=== PATIENT | female | born 1945 | race Caucasian/White ===

== ENCOUNTER 2016-07-27 16:00 | Inpatient (IN) | payer MEDICARE, OTHER ==
[2016-07-27] MEDS ORDERED: NORMAL SALINE 1000 ML 1,000 ML IV ONE (16:13)
[2016-07-27 16:41] LABS: ABSOLUTE EOSINOPHILS # (AUTO) 0.1 10^3/uL (0.0-0.6); ABSOLUTE LYMPHOCYTES (AUTO) 1.8 10^3/uL (0.5-4.7); ABSOLUTE MONOCYTES (AUTO) 1.5 10^3/uL (0.1-1.4); ABSOLUTE NEUT (AUTO) 6.1 10^3/uL (1.7-8.2); BASOPHILS % (AUTO) 0.4 % (0-2); EOSINOPHILS % (AUTO) 1.2 % (0-6); HEMATOCRIT 33.5 % (36.0-47.0); HGB HCT DIFFERENCE -0.5; LYMPHOCYTES % (AUTO) 18.8 % (13-45); MEAN CORPUSCULAR HEMOGLOBIN 31.2 pg (27.0-33.4); MEAN CORPUSCULAR HGB CONC 32.9 g/dL (32.0-36.0); MEAN CORPUSCULAR VOLUME 95 fl (80-97); MONOCYTES % (AUTO) 15.8 % (3-13); RED BLOOD COUNT 3.53 10^6/uL (3.72-5.28); RED CELL DISTRIBUTION WIDTH 14.4 % (11.5-14.0); SEGMENTED NEUTROPHILS % (AUTO) 63.8 % (42-78); WHITE BLOOD COUNT 9.6 10^3/uL (4.0-10.5)
[2016-07-27 16:57] LABS: ANION GAP 15 (5-19); BLOOD UREA NITROGEN 50 mg/dL (7-20); CALCIUM 11.4 mg/dL (8.4-10.2); CARBON DIOXIDE 28 mmol/L (22-30); CHLORIDE 96 mmol/L (98-107); CREATININE RESULT 1.96 mg/dL (0.52-1.25); GLUCOSE 152 mg/dL (75-110); LIPASE 78.8 U/L (23-300); POTASSIUM 4.5 mmol/L (3.6-5.0); SODIUM 139.3 mmol/L (137-145)
[2016-07-27 17:06] LABS: APPEARANCE,URINE CLOUDY; BILIRUBIN,URINE NEGATIVE (NEGATIVE); GLUCOSE, URINE NEGATIVE (NEGATIVE); KETONES,URINE NEGATIVE (NEGATIVE); LEUKOCYTE ESTERASE,URINE LARGE (NEGATIVE); NITRITE,URINE NEGATIVE (NEGATIVE); PROTEIN,URINE 30 mg/dL (NEGATIVE); URINE SPECIFIC GRAVITY 1.013; UROBILINOGEN,URINE NEGATIVE mg/dL (<2.0)
[2016-07-27 17:09] LABS: CREATINE KINASE MB 1.16 ng/mL (<4.55)
[2016-07-27 17:10] LABS: TROPONIN I < 0.012 ng/mL
--- NOTE | 2016-07-27 17:45 | ER Document Report ---
ED General - General Mode of Arrival: Medic Information source: Patient, Emergency Med Personnel TRAVEL OUTSIDE OF THE [place] IN LAST 30 DAYS: No - HPI Patient complains to provider of: Abdominal and Back Pain Onset: Just prior to arrival Associated symptoms: Other - see above <ANN POWELL - Last Filed: 07/27/16 19:22> <PIERRE STREETER - Last Filed: 07/28/16 00:28> - General Chief Complaint: Low Blood Pressure Stated Complaint: CHEST PAIN,URINARY ISSUES Notes: 71 year old female with history of dementia, Parkinson's, diabetes, hyperlipidemia, GERD, COPD, and anemia presents to the ED via EMS from [facility] after the nurses found the patient diaphoretic with a blood pressure of 70/50. In route to the ED, EMS recorded a pressure of 80/50 and 96/ 71. ED nurse states that the patient has been complaining of chest pain, shortness of breath, difficulty urinating, and back pain. Patient states that she was playing bingo when she began to having epigastric abdominal pain. Patient's primary care provider is Dr. Muhammad. A comprehensive HPI was unobtainable secondary to the patient's status. (ANN POWELL) - Related Data Allergies/Adverse Reactions: chlorpromazine HCl [From Thorazine] Allergy (Unknown, Verified 07/27/16 16:58) lithium [[place]] Allergy (Unknown, Verified 07/27/16 16:58) Home Medications: Current Home Medications Acetaminophen [Tylenol Extra Strength 500 mg Tablet] 1,000 mg PO Q8HP PRN [History] Alprazolam [Xanax 0.25 mg Tablet] 0.25 mg PO Q12 07/27/16 [History] Calcium Carbonate/Vitamin D3 [Calcium 500-Vit D3 200 Tablet] 1 tab PO Q12 [History] Ciclopirox [Penlac] 1 applic TOP QHS 07/27/16 [History] Ciclopirox/Ure/Camph/Menth/Euc [Ciclopirox 8% Treatment Kit] 34.6 ml TOP DAILY 07/27/16 [History] Cyanocobalamin (Vitamin B-12) [Vitamin B-12 1000 mcg Tablet] 1,000 mcg PO DAILY 07/27/16 [History] Divalproex Sodium [Divalproex Sodium ER] 250 mg PO Q8 07/27/16 [History] Folic Acid [Folvite 1 mg Tablet] 1 mg PO DAILY 07/27/16 [History] Insulin Aspart [Novolog Insulin (Aspart) 100 unit/mL] 0 units SQ ASDIR PRN 07/27 [History] Levothyroxine Sodium [Synthroid 0.088 mg Tablet] 0.088 mcg PO DAILY 07/27/16 [ History] Linagliptin [Tradjenta] 5 mg PO DAILY 07/27/16 [History] Lisinopril [Prinivil 10 mg Tablet] 10 mg PO DAILY 07/27/16 [History] Loperamide HCl [Imodium A-D] 2 mg PO Q4HP PRN 07/27/16 [History] Metformin HCl [Glucophage] 1,000 mg PO Q12 07/27/16 [History] Olanzapine [Zyprexa] 20 mg PO QHS 07/27/16 [History] Oxcarbazepine [Trileptal 150 mg Tablet] 150 mg PO Q8 07/27/16 [History] Oxybutynin Chloride [Ditropan Xl] 10 mg PO DAILY 07/27/16 [History] Quetiapine Fumarate [Seroquel 25 mg Tablet] 25 mg PO QAM 07/27/16 [History] Quetiapine Fumarate [Seroquel] 75 mg PO QHS 07/27/16 [History] Sennosides/Docusate 8.6-50 mg [Senna Plus Tablet] 1 each PO DAILY 07/27/16 [ History] Thiamine HCl [Thiamine 100 mg Tablet] 100 mg PO DAILY 07/27/16 [History] Tramadol HCl [Ultram 50 mg Tablet] 50 mg PO Q12HP PRN 07/27/16 [History] Past Medical History - General Information source: Patient - Social History Smoking Status: Unknown if Ever Smoked Family History: Reviewed & Not Pertinent, Other - Unknown - Past Medical History Cardiac Medical History: Reports: Hx Hypercholesterolemia, Hx Hypertension Pulmonary Medical History: Reports: Hx Asthma, Hx COPD, Hx Pneumonia Neurological Medical History: Reports: Hx Seizures Endocrine Medical History: Reports: Hx Diabetes Mellitus Type 2, Hx Hypothyroidism GI Medical History: Reports: Hx Gastroesophageal Reflux Disease Psychiatric Medical History: Reports: Hx Bipolar Disorder, Hx Dementia, Hx Depression, Hx Schizophrenia, Other - Parkinson's Past Surgical History: Reports: Hx Tubal Ligation - Immunizations Immunizations up to date: Yes Hx Diphtheria, Pertussis, Tetanus Vaccination: Yes Hx Pneumococcal Vaccination: 04/10/14 <ANN POWELL - Last Filed: 07/27/16 19:22> Review of Systems - Review of Systems Constitutional: See HPI, Diaphoresis EENT: No symptoms reported Cardiovascular: See HPI, Chest pain, Other - low blood pressure Respiratory: See HPI, Short of breath Gastrointestinal: No symptoms reported Genitourinary: See HPI, Dysuria Female Genitourinary: No symptoms reported Musculoskeletal: See HPI, Back pain Skin: No symptoms reported Hematologic/Lymphatic: No symptoms reported Neurological/Psychological: No symptoms reported -: Yes All other systems reviewed and negative <ANN POWELL - Last Filed: 07/27/16 19:22> Physical Exam - Vital signs Interpretation: Hypotensive, Tachycardic - General General appearance: Alert In distress: None - HEENT Head: Normocephalic, Atraumatic Eyes: Normal Conjunctiva: Other - pale. No: Normal Extraocular movements intact: Yes Pupils: PERRL Mucous membranes: Moist - Respiratory Respiratory status: No respiratory distress Breath sounds: Normal - Cardiovascular Rhythm: Regular, Tachycardia Pulses: Normal: Femoral, Popliteal, Posterior tibial, Dorsalis pedis Normal capillary refill: Yes - Abdominal Inspection: Obese. No: Normal Distension: No distension Tenderness: Nontender, Other - no abdominal masses. No: Guarding, Rebound - Back Back: Normal, Nontender - Extremities General upper extremity: Normal inspection, Normal ROM General lower extremity: Normal inspection, Normal ROM - Neurological Neuro grossly intact: Yes Cognition: Normal Orientation: AAOx4 - patient is AOx4 when asked basic questions, but is confused when probed for answers. Parlin Coma Scale Eye Opening: Spontaneous [place] Coma Scale Verbal: Oriented [place] Coma Scale Motor: Obeys Commands [place] Coma Scale Total: 15 Speech: Normal - Psychological Associated symptoms: Other - Patient is demented - Skin Skin Temperature: Warm Skin Moisture: Dry Skin Color: Pale <ANN POWELL - Last Filed: 07/27/16 19:22> Course - Laboratory Result Diagrams: 07/27/16 16:20 07/27/16 16:20 - Consults Dr. Ojebuoboh Time consulted: 18:23 <ANN POWELL - Last Filed: 07/27/16 19:22> - Laboratory Result Diagrams: 07/27/16 16:20 07/27/16 16:20 <PIERRE STREETER - Last Filed: 07/28/16 00:28> - Re-evaluation Re-evalutation: 07/27/16 18:26 I personally performed the services described in the documentation, reviewed and edited the documentation which was dictated to my scribe in my presence, and it accurately records my words and actions. She presents the emergency department from the halfway with a chief complaint of difficulty urinating "reproducible chest pain and low blood pressure upon EMS arrival blood pressure of 80/50 with heart rate of 108 report from the halfway that her urine has smelled foul lately and they're concerned she may have a urinary tract infection. On ED arrival the patient is awake alert with a GCS of 15 but has tears when he tried to ask her detailed questions. Her main complaint here is that she wants to go home. She denies any current pain chest pain or shortness of breath when you ask her detailed questions she is unable to tell you whether she has any chest pain or shortness of breath Thing she told me where she had a little bit discomfort earlier and points to her epigastric region but vehemently denies any chest pain or shortness of breath. On examination her blood pressures improved. She is slightly tachycardic sinus tachycardia on the monitor. She is guaiac-negative from below. She has a white count of 9.6 renal insufficiency at 50 and 1.96 with a lactic acid of 2.5 positive for urinary tract infection. She ordered Rocephin and IV fluids. Reassessed at the bedside after speaking with Dr. Allred obtaining except and she is awake alert no current complaints blood pressure 105 /66, heart rate of 94, respiratory rate of 25. Nurse asking for lotion for primary care to her vaginal area. Cellulitis crepitus or necrosis (PIERRE STREETER) - Vital Signs Vital signs: Temp Pulse Resp BP Pulse Ox 97.3 F 87 17 106/67 100 07/27/16 22:10 07/27/16 22:16 07/27/16 22:10 07/27/16 22:10 07/27/16 22:10 (ANN POWELL) (PIERRE STREETER) - Laboratory Laboratory results interpreted by me: 07/27/16 07/27/16 07/27/16 16:20 16:20 16:46 RBC 3.53 L Hgb 11.0 L Hct 33.5 L RDW 14.4 H Monocytes % 15.8 H Absolute Monocytes 1.5 H Chloride 96 L BUN 50 H Creatinine 1.96 H Est GFR ( Amer) 30 L Est GFR (Non-Af Amer) 25 L Glucose 152 H Lactic Acid Calcium 11.4 H Urine Protein 30 H Ur Leukocyte Esterase LARGE H 07/27/16 17:10 RBC Hgb Hct RDW Monocytes % Absolute Monocytes Chloride BUN Creatinine Est GFR ( Amer) Est GFR (Non-Af Amer) Glucose Lactic Acid 2.5 H Calcium Urine Protein Ur Leukocyte Esterase (ANN POWELL) (PIERRE STREETER) - EKG Interpretation by Me Additional EKG results interpreted by me: 07/27/16 18:31 EKG interpreted by myself to reveal a sinus tachycardia at [address] segment elevation or depression (PIERRE STREETER) - Consults Dr. Muhammad Reason for consultation: 07/27/16 18:23 Dr. Muhammad was called and has accepted the patient. (ANN POWELL) Discharge <ANN POWELL - Last Filed: 07/27/16 19:22> - Discharge Admitting Provider: Jb Unit Admitted: Telemetry <PIERRE STREETER - Last Filed: 07/28/16 00:28> - Discharge Clinical Impression: SIRS (systemic inflammatory response syndrome), hypotension resolved UTI (urinary tract infection) Qualifiers: Urinary tract infection type: acute cystitis Hematuria presence: without hematuria Qualified Code(s): N30.00 - Acute cystitis without hematuria Condition: Stable Disposition: ADMITTED INPATIENT Scribe Documentation - Scribe Written by Mela:: Mela Gregory, 07/27/2016, 19:21 acting as scribe for :: Tahir <ANN POWELL - Last Filed: 07/27/16 19:22>
[2016-07-27] MEDS ORDERED: CEFTRIAXONE INJ 1000 MG VIAL IV ONE (18:21)
[2016-07-27] MEDS ORDERED: NORMAL SALINE 1000 ML 1,000 ML IV PRN (19:37)
[2016-07-27] MEDS ORDERED: ERTAPENEM SODIUM 1 GM in NORMAL SALINE 50 ML IV SCH (19:45)
[2016-07-27] MEDS ORDERED: ERTAPENEM SODIUM 0.5 GM in NORMAL SALINE 50 ML IV SCH (22:00)
[2016-07-27] MEDS: NORMAL SALINE 1000 ML 1,000 ML IV PRN (22:05)
[2016-07-27] MEDS: ERTAPENEM SODIUM 0.5 GM in NORMAL SALINE 50 ML IV SCH (22:06)
[2016-07-27 22:30] LABS: PROTHROMBIN TIME 14.1 SEC (11.4-15.4)
[2016-07-27 22:43] LABS: LIPASE 139.9 U/L (23-300); MAGNESIUM 2.1 mg/dL (1.6-2.3); PHOSPHORUS 4.9 mg/dL (2.5-4.5)
[2016-07-27 22:55] LABS: CREATINE KINASE MB 1.23 ng/mL (<4.55)
[2016-07-27 22:56] LABS: TROPONIN I < 0.012 ng/mL
--- NOTE | 2016-07-27 22:57 | EKG REPORT ---
SEVERITY:- ABNORMAL ECG - SINUS TACHYCARDIA PROBABLE INFERIOR INFARCT, OLD : Confirmed by: Vinay Galloway 27-Jul-2016 22:56:47
[2016-07-28 00:01] LABS: THYROID STIMULATING HORMONE 1.73 uIU/mL (0.47-4.68)
[2016-07-28 04:46] LABS: ABSOLUTE EOSINOPHILS # (AUTO) 0.3 10^3/uL (0.0-0.6); ABSOLUTE LYMPHOCYTES (AUTO) 2.3 10^3/uL (0.5-4.7); ABSOLUTE MONOCYTES (AUTO) 1.7 10^3/uL (0.1-1.4); ABSOLUTE NEUT (AUTO) 4.3 10^3/uL (1.7-8.2); BASOPHILS % (AUTO) 0.3 % (0-2); EOSINOPHILS % (AUTO) 3.6 % (0-6); HEMATOCRIT 29.7 % (36.0-47.0); HEMOGLOBIN 9.9 g/dL (12.0-15.5); LYMPHOCYTES % (AUTO) 26.4 % (13-45); MEAN CORPUSCULAR HGB CONC 33.5 g/dL (32.0-36.0); MEAN CORPUSCULAR VOLUME 95 fl (80-97); MONOCYTES % (AUTO) 19.8 % (3-13); RED BLOOD COUNT 3.11 10^6/uL (3.72-5.28); RED CELL DISTRIBUTION WIDTH 14.1 % (11.5-14.0); SEGMENTED NEUTROPHILS % (AUTO) 49.9 % (42-78); WHITE BLOOD COUNT 8.5 10^3/uL (4.0-10.5)
[2016-07-28 05:33] LABS: ALANINE AMINOTRANSFERASE 28 U/L (9-52); ALBUMIN 3.3 g/dL (3.5-5.0); ALKALINE PHOSPHATASE 51 U/L (38-126); ANION GAP 10 (5-19); ASPARTATE AMINO TRANSFERASE 23 U/L (14-36); BILIRUBIN,TOTAL 0.3 mg/dL (0.2-1.3); BLOOD UREA NITROGEN 45 mg/dL (7-20); CALCIUM 10.2 mg/dL (8.4-10.2); CARBON DIOXIDE 27 mmol/L (22-30); CHLORIDE 102 mmol/L (98-107); CHOLESTEROL 186.18 mg/dL (0-200); CREATININE RESULT 1.27 mg/dL (0.52-1.25); Direct HDL 32 mg/dL (>40); GLUCOSE 94 mg/dL (75-110); POTASSIUM 4.7 mmol/L (3.6-5.0); SODIUM 139.2 mmol/L (137-145); TOTAL PROTEIN 6.4 g/dL (6.3-8.2); TRIGLYCERIDES 264 mg/dL (<150)
[2016-07-28 05:44] LABS: DIRECT LDL 112 mg/dL (<100)
[2016-07-28 05:51] LABS: VLDL CHOLESTEROL 52.8 mg/dL (10-31)
[2016-07-28] MEDS ORDERED: TRAMADOL HCL 50 MG TABLET PO PRN (07:41)
[2016-07-28] MEDS ORDERED: DEXTROSE 40% GEL 15 GM TUBE PO PRN ×2 (07:43)
[2016-07-28] MEDS ORDERED: DEXTROSE 50%-WATER 25 GM/50 ML DISP.SYRIN IV PRN ×2 (07:43)
[2016-07-28] MEDS ORDERED: INSULIN LISPRO 100 UNIT/ML 3 ML VIAL SUBCUT PRN (07:43)
[2016-07-28] MEDS ORDERED: GLUCAGON,HUMAN RECOMB 1 MG INJ IM PRN (07:43)
[2016-07-28] MEDS ORDERED: (PENDING PHARMACY ID) (Quetiapine Fumarate [Seroquel] 75 MG) PO SCH (07:45)
[2016-07-28] MEDS ORDERED: VITAMIN D3 PO SCH (07:45)
[2016-07-28] MEDS ORDERED: [UNRECOGNIZED DRUG - OTHER] PO SCH (07:45)
[2016-07-28] MEDS ORDERED: CALCIUM CARBONATE PO SCH (07:45)
[2016-07-28] MEDS ORDERED: (PENDING PHARMACY ID) (Linagliptin [Tradjenta] 5 MG) PO SCH (07:45)
[2016-07-28] MEDS ORDERED: LEVOTHYROXINE SODIUM 0.088 MG TABLET PO SCH (08:00)
[2016-07-28] MEDS ORDERED: ENOXAPARIN SODIUM INJ 30 MG/0.3 ML DISP.SYRIN SUBCUT SCH (08:00)
[2016-07-28] MEDS ORDERED: DIVALPROEX SODIUM 250 MG TAB.SR.24H PO SCH (08:00)
[2016-07-28] MEDS ORDERED: QUETIAPINE FUMARATE 25 MG TABLET PO ONE ×2 (08:45→10:00)
[2016-07-28] MEDS ORDERED: ENOXAPARIN SODIUM INJ 40 MG/0.4 ML DISP.SYRIN SUBCUT ONE (09:00)
[2016-07-28] MEDS ORDERED: METFORMIN HCL 500 MG TABLET PO ONE (10:00)
[2016-07-28] MEDS ORDERED: DIVALPROEX SODIUM 250 MG TAB.SR.24H PO ONE (10:00)
[2016-07-28] MEDS: THIAMINE HCL 100 MG TABLET PO SCH (11:16)
[2016-07-28] MEDS: ALPRAZOLAM 0.25 MG TABLET PO SCH ×2 (11:16→21:17)
[2016-07-28] MEDS: FOLIC ACID 1 MG TABLET PO SCH (11:16)
[2016-07-28] MEDS: CYANOCOBALAMIN (VITAMIN B-12) 1,000 MCG TABLET PO SCH (11:16)
[2016-07-28] MEDS: CALCIUM CARBONATE 250 MG/VITAMIN D3 125 UNIT TABLET PO SCH (11:18)
[2016-07-28] MEDS: LEVOTHYROXINE SODIUM 0.088 MG TABLET PO SCH (11:19)
[2016-07-28] MEDS: LISINOPRIL 10 MG TABLET PO SCH (11:19)
[2016-07-28] MEDS: OXYBUTYNIN CHLORIDE 5 MG TABLET PO SCH ×2 (11:25→21:17)
--- NOTE | 2016-07-28 11:46 | Physician Advisory Note ---
Physician Advisor ProgressNote .: Pursuant to the plan for [facility], I have reviewed the medical record for this patient. Physician Advisor Statement: Possible documentation opportunities if attending agrees: 1. "Acute Kidney Injury likely due to [ATN, Acute cortical necrosis, medullary necrosis, ...] with baseline Cr of 0.6-0.9" 2. Do you think pt had "early sepsis, present on admission, due to GN UTI, despite neg BCs"? - If so, please be sure to specify the supporting evidence that makes you suspect this dx [severe hypotension, tachycardia, tachypnea, & high lactate level are present, but no mention seen so far of fever, leukocytosis, AMS, thrombocytopenia, hyperbilirubinemia, .... Pt doesn't technically meet SIRS criteria as ED note suggests, since high HR & RR alone aren't sufficient without abnormal Temp or WBC.] - Coders, I would not pursue dx sepsis with query later if attending doesn't document he suspected sepsis in this case. As always, if concerned about any unstable VS or abnormal labs, please comment on them & note what doing about them, & please document each day the potential clinical problems you are concerned could occur if pt not kept in hospital for tx at this time. Discussion: 71yo female w/ chronic co-morbidities including HTN, DM-2, COPD, dementia, Parkinson's Dz, anemia, bipolar dep, schizophrenia - presented 07/27 to ED after found at SNF diaphoretic with BP 70/50. EMS found HR 108 w/BP 80/50. (+) "no distress" but unable to give reliable ROS/hx, tachypneic @ times, persistently tachycardic, no fever/leukocytosis but (+)lactate 2.5, (+)U/A, Cr 1.96 with baseline Cr 0.6-0.9. ED gave IVF bolus. Attending ordered IV ertapenem, NS @70, f/u labs for 07/29. Status: UTI/hypotension/tachycardia, given potential for quick improvement sufficient for d/c the next day after IVF & abx, are typically appropriate for Outpt Obs on day of arrival, with reassessment the next day for change to Inpt vs d/c home. However, this pt is elderly with multiple co-morbidities, & was quite hypotensive initially, with doubled Cr level. After 1MN of care in hospital, although her vital signs have improved overall, pt is still tachycardic at 95, tachypneic at 22, & her Creatinine (1.27 now) has not yet returned to baseline. Ur cx is growing GNRs. She is not yet clearly stabilized sufficiently for safe d/c, and as ill as she was clinically on arrival, attending will want to be certain she is d/c'd on an abx to which this particular infecting organism is definitely sensitive, so will need ur cx results - which will not yet be available today. She continues to need IVF & IV abx with close monitoring for clinical worsening . Given her age & chronic hypertension, her blood vessels are likely stiff, and attending may not want to give as fast an IVF rate in this case as he would in a younger pt with fewer chronic co-morbidities, for fear of producing acute pulmonary edema (particularly given pt's tachypnea that is [id number]). Tx in inpatient hospital setting x at least 2MNs = medically reasonable & necessary to protect pt's health, safety, & medical condition. Appropriate for Inpt status. Thanks for your help with documentation accuracy/specificity improvement! Stephenie Jean Baptiste MD [facility] Physician Advisor, Fellow of Hospital Medicine (An aside: "Admit" now means "Inpt" - we "bring in" for Outpt Obs, then decide to "Admit to Inpt" or to d/c.)
[2016-07-28] MEDS ORDERED: ONDANSETRON HCL INJ/PF 4 MG/2 ML SDV ONE (12:18)
[2016-07-28] MEDS: NORMAL SALINE 1000 ML 1,000 ML IV PRN (12:21)
[2016-07-28] MEDS: OXCARBAZEPINE 150 MG TABLET PO SCH ×2 (14:09→21:17)
[2016-07-28] MEDS: DIVALPROEX SODIUM 250 MG TAB.SR.24H PO SCH ×2 (14:09→21:17)
[2016-07-28] MEDS: METFORMIN HCL 500 MG TABLET PO SCH (17:48)
--- NOTE | 2016-07-28 18:39 | PDOC H&P ---
History of Present Illness Admission Date/PCP: 07/27/16 21:36 ISRA KAY, History of Present Illness: DRE HOPKINS is a 71 year old female with multiple comorbid conditions including schizophrenia, bipolar, diabetes mellitus type II, recurrent urinary tract infection, history of ESBL Escherichia coli UTI, she was transferred from the [facility] to the emergency room because she was found by the nurses to be diaphoretic with low blood pressure reading of 70/50, she apparently was playing bingo in the [facility] when she took ill. EMS was called to [facility] and the blood pressure recorded by EMS was 80/50, when she had arrived in the emergency room she was treated with IV fluid and the blood pressure was responsive to volume replacement. On evaluation in the emergency room she was found to have acute kidney injury, most likely prerenal from low blood pressure , she was also found to have hypercalcemia, probably due to dehydration. The urinalysis was grossly abnormal, chest x-ray showed bibasilar airspace disease, atelectasis versus pneumonia. She also express his chest symptoms of cough, shortness of breath and chest pain. The cough is dry, she was also found to have lactic acidemia suggesting infection versus hypoperfusion probably from low blood pressure. Past Medical History Cardiac Medical History: Reports: Hyperlipidema, Hypertension Pulmonary Medical History: Reports: Asthma, Chronic Obstructive Pulmonary Disease (COPD), Pneumonia Neurological Medical History: Reports: Seizures Endocrine Medical History: Reports: Diabetes Mellitus Type 2, Hypothyroidism GI Medical History: Reports: Gastroesophageal Reflux Disease Musculoskeltal Medical History: Reports: Arthritis - osteoarthritis Psychiatric Medical History: Reports: Bipolar Disorder, Dementia, Depression, Schizoaffective Disorder, Other - Parkinson's Hematology: Reports: Anemia Past Surgical History Past Surgical History: Reports: Tubal Ligation Social History Information Source: Patient Smoking Status: Former Smoker Frequency of Alcohol Use: None Hx Recreational Drug Use: No Hx Prescription Drug Abuse: No - Advance Directive Resuscitation Status: Full Code Family History Family History: Reviewed & Not Pertinent, Other - Unknown Parental Family History Reviewed: Yes Children Family History Reviewed: Yes Sibling(s) Family History Reviewed.: Yes Medication/Allergy Home Medications: Acetaminophen [Tylenol Extra Strength 500 mg Tablet] 1,000 mg PO Q8HP PRN Alprazolam [Xanax 0.25 mg Tablet] 0.25 mg PO Q12 07/27/16 Calcium Carbonate/Vitamin D3 [Calcium 500-Vit D3 200 Tablet] 1 tab PO Q12 Ciclopirox [Penlac] 1 applic TOP QHS 07/27/16 Ciclopirox/Ure/Camph/Menth/Euc [Ciclopirox 8% Treatment Kit] 34.6 ml TOP DAILY 07/27/16 Cyanocobalamin (Vitamin B-12) [Vitamin B-12 1000 mcg Tablet] 1,000 mcg PO DAILY 07/27/16 Divalproex Sodium [Divalproex Sodium ER] 250 mg PO Q8 07/27/16 Folic Acid [Folvite 1 mg Tablet] 1 mg PO DAILY 07/27/16 Insulin Aspart [Novolog Insulin (Aspart) 100 unit/mL] 0 units SQ ASDIR PRN 07/27 Levothyroxine Sodium [Synthroid 0.088 mg Tablet] 0.088 mcg PO DAILY 07/27/16 Linagliptin [Tradjenta] 5 mg PO DAILY 07/27/16 Lisinopril [Prinivil 10 mg Tablet] 10 mg PO DAILY 07/27/16 Loperamide HCl [Imodium A-D] 2 mg PO Q4HP PRN 07/27/16 Metformin HCl [Glucophage] 1,000 mg PO Q12 07/27/16 Olanzapine [Zyprexa] 20 mg PO QHS 07/27/16 Oxcarbazepine [Trileptal 150 mg Tablet] 150 mg PO Q8 07/27/16 Oxybutynin Chloride [Ditropan Xl] 10 mg PO DAILY 07/27/16 Quetiapine Fumarate [Seroquel 25 mg Tablet] 25 mg PO QAM 07/27/16 Quetiapine Fumarate [Seroquel] 75 mg PO QHS 07/27/16 Sennosides/Docusate 8.6-50 mg [Senna Plus Tablet] 1 each PO DAILY 07/27/16 Thiamine HCl [Thiamine 100 mg Tablet] 100 mg PO DAILY 07/27/16 Tramadol HCl [Ultram 50 mg Tablet] 50 mg PO Q12HP PRN 07/27/16 Allergies/Adverse Reactions: chlorpromazine HCl [From Thorazine] Allergy (Unknown, Verified 07/27/16 16:58) lithium [[employer]] Allergy (Unknown, Verified 07/27/16 16:58) Review of Systems Constitutional: PRESENT: chills, fatigue, fever(s) Cardiovascular: PRESENT: chest pain Respiratory: PRESENT: dyspnea Gastrointestinal: ABSENT: abdominal pain, constipation, diarrhea, hematemesis, hematochezia, nausea, vomiting Genitourinary: PRESENT: dysuria Musculoskeletal: PRESENT: back pain Integumentary: ABSENT: rash, wounds Neurological: PRESENT: confusion Psychiatric: PRESENT: depression Physical Exam Vital Signs: Temp Pulse Resp BP Pulse Ox 98.4 F 114 H 20 107/53 L 95 07/28/16 16:00 07/28/16 16:00 07/28/16 16:00 07/28/16 16:00 07/28/16 17:19 Intake & Output 07/27/16 07/28/16 07/29/16 06:59 06:59 06:59 Intake Total 450 987 Balance 450 987 Weight 88.9 kg General appearance: PRESENT: hard of hearing Head exam: PRESENT: atraumatic, normocephalic Eye exam: PRESENT: PERRLA Mouth exam: PRESENT: dry mucosa Neck exam: PRESENT: full ROM Cardiovascular exam: PRESENT: RRR, +S1, +S2 GI/Abdominal exam: PRESENT: soft Rectal exam: PRESENT: deferred Neurological exam: PRESENT: alert, CN II-XII grossly intact Skin exam: PRESENT: dry, intact, warm Results Laboratory Results: 07/28/16 04:03 07/28/16 04:03 07/27/16 07/27/16 07/28/16 22:13 22:13 04:03 WBC RBC Hgb Hct MCV MCH MCHC RDW Plt Count Seg Neutrophils % Lymphocytes % Monocytes % Eosinophils % Basophils % Absolute Neutrophils Absolute Lymphocytes Absolute Monocytes Absolute Eosinophils Absolute Basophils Sodium 139.2 Potassium 4.7 Chloride 102 Carbon Dioxide 27 Anion Gap 10 BUN 45 H Creatinine 1.27 H Est GFR ( Amer) 50 L Est GFR (Non-Af Amer) 41 L Glucose 94 Calcium 10.2 Phosphorus 4.9 H Magnesium 2.1 Total Bilirubin 0.3 AST 23 ALT 28 Alkaline Phosphatase 51 Total Protein 6.4 Albumin 3.3 L Triglycerides 264 H Cholesterol 186.18 LDL Cholesterol Direct 112 H VLDL Cholesterol 52.8 H HDL Cholesterol 32 L Lipase 139.9 TSH 1.73 Free T4 1.28 07/28/16 04:03 WBC 8.5 RBC 3.11 L Hgb 9.9 L Hct 29.7 L MCV 95 MCH 32.0 MCHC 33.5 RDW 14.1 H Plt Count 222 Seg Neutrophils % 49.9 Lymphocytes % 26.4 Monocytes % 19.8 H Eosinophils % 3.6 Basophils % 0.3 Absolute Neutrophils 4.3 Absolute Lymphocytes 2.3 Absolute Monocytes 1.7 H Absolute Eosinophils 0.3 Absolute Basophils 0.0 Sodium Potassium Chloride Carbon Dioxide Anion Gap BUN Creatinine Est GFR ( Amer) Est GFR (Non-Af Amer) Glucose Calcium Phosphorus Magnesium Total Bilirubin AST ALT Alkaline Phosphatase Total Protein Albumin Triglycerides Cholesterol LDL Cholesterol Direct VLDL Cholesterol HDL Cholesterol Lipase TSH Free T4 07/27/16 07/27/16 07/28/16 22:13 22:13 04:03 Creatine Kinase 181 H 159 H CK-MB (CK-2) 1.23 Troponin I < 0.012 NT-Pro-B Natriuret Pep 257 07/28/16 07/28/16 07/28/16 04:03 09:57 09:57 Creatine Kinase 139 H CK-MB (CK-2) Troponin I < 0.012 < 0.012 NT-Pro-B Natriuret Pep Impressions: Chest X-Ray 07/27/16 16:13 IMPRESSION: Bibasilar airspace disease, atelectasis versus pneumonia. Assessment & Plan - Diagnosis (1) Urinary tract infection Qualifiers: Urinary tract infection type: site unspecified Hematuria presence: without hematuria Qualified Code(s): N39.0 - Urinary tract infection, site not specified Is this a current diagnosis for this admission?: YesPlan: She has history of extended spectrum beta-lactamase Escherichia coli UTI, she will empirically be treated with intravenous ertapenem to cover potential ESBL Escherichia coli. (2) Acute kidney injury Is this a current diagnosis for this admission?: YesPlan: This is most likely prerenal acute kidney injury, IV fluids will be given to patient and will monitor kidney function (3) Hypercalcemia Is this a current diagnosis for this admission?: YesPlan: Serum PTH is ordered to rule out PTH mediated hypercalcemia, but it is most likely due to dehydration (4) Pneumonia Qualifiers: Pneumonia type: due to unspecified organism Laterality: unspecified laterality Lung location: unspecified part of lung Qualified Code(s) : J18.9 - Pneumonia, unspecified organism Is this a current diagnosis for this admission?: YesPlan: The chest x-ray suggest pneumonia, versus atelectasis, patient chest symptoms are not very impressive to suggest pneumonia. She may need CT chest to further define the lesion in the chest (5) Hypotension Qualifiers: Hypotension type: unspecified hypotension type Qualified Code(s): I95.9 - Hypotension, unspecified Is this a current diagnosis for this admission?: YesPlan: Patient is most likely due to dehydration from volume loss, the blood pressure was responsive to volume replacement
[2016-07-28] MEDS: ERTAPENEM SODIUM 0.5 GM in NORMAL SALINE 50 ML IV SCH (21:17)
[2016-07-28] MEDS: OLANZAPINE 5 MG TABLET PO SCH (21:17)
[2016-07-28] MEDS: QUETIAPINE FUMARATE 25 MG TABLET PO SCH (21:17)
[2016-07-29] MEDS: NORMAL SALINE 1000 ML 1,000 ML IV PRN ×2 (03:53→20:38)
[2016-07-29 07:45] LABS: ABSOLUTE EOSINOPHILS # (AUTO) 0.1 10^3/uL (0.0-0.6); ABSOLUTE LYMPHOCYTES (AUTO) 1.6 10^3/uL (0.5-4.7); ABSOLUTE MONOCYTES (AUTO) 1.4 10^3/uL (0.1-1.4); ABSOLUTE NEUT (AUTO) 3.9 10^3/uL (1.7-8.2); BASOPHILS % (AUTO) 0.4 % (0-2); EOSINOPHILS % (AUTO) 1.8 % (0-6); HEMATOCRIT 29.9 % (36.0-47.0); HEMOGLOBIN 10.1 g/dL (12.0-15.5); HGB HCT DIFFERENCE 0.4; LYMPHOCYTES % (AUTO) 23.1 % (13-45); MEAN CORPUSCULAR HEMOGLOBIN 31.9 pg (27.0-33.4); MEAN CORPUSCULAR HGB CONC 33.7 g/dL (32.0-36.0); MEAN CORPUSCULAR VOLUME 95 fl (80-97); MONOCYTES % (AUTO) 19.6 % (3-13); RED BLOOD COUNT 3.17 10^6/uL (3.72-5.28); RED CELL DISTRIBUTION WIDTH 14.3 % (11.5-14.0); SEGMENTED NEUTROPHILS % (AUTO) 55.1 % (42-78)
[2016-07-29 07:55] LABS: ALANINE AMINOTRANSFERASE 26 U/L (9-52); ALKALINE PHOSPHATASE 54 U/L (38-126); ANION GAP 11 (5-19); ASPARTATE AMINO TRANSFERASE 23 U/L (14-36); BILIRUBIN,TOTAL 0.2 mg/dL (0.2-1.3); BLOOD UREA NITROGEN 28 mg/dL (7-20); CARBON DIOXIDE 27 mmol/L (22-30); CHLORIDE 105 mmol/L (98-107); CREATININE RESULT 0.84 mg/dL (0.52-1.25); GLUCOSE 101 mg/dL (75-110); POTASSIUM 4.4 mmol/L (3.6-5.0); SODIUM 143.2 mmol/L (137-145); TOTAL PROTEIN 6.2 g/dL (6.3-8.2)
[2016-07-29] MEDS: DIVALPROEX SODIUM 250 MG TAB.SR.24H PO SCH ×3 (07:58→22:01)
[2016-07-29] MEDS: OXCARBAZEPINE 150 MG TABLET PO SCH ×3 (07:58→22:02)
[2016-07-29] MEDS: ONDANSETRON HCL INJ/PF 4 MG/2 ML SDV IV PRN ×2 (08:17→22:02)
[2016-07-29] MEDS: ENOXAPARIN SODIUM INJ 40 MG/0.4 ML DISP.SYRIN SUBCUT SCH (08:17)
[2016-07-29] MEDS: METFORMIN HCL 500 MG TABLET PO SCH ×2 (09:19→17:32)
[2016-07-29] MEDS: QUETIAPINE FUMARATE 25 MG TABLET PO SCH ×2 (09:20→22:02)
[2016-07-29] MEDS: THIAMINE HCL 100 MG TABLET PO SCH (11:03)
[2016-07-29] MEDS: CYANOCOBALAMIN (VITAMIN B-12) 1,000 MCG TABLET PO SCH (11:04)
[2016-07-29] MEDS: SITAGLIPTIN PHOSPHATE 50 MG TABLET PO SCH (11:04)
[2016-07-29] MEDS: LISINOPRIL 10 MG TABLET PO SCH (11:04)
[2016-07-29] MEDS: LEVOTHYROXINE SODIUM 0.088 MG TABLET PO SCH (11:04)
[2016-07-29] MEDS: ALPRAZOLAM 0.25 MG TABLET PO SCH ×2 (11:05→22:01)
[2016-07-29] MEDS: OXYBUTYNIN CHLORIDE 5 MG TABLET PO SCH ×2 (11:05→22:02)
[2016-07-29] MEDS: FOLIC ACID 1 MG TABLET PO SCH (11:05)
[2016-07-29] MEDS: CALCIUM CARBONATE 250 MG/VITAMIN D3 125 UNIT TABLET PO SCH (11:05)
--- NOTE | 2016-07-29 20:07 | PDOC PROGRESS REPORT ---
Subjective Progress Note for:: 07/29/16 Subjective:: Patient was seen by the bedside, she is more responsive and appropriate today, the urine culture grew ESBL Escherichia coli, she was empirically already started on ertapenem because of history of ESBL Escherichia coli, she may need to continue IV antibiotic for 14 days, that may mean she would need a PICC line and then transferred back to intermediate Physical Exam Vital Signs: Temp Pulse Resp BP Pulse Ox 98.6 F 109 H 16 137/67 H 94 07/29/16 15:54 07/29/16 15:54 07/29/16 15:54 07/29/16 15:54 07/29/16 15:54 Intake & Output 07/28/16 07/29/16 07/30/16 06:59 06:59 06:59 Intake Total 450 2297 1500 Output Total 500 Balance 450 1797 1500 Weight 88.9 kg 89 kg General appearance: PRESENT: no acute distress Eye exam: PRESENT: PERRLA Respiratory exam: PRESENT: clear to auscultation juliette Cardiovascular exam: PRESENT: +S1, +S2 GI/Abdominal exam: PRESENT: soft Neurological exam: PRESENT: alert Results Laboratory Results: 07/29/16 06:26 07/29/16 06:26 07/27/16 07/29/16 07/29/16 22:13 06:26 06:26 WBC 7.0 RBC 3.17 L Hgb 10.1 L Hct 29.9 L MCV 95 MCH 31.9 MCHC 33.7 RDW 14.3 H Plt Count 232 Seg Neutrophils % 55.1 Lymphocytes % 23.1 Monocytes % 19.6 H Eosinophils % 1.8 Basophils % 0.4 Absolute Neutrophils 3.9 Absolute Lymphocytes 1.6 Absolute Monocytes 1.4 Absolute Eosinophils 0.1 Absolute Basophils 0.0 Sodium 143.2 Potassium 4.4 Chloride 105 Carbon Dioxide 27 Anion Gap 11 BUN 28 H Creatinine 0.84 Est GFR ( Amer) > 60 Est GFR (Non-Af Amer) > 60 Glucose 101 Calcium 10.0 Total Bilirubin 0.2 AST 23 ALT 26 Alkaline Phosphatase 54 Total Protein 6.2 L Albumin 3.0 L PTH Intact 47 07/27/16 07/27/16 07/28/16 22:13 22:13 04:03 Creatine Kinase 181 H 159 H CK-MB (CK-2) 1.23 Troponin I < 0.012 NT-Pro-B Natriuret Pep 257 07/28/16 07/28/16 07/28/16 04:03 09:57 09:57 Creatine Kinase 139 H CK-MB (CK-2) Troponin I < 0.012 < 0.012 NT-Pro-B Natriuret Pep Impressions: Chest X-Ray 07/27/16 16:13 IMPRESSION: Bibasilar airspace disease, atelectasis versus pneumonia. Chest CT 07/28/16 00:00 IMPRESSION: Mild parenchymal opacities in the lung bases right greater than left. Assessment & Plan - Diagnosis (1) Urinary tract infection due to extended-spectrum beta lactamase (ESBL) producing Escherichia coli Plan: Continue ertapenem (2) Acute kidney injury Is this a current diagnosis for this admission?: Yes (3) Hypercalcemia Is this a current diagnosis for this admission?: Yes (4) Pneumonia Qualifiers: Pneumonia type: due to unspecified organism Laterality: unspecified laterality Lung location: unspecified part of lung Qualified Code(s) : J18.9 - Pneumonia, unspecified organism Is this a current diagnosis for this admission?: Yes (5) Hypotension Qualifiers: Hypotension type: unspecified hypotension type Qualified Code(s): I95.9 - Hypotension, unspecified Is this a current diagnosis for this admission?: Yes
--- NOTE | 2016-07-29 20:08 | PDOC PROGRESS REPORT ---
Subjective Progress Note for:: 07/28/16 Subjective:: CT chest showed parenchyma opacities at the lung bases, right more than left Physical Exam Vital Signs: Temp Pulse Resp BP Pulse Ox 98.4 F 114 H 20 107/53 L 95 07/28/16 16:00 07/28/16 16:00 07/28/16 16:00 07/28/16 16:00 07/28/16 17:19 Intake & Output 07/27/16 07/28/16 07/29/16 06:59 06:59 06:59 Intake Total 450 987 Balance 450 987 Weight 88.9 kg General appearance: PRESENT: no acute distress Eye exam: PRESENT: PERRLA Respiratory exam: PRESENT: rhonchi Cardiovascular exam: PRESENT: +S1, +S2 GI/Abdominal exam: PRESENT: soft Results Laboratory Results: 07/28/16 04:03 07/28/16 04:03 07/27/16 07/27/16 07/28/16 22:13 22:13 04:03 WBC RBC Hgb Hct MCV MCH MCHC RDW Plt Count Seg Neutrophils % Lymphocytes % Monocytes % Eosinophils % Basophils % Absolute Neutrophils Absolute Lymphocytes Absolute Monocytes Absolute Eosinophils Absolute Basophils Sodium 139.2 Potassium 4.7 Chloride 102 Carbon Dioxide 27 Anion Gap 10 BUN 45 H Creatinine 1.27 H Est GFR ( Amer) 50 L Est GFR (Non-Af Amer) 41 L Glucose 94 Calcium 10.2 Phosphorus 4.9 H Magnesium 2.1 Total Bilirubin 0.3 AST 23 ALT 28 Alkaline Phosphatase 51 Total Protein 6.4 Albumin 3.3 L Triglycerides 264 H Cholesterol 186.18 LDL Cholesterol Direct 112 H VLDL Cholesterol 52.8 H HDL Cholesterol 32 L Lipase 139.9 TSH 1.73 Free T4 1.28 07/28/16 04:03 WBC 8.5 RBC 3.11 L Hgb 9.9 L Hct 29.7 L MCV 95 MCH 32.0 MCHC 33.5 RDW 14.1 H Plt Count 222 Seg Neutrophils % 49.9 Lymphocytes % 26.4 Monocytes % 19.8 H Eosinophils % 3.6 Basophils % 0.3 Absolute Neutrophils 4.3 Absolute Lymphocytes 2.3 Absolute Monocytes 1.7 H Absolute Eosinophils 0.3 Absolute Basophils 0.0 Sodium Potassium Chloride Carbon Dioxide Anion Gap BUN Creatinine Est GFR ( Amer) Est GFR (Non-Af Amer) Glucose Calcium Phosphorus Magnesium Total Bilirubin AST ALT Alkaline Phosphatase Total Protein Albumin Triglycerides Cholesterol LDL Cholesterol Direct VLDL Cholesterol HDL Cholesterol Lipase TSH Free T4 07/27/16 07/27/16 07/28/16 22:13 22:13 04:03 Creatine Kinase 181 H 159 H CK-MB (CK-2) 1.23 Troponin I < 0.012 NT-Pro-B Natriuret Pep 257 07/28/16 07/28/16 07/28/16 04:03 09:57 09:57 Creatine Kinase 139 H CK-MB (CK-2) Troponin I < 0.012 < 0.012 NT-Pro-B Natriuret Pep Impressions: Chest X-Ray 07/27/16 16:13 IMPRESSION: Bibasilar airspace disease, atelectasis versus pneumonia. Assessment & Plan - Diagnosis (1) Urinary tract infection Qualifiers: Urinary tract infection type: site unspecified Hematuria presence: without hematuria Qualified Code(s): N39.0 - Urinary tract infection, site not specified Is this a current diagnosis for this admission?: Yes (2) Acute kidney injury Is this a current diagnosis for this admission?: Yes (3) Hypercalcemia Is this a current diagnosis for this admission?: Yes (4) Pneumonia Qualifiers: Pneumonia type: due to unspecified organism Laterality: unspecified laterality Lung location: unspecified part of lung Qualified Code(s) : J18.9 - Pneumonia, unspecified organism Is this a current diagnosis for this admission?: Yes (5) Hypotension Qualifiers: Hypotension type: unspecified hypotension type Qualified Code(s): I95.9 - Hypotension, unspecified Is this a current diagnosis for this admission?: Yes
[2016-07-29] MEDS: OLANZAPINE 5 MG TABLET PO SCH (22:02)
[2016-07-29] MEDS: ERTAPENEM SODIUM 0.5 GM in NORMAL SALINE 50 ML IV SCH (22:02)
[2016-07-30] MEDS: ONDANSETRON HCL INJ/PF 4 MG/2 ML SDV IV PRN (03:32)
[2016-07-30] MEDS: OXCARBAZEPINE 150 MG TABLET PO SCH ×3 (05:21→21:24)
[2016-07-30] MEDS: DIVALPROEX SODIUM 250 MG TAB.SR.24H PO SCH ×3 (05:21→21:24)
[2016-07-30 07:09] LABS: HEMATOCRIT 32.2 % (36.0-47.0); HEMOGLOBIN 10.7 g/dL (12.0-15.5); HGB HCT DIFFERENCE -0.1; MEAN CORPUSCULAR HEMOGLOBIN 31.6 pg (27.0-33.4); MEAN CORPUSCULAR HGB CONC 33.3 g/dL (32.0-36.0); MEAN CORPUSCULAR VOLUME 95 fl (80-97); RED CELL DISTRIBUTION WIDTH 14.4 % (11.5-14.0); WHITE BLOOD COUNT 12.3 10^3/uL (4.0-10.5)
[2016-07-30 07:38] LABS: ALANINE AMINOTRANSFERASE 29 U/L (9-52); ALBUMIN 3.4 g/dL (3.5-5.0); ALKALINE PHOSPHATASE 58 U/L (38-126); ANION GAP 12 (5-19); ASPARTATE AMINO TRANSFERASE 16 U/L (14-36); BILIRUBIN,TOTAL 0.3 mg/dL (0.2-1.3); BLOOD UREA NITROGEN 23 mg/dL (7-20); CALCIUM 9.6 mg/dL (8.4-10.2); CARBON DIOXIDE 23 mmol/L (22-30); CHLORIDE 105 mmol/L (98-107); CREATININE RESULT 0.74 mg/dL (0.52-1.25); GLUCOSE 131 mg/dL (75-110); POTASSIUM 4.4 mmol/L (3.6-5.0); TOTAL PROTEIN 5.8 g/dL (6.3-8.2)
[2016-07-30 07:39] LABS: BAND NEUTROPHILS % (MANUAL) 1 % (3-5); BASOPHILS % (MANUAL) 0 % (0-2); EOSINOPHILS % (MANUAL) 0 % (0-6); LYMPHOCYTES % (MANUAL) 18 % (13-45); TOTAL CELLS COUNTED 100
[2016-07-30 07:41] LABS: HYPOCHROMASIA SLIGHT; TOXIC GRANULATION 1+
[2016-07-30] MEDS: QUETIAPINE FUMARATE 25 MG TABLET PO SCH ×2 (07:55→21:24)
[2016-07-30] MEDS: METFORMIN HCL 500 MG TABLET PO SCH ×2 (07:55→17:23)
[2016-07-30] MEDS: ENOXAPARIN SODIUM INJ 40 MG/0.4 ML DISP.SYRIN SUBCUT SCH (07:55)
[2016-07-30] MEDS: LISINOPRIL 10 MG TABLET PO SCH (10:18)
[2016-07-30] MEDS: CALCIUM CARBONATE 250 MG/VITAMIN D3 125 UNIT TABLET PO SCH (10:18)
[2016-07-30] MEDS: THIAMINE HCL 100 MG TABLET PO SCH (10:18)
[2016-07-30] MEDS: LEVOTHYROXINE SODIUM 0.088 MG TABLET PO SCH (10:18)
[2016-07-30] MEDS: FOLIC ACID 1 MG TABLET PO SCH (10:19)
[2016-07-30] MEDS: SITAGLIPTIN PHOSPHATE 50 MG TABLET PO SCH (10:19)
[2016-07-30] MEDS: ALPRAZOLAM 0.25 MG TABLET PO SCH ×2 (10:19→21:23)
[2016-07-30] MEDS: CYANOCOBALAMIN (VITAMIN B-12) 1,000 MCG TABLET PO SCH (10:19)
[2016-07-30] MEDS: NORMAL SALINE 1000 ML 1,000 ML IV PRN ×2 (10:59→12:02)
[2016-07-30] MEDS: OXYBUTYNIN CHLORIDE 5 MG TABLET PO SCH ×2 (11:30→21:24)
[2016-07-30] MEDS: ERTAPENEM SODIUM 1 GM in NORMAL SALINE 50 ML IV SCH (21:24)
[2016-07-30] MEDS: OLANZAPINE 5 MG TABLET PO SCH (21:24)
[2016-07-31] MEDS: NORMAL SALINE 1000 ML 1,000 ML IV PRN (01:49)
[2016-07-31] MEDS: OXCARBAZEPINE 150 MG TABLET PO SCH ×2 (05:13→14:14)
[2016-07-31] MEDS: DIVALPROEX SODIUM 250 MG TAB.SR.24H PO SCH ×2 (05:13→14:14)
[2016-07-31] MEDS: ENOXAPARIN SODIUM INJ 40 MG/0.4 ML DISP.SYRIN SUBCUT SCH (08:06)
[2016-07-31] MEDS: METFORMIN HCL 500 MG TABLET PO SCH ×2 (08:07→17:10)
[2016-07-31] MEDS: QUETIAPINE FUMARATE 25 MG TABLET PO SCH (08:07)
[2016-07-31] MEDS: CALCIUM CARBONATE 250 MG/VITAMIN D3 125 UNIT TABLET PO SCH (10:40)
[2016-07-31] MEDS: LEVOTHYROXINE SODIUM 0.088 MG TABLET PO SCH (10:40)
[2016-07-31] MEDS: FOLIC ACID 1 MG TABLET PO SCH (10:41)
[2016-07-31] MEDS: CYANOCOBALAMIN (VITAMIN B-12) 1,000 MCG TABLET PO SCH (10:41)
[2016-07-31] MEDS: ALPRAZOLAM 0.25 MG TABLET PO SCH (10:41)
[2016-07-31] MEDS: THIAMINE HCL 100 MG TABLET PO SCH (10:41)
[2016-07-31] MEDS: LISINOPRIL 10 MG TABLET PO SCH (10:41)
[2016-07-31] MEDS: SITAGLIPTIN PHOSPHATE 50 MG TABLET PO SCH (10:42)
[2016-07-31] MEDS: OXYBUTYNIN CHLORIDE 5 MG TABLET PO SCH (10:43)
[2016-07-31] MEDS ORDERED: NORMAL SALINE 10 ML SDV (AFTER EACH USE) IV PRN (13:36)
[2016-07-31 14:12] LABS: PATH REVIEW PATHOLOGIST REVIEWED
--- NOTE | 2016-07-31 22:26 | PDOC PROGRESS REPORT ---
Subjective Progress Note for:: 07/30/16 Subjective:: Patient is vomiting and also have diarrhea KUB done showed distended stomach with gas but no obvious obstruction Physical Exam Vital Signs: Temp Pulse Resp BP Pulse Ox 98.9 F 112 H 14 133/70 H 93 07/30/16 12:19 07/30/16 19:00 07/30/16 12:19 07/30/16 12:19 07/30/16 12:19 Intake & Output 07/29/16 07/30/16 07/31/16 06:59 06:59 06:59 Intake Total 2297 3670 840 Output Total 500 Balance 1797 3670 840 Weight 89 kg 89.1 kg General appearance: PRESENT: no acute distress Eye exam: PRESENT: PERRLA Respiratory exam: PRESENT: clear to auscultation juliette Cardiovascular exam: PRESENT: +S1, +S2 GI/Abdominal exam: PRESENT: firm Neurological exam: PRESENT: alert Results Laboratory Results: 07/30/16 06:57 07/30/16 06:57 07/30/16 07/30/16 06:57 06:57 WBC 12.3 H RBC 3.40 L Hgb 10.7 L Hct 32.2 L MCV 95 MCH 31.6 MCHC 33.3 RDW 14.4 H Plt Count 274 Seg Neutrophils % Not Reportable Lymphocytes % Not Reportable Monocytes % Not Reportable Eosinophils % Not Reportable Basophils % Not Reportable Absolute Neutrophils Not Reportable Absolute Lymphocytes Not Reportable Absolute Monocytes Not Reportable Absolute Eosinophils Not Reportable Absolute Basophils Not Reportable Sodium 140.0 Potassium 4.4 Chloride 105 Carbon Dioxide 23 Anion Gap 12 BUN 23 H Creatinine 0.74 Est GFR ( Amer) > 60 Est GFR (Non-Af Amer) > 60 Glucose 131 H Calcium 9.6 Total Bilirubin 0.3 AST 16 ALT 29 Alkaline Phosphatase 58 Total Protein 5.8 L Albumin 3.4 L 07/27/16 07/27/16 07/28/16 22:13 22:13 04:03 Creatine Kinase 181 H 159 H CK-MB (CK-2) 1.23 Troponin I < 0.012 NT-Pro-B Natriuret Pep 257 07/28/16 07/28/16 07/28/16 04:03 09:57 09:57 Creatine Kinase 139 H CK-MB (CK-2) Troponin I < 0.012 < 0.012 NT-Pro-B Natriuret Pep Impressions: Chest X-Ray 07/27/16 16:13 IMPRESSION: Bibasilar airspace disease, atelectasis versus pneumonia. Chest CT 07/28/16 00:00 IMPRESSION: Mild parenchymal opacities in the lung bases right greater than left. Assessment & Plan - Diagnosis (1) Urinary tract infection Qualifiers: Urinary tract infection type: site unspecified Hematuria presence: without hematuria Qualified Code(s): N39.0 - Urinary tract infection, site not specified Is this a current diagnosis for this admission?: Yes (2) Acute kidney injury Is this a current diagnosis for this admission?: Yes (3) Hypercalcemia Is this a current diagnosis for this admission?: Yes (4) Pneumonia Qualifiers: Pneumonia type: due to unspecified organism Laterality: unspecified laterality Lung location: unspecified part of lung Qualified Code(s) : J18.9 - Pneumonia, unspecified organism Is this a current diagnosis for this admission?: Yes (5) Hypotension Qualifiers: Hypotension type: unspecified hypotension type Qualified Code(s): I95.9 - Hypotension, unspecified Is this a current diagnosis for this admission?: Yes (6) Vomiting Qualifiers: Vomiting type: projectile vomiting Nausea presence: unspecified Qualified Code(s): R11.12 - Projectile vomiting Is this a current diagnosis for this admission?: Yes (7) Diarrhea Qualifiers: Diarrhea type: unspecified type Qualified Code(s): R19.7 - Diarrhea , unspecified Is this a current diagnosis for this admission?: Yes (8) UTI due to extended-spectrum beta lactamase (ESBL) producing Escherichia coli Is this a current diagnosis for this admission?: YesPlan: Continue IV ertapenem
--- NOTE | 2016-07-31 22:31 | PDOC PROGRESS REPORT ---
Subjective Progress Note for:: 07/31/16 Subjective:: Patient was seen by the bedside, she will continue IV antibiotic Physical Exam Vital Signs: Temp Pulse Resp BP Pulse Ox 98.4 F 112 H 17 114/67 94 07/31/16 19:30 07/31/16 19:30 07/31/16 19:30 07/31/16 19:30 07/31/16 19:30 Intake & Output 07/30/16 07/31/16 08/01/16 06:59 06:59 06:59 Intake Total 3670 1852 790 Balance 3670 1852 790 Weight 89.1 kg 89.1 kg General appearance: PRESENT: no acute distress Eye exam: PRESENT: PERRLA Respiratory exam: PRESENT: clear to auscultation juliette Cardiovascular exam: PRESENT: +S1, +S2 GI/Abdominal exam: PRESENT: firm Results Laboratory Results: 07/30/16 06:57 07/30/16 06:57 07/30/16 06:57 WBC 12.3 H RBC 3.40 L Hgb 10.7 L Hct 32.2 L MCV 95 MCH 31.6 MCHC 33.3 RDW 14.4 H Plt Count 274 07/27/16 07/27/16 07/28/16 22:13 22:13 04:03 Creatine Kinase 181 H 159 H CK-MB (CK-2) 1.23 Troponin I < 0.012 NT-Pro-B Natriuret Pep 257 07/28/16 07/28/16 07/28/16 04:03 09:57 09:57 Creatine Kinase 139 H CK-MB (CK-2) Troponin I < 0.012 < 0.012 NT-Pro-B Natriuret Pep Impressions: Chest X-Ray 07/27/16 16:13 IMPRESSION: Bibasilar airspace disease, atelectasis versus pneumonia. Chest CT 07/28/16 00:00 IMPRESSION: Mild parenchymal opacities in the lung bases right greater than left. KUB X-Ray 07/30/16 00:00 IMPRESSION: Marked gas distention of the stomach, measuring 27 cm transverse dimension. Otherwise Scattered non-dilated small bowel loops. Guidance Fluoroscopy 07/31/16 00:00 IMPRESSION: SUCCESSFUL PLACEMENT OF A 5 FR DUAL LUMEN 42 CM PICC IN THE left basilic VEIN. Interventional Vascular Procedure 07/31/16 00:00 IMPRESSION: SUCCESSFUL PLACEMENT OF A 5 FR DUAL LUMEN 42 CM PICC IN THE left basilic VEIN. PICC Line Insertion 07/31/16 00:00 IMPRESSION: SUCCESSFUL PLACEMENT OF A 5 FR DUAL LUMEN 42 CM PICC IN THE left basilic VEIN. Assessment & Plan - Diagnosis (1) UTI due to extended-spectrum beta lactamase (ESBL) producing Escherichia coli Is this a current diagnosis for this admission?: Yes (2) Urinary tract infection Qualifiers: Urinary tract infection type: site unspecified Hematuria presence: without hematuria Qualified Code(s): N39.0 - Urinary tract infection, site not specified Is this a current diagnosis for this admission?: Yes (3) Acute kidney injury Is this a current diagnosis for this admission?: Yes (4) Hypercalcemia Is this a current diagnosis for this admission?: Yes (5) Pneumonia Qualifiers: Pneumonia type: due to unspecified organism Laterality: unspecified laterality Lung location: unspecified part of lung Qualified Code(s) : J18.9 - Pneumonia, unspecified organism Is this a current diagnosis for this admission?: Yes (6) Hypotension Qualifiers: Hypotension type: unspecified hypotension type Qualified Code(s): I95.9 - Hypotension, unspecified Is this a current diagnosis for this admission?: Yes (7) Vomiting Qualifiers: Vomiting type: projectile vomiting Nausea presence: unspecified Qualified Code(s): R11.12 - Projectile vomiting Is this a current diagnosis for this admission?: Yes (8) Diarrhea Qualifiers: Diarrhea type: unspecified type Qualified Code(s): R19.7 - Diarrhea , unspecified Is this a current diagnosis for this admission?: Yes
[2016-08-01] MEDS: QUETIAPINE FUMARATE 25 MG TABLET PO SCH ×2 (00:03→08:09)
[2016-08-01] MEDS: ALPRAZOLAM 0.25 MG TABLET PO SCH ×2 (00:03→10:58)
[2016-08-01] MEDS: OLANZAPINE 5 MG TABLET PO SCH (00:03)
[2016-08-01] MEDS: NORMAL SALINE 10 ML SDV (SCHEDULED) IV SCH ×2 (00:04→10:54)
[2016-08-01] MEDS: DIVALPROEX SODIUM 250 MG TAB.SR.24H PO SCH ×3 (00:04→14:22)
[2016-08-01] MEDS: OXYBUTYNIN CHLORIDE 5 MG TABLET PO SCH ×2 (00:04→10:53)
[2016-08-01] MEDS: OXCARBAZEPINE 150 MG TABLET PO SCH ×3 (00:04→14:22)
[2016-08-01] MEDS: ERTAPENEM SODIUM 1 GM in NORMAL SALINE 50 ML IV SCH (00:05)
[2016-08-01] MEDS: NORMAL SALINE 1000 ML 1,000 ML IV PRN ×2 (00:25→16:27)
[2016-08-01] MEDS: ENOXAPARIN SODIUM INJ 40 MG/0.4 ML DISP.SYRIN SUBCUT SCH (08:09)
[2016-08-01] MEDS: METFORMIN HCL 500 MG TABLET PO SCH ×2 (08:09→17:10)
[2016-08-01] MEDS: LISINOPRIL 10 MG TABLET PO SCH (10:52)
[2016-08-01] MEDS: FOLIC ACID 1 MG TABLET PO SCH (10:52)
[2016-08-01] MEDS: SITAGLIPTIN PHOSPHATE 50 MG TABLET PO SCH (10:52)
[2016-08-01] MEDS: CALCIUM CARBONATE 250 MG/VITAMIN D3 125 UNIT TABLET PO SCH (10:53)
[2016-08-01] MEDS: CYANOCOBALAMIN (VITAMIN B-12) 1,000 MCG TABLET PO SCH (10:53)
[2016-08-01] MEDS: THIAMINE HCL 100 MG TABLET PO SCH (10:53)
[2016-08-01] MEDS: LEVOTHYROXINE SODIUM 0.088 MG TABLET PO SCH (10:56)
--- NOTE | 2016-08-01 12:55 | PDOC PROGRESS REPORT ---
Subjective Progress Note for:: 08/01/16 Subjective:: Oral intake remain poor due to intermittent episode of nausea and vomiting. Reported epigastric region discomfort. Diarrhea is improving. Denied difficulty with breathing or chest pain. There is reported low grade fever. Physical Exam Vital Signs: Temp Pulse Resp BP Pulse Ox 99.3 F 131 H 20 124/70 94 08/01/16 07:32 08/01/16 07:32 08/01/16 07:32 08/01/16 07:32 08/01/16 07:32 Intake & Output 07/31/16 08/01/16 08/02/16 06:59 06:59 06:59 Intake Total 1851966 Balance 185 1967 Weight 89.1 kg 89.1 kg General appearance: PRESENT: no acute distress, well-developed, well-nourished Head exam: PRESENT: atraumatic, normocephalic Eye exam: PRESENT: conjunctiva pink, EOMI, PERRLA Respiratory exam: ABSENT: accessory muscle use, chest wall tenderness, clear to auscultation juliette, crackles, decreased breath sounds, prolonged expiratory phas, rales, retraction, rhonchi, stridor, symmetrical, tachypnea, unlabored, wheezes , other Cardiovascular exam: PRESENT: RRR. ABSENT: diastolic murmur, rubs, systolic murmur GI/Abdominal exam: PRESENT: normal bowel sounds, soft. ABSENT: distended, guarding, mass, organolmegaly, rebound, tenderness Extremities exam: PRESENT: full ROM Musculoskeletal exam: PRESENT: full ROM Neurological exam: PRESENT: alert, awake Psychiatric exam: PRESENT: appropriate affect, normal mood. ABSENT: homicidal ideation, suicidal ideation Results Laboratory Results: 07/30/16 06:57 07/30/16 06:57 07/30/16 06:57 WBC 12.3 H RBC 3.40 L Hgb 10.7 L Hct 32.2 L MCV 95 MCH 31.6 MCHC 33.3 RDW 14.4 H Plt Count 274 07/27/16 07/27/16 07/28/16 22:13 22:13 04:03 Creatine Kinase 181 H 159 H CK-MB (CK-2) 1.23 Troponin I < 0.012 NT-Pro-B Natriuret Pep 257 07/28/16 07/28/16 07/28/16 04:03 09:57 09:57 Creatine Kinase 139 H CK-MB (CK-2) Troponin I < 0.012 < 0.012 NT-Pro-B Natriuret Pep Impressions: Chest X-Ray 07/27/16 16:13 IMPRESSION: Bibasilar airspace disease, atelectasis versus pneumonia. Chest CT 07/28/16 00:00 IMPRESSION: Mild parenchymal opacities in the lung bases right greater than left. KUB X-Ray 07/30/16 00:00 IMPRESSION: Marked gas distention of the stomach, measuring 27 cm transverse dimension. Otherwise Scattered non-dilated small bowel loops. Guidance Fluoroscopy 07/31/16 00:00 IMPRESSION: SUCCESSFUL PLACEMENT OF A 5 FR DUAL LUMEN 42 CM PICC IN THE left basilic VEIN. Interventional Vascular Procedure 07/31/16 00:00 IMPRESSION: SUCCESSFUL PLACEMENT OF A 5 FR DUAL LUMEN 42 CM PICC IN THE left basilic VEIN. PICC Line Insertion 07/31/16 00:00 IMPRESSION: SUCCESSFUL PLACEMENT OF A 5 FR DUAL LUMEN 42 CM PICC IN THE left basilic VEIN. Assessment & Plan - Diagnosis (1) Pneumonia Qualifiers: Pneumonia type: due to unspecified organism Laterality: unspecified laterality Lung location: unspecified part of lung Qualified Code(s) : J18.9 - Pneumonia, unspecified organism Is this a current diagnosis for this admission?: Yes (2) UTI (urinary tract infection) Qualifiers: Urinary tract infection type: acute cystitis Hematuria presence: without hematuria Qualified Code(s): N30.00 - Acute cystitis without hematuria (3) Diarrhea Qualifiers: Diarrhea type: unspecified type Qualified Code(s): R19.7 - Diarrhea , unspecified Is this a current diagnosis for this admission?: YesPlan: Obtain C.difficile toxic titer, WBC smear and culture for further evaluation of her diarrhea. (4) Vomiting Qualifiers: Vomiting type: unspecified Nausea presence: unspecified Is this a current diagnosis for this admission?: YesPlan: Maintain on Zofran therapy. Encouraged increase p.o intake.
[2016-08-01] MEDS ORDERED: METRONIDAZOLE 500 MG TABLET PO ONE (16:15)
[2016-08-01 20:54] LABS: HEMATOCRIT 31.5 % (36.0-47.0); HEMOGLOBIN 9.9 g/dL (12.0-15.5); HGB HCT DIFFERENCE -1.8; MEAN CORPUSCULAR HEMOGLOBIN 30.7 pg (27.0-33.4); MEAN CORPUSCULAR HGB CONC 31.5 g/dL (32.0-36.0); MEAN CORPUSCULAR VOLUME 98 fl (80-97); RED BLOOD COUNT 3.22 10^6/uL (3.72-5.28); RED CELL DISTRIBUTION WIDTH 14.5 % (11.5-14.0); WHITE BLOOD COUNT 19.9 10^3/uL (4.0-10.5)
[2016-08-01 21:09] LABS: ANION GAP 11 (5-19); BLOOD UREA NITROGEN 21 mg/dL (7-20); CALCIUM 9.2 mg/dL (8.4-10.2); CARBON DIOXIDE 25 mmol/L (22-30); CHLORIDE 105 mmol/L (98-107); CREATINE KINASE 36 U/L (30-135); CREATININE RESULT 0.77 mg/dL (0.52-1.25); GLUCOSE 126 mg/dL (75-110); MAGNESIUM 1.5 mg/dL (1.6-2.3); SODIUM 140.5 mmol/L (137-145)
[2016-08-01 21:35] LABS: CREATINE KINASE MB 0.42 ng/mL (<4.55)
[2016-08-01 21:37] LABS: TROPONIN I < 0.012 ng/mL
[2016-08-02] MEDS: QUETIAPINE FUMARATE 25 MG TABLET PO SCH ×2 (00:49→09:05)
[2016-08-02] MEDS: OXCARBAZEPINE 150 MG TABLET PO SCH ×3 (00:50→16:20)
[2016-08-02] MEDS: OXYBUTYNIN CHLORIDE 5 MG TABLET PO SCH ×2 (00:50→11:10)
[2016-08-02] MEDS: DIVALPROEX SODIUM 250 MG TAB.SR.24H PO SCH ×3 (00:50→16:20)
[2016-08-02] MEDS: NORMAL SALINE 10 ML SDV (SCHEDULED) IV SCH ×2 (00:50→11:11)
[2016-08-02] MEDS: METRONIDAZOLE 500 MG TABLET PO SCH ×2 (00:51→05:40)
[2016-08-02] MEDS: OLANZAPINE 5 MG TABLET PO SCH (00:51)
[2016-08-02] MEDS: ALPRAZOLAM 0.25 MG TABLET PO SCH ×2 (00:51→11:07)
[2016-08-02] MEDS: ERTAPENEM SODIUM 1 GM in NORMAL SALINE 50 ML IV SCH (00:51)
[2016-08-02] MEDS: NORMAL SALINE 1000 ML 1,000 ML IV PRN ×2 (05:40→16:39)
[2016-08-02] MEDS: METFORMIN HCL 500 MG TABLET PO SCH ×2 (09:06→16:19)
[2016-08-02] MEDS: ENOXAPARIN SODIUM INJ 40 MG/0.4 ML DISP.SYRIN SUBCUT SCH (09:06)
--- NOTE | 2016-08-02 10:05 | EKG REPORT ---
SEVERITY:- ABNORMAL ECG - SINUS TACHYCARDIA PROBABLE INFERIOR INFARCT, AGE INDETERMINATE : Confirmed by: Lisa Spangler MD 02-Aug-2016 10:04:41
[2016-08-02] MEDS: LISINOPRIL 10 MG TABLET PO SCH (11:07)
[2016-08-02] MEDS: SITAGLIPTIN PHOSPHATE 50 MG TABLET PO SCH (11:07)
[2016-08-02] MEDS: FOLIC ACID 1 MG TABLET PO SCH (11:08)
[2016-08-02] MEDS: CALCIUM CARBONATE 250 MG/VITAMIN D3 125 UNIT TABLET PO SCH (11:08)
[2016-08-02] MEDS: THIAMINE HCL 100 MG TABLET PO SCH (11:08)
[2016-08-02] MEDS: CYANOCOBALAMIN (VITAMIN B-12) 1,000 MCG TABLET PO SCH (11:08)
[2016-08-02] MEDS: LEVOTHYROXINE SODIUM 0.088 MG TABLET PO SCH (11:08)
--- NOTE | 2016-08-02 11:09 | PDOC PROGRESS REPORT ---
Subjective Progress Note for:: 08/02/16 Subjective:: Improving oral intake. No nausea and vomiting. Diarrhea is improving but persist. Denied difficulty with breathing or chest pain. There is reported stool C. difficile toxin positive status since last clinical evaluation. Patient was started on Flagyl oral therapy. No significant fever but there is worsening leukocytosis. Physical Exam Vital Signs: Temp Pulse Resp BP Pulse Ox 98.7 F 115 H 16 137/72 H 100 08/02/16 08:00 08/02/16 08:00 08/02/16 08:00 08/02/16 08:00 08/02/16 08:00 Intake & Output 08/01/16 08/02/16 08/03/16 06:59 06:59 06:59 Intake Total 1967 2282 Balance 1967 2282 Weight 89.1 kg 89.6 kg General appearance: PRESENT: no acute distress, obese, well-developed, well- nourished Head exam: PRESENT: atraumatic, normocephalic Eye exam: PRESENT: conjunctiva pink, EOMI, PERRLA Mouth exam: PRESENT: moist, tongue midline Respiratory exam: ABSENT: accessory muscle use, chest wall tenderness, clear to auscultation juliette, crackles, decreased breath sounds, prolonged expiratory phas, rales, retraction, rhonchi, stridor, symmetrical, tachypnea, unlabored, wheezes , other Cardiovascular exam: PRESENT: RRR. ABSENT: diastolic murmur, rubs, systolic murmur GI/Abdominal exam: PRESENT: normal bowel sounds, soft. ABSENT: distended, guarding, mass, organolmegaly, rebound, tenderness Extremities exam: PRESENT: full ROM Musculoskeletal exam: PRESENT: full ROM, normal inspection Neurological exam: PRESENT: alert, awake, oriented to person, oriented to place , oriented to time, oriented to situation, CN II-XII grossly intact. ABSENT: motor sensory deficit Psychiatric exam: PRESENT: appropriate affect, normal mood. ABSENT: homicidal ideation, suicidal ideation Skin exam: PRESENT: dry, intact, warm. ABSENT: cyanosis, rash Results Laboratory Results: 08/01/16 20:26 08/01/16 20:26 08/01/16 08/01/16 08/01/16 14:05 14:05 20:26 WBC RBC Hgb Hct MCV MCH MCHC RDW Plt Count Sodium 140.5 Potassium 4.0 Chloride 105 Carbon Dioxide 25 Anion Gap 11 BUN 21 H Creatinine 0.77 Est GFR ( Amer) > 60 Est GFR (Non-Af Amer) > 60 Glucose 126 H Calcium 9.2 Magnesium 1.5 L Stool Occult Blood POSITIVE Stool for White Cells NO WBCs SEEN 08/01/16 20:26 WBC 19.9 H RBC 3.22 L Hgb 9.9 L Hct 31.5 L MCV 98 H MCH 30.7 MCHC 31.5 L RDW 14.5 H Plt Count 293 Sodium Potassium Chloride Carbon Dioxide Anion Gap BUN Creatinine Est GFR ( Amer) Est GFR (Non-Af Amer) Glucose Calcium Magnesium Stool Occult Blood Stool for White Cells 07/27/16 07/27/16 07/28/16 22:13 22:13 04:03 Creatine Kinase 181 H 159 H CK-MB (CK-2) 1.23 Troponin I < 0.012 NT-Pro-B Natriuret Pep 257 07/28/16 07/28/16 07/28/16 04:03 09:57 09:57 Creatine Kinase 139 H CK-MB (CK-2) Troponin I < 0.012 < 0.012 NT-Pro-B Natriuret Pep 08/01/16 08/01/16 20:26 20:43 Creatine Kinase 36 CK-MB (CK-2) 0.42 Troponin I < 0.012 NT-Pro-B Natriuret Pep Impressions: Chest X-Ray 07/27/16 16:13 IMPRESSION: Bibasilar airspace disease, atelectasis versus pneumonia. Chest CT 07/28/16 00:00 IMPRESSION: Mild parenchymal opacities in the lung bases right greater than left. KUB X-Ray 07/30/16 00:00 IMPRESSION: Marked gas distention of the stomach, measuring 27 cm transverse dimension. Otherwise Scattered non-dilated small bowel loops. Guidance Fluoroscopy 07/31/16 00:00 IMPRESSION: SUCCESSFUL PLACEMENT OF A 5 FR DUAL LUMEN 42 CM PICC IN THE left basilic VEIN. Interventional Vascular Procedure 07/31/16 00:00 IMPRESSION: SUCCESSFUL PLACEMENT OF A 5 FR DUAL LUMEN 42 CM PICC IN THE left basilic VEIN. PICC Line Insertion 07/31/16 00:00 IMPRESSION: SUCCESSFUL PLACEMENT OF A 5 FR DUAL LUMEN 42 CM PICC IN THE left basilic VEIN. Assessment & Plan - Diagnosis (1) Pneumonia Qualifiers: Pneumonia type: due to unspecified organism Laterality: unspecified laterality Lung location: unspecified part of lung Qualified Code(s) : J18.9 - Pneumonia, unspecified organism Is this a current diagnosis for this admission?: Yes (2) UTI (urinary tract infection) Qualifiers: Urinary tract infection type: acute cystitis Hematuria presence: without hematuria Qualified Code(s): N30.00 - Acute cystitis without hematuria (3) Diarrhea Qualifiers: Diarrhea type: unspecified type Qualified Code(s): R19.7 - Diarrhea , unspecified Is this a current diagnosis for this admission?: Yes (4) Vomiting Qualifiers: Vomiting type: unspecified Nausea presence: unspecified Is this a current diagnosis for this admission?: Yes (5) C. difficile colitis Is this a current diagnosis for this admission?: NoPlan: I will change her management to IV Metronidazole and oral Vacomycin in view of her worsening leukocytosis and persistent diarrhea. (6) Hypomagnesemia Is this a current diagnosis for this admission?: NoPlan: Patient will receive magnesium replacement therapy. - Time Time Spent with patient: 25-34 minutes Medications reviewed and adjusted accordingly: Yes Anticipated discharge: Other - SNF Within: Other - Inpatient Certification Medical Necessity: Need For IV Fluids, Need For Continuous Telemetry Monitoring , Need for IV Antibiotics, Risk of Complication if Not Cared For in Hospital Post Hospital Care: D/C [employer] Documentation - Plan Summary Plan Summary: see covering physician orders
[2016-08-02] MEDS: METRONIDAZOLE 500 MG/NS RTU 100 ML IV SCH ×2 (12:00→17:47)
[2016-08-02] MEDS: VANCOMYCIN HCL INJ 500 MG VIAL PO SCH ×2 (12:00→17:48)
[2016-08-02] MEDS: MAGNESIUM SULFATE/D5W 1 GM/100 ML RTUPB IV SCH ×2 (12:55→12:57)
[2016-08-02] MEDS: NYSTATIN CREAM 15 GM TP SCH (16:20)
[2016-08-03] MEDS: ERTAPENEM SODIUM 1 GM in NORMAL SALINE 50 ML IV SCH (00:32)
[2016-08-03] MEDS: OXYBUTYNIN CHLORIDE 5 MG TABLET PO SCH ×2 (00:33→10:51)
[2016-08-03] MEDS: OLANZAPINE 5 MG TABLET PO SCH (00:33)
[2016-08-03] MEDS: QUETIAPINE FUMARATE 25 MG TABLET PO SCH ×2 (00:33→08:13)
[2016-08-03] MEDS: NORMAL SALINE 10 ML SDV (SCHEDULED) IV SCH ×2 (00:33→10:12)
[2016-08-03] MEDS: ALPRAZOLAM 0.25 MG TABLET PO SCH ×2 (00:33→10:13)
[2016-08-03] MEDS: OXCARBAZEPINE 150 MG TABLET PO SCH ×3 (00:33→13:47)
[2016-08-03] MEDS: DIVALPROEX SODIUM 250 MG TAB.SR.24H PO SCH ×3 (01:03→13:47)
[2016-08-03] MEDS: NYSTATIN CREAM 15 GM TP SCH ×4 (01:03→14:44)
[2016-08-03] MEDS: METRONIDAZOLE 500 MG/NS RTU 100 ML IV SCH ×4 (02:18→18:10)
[2016-08-03] MEDS: VANCOMYCIN HCL INJ 500 MG VIAL PO SCH ×4 (02:18→19:54)
[2016-08-03] MEDS: ENOXAPARIN SODIUM INJ 40 MG/0.4 ML DISP.SYRIN SUBCUT SCH (08:13)
[2016-08-03] MEDS: METFORMIN HCL 500 MG TABLET PO SCH ×2 (08:13→18:09)
[2016-08-03] MEDS: CALCIUM CARBONATE 250 MG/VITAMIN D3 125 UNIT TABLET PO SCH (10:12)
[2016-08-03] MEDS: LISINOPRIL 10 MG TABLET PO SCH (10:13)
[2016-08-03] MEDS: THIAMINE HCL 100 MG TABLET PO SCH (10:13)
[2016-08-03] MEDS: CYANOCOBALAMIN (VITAMIN B-12) 1,000 MCG TABLET PO SCH (10:13)
[2016-08-03] MEDS: SITAGLIPTIN PHOSPHATE 50 MG TABLET PO SCH (10:13)
[2016-08-03] MEDS: LEVOTHYROXINE SODIUM 0.088 MG TABLET PO SCH (10:13)
[2016-08-03] MEDS: FOLIC ACID 1 MG TABLET PO SCH (10:13)
[2016-08-03] MEDS: NORMAL SALINE 1000 ML 1,000 ML IV PRN (10:14)
[2016-08-03 12:11] LABS: ABSOLUTE BASOPHILS # (AUTO) 0.1 10^3/uL (0.0-0.2); ABSOLUTE EOSINOPHILS # (AUTO) 0.6 10^3/uL (0.0-0.6); ABSOLUTE LYMPHOCYTES (AUTO) 2.2 10^3/uL (0.5-4.7); ABSOLUTE MONOCYTES (AUTO) 1.5 10^3/uL (0.1-1.4); ABSOLUTE NEUT (AUTO) 7.6 10^3/uL (1.7-8.2); HEMATOCRIT 28.4 % (36.0-47.0); HGB HCT DIFFERENCE -1.4; MEAN CORPUSCULAR HEMOGLOBIN 31.2 pg (27.0-33.4); MEAN CORPUSCULAR HGB CONC 31.7 g/dL (32.0-36.0); MEAN CORPUSCULAR VOLUME 98 fl (80-97); MONOCYTES % (AUTO) 12.4 % (3-13); RED BLOOD COUNT 2.89 10^6/uL (3.72-5.28); RED CELL DISTRIBUTION WIDTH 14.6 % (11.5-14.0); SEGMENTED NEUTROPHILS % (AUTO) 63.6 % (42-78)
[2016-08-03 12:57] LABS: ANION GAP 9 (5-19); BLOOD UREA NITROGEN 16 mg/dL (7-20); CALCIUM 7.3 mg/dL (8.4-10.2); CARBON DIOXIDE 20 mmol/L (22-30); CHLORIDE 116 mmol/L (98-107); CREATININE RESULT 0.61 mg/dL (0.52-1.25); GLUCOSE 76 mg/dL (75-110); MAGNESIUM 1.4 mg/dL (1.6-2.3); SODIUM 144.7 mmol/L (137-145)
[2016-08-03 13:03] LABS: POTASSIUM 2.8 mmol/L (3.6-5.0)
[2016-08-03] MEDS ORDERED: POTASSI CL 20 MEQ/50 ML RIDER 50 ML IV ONE (14:45)
--- NOTE | 2016-08-03 15:58 | PDOC TRANSFER SUMMARY ---
General - Admit/Disc Date/PCP Admission Date/Primary Care Provider: 07/27/16 21:36 ISRA KAY, Discharge Date: 08/03/16 - Discharge Diagnosis (1) UTI due to extended-spectrum beta lactamase (ESBL) producing Escherichia coli Is this a current diagnosis for this admission?: Yes (2) Acute kidney injury Is this a current diagnosis for this admission?: Yes (3) Hypercalcemia Is this a current diagnosis for this admission?: Yes (4) Hypotension Is this a current diagnosis for this admission?: Yes (5) Vomiting Is this a current diagnosis for this admission?: Yes (6) Diarrhea Is this a current diagnosis for this admission?: Yes (8) Hypothyroidism Is this a current diagnosis for this admission?: Yes - Additional Information Resuscitation Status: Full Code Home Medications: Acetaminophen [Tylenol Extra Strength 500 mg Tablet] 1,000 mg PO Q8HP PRN Alprazolam [Xanax 0.25 mg Tablet] 0.25 mg PO Q12 07/27/16 Calcium Carbonate/Vitamin D3 [Calcium 500-Vit D3 200 Tablet] 1 tab PO Q12 Ciclopirox/Ure/Camph/Menth/Euc [Ciclopirox 8% Treatment Kit] 34.6 ml TOP DAILY 07/27/16 Cyanocobalamin (Vitamin B-12) [Vitamin B-12 1000 mcg Tablet] 1,000 mcg PO DAILY 07/27/16 Divalproex Sodium [Divalproex Sodium ER] 250 mg PO Q8 07/27/16 Folic Acid [Folvite 1 mg Tablet] 1 mg PO DAILY 07/27/16 Insulin Aspart [Novolog Insulin (Aspart) 100 unit/mL] 0 units SQ ASDIR PRN 07/27 Levothyroxine Sodium [Synthroid 0.088 mg Tablet] 0.088 mcg PO DAILY 07/27/16 Linagliptin [Tradjenta] 5 mg PO DAILY 07/27/16 Lisinopril [Prinivil 10 mg Tablet] 10 mg PO DAILY 07/27/16 Metformin HCl [Glucophage] 1,000 mg PO Q12 07/27/16 Olanzapine [Zyprexa] 20 mg PO QHS 07/27/16 Oxcarbazepine [Trileptal 150 mg Tablet] 150 mg PO Q8 07/27/16 Oxybutynin Chloride [Ditropan Xl] 10 mg PO DAILY 07/27/16 Quetiapine Fumarate [Seroquel 25 mg Tablet] 25 mg PO QAM 07/27/16 Quetiapine Fumarate [Seroquel] 75 mg PO QHS 07/27/16 Sennosides/Docusate 8.6-50 mg [Senna Plus Tablet] 1 each PO DAILY 07/27/16 Thiamine HCl [Thiamine 100 mg Tablet] 100 mg PO DAILY 07/27/16 Ertapenem Sodium [Invanz Inj 1 gm Vial] 1 gm IV QHS #14 vial 08/03/16 Tramadol HCl [Ultram 50 mg Tablet] 50 mg PO Q12HP PRN #60 08/03/16 History of Present Illness Admission Date/PCP: 07/27/16 21:36 ISRA KAY, History of Present Illness: DRE HOPKINS is a 71 year old female with multiple comorbid conditions including schizophrenia, bipolar, diabetes mellitus type II, recurrent urinary tract infection, history of ESBL Escherichia coli UTI, she was transferred from the long-term to the emergency room because she was found by the nurses to be diaphoretic with low blood pressure reading of 70/50, she apparently was playing bingo in the long-term when she took ill. EMS was called to long-term and the blood pressure recorded by EMS was 80/50, when she had arrived in the emergency room she was treated with IV fluid and the blood pressure was responsive to volume replacement. On evaluation in the emergency room she was found to have acute kidney injury, most likely prerenal from low blood pressure , she was also found to have hypercalcemia, probably due to dehydration. The urinalysis was grossly abnormal, chest x-ray showed bibasilar airspace disease, atelectasis versus pneumonia. She also express his chest symptoms of cough, shortness of breath and chest pain. The cough is dry, she was also found to have lactic acidemia suggesting infection versus hypoperfusion probably from low blood pressure. Hospital Course Hospital Course: Patient was admitted on 02/03/2017 when she presented with low blood pressure, acute kidney injury, hypercalcemia and sepsis syndrome. The source of the sepsis was thought to be the urine, she was empirically started on intravenous ertapenem because of history of ESBL Escherichia coli infection in the past, urine culture came back of ESBL Escherichia coli, so she was continued on IV ertapenem. On admission, there was associated kidney injury. This was thought to be prerenal with hydration, the kidney function was normalized. She also had hypercalcemia, the serum PTH was normal with hydration, this serum calcium was normalized a normal or elevated PTH in the setting of hypercalcemia suggest primary hyperparathyroidism, this we need to be followed outpatient. She complained of epigastric pain in the hospital on, she had episode of vomiting and diarrhea. A KUB was done that showed no obstruction of the small intestine , but the stomach on KUB was dilated. The significance of this finding is not clear. CT of the chest was done because of concern for pneumonia, CT of the chest showed parenchyma opacities of the lung bases. There is no definite infiltrate or consolidation to suggest pneumonia. She also had episode of hypokalemia. This is thought to be due to transcellular shift and IV hydration with increase fluid Delivery to the distal nephron the potassium was corrected with by mouth replacement therapy. Physical Exam Vital Signs: Temp Pulse Resp BP Pulse Ox 98.4 F 100 18 120/63 94 08/03/16 04:00 08/03/16 07:00 08/03/16 04:00 08/03/16 04:00 08/03/16 04:00 Intake & Output 08/02/16 08/03/16 08/04/16 06:59 06:59 06:59 Intake Total 2282 2460 Balance 2282 2460 Weight 89.6 kg General appearance: PRESENT: no acute distress Eye exam: PRESENT: PERRLA Respiratory exam: PRESENT: clear to auscultation juliette Cardiovascular exam: PRESENT: +S1, +S2 GI/Abdominal exam: PRESENT: soft Musculoskeletal exam: PRESENT: full ROM Neurological exam: PRESENT: alert Results Laboratory Results: 08/03/16 12:00 08/03/16 12:00 08/03/16 08/03/16 12:00 12:00 WBC 12.0 H RBC 2.89 L Hgb 9.0 L Hct 28.4 L MCV 98 H MCH 31.2 MCHC 31.7 L RDW 14.6 H Plt Count 295 Seg Neutrophils % 63.6 Lymphocytes % 18.0 Monocytes % 12.4 Eosinophils % 5.0 Basophils % 1.0 Absolute Neutrophils 7.6 Absolute Lymphocytes 2.2 Absolute Monocytes 1.5 H Absolute Eosinophils 0.6 Absolute Basophils 0.1 Sodium 144.7 Potassium 2.8 L* Chloride 116 H Carbon Dioxide 20 L Anion Gap 9 BUN 16 Creatinine 0.61 Est GFR ( Amer) > 60 Est GFR (Non-Af Amer) > 60 Glucose 76 Calcium 7.3 L Magnesium 1.4 L 07/27/16 07/27/16 07/28/16 22:13 22:13 04:03 Creatine Kinase 181 H 159 H CK-MB (CK-2) 1.23 Troponin I < 0.012 NT-Pro-B Natriuret Pep 257 07/28/16 07/28/16 07/28/16 04:03 09:57 09:57 Creatine Kinase 139 H CK-MB (CK-2) Troponin I < 0.012 < 0.012 NT-Pro-B Natriuret Pep 08/01/16 08/01/16 20:26 20:43 Creatine Kinase 36 CK-MB (CK-2) 0.42 Troponin I < 0.012 NT-Pro-B Natriuret Pep Impressions: Chest X-Ray 07/27/16 16:13 IMPRESSION: Bibasilar airspace disease, atelectasis versus pneumonia. Chest CT 07/28/16 00:00 IMPRESSION: Mild parenchymal opacities in the lung bases right greater than left. KUB X-Ray 07/30/16 00:00 IMPRESSION: Marked gas distention of the stomach, measuring 27 cm transverse dimension. Otherwise Scattered non-dilated small bowel loops. Guidance Fluoroscopy 07/31/16 00:00 IMPRESSION: SUCCESSFUL PLACEMENT OF A 5 FR DUAL LUMEN 42 CM PICC IN THE left basilic VEIN. Interventional Vascular Procedure 07/31/16 00:00 IMPRESSION: SUCCESSFUL PLACEMENT OF A 5 FR DUAL LUMEN 42 CM PICC IN THE left basilic VEIN. PICC Line Insertion 07/31/16 00:00 IMPRESSION: SUCCESSFUL PLACEMENT OF A 5 FR DUAL LUMEN 42 CM PICC IN THE left basilic VEIN. Transfer Plan - Disposition Transfer Plan: She be discharged back to long-term today, she should be referred to the sales order processor, Dr. Morales for evaluation of epigastric pain. She will require IV ertapenem for a longer period of time because of history of recurrent ESBL Escherichia coli. She probably have chronic colonization of this organism, a PICC line was inserted for IV ertapenem for 10 more days
[2016-08-03 17:27] LABS: ALANINE AMINOTRANSFERASE 26 U/L (9-52); ALBUMIN 2.5 g/dL (3.5-5.0); ALKALINE PHOSPHATASE 53 U/L (38-126); ANION GAP 12 (5-19); ASPARTATE AMINO TRANSFERASE 15 U/L (14-36); BILIRUBIN,TOTAL 0.1 mg/dL (0.2-1.3); BLOOD UREA NITROGEN 17 mg/dL (7-20); CALCIUM 8.9 mg/dL (8.4-10.2); CARBON DIOXIDE 21 mmol/L (22-30); CHLORIDE 111 mmol/L (98-107); CREATININE RESULT 0.68 mg/dL (0.52-1.25); GLUCOSE 90 mg/dL (75-110); POTASSIUM 3.7 mmol/L (3.6-5.0); SODIUM 143.6 mmol/L (137-145); TOTAL PROTEIN 5.3 g/dL (6.3-8.2)
[2016-08-03 19:17] VITALS: BP 129/65
== END 2016-08-03 21:03 | DRG 871 ==
LOC: ER 16:00 → UNDOADMIN 19:09 → EH 19:09 → 5 21:49
PROVIDERS: ADMIT Internal Medicine; ATTEND Internal Medicine
PROC: 02HV33Z Insertion of Infusion Device into Superior Vena Cava, Percutaneous Approach (ICD-10-PCS; principal; 2016-07-27)
PROC: B518ZZA Fluoroscopy of Superior Vena Cava, Guidance (ICD-10-PCS; 2016-07-27)
PROC: B548ZZA Ultrasonography of Superior Vena Cava, Guidance (ICD-10-PCS; 2016-07-27)
DX: A41.9 Sepsis, unspecified organism (principal); J18.9 Pneumonia, unspecified organism; N30.00 Acute cystitis without hematuria; N17.9 Acute kidney failure, unspecified; A04.7 Enterocolitis due to Clostridium difficile; R65.20 Severe sepsis without septic shock; E83.52 Hypercalcemia; B96.20 Unspecified Escherichia coli [E. coli] as the cause of diseases classified elsewhere; I95.9 Hypotension, unspecified; R11.12 Projectile vomiting; E03.9 Hypothyroidism, unspecified; F20.9 Schizophrenia, unspecified; F31.9 Bipolar disorder, unspecified; E11.9 Type 2 diabetes mellitus without complications; E86.0 Dehydration; E87.6 Hypokalemia; E78.5 Hyperlipidemia, unspecified; I10 Essential (primary) hypertension; J45.909 Unspecified asthma, uncomplicated; J44.9 Chronic obstructive pulmonary disease, unspecified; G40.909 Epilepsy, unspecified, not intractable, without status epilepticus; K21.9 Gastro-esophageal reflux disease without esophagitis; M19.90 Unspecified osteoarthritis, unspecified site; G20 Parkinson's disease; D64.9 Anemia, unspecified; E83.42 Hypomagnesemia; F02.80 Dementia in other diseases classified elsewhere, unspecified severity, without behavioral disturbance, psychotic disturbance, mood disturbance, and anxiety; Z79.899 Other long term (current) drug therapy; Z79.4 Long term (current) use of insulin
CPT/HCPCS: 36415; 36569; 51701; 71010; 71250; 74000; 76937; 77001; 80048; 80053; 80061; 80076; 81001; 82272; 82550; 82553; 82962; 83036; 83605; 83690; 83735; 83880; 83970; 84100; 84439; 84443; 84484; 85025; 85027; 85610; 87040; 87045; 87086; 87088; 87186; 87205; 87493; 89055; 93005; 93010; 96360; 99285; J0696; J1335; J1642; J1650; J2405; J3370; J3475; J3480; J3490; J7030

== ENCOUNTER 2016-09-22 15:00 | Day surgery (SDC) | payer MEDICARE, OTHER, MEDICAID ==
[2016-09-22] MEDS ORDERED: NALOXONE HCL INJ/PF 0.4 MG/1 ML SDV ONE (15:49)
[2016-09-22] MEDS ORDERED: PROMETHAZINE HCL INJ 25 MG/1 ML VIAL ONE (15:50)
[2016-09-22] MEDS ORDERED: FENTANYL CITRATE INJ/PF 100 MCG/2 ML AMPUL ONE (15:50)
[2016-09-22] MEDS ORDERED: FLUMAZENIL INJ 0.5 MG/5 ML VIAL IV ONE (15:50)
[2016-09-22] MEDS ORDERED: GLUCAGON,HUMAN RECOMB 1 MG INJ ONE (15:51)
[2016-09-22] MEDS ORDERED: EPINEPHRINE INJ 1 MG/10 ML DISP.SYRIN ONE (15:51)
[2016-09-22] MEDS: MIDAZOLAM 2 MG/2 ML INJ ONE ×2 (16:40→16:49)
--- NOTE | 2016-09-22 16:58 | Operative Report ---
Operative Report DATE OF SURGERY: 09/22/16 Operative Report: Pre-op diagnosis: Dysphagia and vomiting Post-op diagnosis: 1. Severe grade D esophagitis 2. Distal esophageal stricture 3. Mild antral gastritis Surgery: Esophagogastroduodenoscopy with biopsy Medications: Versed 3mg Fentanyl 50mcg IV push Tissue removed: Antral biopsy for pathology Procedure: After informed consent obtained from patient, the throat was sprayed with Hurricane and conscious sedation was achieved. The upper endoscope was inserted into the esophagus under direct vision and advanced into the stomach. The duodenum was entered and examined to the second part. Endoscope was then slowly pulled out of the patient as the mucosa was examined into details. Patient tolerated procedure well. Findings Esophagus: There was diffuse ulceration involving the last 10-11 cm of the esophagus. The GE junction was at 36 cm with a small hiatal hernia. There was narrowing of the distal 10 cm of the esophagus Antrum: Mild erythema Body: Normal Fundus: Normal Duodenum first part: Normal Duodenum second part: Normal Plan: Await pathology. Will start her on omeprazole 20 mg twice a day OPERATION: .
--- NOTE | 2016-09-22 16:59 | PDOC DISCHARGE SUMMARY ---
Discharge Summary (SDC) - Discharge Final Diagnosis: Grade D esophagitis Date of Surgery: 09/22/16 Condition: Stable Treatment or Instructions: Omeprazole 20 mg twice a day Discharge Diet: As Tolerated Discharge Activity: Activity As Tolerated Report the Following to Your Physician Immediately: Nausea, Vomiting, Swelling, Warmth
[2016-09-22 17:50] VITALS: BP 112/79
== END 2016-09-22 18:00 | disposition home or self-care (01) ==
LOC: END 15:00
PROVIDERS: ATTEND Internal Medicine Gastroenterology
PROC: 0DB68ZX Excision of Stomach, Via Natural or Artificial Opening Endoscopic, Diagnostic (ICD-10-PCS; principal; 2016-09-22 16:00)
DX: K20.9 Esophagitis, unspecified (principal); K22.2 Esophageal obstruction; K29.50 Unspecified chronic gastritis without bleeding; F31.9 Bipolar disorder, unspecified; J45.909 Unspecified asthma, uncomplicated; J44.9 Chronic obstructive pulmonary disease, unspecified; E03.9 Hypothyroidism, unspecified; M19.90 Unspecified osteoarthritis, unspecified site; E11.9 Type 2 diabetes mellitus without complications; I10 Essential (primary) hypertension; Z88.8 Allergy status to other drugs, medicaments and biological substances; Z68.31 Body mass index [BMI] 31.0-31.9, adult; Z79.891 Long term (current) use of opiate analgesic; Z79.4 Long term (current) use of insulin; Z86.010 Personal history of colon polyps; Z79.899 Other long term (current) drug therapy; Z79.84 Long term (current) use of oral hypoglycemic drugs
CPT/HCPCS: 43239; 82962; 88342 ×2; 88305 ×2; J2250; J0171; J3010; J1610; J2310; J2550; J3490

== ENCOUNTER 2017-04-20 11:34 | Inpatient (IN) | payer MEDICARE, OTHER, MEDICAID ==
--- NOTE | 2017-04-20 11:49 | ER Document Report ---
ED General - General Stated Complaint: RESPITORY ISSUES Time Seen by Provider: 04/20/17 11:38 Mode of Arrival: Medic Information source: Patient Notes: 72-year-old female presents with complaints of cough from care facility. Care facility was concerned patient may be septic performed a chest x-ray result was noted to be pneumonia and patient was sent in for difficulty breathing.. pt denies any resp issues TRAVEL OUTSIDE OF THE [place] IN LAST 30 DAYS: No - HPI Onset: Yesterday Onset/Duration: Sudden Quality of pain: No pain Severity: Mild Pain Level: Denies Associated symptoms: Nonproductive cough, Shortness of breath Exacerbated by: Denies Relieved by: Denies Similar symptoms previously: No Recently seen / treated by doctor: No - Related Data Allergies/Adverse Reactions: chlorpromazine HCl [From Thorazine] Allergy (Unknown, Verified 09/21/16 13:51) lithium [[place]] Allergy (Unknown, Verified 09/21/16 13:51) Past Medical History - Social History Smoking Status: Never Smoker Cigarette use (# per day): No Chew tobacco use (# tins/day): No Smoking Education Provided: No Family History: Reviewed & Not Pertinent, Other - Unknown - Past Medical History Cardiac Medical History: Reports: Hx Hypercholesterolemia, Hx Hypertension Denies: Hx Coronary Artery Disease, Hx Heart Attack, Hx Heart Murmur Pulmonary Medical History: Reports: Hx Asthma, Hx COPD, Hx Pneumonia Denies: Hx Bronchitis, Hx Respiratory Failure, Hx Sleep Apnea, Hx Tuberculosis Neurological Medical History: Reports: Hx Seizures. Denies: Hx Cerebrovascular Accident Endocrine Medical History: Reports: Hx Diabetes Mellitus Type 2, Hx Hypothyroidism GI Medical History: Reports: Hx Gastroesophageal Reflux Disease Musculoskeltal Medical History: Reports Hx Arthritis - osteoarthritis Psychiatric Medical History: Reports: Hx Bipolar Disorder, Hx Dementia, Hx Depression, Hx Schizoaffective Disorder, Hx Schizophrenia Past Surgical History: Reports: Hx Hysterectomy, Hx Tubal Ligation - Immunizations Immunizations up to date: Yes Hx Diphtheria, Pertussis, Tetanus Vaccination: Yes Hx Pneumococcal Vaccination: 04/10/14 Review of Systems - Review of Systems Notes: REVIEW OF SYSTEMS: CONSTITUTIONAL : Denies fever, chills, or sweats. Denies recent illness. EENT: Denies eye, ear, throat, or mouth pain or symptoms. Denies nasal or sinus congestion or discharge. Denies throat, tongue, or mouth swelling or difficulty swallowing. CARDIOVASCULAR: Denies chest pain. Denies palpitations or racing or irregular heart beat. Denies ankle edema. RESPIRATORY: Admits to cough shortness of breath GASTROINTESTINAL: Denies abdominal pain or distention. Denies nausea, vomiting , or diarrhea. Denies blood in vomitus, stools, or per rectum. Denies black, tarry stools. Denies constipation. GENITOURINARY: Denies difficulty urinating, painful urination, burning, frequency, blood in urine, or discharge. FEMALE GENITOURINARY: Denies vaginal bleeding, heavy or abnormal periods, irregular periods. Denies vaginal discharge or odor. MUSCULOSKELETAL: Denies back or neck pain or stiffness. Denies joint pain or swelling. SKIN: Denies rash, lesions or sores. HEMATOLOGIC : Denies easy bruising or bleeding. LYMPHATIC: Denies swollen, enlarged glands. NEUROLOGICAL: Denies confusion or altered mental status. Denies passing out or loss of consciousness. Denies dizziness or lightheadedness. Denies headache. Denies weakness or paralysis or loss of use of either side. Denies problems with gait or speech. Denies sensory loss, numbness, or tingling. Denies seizures. PSYCHIATRIC: Denies anxiety or stress. Denies depression, suicidal ideation, or homicidal ideation. ALL OTHER SYSTEMS REVIEWED AND NEGATIVE. PHYSICAL EXAMINATION: GENERAL: Elderly female no acute distress HEAD: Atraumatic, normocephalic. EYES: Pupils equal round and reactive to light, extraocular movements intact, conjunctiva are normal. ENT: Nares patent, oropharynx clear without exudates. Moist mucous membranes. NECK: Normal range of motion, supple without lymphadenopathy LUNGS: Coarse breath sounds at the bases HEART: Regular rate and rhythm without murmurs ABDOMEN: Soft, nontender, nondistended abdomen. No guarding, no rebound. No masses appreciated. Female : deferred Musculoskeletal: Normal range of motion, no pitting or edema. No cyanosis. NEUROLOGICAL: Cranial nerves grossly intact. Normal speech, normal gait. Normal sensory, motor exams PSYCH: Normal mood, normal affect. SKIN: Warm, Dry, normal turgor, no rashes or lesions noted. Dictation was performed using [email or web address] voice recognition software Physical Exam - Vital signs Vitals: Pulse Ox 93 04/20/17 11:38 Course - Re-evaluation Re-evalutation: 04/20/17 11:52 It appears some of these vitals reported by care facility are abnormal with a respiratory rate of 48 04/20/17 14:00 Pt naz lbe admitted for pneumonia, uti, sepsis - Vital Signs Vital signs: Temp Pulse Resp BP Pulse Ox 98.1 F 20 99/54 L 96 04/20/17 13:05 04/20/17 13:01 04/20/17 13:01 04/20/17 13:01 - Laboratory Result Diagrams: 04/20/17 11:40 04/20/17 11:40 Laboratory results interpreted by me: 04/20/17 04/20/17 04/20/17 11:40 11:40 12:54 WBC 11.3 H RBC 2.87 L Hgb 9.3 L Hct 27.9 L RDW 15.9 H Monocytes % 14.8 H Absolute Monocytes 1.7 H Potassium 5.5 H BUN 44 H Creatinine 1.42 H Est GFR ( Amer) 44 L Est GFR (Non-Af Amer) 36 L Calcium 10.6 H Urine Protein 30 H Ur Leukocyte Esterase LARGE H Critical Care Note - Critical Care Note Total time excluding time spent on procedures (mins): 34 Comments: 34 minutes of critical care time spent in direct contact evaluating and reevaluating the patient, treating symptoms, reviewing labs and studies and speaking with family and consultants excluding any procedures Discharge - Discharge Clinical Impression: Sepsis with metabolic encephalopathy, Bacterial lobar pneumonia UTI (urinary tract infection) Qualifiers: Urinary tract infection type: acute cystitis Hematuria presence: without hematuria Qualified Code(s): N30.00 - Acute cystitis without hematuria Condition: Stable Disposition: ADMITTED INPATIENT Admitting Provider: [facility] Unit Admitted: Telemetry
[2017-04-20 12:05] LABS: ABSOLUTE BASOPHILS # (AUTO) 0.1 10^3/uL (0.0-0.2); ABSOLUTE EOSINOPHILS # (AUTO) 0.2 10^3/uL (0.0-0.6); ABSOLUTE LYMPHOCYTES (AUTO) 1.8 10^3/uL (0.5-4.7); ABSOLUTE MONOCYTES (AUTO) 1.7 10^3/uL (0.1-1.4); ABSOLUTE NEUT (AUTO) 7.5 10^3/uL (1.7-8.2); BASOPHILS % (AUTO) 0.6 % (0-2); EOSINOPHILS % (AUTO) 2.1 % (0-6); HEMATOCRIT 27.9 % (36.0-47.0); HEMOGLOBIN 9.3 g/dL (12.0-15.5); MEAN CORPUSCULAR HEMOGLOBIN 32.6 pg (27.0-33.4); MEAN CORPUSCULAR HGB CONC 33.5 g/dL (32.0-36.0); MEAN CORPUSCULAR VOLUME 97 fl (80-97); MONOCYTES % (AUTO) 14.8 % (3-13); RED BLOOD COUNT 2.87 10^6/uL (3.72-5.28); RED CELL DISTRIBUTION WIDTH 15.9 % (11.5-14.0); SEGMENTED NEUTROPHILS % (AUTO) 66.5 % (42-78); WHITE BLOOD COUNT 11.3 10^3/uL (4.0-10.5)
[2017-04-20 12:08] LABS: VENOUS BLOOD BASE EXCESS -3.6 mmol/L; VENOUS BLOOD HCO3 21.8 mmol/L (20-32); VENOUS BLOOD PCO2 40.7 mmHg (35-63); VENOUS BLOOD PH 7.35 (7.30-7.42)
[2017-04-20 12:09] LABS: PROTHROMBIN TIME 13.7 SEC (11.4-15.4)
[2017-04-20 12:25] LABS: ALANINE AMINOTRANSFERASE 20 U/L (9-52); ALBUMIN 3.7 g/dL (3.5-5.0); ALKALINE PHOSPHATASE 85 U/L (38-126); ANION GAP 13 (5-19); ASPARTATE AMINO TRANSFERASE 28 U/L (14-36); BILIRUBIN,DIRECT 0.3 mg/dL (0.0-0.4); BILIRUBIN,TOTAL 0.3 mg/dL (0.2-1.3); BLOOD UREA NITROGEN 44 mg/dL (7-20); CALCIUM 10.6 mg/dL (8.4-10.2); CARBON DIOXIDE 22 mmol/L (22-30); CHLORIDE 107 mmol/L (98-107); CREATININE RESULT 1.42 mg/dL (0.52-1.25); GLUCOSE 99 mg/dL (75-110); POTASSIUM 5.5 mmol/L (3.6-5.0); SODIUM 142.1 mmol/L (137-145); TOTAL PROTEIN 7.3 g/dL (6.3-8.2)
[2017-04-20 13:26] LABS: APPEARANCE,URINE CLOUDY; BILIRUBIN,URINE NEGATIVE (NEGATIVE); GLUCOSE, URINE NEGATIVE (NEGATIVE); KETONES,URINE NEGATIVE (NEGATIVE); LEUKOCYTE ESTERASE,URINE LARGE (NEGATIVE); NITRITE,URINE NEGATIVE (NEGATIVE); PROTEIN,URINE 30 mg/dL (NEGATIVE); UROBILINOGEN,URINE NEGATIVE mg/dL (<2.0)
--- NOTE | 2017-04-20 13:30 | RADIOLOGY REPORT (SQ) ---
EXAM DESCRIPTION: CHEST PA/LAT COMPLETED DATE/TIME: 04/20/2017 12:51 pm REASON FOR STUDY: cough, diagnosed as pneumonia COMPARISON: 07/27/2016 EXAM PARAMETERS: NUMBER OF VIEWS: two views TECHNIQUE: Digital Frontal and Lateral radiographic views of the chest acquired. RADIATION DOSE: NA LIMITATIONS: none FINDINGS: LUNGS AND PLEURA: There is considerable opacification in the left lower lung field posteri wiley on the lateral view. MEDIASTINUM AND HILAR STRUCTURES: No masses or contour abnormalities. HEART AND VASCULAR STRUCTURES: Heart normal size. No evidence for failure. BONES: No acute findings. HARDWARE: None in the chest. OTHER: No other significant finding. IMPRESSION: Left lower lobe pneumonia. TECHNICAL DOCUMENTATION: JOB ID: [id number] [email or web address]- All Rights Reserved
[2017-04-20] MEDS ORDERED: NORMAL SALINE 1000 ML 1,000 ML IV ONE (14:01)
[2017-04-20] MEDS: NORMAL SALINE 1000 ML 1,000 ML IV PRN ×2 (14:05→14:13)
[2017-04-20] MEDS ORDERED: (PENDING PHARMACY ID) (Acetaminophen [Tylenol Extra Strength 500 Mg Tablet] 1,000 MG) PO PRN (16:33)
[2017-04-20] MEDS ORDERED: TRAMADOL HCL 50 MG TABLET PO PRN (16:33)
[2017-04-20] MEDS ORDERED: INSULIN ASPART SQ SCH (16:45)
[2017-04-20] MEDS ORDERED: LEVOFLOXACIN 750 MG/D5W RTU 750 MG/150 ML RTUPB IV ONE (17:00)
[2017-04-20] MEDS ORDERED: INSULIN LISPRO 100 UNIT/ML 3 ML VIAL SUBCUT PRN (17:01)
[2017-04-20] MEDS ORDERED: DEXTROSE 40% GEL 15 GM TUBE X 2 PO PRN (17:01)
[2017-04-20] MEDS ORDERED: DEXTROSE 50%-WATER SYRINGE 25 GM/50 ML DOSE IV PRN (17:01)
[2017-04-20] MEDS ORDERED: DEXTROSE 50%-WATER SYRINGE 12.5 GM/25 ML DOSE IV PRN (17:01)
[2017-04-20] MEDS ORDERED: GLUCAGON,HUMAN RECOMB 1 MG INJ IM PRN (17:01)
[2017-04-20] MEDS ORDERED: DEXTROSE 40% GEL 15 GM TUBE PO PRN (17:01)
[2017-04-20] MEDS ORDERED: CALCIUM CARBONATE PO SCH (18:00)
[2017-04-20] MEDS ORDERED: [UNRECOGNIZED DRUG - OTHER] PO SCH (18:00)
[2017-04-20] MEDS ORDERED: VITAMIN D3 PO SCH (18:00)
[2017-04-20] MEDS ORDERED: (PENDING PHARMACY ID) (Quetiapine Fumarate [Seroquel] 75 MG) PO SCH (18:00)
--- NOTE | 2017-04-20 18:15 | EKG REPORT ---
SEVERITY:- NORMAL ECG - SINUS TACHYCARDIA : Confirmed by: Lisa Spangler MD 20-Apr-2017 18:14:49
[2017-04-20] MEDS: ALPRAZOLAM 0.25 MG TABLET PO SCH (18:23)
[2017-04-20] MEDS: QUETIAPINE FUMARATE 25 MG TABLET PO SCH (18:23)
[2017-04-20] MEDS: METFORMIN HCL 500 MG TABLET PO SCH (18:24)
[2017-04-20] MEDS: CALCIUM CARBONATE 250 MG/VITAMIN D3 125 UNIT TABLET PO SCH (18:24)
[2017-04-20] MEDS ORDERED: IPRATROPIUM/ALBUTEROL 0.5-2.5 MG/3 ML AMPUL NEB PRN (18:26)
--- NOTE | 2017-04-20 19:49 | RADIOLOGY REPORT (SQ) ---
EXAM DESCRIPTION: CT CHEST WITHOUT COMPLETED DATE/TIME: 04/20/2017 7:13 pm REASON FOR STUDY: PNEUMONIA COMPARISON: None. TECHNIQUE: CT scan performed of the chest without intravenous contrast. Images reviewed with lung, soft tissue and bone windows. Reconstructed coronal and sagittal MPR images reviewed. All images st ored on PACS. All CT scanners at this facility use dose modulation, iterative reconstruction, and/or weight based d osing when appropriate to reduce radiation dose to as low as reasonably achievable (ALARA). [facility]: Dose Right [facility]: CareDose [facility]: Dose Right [facility]: Teradose 4D [facility]: [employer] RADIATION DOSE: Up-to-date CT equipment and radiation dose reduction techniques were employed. CTDIv ol: 14.1 mGy. DLP: 537 mGy-cm. mGy. LIMITATIONS: No technical limitations. FINDINGS: LUNGS AND PLEURA: Patchy consolidation in the left upper and left lower lobes. Small left pleural effusion. Right lung appears clear with minimal subpleural scarring in the right middle lob e. HILAR AND MEDIASTINAL STRUCTURES: Scattered reactive appearing hilar and mediastinal nodes. No obvio us aneurysm. HEART AND VASCULAR STRUCTURES: No aneurysm. No pericardial effusion. UPPER ABDOMEN: No significant findings. Limited exam. THYROID AND OTHER SOFT TISSUES: No masses. No adenopathy. BONES: No significant finding. HARDWARE: None in the chest. OTHER: No other significant findings. IMPRESSION: Patchy consolidation in the left upper and left lower lobes. Small left pleural effusio n. Scattered reactive appearing hilar and mediastinal nodes. TECHNICAL DOCUMENTATION: JOB ID: [id number] Quality ID # [id number]: Final reports with documentation of one or more dose reduction techniques (e.g., Au tomated exposure control, adjustment of the mA and/or kV according to patient size, use of iterative reconstruction technique) 2010 [employer]- All Rights Reserved
[2017-04-20 20:07] LABS: ARTERIAL BLOOD BASE EXCESS -6.2 mmol/L; ARTERIAL BLOOD O2 SATURATION 95.6 % (94-98)
[2017-04-20] MEDS: CEFEPIME 2 GM/D5W RTU 2 GM/50 ML RTUPB IV SCH (21:25)
[2017-04-20] MEDS: OLANZAPINE 5 MG TABLET PO SCH (21:26)
[2017-04-20] MEDS: ACETAMINOPHEN 325 MG TABLET PO PRN (21:27)
[2017-04-20] MEDS: DIVALPROEX SODIUM 250 MG TABLET.DR PO SCH (21:27)
[2017-04-20] MEDS: OXCARBAZEPINE 150 MG TABLET PO SCH (21:27)
[2017-04-20] MEDS: OXYBUTYNIN CHLORIDE 5 MG TABLET PO SCH (21:27)
--- NOTE | 2017-04-20 21:29 | PDOC H&P ---
History of Present Illness Admission Date/PCP: 04/20/17 18:27 ISRA KAY MD History of Present Illness: DRE HOPKINS is a 72 year old female, Resident of the correction at [facility] she had respiratory symptoms cough, congestion, chest x- ray was done at the correction facility and she was found to have pneumonia, attempt was made to treat in the facility with antibiotic. She was prescribed Levaquin She was transferred to the emergency room today because of altered mental status, in the emergency room she was evaluated a chest x-ray was done it showed opacification of the left lower lung field, subsequent CT chest was done without contrast that confirmed left lung pneumonia with patchy consolidation in the left upper lobe and left lower lobe. She was also found to have UTI with grossly abnormal urinalysis she is known to have a history of ESBL E. coli UTI. She has baseline schizoaffective disorder, cognitive impairment. Past Medical History Cardiac Medical History: Reports: Hypertension Pulmonary Medical History: Reports: Asthma, Chronic Obstructive Pulmonary Disease (COPD), Pneumonia Neurological Medical History: Reports: Seizures Endocrine Medical History: Reports: Diabetes Mellitus Type 2, Hypothyroidism GI Medical History: Reports: Gastroesophageal Reflux Disease Musculoskeltal Medical History: Reports: Arthritis - osteoarthritis Psychiatric Medical History: Reports: Bipolar Disorder, Dementia, Depression, Schizoaffective Disorder Hematology: Reports: Anemia Past Surgical History Past Surgical History: Reports: Hysterectomy, Tubal Ligation Social History Smoking Status: Never Smoker Frequency of Alcohol Use: None Hx Recreational Drug Use: No Hx Prescription Drug Abuse: No - Advance Directive Resuscitation Status: Full Code Family History Family History: Reviewed & Not Pertinent, Other - Unknown Parental Family History Reviewed: Yes Children Family History Reviewed: Yes Sibling(s) Family History Reviewed.: Yes Medication/Allergy Home Medications: Acetaminophen [Tylenol Extra Strength 500 mg Tablet] 1,000 mg PO Q8HP PRN Alprazolam [Xanax 0.25 mg Tablet] 0.25 mg PO BID 04/20/17 Calcium Carbonate/Vitamin D3 [Os-Sanchez 500-Vit D3 600 Caplet] 1 tab PO BID Cyanocobalamin (Vitamin B-12) [Vitamin B-12] 1,000 mcg PO DAILY 04/20/17 Divalproex Sodium [Depakote] 250 mg PO TID 04/20/17 Folic Acid [Folvite 1 mg Tablet] 1 mg PO DAILY 04/20/17 Insulin Aspart [Novolog Insulin (Aspart) 100 unit/mL] 0 units SQ .SLIDING SCALE 04/20/17 Levofloxacin [Levaquin 750 mg Tablet] 750 mg PO DAILY 04/20/17 Levothyroxine Sodium [Synthroid 0.088 mg Tablet] 0.088 mg PO QAM 04/20/17 Linagliptin [Tradjenta] 5 mg PO DAILY 04/20/17 Lisinopril [Prinivil 10 mg Tablet] 10 mg PO DAILY 04/20/17 Loperamide HCl [Imodium A-D] 2 mg PO Q4HP PRN 04/20/17 Metformin HCl [Glucophage] 1,000 mg PO BID 04/20/17 Olanzapine [Zyprexa] 20 mg PO QHS 04/20/17 Omeprazole 20 mg PO BID 04/20/17 Oxcarbazepine [Trileptal 150 mg Tablet] 150 mg PO TID 04/20/17 Oxybutynin Chloride [Ditropan Xl] 10 mg PO DAILY 04/20/17 Quetiapine Fumarate [Seroquel] 25 mg PO DAILY 04/20/17 Quetiapine Fumarate [Seroquel] 75 mg PO QPM 04/20/17 Sennosides/Docusate 8.6-50 mg [Senna Plus Tablet] 1 tab PO DAILY 04/20/17 Thiamine HCl [B-1] 100 mg PO DAILY 04/20/17 Tramadol HCl [Ultram 50 mg Tablet] 50 mg PO BIDP PRN 04/20/17 Allergies/Adverse Reactions: chlorpromazine HCl [From Thorazine] Allergy (Unknown, Verified 09/21/16 13:51) lithium [[place]] Allergy (Unknown, Verified 09/21/16 13:51) Review of Systems Constitutional: PRESENT: fatigue, fever(s), weakness Eyes: ABSENT: visual disturbances Ears: ABSENT: hearing changes Cardiovascular: ABSENT: chest pain, dyspnea on exertion, edema, orthropnea, palpitations Respiratory: PRESENT: cough, sputum Gastrointestinal: ABSENT: abdominal pain, constipation, diarrhea, hematemesis, hematochezia, nausea, vomiting Genitourinary: ABSENT: dysuria, hematuria Musculoskeletal: ABSENT: joint swelling Integumentary: ABSENT: rash, wounds Neurological: ABSENT: abnormal gait, abnormal speech, confusion, dizziness, focal weakness, syncope Psychiatric: PRESENT: depression Endocrine: PRESENT: cold intolerance Hematologic/Lymphatic: ABSENT: easy bleeding, easy bruising, lymphadenopathy Physical Exam Vital Signs: Temp Pulse Resp BP Pulse Ox 99.3 F 118 H 20 105/48 L 90 L 04/20/17 20:22 04/20/17 20:22 04/20/17 20:22 04/20/17 20:22 04/20/17 20:22 Intake & Output 04/19/17 04/20/17 04/21/17 06:59 06:59 06:59 Intake Total 120 Output Total 800 Balance -680 General appearance: PRESENT: mild distress Head exam: PRESENT: atraumatic, normocephalic Eye exam: PRESENT: PERRLA Neck exam: PRESENT: full ROM Respiratory exam: PRESENT: rhonchi Cardiovascular exam: PRESENT: RRR, +S1, +S2 Vascular exam: PRESENT: normal capillary refill GI/Abdominal exam: PRESENT: normal bowel sounds, soft Rectal exam: PRESENT: deferred Neurological exam: PRESENT: alert, CN II-XII grossly intact Skin exam: PRESENT: dry, intact, warm Results Laboratory Results: 04/20/17 19:52 Carbonic Acid 1.12 HCO3/H2CO3 Ratio 17:1 ABG pH 7.33 L ABG pCO2 37.1 ABG pO2 83.2 ABG HCO3 19.1 L ABG O2 Saturation 95.6 ABG Base Excess -6.2 FiO2 28% Impressions: Chest CT 04/20/17 00:00 IMPRESSION: Patchy consolidation in the left upper and left lower lobes. Small left pleural effusion. Scattered reactive appearing hilar and mediastinal nodes. Chest X-Ray 04/20/17 11:38 IMPRESSION: Left lower lobe pneumonia. Assessment & Plan - Diagnosis (1) Pneumonia involving left lung Qualifiers: Pneumonia type: aspiration pneumonia Aspiration pneumonia type: unspecified Lung location: unspecified part of lung Qualified Code(s): J69.0 - Pneumonitis due to inhalation of food and vomit Is this a current diagnosis for this admission?: Yes Plan: She probably aspirated (2) Urinary tract infection Is this a current diagnosis for this admission?: Yes Plan: She has a history of ESBL E. coli she will be empirically be treated with IV ertapenem (3) Pneumonia involving left lung Qualifiers: Pneumonia type: due to unspecified organism Lung location: unspecified part of lung Qualified Code(s): J18.9 - Pneumonia, unspecified organism Is this a current diagnosis for this admission?: Yes Plan: She is a resident of the correction, she has health-care associated pneumonia
[2017-04-20] MEDS ORDERED: ERTAPENEM SODIUM 1 GM in NORMAL SALINE 50 ML IV ONE (22:00)
[2017-04-20 22:57] LABS: TROPONIN I < 0.012 ng/mL
[2017-04-21] MEDS: DIVALPROEX SODIUM 250 MG TABLET.DR PO SCH ×3 (05:14→22:55)
[2017-04-21] MEDS: OXCARBAZEPINE 150 MG TABLET PO SCH ×3 (05:14→22:55)
[2017-04-21 05:44] LABS: ABSOLUTE EOSINOPHILS # (AUTO) 0.2 10^3/uL (0.0-0.6); ABSOLUTE LYMPHOCYTES (AUTO) 1.2 10^3/uL (0.5-4.7); ABSOLUTE MONOCYTES (AUTO) 1.7 10^3/uL (0.1-1.4); ABSOLUTE NEUT (AUTO) 5.7 10^3/uL (1.7-8.2); BASOPHILS % (AUTO) 0.4 % (0-2); EOSINOPHILS % (AUTO) 2.2 % (0-6); HEMATOCRIT 24.5 % (36.0-47.0); HEMOGLOBIN 8.3 g/dL (12.0-15.5); HGB HCT DIFFERENCE 0.4; LYMPHOCYTES % (AUTO) 13.9 % (13-45); MEAN CORPUSCULAR HEMOGLOBIN 33.3 pg (27.0-33.4); MEAN CORPUSCULAR HGB CONC 34.1 g/dL (32.0-36.0); MEAN CORPUSCULAR VOLUME 98 fl (80-97); MONOCYTES % (AUTO) 19.5 % (3-13); RED BLOOD COUNT 2.51 10^6/uL (3.72-5.28); RED CELL DISTRIBUTION WIDTH 15.5 % (11.5-14.0)
[2017-04-21 06:05] LABS: ALANINE AMINOTRANSFERASE 24 U/L (9-52); ALBUMIN 2.9 g/dL (3.5-5.0); ALKALINE PHOSPHATASE 72 U/L (38-126); ANION GAP 12 (5-19); ASPARTATE AMINO TRANSFERASE 18 U/L (14-36); BILIRUBIN,DIRECT 0.2 mg/dL (0.0-0.4); BILIRUBIN,TOTAL 0.2 mg/dL (0.2-1.3); BLOOD UREA NITROGEN 28 mg/dL (7-20); CALCIUM 9.7 mg/dL (8.4-10.2); CARBON DIOXIDE 19 mmol/L (22-30); CHLORIDE 115 mmol/L (98-107); CREATININE RESULT 0.92 mg/dL (0.52-1.25); GLUCOSE 94 mg/dL (75-110); POTASSIUM 5.2 mmol/L (3.6-5.0); SODIUM 145.8 mmol/L (137-145); TOTAL PROTEIN 6.1 g/dL (6.3-8.2)
[2017-04-21] MEDS: METFORMIN HCL 500 MG TABLET PO SCH ×2 (07:52→17:49)
[2017-04-21] MEDS: LEVOTHYROXINE SODIUM 0.088 MG TABLET PO SCH (07:52)
[2017-04-21] MEDS: LANSOPRAZOLE 15 MG TAB.RAP.DR PO SCH ×2 (07:55→17:47)
[2017-04-21] MEDS: SITAGLIPTIN PHOSPHATE 50 MG TABLET PO SCH (07:56)
[2017-04-21] MEDS ORDERED: LANSOPRAZOLE 15 MG TAB.RAP.DR PO SCH (08:00)
[2017-04-21] MEDS ORDERED: (PENDING PHARMACY ID) (Linagliptin [Tradjenta] 5 MG) PO SCH (10:00)
[2017-04-21] MEDS ORDERED: LEVOFLOXACIN 750 MG/D5W RTU 750 MG/150 ML RTUPB IV SCH ×2 (10:00)
[2017-04-21] MEDS: SENNOSIDES/DOCUSATE 8.6-50 MG 1 EACH TABLET PO SCH (11:26)
[2017-04-21] MEDS: LISINOPRIL 10 MG TABLET PO SCH (11:26)
[2017-04-21] MEDS: CALCIUM CARBONATE 250 MG/VITAMIN D3 125 UNIT TABLET PO SCH ×2 (11:27→17:49)
[2017-04-21] MEDS: ALPRAZOLAM 0.25 MG TABLET PO SCH ×2 (11:27→17:48)
[2017-04-21] MEDS: OXYBUTYNIN CHLORIDE 5 MG TABLET PO SCH ×2 (11:27→22:55)
[2017-04-21] MEDS: FOLIC ACID 1 MG TABLET PO SCH (11:35)
[2017-04-21] MEDS: THIAMINE HCL 100 MG TABLET PO SCH (11:35)
[2017-04-21] MEDS: QUETIAPINE FUMARATE 25 MG TABLET PO SCH ×2 (11:36→17:48)
[2017-04-21] MEDS: NORMAL SALINE 1000 ML 1,000 ML IV PRN (11:47)
[2017-04-21] MEDS: CEFEPIME 2 GM/D5W RTU 2 GM/50 ML RTUPB IV SCH ×2 (11:47→22:56)
[2017-04-21] MEDS: ENOXAPARIN SODIUM INJ 40 MG/0.4 ML DISP.SYRIN SUBCUT SCH (11:48)
[2017-04-21] MEDS: ACETAMINOPHEN 325 MG TABLET PO PRN (12:11)
[2017-04-21] MEDS: CYANOCOBALAMIN (VITAMIN B-12) 1,000 MCG TABLET PO SCH (12:12)
[2017-04-21] MEDS: ERTAPENEM SODIUM 1 GM in NORMAL SALINE 50 ML IV SCH (12:32)
--- NOTE | 2017-04-21 17:57 | PDOC PROGRESS REPORT ---
Subjective Progress Note for:: 04/21/17 Subjective:: Patient is alert, she was admitted for pneumonia and UTI Physical Exam Vital Signs: Temp Pulse Resp BP Pulse Ox 99.6 F 118 H 22 H 143/60 H 95 04/21/17 11:32 04/21/17 14:00 04/21/17 11:32 04/21/17 11:32 04/21/17 11:32 Intake & Output 04/20/17 04/21/17 04/22/17 06:59 06:59 06:59 Intake Total 1060 358 Output Total 800 800 Balance 260 -442 Weight 90.6 kg General appearance: PRESENT: no acute distress, well-developed, well-nourished Head exam: PRESENT: atraumatic, normocephalic Eye exam: PRESENT: conjunctiva pink, EOMI, PERRLA Ear exam: PRESENT: normal external ear exam Mouth exam: PRESENT: moist, tongue midline Neck exam: PRESENT: full ROM Cardiovascular exam: PRESENT: RRR, +S1, +S2 Vascular exam: PRESENT: normal capillary refill GI/Abdominal exam: PRESENT: normal bowel sounds, soft Rectal exam: PRESENT: deferred Neurological exam: PRESENT: alert, awake, oriented to person, oriented to place , oriented to time, oriented to situation, CN II-XII grossly intact. ABSENT: motor sensory deficit Psychiatric exam: PRESENT: appropriate affect, normal mood. ABSENT: homicidal ideation, suicidal ideation Skin exam: PRESENT: dry, intact, warm Results Laboratory Results: 04/21/17 04:59 04/21/17 04:59 04/20/17 04/21/17 04/21/17 19:52 04:59 04:59 WBC 9.0 RBC 2.51 L Hgb 8.3 L Hct 24.5 L MCV 98 H MCH 33.3 MCHC 34.1 RDW 15.5 H Plt Count 333 Seg Neutrophils % 64.0 Lymphocytes % 13.9 Monocytes % 19.5 H Eosinophils % 2.2 Basophils % 0.4 Absolute Neutrophils 5.7 Absolute Lymphocytes 1.2 Absolute Monocytes 1.7 H Absolute Eosinophils 0.2 Absolute Basophils 0.0 Carbonic Acid 1.12 HCO3/H2CO3 Ratio 17:1 ABG pH 7.33 L ABG pCO2 37.1 ABG pO2 83.2 ABG HCO3 19.1 L ABG O2 Saturation 95.6 ABG Base Excess -6.2 FiO2 28% Sodium 145.8 H Potassium 5.2 H Chloride 115 H Carbon Dioxide 19 L Anion Gap 12 BUN 28 H Creatinine 0.92 Est GFR ( Amer) > 60 Est GFR (Non-Af Amer) > 60 Glucose 94 Calcium 9.7 Total Bilirubin 0.2 AST 18 ALT 24 Alkaline Phosphatase 72 Total Protein 6.1 L Albumin 2.9 L 04/20/17 04/20/17 21:18 21:18 Creatine Kinase 316 H CK-MB (CK-2) 4.20 Troponin I < 0.012 NT-Pro-B Natriuret Pep 242 Impressions: Chest CT 04/20/17 00:00 IMPRESSION: Patchy consolidation in the left upper and left lower lobes. Small left pleural effusion. Scattered reactive appearing hilar and mediastinal nodes. Chest X-Ray 04/20/17 11:38 IMPRESSION: Left lower lobe pneumonia. Assessment & Plan - Diagnosis (1) Pneumonia involving left lung Qualifiers: Pneumonia type: aspiration pneumonia Aspiration pneumonia type: unspecified Lung location: unspecified part of lung Qualified Code(s): J69.0 - Pneumonitis due to inhalation of food and vomit Is this a current diagnosis for this admission?: Yes (2) Urinary tract infection Is this a current diagnosis for this admission?: Yes (3) Pneumonia involving left lung Qualifiers: Pneumonia type: due to unspecified organism Lung location: unspecified part of lung Qualified Code(s): J18.9 - Pneumonia, unspecified organism Is this a current diagnosis for this admission?: Yes - Plan Summary Plan Summary: Continue IV antibiotic
[2017-04-21] MEDS: OLANZAPINE 5 MG TABLET PO SCH (22:55)
[2017-04-22 05:20] LABS: HEMATOCRIT 23.4 % (36.0-47.0); HGB HCT DIFFERENCE 0.6; MEAN CORPUSCULAR HEMOGLOBIN 33.1 pg (27.0-33.4); MEAN CORPUSCULAR VOLUME 97 fl (80-97); RED BLOOD COUNT 2.41 10^6/uL (3.72-5.28); RED CELL DISTRIBUTION WIDTH 15.6 % (11.5-14.0); WHITE BLOOD COUNT 9.3 10^3/uL (4.0-10.5)
[2017-04-22 05:22] LABS: ALANINE AMINOTRANSFERASE 23 U/L (9-52); ALBUMIN 2.8 g/dL (3.5-5.0); ALKALINE PHOSPHATASE 68 U/L (38-126); ANION GAP 9 (5-19); ASPARTATE AMINO TRANSFERASE 15 U/L (14-36); BILIRUBIN,DIRECT 0.2 mg/dL (0.0-0.4); BILIRUBIN,TOTAL 0.2 mg/dL (0.2-1.3); BLOOD UREA NITROGEN 16 mg/dL (7-20); CARBON DIOXIDE 22 mmol/L (22-30); CHLORIDE 113 mmol/L (98-107); CREATININE RESULT 0.84 mg/dL (0.52-1.25); GLUCOSE 98 mg/dL (75-110); SODIUM 143.5 mmol/L (137-145); TOTAL PROTEIN 5.9 g/dL (6.3-8.2)
[2017-04-22 05:48] LABS: BASOPHILS % (MANUAL) 0 % (0-2); EOSINOPHILS % (MANUAL) 2 % (0-6); LYMPHOCYTES % (MANUAL) 28 % (13-45); TOTAL CELLS COUNTED 100
[2017-04-22 05:49] LABS: ANISOCYTOSIS 1+; ROULEAUX 2+; TOXIC GRANULATION SLIGHT; TOXIC VACUOLATION PRESENT
[2017-04-22] MEDS: OXCARBAZEPINE 150 MG TABLET PO SCH ×3 (06:16→22:09)
[2017-04-22] MEDS: DIVALPROEX SODIUM 250 MG TABLET.DR PO SCH ×3 (06:16→22:10)
[2017-04-22] MEDS: LEVOTHYROXINE SODIUM 0.088 MG TABLET PO SCH (08:37)
[2017-04-22] MEDS: LANSOPRAZOLE 15 MG TAB.RAP.DR PO SCH ×2 (08:37→18:00)
[2017-04-22] MEDS: METFORMIN HCL 500 MG TABLET PO SCH ×2 (08:37→18:01)
[2017-04-22] MEDS: SITAGLIPTIN PHOSPHATE 50 MG TABLET PO SCH (08:37)
--- NOTE | 2017-04-22 09:09 | Physician Advisory Note ---
Physician Advisor ProgressNote .: Pursuant to the plan for Brenda Chinchilla, I have reviewed the medical record for this patient. Physician Advisor Statement: Excellent documentation of Lt-sided PNA, likely aspiration type or healthcare- acquired from SNF exposure. Please consider documentin. "Acute Renal Failure with Acute metabolic acidosis, now improved, suspect due to ____" [sepsis? intravascular volume depletion? hypotension? ...] 2. "Acute hypernatremia, now resolved, suspect due to " [intravascular volume depletion?] 3. "possible sepsis, present on admission, due to PNA, evidenced by mental status change with total GCS 14, ARF, hypotension w/MAP's <70, tachycardia, tachypnea, ... " [& state whether ruled in or ruled out, in your opinion] - ED dr note indicates SNF was concerned for possible sepsis, & ED dr was, too. - If your impression is that the abnormal GCS, for example, was baseline for pt or due to something else other than sepsis, then feel free to state that. This reviewer doesn't know the pt like you do, and can only offer suggestions. Educational point for if/when you have the time: 4. ? - "Acute Hypoxemic Respiratory Failure, evidenced by ____[sx of increased work of breathing]" - O2 sats 93% on 2L O2, 90% on 1L, & 94% on 3L - Chart so far documents tachypnea, dyspnea, shallow breathing, difficulty clearing secretions ..., but not labored breathing, acute respiratory distress, accessory muscle use, or the like. If anything like these findings were present , & you believe pt had this dx, please make them, & this dx, explicit. - If only hypoxemia (+) without increased difficulty breathing, then this can count towards a sepsis dx but not clearly "Ac Resp Failure". Thanks! CK
[2017-04-22] MEDS ORDERED: LEVOFLOXACIN 750 MG/D5W RTU 750 MG/150 ML RTUPB IV SCH (10:00)
[2017-04-22] MEDS: ENOXAPARIN SODIUM INJ 40 MG/0.4 ML DISP.SYRIN SUBCUT SCH (10:46)
[2017-04-22] MEDS: LISINOPRIL 10 MG TABLET PO SCH (10:48)
[2017-04-22] MEDS: FOLIC ACID 1 MG TABLET PO SCH (10:49)
[2017-04-22] MEDS: ALPRAZOLAM 0.25 MG TABLET PO SCH ×2 (10:49→18:02)
[2017-04-22] MEDS: THIAMINE HCL 100 MG TABLET PO SCH (10:50)
[2017-04-22] MEDS: CYANOCOBALAMIN (VITAMIN B-12) 1,000 MCG TABLET PO SCH (10:50)
[2017-04-22] MEDS: QUETIAPINE FUMARATE 25 MG TABLET PO SCH ×2 (10:50→18:02)
[2017-04-22] MEDS: OXYBUTYNIN CHLORIDE 5 MG TABLET PO SCH ×2 (10:50→22:09)
[2017-04-22] MEDS: SENNOSIDES/DOCUSATE 8.6-50 MG 1 EACH TABLET PO SCH (10:50)
[2017-04-22] MEDS: CALCIUM CARBONATE 250 MG/VITAMIN D3 125 UNIT TABLET PO SCH ×2 (10:50→18:01)
[2017-04-22] MEDS: CEFEPIME 2 GM/D5W RTU 2 GM/50 ML RTUPB IV SCH ×2 (11:03→22:10)
[2017-04-22] MEDS: ERTAPENEM SODIUM 1 GM in NORMAL SALINE 50 ML IV SCH (11:04)
[2017-04-22] MEDS: ACETAMINOPHEN 325 MG TABLET PO PRN (14:26)
[2017-04-22] MEDS: OLANZAPINE 5 MG TABLET PO SCH (22:10)
[2017-04-22] MEDS: NORMAL SALINE 1000 ML 1,000 ML IV PRN (22:12)
--- NOTE | 2017-04-22 22:31 | PDOC PROGRESS REPORT ---
Subjective Progress Note for:: 04/22/17 Subjective:: She was seen by the bedside, She was admitted for management of pneumonia and UTI. On admission she had mild metabolic acidosis most likely related to sepsis but the acidosis is resolved Physical Exam Vital Signs: Temp Pulse Resp BP Pulse Ox 97.7 F 104 H 24 H 126/54 H 95 04/22/17 21:08 04/22/17 21:08 04/22/17 21:08 04/22/17 21:08 04/22/17 21:08 Intake & Output 04/21/17 04/22/17 04/23/17 06:59 06:59 06:59 Intake Total 1060 4724 1905 Output Total 800 1500 Balance 260 3224 1905 Weight 90.6 kg 90.6 kg General appearance: PRESENT: no acute distress Eye exam: PRESENT: PERRLA Respiratory exam: PRESENT: clear to auscultation juliette Cardiovascular exam: PRESENT: +S1, +S2 GI/Abdominal exam: PRESENT: soft Neurological exam: PRESENT: alert Results Laboratory Results: 04/22/17 04:23 04/22/17 04:23 04/22/17 04/22/17 04:23 04:23 WBC 9.3 RBC 2.41 L Hgb 8.0 L Hct 23.4 L MCV 97 MCH 33.1 MCHC 34.0 RDW 15.6 H Plt Count 297 Seg Neutrophils % Not Reportable Lymphocytes % Not Reportable Monocytes % Not Reportable Eosinophils % Not Reportable Basophils % Not Reportable Absolute Neutrophils Not Reportable Absolute Lymphocytes Not Reportable Absolute Monocytes Not Reportable Absolute Eosinophils Not Reportable Absolute Basophils Not Reportable Sodium 143.5 Potassium 5.0 Chloride 113 H Carbon Dioxide 22 Anion Gap 9 BUN 16 Creatinine 0.84 Est GFR ( Amer) > 60 Est GFR (Non-Af Amer) > 60 Glucose 98 Calcium 10.0 Total Bilirubin 0.2 AST 15 ALT 23 Alkaline Phosphatase 68 Total Protein 5.9 L Albumin 2.8 L 04/20/17 04/20/17 21:18 21:18 Creatine Kinase 316 H CK-MB (CK-2) 4.20 Troponin I < 0.012 NT-Pro-B Natriuret Pep 242 Impressions: Chest CT 04/20/17 00:00 IMPRESSION: Patchy consolidation in the left upper and left lower lobes. Small left pleural effusion. Scattered reactive appearing hilar and mediastinal nodes. Chest X-Ray 04/20/17 11:38 IMPRESSION: Left lower lobe pneumonia. Assessment & Plan - Diagnosis (1) Pneumonia involving left lung Qualifiers: Pneumonia type: aspiration pneumonia Aspiration pneumonia type: unspecified Lung location: unspecified part of lung Qualified Code(s): J69.0 - Pneumonitis due to inhalation of food and vomit Is this a current diagnosis for this admission?: Yes (2) Urinary tract infection Is this a current diagnosis for this admission?: Yes (3) Pneumonia involving left lung Qualifiers: Pneumonia type: due to unspecified organism Lung location: unspecified part of lung Qualified Code(s): J18.9 - Pneumonia, unspecified organism Is this a current diagnosis for this admission?: Yes (4) Metabolic acidosis Is this a current diagnosis for this admission?: Yes Plan: This is resolved due to sepsis transferred (5) Acute hypoxemic respiratory failure Is this a current diagnosis for this admission?: Yes (6) Sepsis Is this a current diagnosis for this admission?: Yes
[2017-04-23] MEDS: DIVALPROEX SODIUM 250 MG TABLET.DR PO SCH ×3 (05:00→23:22)
[2017-04-23] MEDS: OXCARBAZEPINE 150 MG TABLET PO SCH ×3 (05:00→23:22)
[2017-04-23 05:18] LABS: ABSOLUTE BASOPHILS # (AUTO) 0.1 10^3/uL (0.0-0.2); ABSOLUTE EOSINOPHILS # (AUTO) 0.3 10^3/uL (0.0-0.6); ABSOLUTE LYMPHOCYTES (AUTO) 2.4 10^3/uL (0.5-4.7); ABSOLUTE MONOCYTES (AUTO) 2.1 10^3/uL (0.1-1.4); ABSOLUTE NEUT (AUTO) 5.7 10^3/uL (1.7-8.2); BASOPHILS % (AUTO) 0.6 % (0-2); EOSINOPHILS % (AUTO) 2.5 % (0-6); HEMATOCRIT 25.1 % (36.0-47.0); HEMOGLOBIN 8.4 g/dL (12.0-15.5); HGB HCT DIFFERENCE 0.1; LYMPHOCYTES % (AUTO) 22.4 % (13-45); MEAN CORPUSCULAR HEMOGLOBIN 32.6 pg (27.0-33.4); MEAN CORPUSCULAR HGB CONC 33.6 g/dL (32.0-36.0); MEAN CORPUSCULAR VOLUME 97 fl (80-97); MONOCYTES % (AUTO) 19.7 % (3-13); RED BLOOD COUNT 2.59 10^6/uL (3.72-5.28); RED CELL DISTRIBUTION WIDTH 15.4 % (11.5-14.0); SEGMENTED NEUTROPHILS % (AUTO) 54.8 % (42-78); WHITE BLOOD COUNT 10.5 10^3/uL (4.0-10.5)
[2017-04-23 05:39] LABS: ALANINE AMINOTRANSFERASE 23 U/L (9-52); ALBUMIN 2.8 g/dL (3.5-5.0); ALKALINE PHOSPHATASE 61 U/L (38-126); ANION GAP 10 (5-19); ASPARTATE AMINO TRANSFERASE 12 U/L (14-36); BILIRUBIN,DIRECT 0.2 mg/dL (0.0-0.4); BILIRUBIN,TOTAL 0.2 mg/dL (0.2-1.3); BLOOD UREA NITROGEN 12 mg/dL (7-20); CARBON DIOXIDE 23 mmol/L (22-30); CHLORIDE 111 mmol/L (98-107); CREATININE RESULT 0.78 mg/dL (0.52-1.25); GLUCOSE 112 mg/dL (75-110); POTASSIUM 4.7 mmol/L (3.6-5.0); SODIUM 144.1 mmol/L (137-145); TOTAL PROTEIN 6.1 g/dL (6.3-8.2)
[2017-04-23] MEDS: LANSOPRAZOLE 15 MG TAB.RAP.DR PO SCH ×2 (09:00→16:12)
[2017-04-23] MEDS: SITAGLIPTIN PHOSPHATE 50 MG TABLET PO SCH (09:01)
[2017-04-23] MEDS: METFORMIN HCL 500 MG TABLET PO SCH ×2 (09:01→16:12)
[2017-04-23] MEDS: LEVOTHYROXINE SODIUM 0.088 MG TABLET PO SCH (09:01)
[2017-04-23] MEDS: LISINOPRIL 10 MG TABLET PO SCH (12:21)
[2017-04-23] MEDS: CYANOCOBALAMIN (VITAMIN B-12) 1,000 MCG TABLET PO SCH (12:21)
[2017-04-23] MEDS: SENNOSIDES/DOCUSATE 8.6-50 MG 1 EACH TABLET PO SCH (12:21)
[2017-04-23] MEDS: ALPRAZOLAM 0.25 MG TABLET PO SCH ×2 (12:21→17:24)
[2017-04-23] MEDS: QUETIAPINE FUMARATE 25 MG TABLET PO SCH ×2 (12:21→17:24)
[2017-04-23] MEDS: THIAMINE HCL 100 MG TABLET PO SCH (12:21)
[2017-04-23] MEDS: FOLIC ACID 1 MG TABLET PO SCH (12:21)
[2017-04-23] MEDS: OXYBUTYNIN CHLORIDE 5 MG TABLET PO SCH ×2 (12:21→23:23)
[2017-04-23] MEDS: ENOXAPARIN SODIUM INJ 40 MG/0.4 ML DISP.SYRIN SUBCUT SCH (12:21)
[2017-04-23] MEDS: CALCIUM CARBONATE 250 MG/VITAMIN D3 125 UNIT TABLET PO SCH ×2 (12:21→17:24)
[2017-04-23] MEDS: CEFEPIME 2 GM/D5W RTU 2 GM/50 ML RTUPB IV SCH ×2 (12:54→23:21)
[2017-04-23] MEDS: ERTAPENEM SODIUM 1 GM in NORMAL SALINE 50 ML IV SCH (12:55)
[2017-04-23] MEDS: ACETAMINOPHEN 325 MG TABLET PO PRN (15:11)
[2017-04-23] MEDS: NORMAL SALINE 1000 ML 1,000 ML IV PRN (17:01)
[2017-04-23] MEDS ORDERED: ONDANSETRON HCL INJ/PF 4 MG/2 ML SDV ONE (21:26)
[2017-04-23] MEDS ORDERED: ONDANSETRON HCL INJ/PF 4 MG/2 ML SDV IV PRN (21:34)
[2017-04-23] MEDS: OLANZAPINE 5 MG TABLET PO SCH (23:22)
--- NOTE | 2017-04-23 23:58 | PDOC PROGRESS REPORT ---
Subjective Progress Note for:: 04/23/17 Subjective:: Patient was seen by the bedside, she has been refusing to take a p.o. medication , she is very preoccupied with , she believes her life expectancy is about 10 days, she is also asking me for mercy . She is obviously upset because she is sick, she stated that whenever she coughs she will poop, she will urinate Physical Exam Vital Signs: Temp Pulse Resp BP Pulse Ox 98.3 F 109 H 22 H 137/94 H 97 04/23/17 21:03 04/23/17 21:03 04/23/17 21:03 04/23/17 21:03 04/23/17 21:03 Intake & Output 04/22/17 04/23/17 04/24/17 06:59 06:59 06:59 Intake Total 4724 3590 1974 Output Total 1500 Balance 3224 3590 1974 Weight 90.6 kg 91.1 kg General appearance: PRESENT: no acute distress Head exam: PRESENT: atraumatic, normocephalic Eye exam: PRESENT: conjunctiva pink, EOMI, PERRLA Ear exam: PRESENT: normal external ear exam Mouth exam: PRESENT: moist, tongue midline Neck exam: PRESENT: full ROM Respiratory exam: PRESENT: clear to auscultation juliette Cardiovascular exam: PRESENT: RRR, +S1, +S2 Pulses: PRESENT: normal dorsalis pedis pul, +2 pedal pulses bilateral Vascular exam: PRESENT: normal capillary refill GI/Abdominal exam: PRESENT: normal bowel sounds, soft Rectal exam: PRESENT: deferred Neurological exam: PRESENT: alert, awake, oriented to person, oriented to place , oriented to time, oriented to situation, CN II-XII grossly intact Psychiatric exam: PRESENT: appropriate affect, normal mood Results Laboratory Results: 04/23/17 04:27 04/23/17 04:27 04/23/17 04/23/17 04:27 04:27 WBC 10.5 RBC 2.59 L Hgb 8.4 L Hct 25.1 L MCV 97 MCH 32.6 MCHC 33.6 RDW 15.4 H Plt Count 320 Seg Neutrophils % 54.8 Lymphocytes % 22.4 Monocytes % 19.7 H Eosinophils % 2.5 Basophils % 0.6 Absolute Neutrophils 5.7 Absolute Lymphocytes 2.4 Absolute Monocytes 2.1 H Absolute Eosinophils 0.3 Absolute Basophils 0.1 Sodium 144.1 Potassium 4.7 Chloride 111 H Carbon Dioxide 23 Anion Gap 10 BUN 12 Creatinine 0.78 Est GFR ( Amer) > 60 Est GFR (Non-Af Amer) > 60 Glucose 112 H Calcium 10.0 Total Bilirubin 0.2 AST 12 L ALT 23 Alkaline Phosphatase 61 Total Protein 6.1 L Albumin 2.8 L 04/20/17 04/20/17 21:18 21:18 Creatine Kinase 316 H CK-MB (CK-2) 4.20 Troponin I < 0.012 NT-Pro-B Natriuret Pep 242 Impressions: Chest CT 04/20/17 00:00 IMPRESSION: Patchy consolidation in the left upper and left lower lobes. Small left pleural effusion. Scattered reactive appearing hilar and mediastinal nodes. Chest X-Ray 04/20/17 11:38 IMPRESSION: Left lower lobe pneumonia. Assessment & Plan - Diagnosis (1) Pneumonia involving left lung Qualifiers: Pneumonia type: aspiration pneumonia Aspiration pneumonia type: unspecified Lung location: unspecified part of lung Qualified Code(s): J69.0 - Pneumonitis due to inhalation of food and vomit Is this a current diagnosis for this admission?: Yes (2) Urinary tract infection Is this a current diagnosis for this admission?: Yes (3) Pneumonia involving left lung Qualifiers: Pneumonia type: due to unspecified organism Lung location: unspecified part of lung Qualified Code(s): J18.9 - Pneumonia, unspecified organism Is this a current diagnosis for this admission?: Yes (4) Metabolic acidosis Is this a current diagnosis for this admission?: Yes (5) Acute hypoxemic respiratory failure Is this a current diagnosis for this admission?: Yes (6) Sepsis Is this a current diagnosis for this admission?: Yes - Plan Summary Plan Summary: The urine culture grew E. coli, she will continue IV antibiotic with ertapenem and cefepime this will cover potential pathogens for pneumonia UTI.
[2017-04-24] MEDS: ACETAMINOPHEN 325 MG TABLET PO PRN (06:20)
[2017-04-24] MEDS: OXCARBAZEPINE 150 MG TABLET PO SCH ×3 (06:22→23:20)
[2017-04-24] MEDS: DIVALPROEX SODIUM 250 MG TABLET.DR PO SCH ×3 (06:22→23:21)
[2017-04-24] MEDS: SITAGLIPTIN PHOSPHATE 50 MG TABLET PO SCH (08:09)
[2017-04-24] MEDS: LEVOTHYROXINE SODIUM 0.088 MG TABLET PO SCH (08:10)
[2017-04-24] MEDS: LANSOPRAZOLE 15 MG TAB.RAP.DR PO SCH ×2 (08:10→17:26)
[2017-04-24] MEDS: METFORMIN HCL 500 MG TABLET PO SCH ×2 (08:10→17:26)
[2017-04-24] MEDS: QUETIAPINE FUMARATE 25 MG TABLET PO SCH ×2 (10:59→17:25)
[2017-04-24] MEDS: ALPRAZOLAM 0.25 MG TABLET PO SCH ×2 (10:59→17:26)
[2017-04-24] MEDS: OXYBUTYNIN CHLORIDE 5 MG TABLET PO SCH ×2 (10:59→23:20)
[2017-04-24] MEDS: CEFEPIME 2 GM/D5W RTU 2 GM/50 ML RTUPB IV SCH ×2 (10:59→23:20)
[2017-04-24] MEDS: ENOXAPARIN SODIUM INJ 40 MG/0.4 ML DISP.SYRIN SUBCUT SCH (11:00)
[2017-04-24] MEDS: LISINOPRIL 10 MG TABLET PO SCH (11:00)
[2017-04-24] MEDS: ERTAPENEM SODIUM 1 GM in NORMAL SALINE 50 ML IV SCH (11:02)
[2017-04-24] MEDS: FOLIC ACID 1 MG TABLET PO SCH (11:03)
[2017-04-24] MEDS: CALCIUM CARBONATE 250 MG/VITAMIN D3 125 UNIT TABLET PO SCH ×2 (11:03→17:25)
[2017-04-24] MEDS: THIAMINE HCL 100 MG TABLET PO SCH (11:03)
[2017-04-24] MEDS: CYANOCOBALAMIN (VITAMIN B-12) 1,000 MCG TABLET PO SCH (11:03)
[2017-04-24] MEDS: SENNOSIDES/DOCUSATE 8.6-50 MG 1 EACH TABLET PO SCH (11:03)
--- NOTE | 2017-04-24 19:48 | PDOC PROGRESS REPORT ---
Subjective Progress Note for:: 04/24/17 Subjective:: She remain talkative and tangential. She denied chest pain or difficulty with breathing. No reported nausea, vomiting, or abdominal pain. No fever or chills. Physical Exam Vital Signs: Temp Pulse Resp BP Pulse Ox 98.5 F 85 18 114/62 99 04/24/17 16:04 04/24/17 16:04 04/24/17 16:04 04/24/17 16:04 04/24/17 16:04 Intake & Output 04/23/17 04/24/17 04/25/17 06:59 06:59 06:59 Intake Total 3590 2815 1395 Output Total 300 Balance 3590 2515 1395 Weight 91.1 kg 90.1 kg General appearance: PRESENT: no acute distress, cooperative Head exam: PRESENT: atraumatic, normocephalic Eye exam: PRESENT: conjunctiva pink, EOMI, PERRLA. ABSENT: scleral icterus Mouth exam: PRESENT: moist Respiratory exam: PRESENT: clear to auscultation juliette, decreased breath sounds - lung bases Cardiovascular exam: PRESENT: RRR. ABSENT: diastolic murmur, rubs, systolic murmur GI/Abdominal exam: PRESENT: normal bowel sounds, soft. ABSENT: distended, guarding, mass, organolmegaly, rebound, tenderness Extremities exam: ABSENT: pedal edema Neurological exam: PRESENT: alert, awake, oriented to person Psychiatric exam: PRESENT: appropriate affect, normal mood. ABSENT: homicidal ideation, suicidal ideation Skin exam: PRESENT: dry, intact, warm. ABSENT: cyanosis, rash Results Laboratory Results: 04/23/17 04:27 04/23/17 04:27 04/20/17 04/20/17 21:18 21:18 Creatine Kinase 316 H CK-MB (CK-2) 4.20 Troponin I < 0.012 NT-Pro-B Natriuret Pep 242 Impressions: Chest CT 04/20/17 00:00 IMPRESSION: Patchy consolidation in the left upper and left lower lobes. Small left pleural effusion. Scattered reactive appearing hilar and mediastinal nodes. Chest X-Ray 04/20/17 11:38 IMPRESSION: Left lower lobe pneumonia. Assessment & Plan - Diagnosis (1) Bacterial lobar pneumonia Is this a current diagnosis for this admission?: Yes Plan: See covering attending physician orders. (2) Urinary tract infection Qualifiers: Urinary tract infection type: acute cystitis Hematuria presence: without hematuria Qualified Code(s): N30.00 - Acute cystitis without hematuria Is this a current diagnosis for this admission?: Yes Plan: See covering attending physician orders. (3) Schizo-affective schizophrenia Is this a current diagnosis for this admission?: Yes Plan: See covering attending physician orders. - Time Time Spent with patient: 25-34 minutes Medications reviewed and adjusted accordingly: Yes Anticipated discharge: Other - PRISON Within: Other - Inpatient Certification Based on my medical assessment, after consideration of the patient's comorbidities, presenting symptoms, or acuity I expect that the services needed warrant INPATIENT care.: Yes I certify that my determination is in accordance with my understanding of Medicare's requirements for reasonable and necessary INPATIENT services [42 CFR 412.3e].: Yes Medical Necessity: Need Close Monitoring Due to Risk of Patient Decompensation, Need For IV Fluids, Need For Continuous Telemetry Monitoring, Need for IV Antibiotics Post Hospital Care: D/C Correspondence Review Clerk Documentation - Plan Summary Plan Summary: See covering attending physician orders.
[2017-04-24] MEDS: OLANZAPINE 5 MG TABLET PO SCH (23:21)
[2017-04-25] MEDS: DIVALPROEX SODIUM 250 MG TABLET.DR PO SCH ×3 (06:20→22:22)
[2017-04-25] MEDS: OXCARBAZEPINE 150 MG TABLET PO SCH ×3 (06:20→22:22)
[2017-04-25] MEDS: LANSOPRAZOLE 15 MG TAB.RAP.DR PO SCH ×2 (08:30→17:26)
[2017-04-25] MEDS: SITAGLIPTIN PHOSPHATE 50 MG TABLET PO SCH (08:30)
[2017-04-25] MEDS: LEVOTHYROXINE SODIUM 0.088 MG TABLET PO SCH (08:31)
[2017-04-25] MEDS: METFORMIN HCL 500 MG TABLET PO SCH ×2 (08:31→17:25)
[2017-04-25] MEDS: CALCIUM CARBONATE 250 MG/VITAMIN D3 125 UNIT TABLET PO SCH ×2 (10:55→17:26)
[2017-04-25] MEDS: ALPRAZOLAM 0.25 MG TABLET PO SCH ×2 (10:55→17:26)
[2017-04-25] MEDS: OXYBUTYNIN CHLORIDE 5 MG TABLET PO SCH ×2 (10:55→22:22)
[2017-04-25] MEDS: ERTAPENEM SODIUM 1 GM in NORMAL SALINE 50 ML IV SCH (10:55)
[2017-04-25] MEDS: LISINOPRIL 10 MG TABLET PO SCH (10:55)
[2017-04-25] MEDS: QUETIAPINE FUMARATE 25 MG TABLET PO SCH ×2 (10:55→17:25)
[2017-04-25] MEDS: CYANOCOBALAMIN (VITAMIN B-12) 1,000 MCG TABLET PO SCH (10:55)
[2017-04-25] MEDS: THIAMINE HCL 100 MG TABLET PO SCH (10:55)
[2017-04-25] MEDS: FOLIC ACID 1 MG TABLET PO SCH (10:55)
[2017-04-25] MEDS: SENNOSIDES/DOCUSATE 8.6-50 MG 1 EACH TABLET PO SCH (10:55)
[2017-04-25] MEDS: ENOXAPARIN SODIUM INJ 40 MG/0.4 ML DISP.SYRIN SUBCUT SCH (11:16)
[2017-04-25] MEDS: CEFEPIME 2 GM/D5W RTU 2 GM/50 ML RTUPB IV SCH ×2 (11:17→22:22)
--- NOTE | 2017-04-25 18:59 | PDOC PROGRESS REPORT ---
Subjective Progress Note for:: 04/25/17 Subjective:: No chest pain or difficulty with breathing. No reported nausea, vomiting, or abdominal pain. No fever or chills. There is concern for perineal region skin yeast infection. Physical Exam Vital Signs: Temp Pulse Resp BP Pulse Ox 97.8 F 88 18 125/69 97 04/25/17 15:32 04/25/17 15:32 04/25/17 15:32 04/25/17 15:32 04/25/17 15:32 Intake & Output 04/24/17 04/25/17 04/26/17 06:59 06:59 06:59 Intake Total 2815 2435 840 Output Total 300 Balance 2515 2435 840 Weight 90.1 kg 95.3 kg Physical Exam: General appearance: PRESENT: no acute distress, cooperative Head exam: PRESENT: atraumatic, normocephalic Eye exam: PRESENT: conjunctiva pink, EOMI, PERRLA. ABSENT: scleral icterus Mouth exam: PRESENT: moist Respiratory exam: PRESENT: clear to auscultation juliette, decreased breath sounds - lung bases Cardiovascular exam: PRESENT: RRR. ABSENT: diastolic murmur, rubs, systolic murmur GI/Abdominal exam: PRESENT: normal bowel sounds, soft. ABSENT: distended, guarding, mass, organomegaly, rebound, tenderness Extremities exam: ABSENT: pedal edema Neurological exam: PRESENT: alert, awake, oriented to person Psychiatric exam: PRESENT: appropriate affect, normal mood. ABSENT: homicidal ideation, suicidal ideation Skin exam: PRESENT: erythematous irregular rash in perineal region, dry, warm. ABSENT: cyanosis, rash Results Laboratory Results: 04/23/17 04:27 04/23/17 04:27 04/20/17 04/20/17 21:18 21:18 Creatine Kinase 316 H CK-MB (CK-2) 4.20 Troponin I < 0.012 NT-Pro-B Natriuret Pep 242 Impressions: Chest CT 04/20/17 00:00 IMPRESSION: Patchy consolidation in the left upper and left lower lobes. Small left pleural effusion. Scattered reactive appearing hilar and mediastinal nodes. Chest X-Ray 04/20/17 11:38 IMPRESSION: Left lower lobe pneumonia. Assessment & Plan - Diagnosis (1) Bacterial lobar pneumonia Is this a current diagnosis for this admission?: Yes (2) Urinary tract infection Qualifiers: Urinary tract infection type: acute cystitis Hematuria presence: without hematuria Qualified Code(s): N30.00 - Acute cystitis without hematuria Is this a current diagnosis for this admission?: Yes (3) Schizo-affective schizophrenia Is this a current diagnosis for this admission?: Yes (4) Candidal dermatitis Is this a current diagnosis for this admission?: Yes Plan: See covering attending physician orders. - Time Time Spent with patient: 25-34 minutes Medications reviewed and adjusted accordingly: Yes Anticipated discharge: SNF - or CORRECTION Within: Other - Inpatient Certification Based on my medical assessment, after consideration of the patient's comorbidities, presenting symptoms, or acuity I expect that the services needed warrant INPATIENT care.: Yes I certify that my determination is in accordance with my understanding of Medicare's requirements for reasonable and necessary INPATIENT services [42 CFR 412.3e].: Yes Medical Necessity: Need Close Monitoring Due to Risk of Patient Decompensation, Need For IV Fluids, Need For Continuous Telemetry Monitoring, Need for IV Antibiotics, Risk of Complication if Not Cared For in Hospital Post Hospital Care: D/C or Transfer Summary - Plan Summary Plan Summary: Continue current medication management. Start on Clotrimazole 1% cream bid topically to affected region.
[2017-04-25] MEDS: CLOTRIMAZOLE 1% CREAM 15 GM TP SCH (22:00)
[2017-04-25] MEDS: OLANZAPINE 5 MG TABLET PO SCH (22:22)
[2017-04-26] MEDS ORDERED: CLOTRIMAZOLE 1% CREAM 15 GM ONE (04:35)
[2017-04-26] MEDS: OXCARBAZEPINE 150 MG TABLET PO SCH ×3 (06:05→21:36)
[2017-04-26] MEDS: DIVALPROEX SODIUM 250 MG TABLET.DR PO SCH ×3 (06:05→21:36)
[2017-04-26] MEDS: LEVOTHYROXINE SODIUM 0.088 MG TABLET PO SCH (08:18)
[2017-04-26] MEDS: SITAGLIPTIN PHOSPHATE 50 MG TABLET PO SCH (08:18)
[2017-04-26] MEDS: METFORMIN HCL 500 MG TABLET PO SCH ×2 (08:18→16:11)
[2017-04-26] MEDS: LANSOPRAZOLE 15 MG TAB.RAP.DR PO SCH ×2 (08:18→16:11)
[2017-04-26] MEDS: ENOXAPARIN SODIUM INJ 40 MG/0.4 ML DISP.SYRIN SUBCUT SCH (10:22)
[2017-04-26] MEDS: QUETIAPINE FUMARATE 25 MG TABLET PO SCH ×2 (10:23→17:06)
[2017-04-26] MEDS: LISINOPRIL 10 MG TABLET PO SCH (10:23)
[2017-04-26] MEDS: CALCIUM CARBONATE 250 MG/VITAMIN D3 125 UNIT TABLET PO SCH ×2 (10:24→17:07)
[2017-04-26] MEDS: SENNOSIDES/DOCUSATE 8.6-50 MG 1 EACH TABLET PO SCH (10:24)
[2017-04-26] MEDS: ALPRAZOLAM 0.25 MG TABLET PO SCH ×2 (10:25→17:06)
[2017-04-26] MEDS: CYANOCOBALAMIN (VITAMIN B-12) 1,000 MCG TABLET PO SCH (10:25)
[2017-04-26] MEDS: FOLIC ACID 1 MG TABLET PO SCH (10:25)
[2017-04-26] MEDS: THIAMINE HCL 100 MG TABLET PO SCH (10:25)
[2017-04-26] MEDS: OXYBUTYNIN CHLORIDE 5 MG TABLET PO SCH ×2 (10:25→21:36)
[2017-04-26] MEDS: CEFEPIME 2 GM/D5W RTU 2 GM/50 ML RTUPB IV SCH ×2 (10:28→21:36)
[2017-04-26] MEDS: ERTAPENEM SODIUM 1 GM in NORMAL SALINE 50 ML IV SCH (10:30)
[2017-04-26] MEDS: CLOTRIMAZOLE 1% CREAM 15 GM TP SCH ×2 (10:55→21:36)
[2017-04-26] MEDS: ACETAMINOPHEN 325 MG TABLET PO PRN (14:18)
--- NOTE | 2017-04-26 19:39 | PDOC PROGRESS REPORT ---
Subjective Progress Note for:: 04/26/17 Subjective:: She was seen by the bedside, she has no new complaint Physical Exam Vital Signs: Temp Pulse Resp BP Pulse Ox 98.2 F 90 20 121/64 95 04/26/17 16:41 04/26/17 16:41 04/26/17 16:41 04/26/17 16:41 04/26/17 16:41 Intake & Output 04/25/17 04/26/17 04/27/17 06:59 06:59 06:59 Intake Total 2435 2236 1026 Output Total 550 Balance 2435 1686 1026 Weight 95.3 kg 95.1 kg General appearance: PRESENT: no acute distress Eye exam: PRESENT: PERRLA Respiratory exam: PRESENT: clear to auscultation juliette Cardiovascular exam: PRESENT: +S1 GI/Abdominal exam: PRESENT: soft Neurological exam: PRESENT: alert, CN II-XII grossly intact Results Laboratory Results: 04/23/17 04:27 04/23/17 04:27 04/20/17 20:55 Blood Blood Culture - Final NO GROWTH IN 5 DAYS 04/20/17 21:18 Blood Blood Culture - Final NO GROWTH IN 5 DAYS 04/20/17 04/20/17 21:18 21:18 Creatine Kinase 316 H CK-MB (CK-2) 4.20 Troponin I < 0.012 NT-Pro-B Natriuret Pep 242 Impressions: Chest CT 04/20/17 00:00 IMPRESSION: Patchy consolidation in the left upper and left lower lobes. Small left pleural effusion. Scattered reactive appearing hilar and mediastinal nodes. Chest X-Ray 04/20/17 11:38 IMPRESSION: Left lower lobe pneumonia. Assessment & Plan - Diagnosis (1) Pneumonia involving left lung Qualifiers: Pneumonia type: aspiration pneumonia Aspiration pneumonia type: unspecified Lung location: unspecified part of lung Qualified Code(s): J69.0 - Pneumonitis due to inhalation of food and vomit Is this a current diagnosis for this admission?: Yes (2) Urinary tract infection Is this a current diagnosis for this admission?: Yes (3) Pneumonia involving left lung Qualifiers: Pneumonia type: due to unspecified organism Lung location: unspecified part of lung Qualified Code(s): J18.9 - Pneumonia, unspecified organism Is this a current diagnosis for this admission?: Yes (4) Metabolic acidosis Is this a current diagnosis for this admission?: Yes (5) Acute hypoxemic respiratory failure Is this a current diagnosis for this admission?: Yes (6) Sepsis Is this a current diagnosis for this admission?: Yes - Plan Summary Plan Summary: Continue present treatment
[2017-04-26 20:03] LABS: ABSOLUTE BASOPHILS # (AUTO) 0.1 10^3/uL (0.0-0.2); ABSOLUTE EOSINOPHILS # (AUTO) 0.4 10^3/uL (0.0-0.6); ABSOLUTE LYMPHOCYTES (AUTO) 2.3 10^3/uL (0.5-4.7); ABSOLUTE NEUT (AUTO) 5.2 10^3/uL (1.7-8.2); BASOPHILS % (AUTO) 0.9 % (0-2); HEMATOCRIT 27.3 % (36.0-47.0); HGB HCT DIFFERENCE -0.3; LYMPHOCYTES % (AUTO) 25.4 % (13-45); MEAN CORPUSCULAR HGB CONC 32.8 g/dL (32.0-36.0); MEAN CORPUSCULAR VOLUME 98 fl (80-97); RED CELL DISTRIBUTION WIDTH 15.3 % (11.5-14.0); SEGMENTED NEUTROPHILS % (AUTO) 58.7 % (42-78); WHITE BLOOD COUNT 8.9 10^3/uL (4.0-10.5)
[2017-04-26 21:07] LABS: ALANINE AMINOTRANSFERASE 24 U/L (9-52); ALKALINE PHOSPHATASE 62 U/L (38-126); ANION GAP 10 (5-19); ASPARTATE AMINO TRANSFERASE 13 U/L (14-36); BILIRUBIN,DIRECT 0.1 mg/dL (0.0-0.4); BILIRUBIN,TOTAL 0.1 mg/dL (0.2-1.3); BLOOD UREA NITROGEN 12 mg/dL (7-20); CALCIUM 9.6 mg/dL (8.4-10.2); CARBON DIOXIDE 26 mmol/L (22-30); CHLORIDE 112 mmol/L (98-107); GLUCOSE 88 mg/dL (75-110); POTASSIUM 3.8 mmol/L (3.6-5.0); SODIUM 147.9 mmol/L (137-145); TOTAL PROTEIN 6.1 g/dL (6.3-8.2)
[2017-04-26] MEDS: OLANZAPINE 5 MG TABLET PO SCH (21:36)
[2017-04-27] MEDS: NORMAL SALINE 1000 ML 1,000 ML IV PRN (00:53)
[2017-04-27 05:47] LABS: ABSOLUTE BASOPHILS # (AUTO) 0.1 10^3/uL (0.0-0.2); ABSOLUTE EOSINOPHILS # (AUTO) 0.4 10^3/uL (0.0-0.6); ABSOLUTE LYMPHOCYTES (AUTO) 2.5 10^3/uL (0.5-4.7); ABSOLUTE MONOCYTES (AUTO) 1.2 10^3/uL (0.1-1.4); ABSOLUTE NEUT (AUTO) 6.9 10^3/uL (1.7-8.2); BASOPHILS % (AUTO) 1.2 % (0-2); EOSINOPHILS % (AUTO) 3.6 % (0-6); HEMATOCRIT 27.1 % (36.0-47.0); HEMOGLOBIN 8.8 g/dL (12.0-15.5); HGB HCT DIFFERENCE -0.7; LYMPHOCYTES % (AUTO) 22.7 % (13-45); MEAN CORPUSCULAR HEMOGLOBIN 31.3 pg (27.0-33.4); MEAN CORPUSCULAR HGB CONC 32.3 g/dL (32.0-36.0); MEAN CORPUSCULAR VOLUME 97 fl (80-97); MONOCYTES % (AUTO) 10.7 % (3-13); RED BLOOD COUNT 2.81 10^6/uL (3.72-5.28); RED CELL DISTRIBUTION WIDTH 15.3 % (11.5-14.0); SEGMENTED NEUTROPHILS % (AUTO) 61.8 % (42-78); WHITE BLOOD COUNT 11.1 10^3/uL (4.0-10.5)
[2017-04-27 05:53] LABS: ALANINE AMINOTRANSFERASE 30 U/L (9-52); ALKALINE PHOSPHATASE 66 U/L (38-126); ANION GAP 10 (5-19); ASPARTATE AMINO TRANSFERASE 14 U/L (14-36); BILIRUBIN,DIRECT 0.2 mg/dL (0.0-0.4); BILIRUBIN,TOTAL 0.2 mg/dL (0.2-1.3); BLOOD UREA NITROGEN 12 mg/dL (7-20); CALCIUM 9.8 mg/dL (8.4-10.2); CARBON DIOXIDE 27 mmol/L (22-30); CHLORIDE 111 mmol/L (98-107); CREATININE RESULT 0.64 mg/dL (0.52-1.25); GLUCOSE 99 mg/dL (75-110); POTASSIUM 3.8 mmol/L (3.6-5.0); SODIUM 148.2 mmol/L (137-145); TOTAL PROTEIN 6.2 g/dL (6.3-8.2)
[2017-04-27] MEDS: DIVALPROEX SODIUM 250 MG TABLET.DR PO SCH ×3 (06:04→22:15)
[2017-04-27] MEDS: OXCARBAZEPINE 150 MG TABLET PO SCH ×3 (06:04→22:16)
[2017-04-27] MEDS: LANSOPRAZOLE 15 MG TAB.RAP.DR PO SCH ×2 (08:25→15:43)
[2017-04-27] MEDS: METFORMIN HCL 500 MG TABLET PO SCH ×2 (08:25→16:04)
[2017-04-27] MEDS: LEVOTHYROXINE SODIUM 0.088 MG TABLET PO SCH (08:25)
[2017-04-27] MEDS: SITAGLIPTIN PHOSPHATE 50 MG TABLET PO SCH (08:26)
[2017-04-27] MEDS: CLOTRIMAZOLE 1% CREAM 15 GM TP SCH ×2 (10:00→22:16)
[2017-04-27] MEDS: ENOXAPARIN SODIUM INJ 40 MG/0.4 ML DISP.SYRIN SUBCUT SCH (10:55)
[2017-04-27] MEDS: LISINOPRIL 10 MG TABLET PO SCH (10:57)
[2017-04-27] MEDS: OXYBUTYNIN CHLORIDE 5 MG TABLET PO SCH ×2 (10:57→22:16)
[2017-04-27] MEDS: ALPRAZOLAM 0.25 MG TABLET PO SCH (10:57)
[2017-04-27] MEDS: CALCIUM CARBONATE 250 MG/VITAMIN D3 125 UNIT TABLET PO SCH ×2 (10:57→17:42)
[2017-04-27] MEDS: FOLIC ACID 1 MG TABLET PO SCH (10:58)
[2017-04-27] MEDS: THIAMINE HCL 100 MG TABLET PO SCH (10:58)
[2017-04-27] MEDS: CYANOCOBALAMIN (VITAMIN B-12) 1,000 MCG TABLET PO SCH (10:58)
[2017-04-27] MEDS: SENNOSIDES/DOCUSATE 8.6-50 MG 1 EACH TABLET PO SCH (10:58)
[2017-04-27] MEDS: QUETIAPINE FUMARATE 25 MG TABLET PO SCH ×2 (10:58→17:43)
[2017-04-27] MEDS: CEFEPIME 2 GM/D5W RTU 2 GM/50 ML RTUPB IV SCH (10:59)
[2017-04-27] MEDS: ERTAPENEM SODIUM 1 GM in NORMAL SALINE 50 ML IV SCH (11:38)
--- NOTE | 2017-04-27 21:10 | PDOC PROGRESS REPORT ---
Subjective Progress Note for:: 04/27/17 Subjective:: She was seen by the bedside, she wants to stay permanently in the hospital, she does not want to return back to shelter, she was admitted for the management of pneumonia and UTI she will be downgraded to the medical floor from IMCU Physical Exam Vital Signs: Temp Pulse Resp BP Pulse Ox 98.5 F 106 H 14 118/105 H 98 04/27/17 19:57 04/27/17 19:57 04/27/17 19:57 04/27/17 19:57 04/27/17 19:57 Intake & Output 04/26/17 04/27/17 04/28/17 06:59 06:59 06:59 Intake Total 2236 2247 1476 Output Total 550 Balance 1686 2247 1476 Weight 95.1 kg 96 kg General appearance: PRESENT: no acute distress Eye exam: PRESENT: PERRLA Respiratory exam: PRESENT: clear to auscultation juliette Cardiovascular exam: PRESENT: +S1, +S2 GI/Abdominal exam: PRESENT: soft Neurological exam: PRESENT: alert, CN II-XII grossly intact Skin exam: PRESENT: warm Results Laboratory Results: 04/27/17 05:18 04/27/17 05:18 04/26/17 04/27/17 04/27/17 20:37 05:18 05:18 WBC 11.1 H RBC 2.81 L Hgb 8.8 L Hct 27.1 L MCV 97 MCH 31.3 MCHC 32.3 RDW 15.3 H Plt Count 318 Seg Neutrophils % 61.8 Lymphocytes % 22.7 Monocytes % 10.7 Eosinophils % 3.6 Basophils % 1.2 Absolute Neutrophils 6.9 Absolute Lymphocytes 2.5 Absolute Monocytes 1.2 Absolute Eosinophils 0.4 Absolute Basophils 0.1 Sodium 147.9 H 148.2 H Potassium 3.8 3.8 Chloride 112 H 111 H Carbon Dioxide 26 27 Anion Gap 10 10 BUN 12 12 Creatinine 0.70 0.64 Est GFR ( Amer) > 60 > 60 Est GFR (Non-Af Amer) > 60 > 60 Glucose 88 99 Calcium 9.6 9.8 Total Bilirubin 0.1 L 0.2 AST 13 L 14 ALT 24 30 Alkaline Phosphatase 62 66 Total Protein 6.1 L 6.2 L Albumin 3.0 L 3.0 L 04/20/17 04/20/17 21:18 21:18 Creatine Kinase 316 H CK-MB (CK-2) 4.20 Troponin I < 0.012 NT-Pro-B Natriuret Pep 242 Impressions: Chest CT 04/20/17 00:00 IMPRESSION: Patchy consolidation in the left upper and left lower lobes. Small left pleural effusion. Scattered reactive appearing hilar and mediastinal nodes. Chest X-Ray 04/20/17 11:38 IMPRESSION: Left lower lobe pneumonia. Assessment & Plan - Diagnosis (1) Pneumonia involving left lung Qualifiers: Pneumonia type: aspiration pneumonia Aspiration pneumonia type: unspecified Lung location: unspecified part of lung Qualified Code(s): J69.0 - Pneumonitis due to inhalation of food and vomit Is this a current diagnosis for this admission?: Yes (2) Urinary tract infection Is this a current diagnosis for this admission?: Yes (3) Pneumonia involving left lung Qualifiers: Pneumonia type: due to unspecified organism Lung location: unspecified part of lung Qualified Code(s): J18.9 - Pneumonia, unspecified organism Is this a current diagnosis for this admission?: Yes (4) Metabolic acidosis Is this a current diagnosis for this admission?: Yes (5) Acute hypoxemic respiratory failure Is this a current diagnosis for this admission?: Yes (6) Sepsis Is this a current diagnosis for this admission?: Yes - Plan Summary Plan Summary: Transfer to medical floor
[2017-04-27] MEDS: OLANZAPINE 5 MG TABLET PO SCH (22:15)
[2017-04-28] MEDS: DIVALPROEX SODIUM 250 MG TABLET.DR PO SCH ×3 (06:18→21:49)
[2017-04-28] MEDS: OXCARBAZEPINE 150 MG TABLET PO SCH ×3 (06:18→21:49)
[2017-04-28] MEDS: ERTAPENEM SODIUM 1 GM in NORMAL SALINE 50 ML IV SCH ×2 (11:00→19:00)
[2017-04-28] MEDS: SENNOSIDES/DOCUSATE 8.6-50 MG 1 EACH TABLET PO SCH (11:55)
[2017-04-28] MEDS: THIAMINE HCL 100 MG TABLET PO SCH (11:56)
[2017-04-28] MEDS: LANSOPRAZOLE 15 MG TAB.RAP.DR PO SCH ×2 (11:56→17:00)
[2017-04-28] MEDS: SITAGLIPTIN PHOSPHATE 50 MG TABLET PO SCH (11:57)
[2017-04-28] MEDS: CALCIUM CARBONATE 250 MG/VITAMIN D3 125 UNIT TABLET PO SCH ×2 (11:57→18:00)
[2017-04-28] MEDS: METFORMIN HCL 500 MG TABLET PO SCH ×2 (11:57→18:00)
[2017-04-28] MEDS: LEVOTHYROXINE SODIUM 0.088 MG TABLET PO SCH (11:58)
[2017-04-28] MEDS: OXYBUTYNIN CHLORIDE 5 MG TABLET PO SCH ×2 (11:58→21:49)
[2017-04-28] MEDS: QUETIAPINE FUMARATE 25 MG TABLET PO SCH ×2 (11:58→18:01)
[2017-04-28] MEDS: FOLIC ACID 1 MG TABLET PO SCH (11:59)
[2017-04-28] MEDS: CYANOCOBALAMIN (VITAMIN B-12) 1,000 MCG TABLET PO SCH (11:59)
[2017-04-28] MEDS: LISINOPRIL 10 MG TABLET PO SCH (11:59)
[2017-04-28] MEDS: ENOXAPARIN SODIUM INJ 40 MG/0.4 ML DISP.SYRIN SUBCUT SCH (12:00)
[2017-04-28] MEDS: ACETAMINOPHEN 325 MG TABLET PO PRN (13:50)
[2017-04-28] MEDS: CLOTRIMAZOLE 1% CREAM 15 GM TP SCH ×2 (13:54→21:49)
--- NOTE | 2017-04-28 17:55 | PDOC PROGRESS REPORT ---
Subjective Progress Note for:: 04/28/17 Subjective:: Patient seen by the bedside no new complaints Physical Exam Vital Signs: Temp Pulse Resp BP Pulse Ox 98.3 F 96 17 137/64 H 95 04/28/17 15:40 04/28/17 15:40 04/28/17 15:40 04/28/17 15:40 04/28/17 15:40 Intake & Output 04/27/17 04/28/17 04/29/17 06:59 06:59 06:59 Intake Total 2247 2161 Output Total 900 Balance 2247 1261 Weight 96 kg 96 kg General appearance: PRESENT: no acute distress Eye exam: PRESENT: PERRLA Respiratory exam: PRESENT: clear to auscultation juliette Cardiovascular exam: PRESENT: +S1, +S2 GI/Abdominal exam: PRESENT: soft Results Laboratory Results: 04/27/17 05:18 04/27/17 05:18 04/20/17 04/20/17 21:18 21:18 Creatine Kinase 316 H CK-MB (CK-2) 4.20 Troponin I < 0.012 NT-Pro-B Natriuret Pep 242 Impressions: Chest CT 04/20/17 00:00 IMPRESSION: Patchy consolidation in the left upper and left lower lobes. Small left pleural effusion. Scattered reactive appearing hilar and mediastinal nodes. Chest X-Ray 04/20/17 11:38 IMPRESSION: Left lower lobe pneumonia. Assessment & Plan - Diagnosis (1) Pneumonia involving left lung Qualifiers: Pneumonia type: aspiration pneumonia Aspiration pneumonia type: unspecified Lung location: unspecified part of lung Qualified Code(s): J69.0 - Pneumonitis due to inhalation of food and vomit Is this a current diagnosis for this admission?: Yes (2) Urinary tract infection Is this a current diagnosis for this admission?: Yes (3) Pneumonia involving left lung Qualifiers: Pneumonia type: due to unspecified organism Lung location: unspecified part of lung Qualified Code(s): J18.9 - Pneumonia, unspecified organism Is this a current diagnosis for this admission?: Yes (4) Metabolic acidosis Is this a current diagnosis for this admission?: Yes (5) Acute hypoxemic respiratory failure Is this a current diagnosis for this admission?: Yes (6) Sepsis Is this a current diagnosis for this admission?: Yes
[2017-04-28] MEDS: OLANZAPINE 5 MG TABLET PO SCH (21:49)
[2017-04-29] MEDS: DIVALPROEX SODIUM 250 MG TABLET.DR PO SCH ×3 (05:38→22:18)
[2017-04-29] MEDS: OXCARBAZEPINE 150 MG TABLET PO SCH ×3 (05:39→22:18)
[2017-04-29] MEDS: METFORMIN HCL 500 MG TABLET PO SCH ×2 (08:51→16:26)
[2017-04-29] MEDS: LANSOPRAZOLE 15 MG TAB.RAP.DR PO SCH ×2 (08:51→16:26)
[2017-04-29] MEDS: SITAGLIPTIN PHOSPHATE 50 MG TABLET PO SCH (08:51)
[2017-04-29] MEDS: LEVOTHYROXINE SODIUM 0.088 MG TABLET PO SCH (08:52)
[2017-04-29] MEDS: ENOXAPARIN SODIUM INJ 40 MG/0.4 ML DISP.SYRIN SUBCUT SCH (09:01)
[2017-04-29] MEDS: ACETAMINOPHEN 325 MG TABLET PO PRN (09:04)
[2017-04-29] MEDS: CALCIUM CARBONATE 250 MG/VITAMIN D3 125 UNIT TABLET PO SCH ×2 (09:04→17:20)
[2017-04-29] MEDS: CYANOCOBALAMIN (VITAMIN B-12) 1,000 MCG TABLET PO SCH (09:04)
[2017-04-29] MEDS: OXYBUTYNIN CHLORIDE 5 MG TABLET PO SCH ×2 (09:04→22:18)
[2017-04-29] MEDS: FOLIC ACID 1 MG TABLET PO SCH (09:04)
[2017-04-29] MEDS: QUETIAPINE FUMARATE 25 MG TABLET PO SCH ×2 (09:05→17:21)
[2017-04-29] MEDS: LISINOPRIL 10 MG TABLET PO SCH (09:05)
[2017-04-29] MEDS: THIAMINE HCL 100 MG TABLET PO SCH (09:06)
[2017-04-29] MEDS: SENNOSIDES/DOCUSATE 8.6-50 MG 1 EACH TABLET PO SCH (09:06)
[2017-04-29] MEDS: CLOTRIMAZOLE 1% CREAM 15 GM TP SCH ×2 (09:13→22:18)
[2017-04-29] MEDS ORDERED: IPRATROPIUM/ALBUTEROL 0.5-2.5 MG/3 ML AMPUL NEB PRN (13:00)
[2017-04-29] MEDS: LOPERAMIDE HCL 2 MG CAPSULE PO PRN ×2 (18:43→22:18)
--- NOTE | 2017-04-29 21:00 | PDOC PROGRESS REPORT ---
Subjective Progress Note for:: 04/29/17 Subjective:: She was seen by the bedside, she has no new complaint today Physical Exam Vital Signs: Temp Pulse Resp BP Pulse Ox 98.5 F 101 H 16 118/62 92 04/29/17 20:00 04/29/17 20:00 04/29/17 20:00 04/29/17 20:00 04/29/17 20:00 Intake & Output 04/28/17 04/29/17 04/30/17 06:59 06:59 06:59 Intake Total 2161 1034 490 Output Total 900 Balance 1261 1034 490 Weight 96 kg 96 kg General appearance: PRESENT: no acute distress Eye exam: PRESENT: PERRLA Respiratory exam: PRESENT: clear to auscultation juliette Cardiovascular exam: PRESENT: +S1, +S2 GI/Abdominal exam: PRESENT: soft Neurological exam: PRESENT: alert Results Laboratory Results: 04/27/17 05:18 04/27/17 05:18 04/20/17 04/20/17 21:18 21:18 Creatine Kinase 316 H CK-MB (CK-2) 4.20 Troponin I < 0.012 NT-Pro-B Natriuret Pep 242 Impressions: Chest CT 04/20/17 00:00 IMPRESSION: Patchy consolidation in the left upper and left lower lobes. Small left pleural effusion. Scattered reactive appearing hilar and mediastinal nodes. Chest X-Ray 04/20/17 11:38 IMPRESSION: Left lower lobe pneumonia. Assessment & Plan - Diagnosis (1) Pneumonia involving left lung Qualifiers: Pneumonia type: aspiration pneumonia Aspiration pneumonia type: unspecified Lung location: unspecified part of lung Qualified Code(s): J69.0 - Pneumonitis due to inhalation of food and vomit Is this a current diagnosis for this admission?: Yes (2) Urinary tract infection Is this a current diagnosis for this admission?: Yes (3) Pneumonia involving left lung Qualifiers: Pneumonia type: due to unspecified organism Lung location: unspecified part of lung Qualified Code(s): J18.9 - Pneumonia, unspecified organism Is this a current diagnosis for this admission?: Yes (4) Metabolic acidosis Is this a current diagnosis for this admission?: Yes (5) Acute hypoxemic respiratory failure Is this a current diagnosis for this admission?: Yes (6) Sepsis Is this a current diagnosis for this admission?: Yes
[2017-04-29] MEDS: OLANZAPINE 5 MG TABLET PO SCH (22:18)
[2017-04-30] MEDS: OXCARBAZEPINE 150 MG TABLET PO SCH ×3 (05:53→21:32)
[2017-04-30] MEDS: DIVALPROEX SODIUM 250 MG TABLET.DR PO SCH ×3 (05:53→21:32)
[2017-04-30] MEDS: SENNOSIDES/DOCUSATE 8.6-50 MG 1 EACH TABLET PO SCH (11:40)
[2017-04-30] MEDS: QUETIAPINE FUMARATE 25 MG TABLET PO SCH ×2 (11:40→16:52)
[2017-04-30] MEDS: SITAGLIPTIN PHOSPHATE 50 MG TABLET PO SCH (11:40)
[2017-04-30] MEDS: CYANOCOBALAMIN (VITAMIN B-12) 1,000 MCG TABLET PO SCH (11:40)
[2017-04-30] MEDS: LEVOTHYROXINE SODIUM 0.088 MG TABLET PO SCH (11:41)
[2017-04-30] MEDS: THIAMINE HCL 100 MG TABLET PO SCH (11:41)
[2017-04-30] MEDS: LISINOPRIL 10 MG TABLET PO SCH (11:41)
[2017-04-30] MEDS: LANSOPRAZOLE 15 MG TAB.RAP.DR PO SCH ×2 (11:41→16:54)
[2017-04-30] MEDS: CALCIUM CARBONATE 250 MG/VITAMIN D3 125 UNIT TABLET PO SCH ×2 (11:41→16:54)
[2017-04-30] MEDS: METFORMIN HCL 500 MG TABLET PO SCH ×2 (11:42→16:54)
[2017-04-30] MEDS: OXYBUTYNIN CHLORIDE 5 MG TABLET PO SCH ×2 (11:42→21:32)
[2017-04-30] MEDS: FOLIC ACID 1 MG TABLET PO SCH (11:42)
[2017-04-30] MEDS: ERTAPENEM SODIUM 1 GM in NORMAL SALINE 50 ML IV SCH (11:42)
[2017-04-30] MEDS: LOPERAMIDE HCL 2 MG CAPSULE PO PRN ×3 (11:51→21:32)
[2017-04-30] MEDS: CLOTRIMAZOLE 1% CREAM 15 GM TP SCH ×2 (11:52→21:32)
[2017-04-30] MEDS: ENOXAPARIN SODIUM INJ 40 MG/0.4 ML DISP.SYRIN SUBCUT SCH (11:52)
[2017-04-30] MEDS: ACETAMINOPHEN 325 MG TABLET PO PRN (16:53)
[2017-04-30] MEDS: OLANZAPINE 5 MG TABLET PO SCH (21:32)
[2017-05-01] MEDS: OXCARBAZEPINE 150 MG TABLET PO SCH ×3 (06:22→21:56)
[2017-05-01] MEDS: DIVALPROEX SODIUM 250 MG TABLET.DR PO SCH ×3 (06:23→21:56)
[2017-05-01] MEDS: LANSOPRAZOLE 15 MG TAB.RAP.DR PO SCH ×2 (08:19→15:05)
[2017-05-01] MEDS: METFORMIN HCL 500 MG TABLET PO SCH ×2 (08:19→17:35)
[2017-05-01] MEDS: LEVOTHYROXINE SODIUM 0.088 MG TABLET PO SCH (08:19)
[2017-05-01] MEDS: SITAGLIPTIN PHOSPHATE 50 MG TABLET PO SCH (08:20)
--- NOTE | 2017-05-01 10:06 | PDOC PROGRESS REPORT ---
Subjective Progress Note for:: 04/30/17 Subjective:: She was seen by the bedside, she has no new complaint today Physical Exam Vital Signs: Temp Pulse Resp BP Pulse Ox 97.7 F 89 16 102/61 92 05/01/17 07:39 05/01/17 07:39 05/01/17 07:39 05/01/17 07:39 05/01/17 07:39 Intake & Output 04/30/17 05/01/17 05/02/17 06:59 06:59 06:59 Intake Total 840 1107 Output Total 350 Balance 840 757 Weight 98.8 kg General appearance: PRESENT: no acute distress, well-developed, well-nourished Head exam: PRESENT: atraumatic, normocephalic Eye exam: PRESENT: conjunctiva pink, EOMI, PERRLA Ear exam: PRESENT: normal external ear exam Mouth exam: PRESENT: moist, tongue midline Neck exam: PRESENT: full ROM Respiratory exam: PRESENT: clear to auscultation juliette Cardiovascular exam: PRESENT: RRR, +S1, +S2 Pulses: PRESENT: normal dorsalis pedis pul, +2 pedal pulses bilateral Vascular exam: PRESENT: normal capillary refill GI/Abdominal exam: PRESENT: normal bowel sounds, soft Rectal exam: PRESENT: deferred Neurological exam: PRESENT: alert, awake, oriented to person, oriented to place , oriented to time, oriented to situation, CN II-XII grossly intact Psychiatric exam: PRESENT: appropriate affect, normal mood. ABSENT: homicidal ideation, suicidal ideation Skin exam: PRESENT: dry, intact, warm Results Laboratory Results: 04/27/17 05:18 04/27/17 05:18 04/20/17 04/20/17 21:18 21:18 Creatine Kinase 316 H CK-MB (CK-2) 4.20 Troponin I < 0.012 NT-Pro-B Natriuret Pep 242 Impressions: Chest CT 04/20/17 00:00 IMPRESSION: Patchy consolidation in the left upper and left lower lobes. Small left pleural effusion. Scattered reactive appearing hilar and mediastinal nodes. Chest X-Ray 04/20/17 11:38 IMPRESSION: Left lower lobe pneumonia. Assessment & Plan - Diagnosis (1) Pneumonia involving left lung Qualifiers: Pneumonia type: aspiration pneumonia Aspiration pneumonia type: unspecified Lung location: unspecified part of lung Qualified Code(s): J69.0 - Pneumonitis due to inhalation of food and vomit Is this a current diagnosis for this admission?: Yes (2) Urinary tract infection Is this a current diagnosis for this admission?: Yes (3) Pneumonia involving left lung Qualifiers: Pneumonia type: due to unspecified organism Lung location: unspecified part of lung Qualified Code(s): J18.9 - Pneumonia, unspecified organism Is this a current diagnosis for this admission?: Yes (4) Metabolic acidosis Is this a current diagnosis for this admission?: Yes (5) Acute hypoxemic respiratory failure Is this a current diagnosis for this admission?: Yes (6) Sepsis Is this a current diagnosis for this admission?: Yes
[2017-05-01] MEDS: CLOTRIMAZOLE 1% CREAM 15 GM TP SCH ×2 (10:59→21:57)
[2017-05-01] MEDS: ERTAPENEM SODIUM 1 GM in NORMAL SALINE 50 ML IV SCH (10:59)
[2017-05-01] MEDS: OXYBUTYNIN CHLORIDE 5 MG TABLET PO SCH ×2 (11:00→21:56)
[2017-05-01] MEDS: QUETIAPINE FUMARATE 25 MG TABLET PO SCH ×2 (11:00→17:36)
[2017-05-01] MEDS: FOLIC ACID 1 MG TABLET PO SCH (11:00)
[2017-05-01] MEDS: SENNOSIDES/DOCUSATE 8.6-50 MG 1 EACH TABLET PO SCH (11:00)
[2017-05-01] MEDS: THIAMINE HCL 100 MG TABLET PO SCH (11:00)
[2017-05-01] MEDS: ENOXAPARIN SODIUM INJ 40 MG/0.4 ML DISP.SYRIN SUBCUT SCH (11:01)
[2017-05-01] MEDS: CYANOCOBALAMIN (VITAMIN B-12) 1,000 MCG TABLET PO SCH (11:01)
[2017-05-01] MEDS: CALCIUM CARBONATE 250 MG/VITAMIN D3 125 UNIT TABLET PO SCH ×2 (11:01→17:35)
[2017-05-01] MEDS: LISINOPRIL 10 MG TABLET PO SCH (11:02)
[2017-05-01] MEDS: LOPERAMIDE HCL 2 MG CAPSULE PO PRN (15:05)
[2017-05-01 15:57] LABS: ABSOLUTE BASOPHILS # (AUTO) 0.1 10^3/uL (0.0-0.2); ABSOLUTE EOSINOPHILS # (AUTO) 0.5 10^3/uL (0.0-0.6); ABSOLUTE LYMPHOCYTES (AUTO) 2.4 10^3/uL (0.5-4.7); ABSOLUTE MONOCYTES (AUTO) 1.1 10^3/uL (0.1-1.4); BASOPHILS % (AUTO) 0.6 % (0-2); EOSINOPHILS % (AUTO) 4.1 % (0-6); HEMOGLOBIN 9.1 g/dL (12.0-15.5); HGB HCT DIFFERENCE -0.7; LYMPHOCYTES % (AUTO) 21.9 % (13-45); MEAN CORPUSCULAR HEMOGLOBIN 31.4 pg (27.0-33.4); MEAN CORPUSCULAR HGB CONC 32.5 g/dL (32.0-36.0); MEAN CORPUSCULAR VOLUME 97 fl (80-97); MONOCYTES % (AUTO) 10.2 % (3-13); RED BLOOD COUNT 2.89 10^6/uL (3.72-5.28); RED CELL DISTRIBUTION WIDTH 15.3 % (11.5-14.0); SEGMENTED NEUTROPHILS % (AUTO) 63.2 % (42-78); WHITE BLOOD COUNT 11.1 10^3/uL (4.0-10.5)
--- NOTE | 2017-05-01 16:07 | PDOC PROGRESS REPORT ---
Subjective Progress Note for:: 05/01/17 Subjective:: She was seen by the bedside she is about ready to be discharged back to the senior care for continuity of care Physical Exam Vital Signs: Temp Pulse Resp BP Pulse Ox 98.4 F 93 17 129/68 H 95 05/01/17 12:14 05/01/17 12:14 05/01/17 12:14 05/01/17 12:14 05/01/17 12:14 Intake & Output 04/30/17 05/01/17 05/02/17 06:59 06:59 06:59 Intake Total 840 1107 820 Output Total 350 200 Balance 840 757 620 Weight 98.8 kg General appearance: PRESENT: no acute distress, well-developed, well-nourished Head exam: PRESENT: atraumatic, normocephalic Eye exam: PRESENT: conjunctiva pink, EOMI, PERRLA. ABSENT: scleral icterus Ear exam: PRESENT: normal external ear exam Mouth exam: PRESENT: moist, tongue midline Neck exam: PRESENT: full ROM. ABSENT: carotid bruit, JVD, lymphadenopathy, thyromegaly Respiratory exam: PRESENT: clear to auscultation juliette Cardiovascular exam: PRESENT: RRR. ABSENT: diastolic murmur, rubs, systolic murmur Pulses: PRESENT: normal dorsalis pedis pul, +2 pedal pulses bilateral Vascular exam: PRESENT: normal capillary refill GI/Abdominal exam: PRESENT: normal bowel sounds, soft. ABSENT: distended, guarding, mass, organolmegaly, rebound, tenderness Rectal exam: PRESENT: deferred Neurological exam: PRESENT: alert, awake, oriented to person, oriented to place , oriented to time, oriented to situation, CN II-XII grossly intact. ABSENT: motor sensory deficit Psychiatric exam: PRESENT: appropriate affect, normal mood. ABSENT: homicidal ideation, suicidal ideation Skin exam: PRESENT: dry, intact, warm. ABSENT: cyanosis, rash Results Laboratory Results: 05/01/17 15:35 05/01/17 15:35 WBC 11.1 H RBC 2.89 L Hgb 9.1 L Hct 28.0 L MCV 97 MCH 31.4 MCHC 32.5 RDW 15.3 H Plt Count 427 Seg Neutrophils % 63.2 Lymphocytes % 21.9 Monocytes % 10.2 Eosinophils % 4.1 Basophils % 0.6 Absolute Neutrophils 7.0 Absolute Lymphocytes 2.4 Absolute Monocytes 1.1 Absolute Eosinophils 0.5 Absolute Basophils 0.1 04/20/17 04/20/17 21:18 21:18 Creatine Kinase 316 H CK-MB (CK-2) 4.20 Troponin I < 0.012 NT-Pro-B Natriuret Pep 242 Impressions: Chest CT 04/20/17 00:00 IMPRESSION: Patchy consolidation in the left upper and left lower lobes. Small left pleural effusion. Scattered reactive appearing hilar and mediastinal nodes. Chest X-Ray 04/20/17 11:38 IMPRESSION: Left lower lobe pneumonia. Assessment & Plan - Diagnosis (1) Pneumonia involving left lung Qualifiers: Pneumonia type: aspiration pneumonia Aspiration pneumonia type: unspecified Lung location: unspecified part of lung Qualified Code(s): J69.0 - Pneumonitis due to inhalation of food and vomit Is this a current diagnosis for this admission?: Yes (2) Urinary tract infection Is this a current diagnosis for this admission?: Yes (3) Pneumonia involving left lung Qualifiers: Pneumonia type: due to unspecified organism Lung location: unspecified part of lung Qualified Code(s): J18.9 - Pneumonia, unspecified organism Is this a current diagnosis for this admission?: Yes (4) Metabolic acidosis Is this a current diagnosis for this admission?: Yes (5) Acute hypoxemic respiratory failure Is this a current diagnosis for this admission?: Yes (6) Sepsis Is this a current diagnosis for this admission?: Yes
[2017-05-01 16:18] LABS: ANION GAP 13 (5-19); BLOOD UREA NITROGEN 16 mg/dL (7-20); CALCIUM 9.7 mg/dL (8.4-10.2); CARBON DIOXIDE 27 mmol/L (22-30); CHLORIDE 105 mmol/L (98-107); CREATININE RESULT 0.81 mg/dL (0.52-1.25); GLUCOSE 99 mg/dL (75-110); POTASSIUM 4.2 mmol/L (3.6-5.0); SODIUM 145.2 mmol/L (137-145)
[2017-05-01] MEDS: ACETAMINOPHEN 325 MG TABLET PO PRN (17:38)
[2017-05-01] MEDS: OLANZAPINE 5 MG TABLET PO SCH (21:56)
[2017-05-02] MEDS: DIVALPROEX SODIUM 250 MG TABLET.DR PO SCH ×2 (05:53→13:34)
[2017-05-02] MEDS: OXCARBAZEPINE 150 MG TABLET PO SCH ×2 (05:54→13:34)
[2017-05-02] MEDS: METFORMIN HCL 500 MG TABLET PO SCH ×2 (07:41→17:37)
[2017-05-02] MEDS: LANSOPRAZOLE 15 MG TAB.RAP.DR PO SCH ×2 (07:42→15:16)
[2017-05-02] MEDS: LEVOTHYROXINE SODIUM 0.088 MG TABLET PO SCH (07:42)
[2017-05-02] MEDS: SITAGLIPTIN PHOSPHATE 50 MG TABLET PO SCH (07:42)
[2017-05-02] MEDS: CALCIUM CARBONATE 250 MG/VITAMIN D3 125 UNIT TABLET PO SCH ×2 (10:26→17:37)
[2017-05-02] MEDS: LISINOPRIL 10 MG TABLET PO SCH (10:26)
[2017-05-02] MEDS: QUETIAPINE FUMARATE 25 MG TABLET PO SCH ×2 (10:26→17:36)
[2017-05-02] MEDS: ENOXAPARIN SODIUM INJ 40 MG/0.4 ML DISP.SYRIN SUBCUT SCH (10:26)
[2017-05-02] MEDS: CYANOCOBALAMIN (VITAMIN B-12) 1,000 MCG TABLET PO SCH (10:26)
[2017-05-02] MEDS: SENNOSIDES/DOCUSATE 8.6-50 MG 1 EACH TABLET PO SCH (10:26)
[2017-05-02] MEDS: FOLIC ACID 1 MG TABLET PO SCH (10:26)
[2017-05-02] MEDS: THIAMINE HCL 100 MG TABLET PO SCH (10:26)
[2017-05-02] MEDS: OXYBUTYNIN CHLORIDE 5 MG TABLET PO SCH (10:27)
[2017-05-02] MEDS: CLOTRIMAZOLE 1% CREAM 15 GM TP SCH (10:31)
[2017-05-02] MEDS: ERTAPENEM SODIUM 1 GM in NORMAL SALINE 50 ML IV SCH (10:31)
[2017-05-02] MEDS: LOPERAMIDE HCL 2 MG CAPSULE PO PRN (15:14)
--- NOTE | 2017-05-02 15:34 | PDOC TRANSFER SUMMARY ---
General - Admit/Disc Date/PCP Admission Date/Primary Care Provider: 04/20/17 18:27 ISRA KAY MD Discharge Date: 05/02/17 - Discharge Diagnosis (1) Pneumonia involving left lung Is this a current diagnosis for this admission?: Yes (2) Urinary tract infection Is this a current diagnosis for this admission?: Yes (3) Pneumonia involving left lung Is this a current diagnosis for this admission?: Yes (4) Metabolic acidosis Is this a current diagnosis for this admission?: Yes (5) Acute hypoxemic respiratory failure Is this a current diagnosis for this admission?: Yes (6) Sepsis Is this a current diagnosis for this admission?: Yes (7) E-coli UTI Is this a current diagnosis for this admission?: Yes (8) Type 2 diabetes mellitus Is this a current diagnosis for this admission?: Yes - Additional Information Resuscitation Status: Full Code Discharge Diet: Diabetic Home Medications: Acetaminophen [Tylenol Extra Strength 500 mg Tablet] 1,000 mg PO Q8HP PRN Alprazolam [Xanax 0.25 mg Tablet] 0.25 mg PO BID 04/20/17 Calcium Carbonate/Vitamin D3 [Os-Sanchez 500-Vit D3 600 Caplet] 1 tab PO BID Cyanocobalamin (Vitamin B-12) [Vitamin B-12] 1,000 mcg PO DAILY 04/20/17 Divalproex Sodium [Depakote] 250 mg PO TID 04/20/17 Folic Acid [Folvite 1 mg Tablet] 1 mg PO DAILY 04/20/17 Insulin Aspart [Novolog Insulin (Aspart) 100 unit/mL] 0 units SQ .SLIDING SCALE 04/20/17 Levothyroxine Sodium [Synthroid 0.088 mg Tablet] 0.088 mg PO QAM 04/20/17 Linagliptin [Tradjenta] 5 mg PO DAILY 04/20/17 Lisinopril [Prinivil 10 mg Tablet] 10 mg PO DAILY 04/20/17 Olanzapine [Zyprexa] 20 mg PO QHS 04/20/17 Omeprazole 20 mg PO BID 04/20/17 Oxcarbazepine [Trileptal 150 mg Tablet] 150 mg PO TID 04/20/17 Oxybutynin Chloride [Ditropan Xl] 10 mg PO DAILY 04/20/17 Quetiapine Fumarate [Seroquel] 25 mg PO DAILY 04/20/17 Quetiapine Fumarate [Seroquel] 75 mg PO QPM 04/20/17 Sennosides/Docusate 8.6-50 mg [Senna Plus Tablet] 1 tab PO DAILY 04/20/17 Thiamine HCl [B-1] 100 mg PO DAILY 04/20/17 Tramadol HCl [Ultram 50 mg Tablet] 50 mg PO BIDP PRN 04/20/17 History of Present Illness Admission Date/PCP: 04/20/17 18:27 ISRA KAY MD History of Present Illness: DRE HOPKINS is a 72 year old female, Resident of the [facility]pc at [facility] she had respiratory symptoms cough, congestion, chest x- ray was done at the fpc facility and she was found to have pneumonia, attempt was made to treat in the facility with antibiotic. She was prescribed Levaquin She was transferred to the emergency room today because of altered mental status, in the emergency room she was evaluated a chest x-ray was done it showed opacification of the left lower lung field, subsequent CT chest was done without contrast that confirmed left lung pneumonia with patchy consolidation in the left upper lobe and left lower lobe. She was also found to have UTI with grossly abnormal urinalysis she is known to have a history of ESBL E. coli UTI. She has baseline schizoaffective disorder, cognitive impairment. Hospital Course Hospital Course: Patient was admitted for the management of pneumonia and UTI, she had acute hypoxemic respiratory failure due to pneumonia, she also had a UTI due to E. coli. She was treated with IV Levaquin and cefepime. Patient did respond to treatment, the plan is to transfer back to [facility]pc for continuity of care Physical Exam Vital Signs: Temp Pulse Resp BP Pulse Ox 98.6 F 102 H 20 123/61 94 05/02/17 12:31 05/02/17 12:31 05/02/17 12:31 05/02/17 12:31 05/02/17 12:31 Intake & Output 05/01/17 05/02/17 05/03/17 06:59 06:59 06:59 Intake Total 1107 1370 Output Total 350 200 Balance 757 1170 Weight 92.2 kg General appearance: PRESENT: no acute distress, well-developed, well-nourished Head exam: PRESENT: atraumatic, normocephalic Eye exam: PRESENT: conjunctiva pink, EOMI, PERRLA Ear exam: PRESENT: normal external ear exam Mouth exam: PRESENT: moist, tongue midline Respiratory exam: PRESENT: clear to auscultation juliette Cardiovascular exam: PRESENT: RRR, +S1, +S2 Pulses: PRESENT: normal dorsalis pedis pul Vascular exam: PRESENT: normal capillary refill GI/Abdominal exam: PRESENT: normal bowel sounds, soft Rectal exam: PRESENT: deferred Extremities exam: PRESENT: full ROM Neurological exam: PRESENT: alert, awake, oriented to person, oriented to place , oriented to time, oriented to situation, CN II-XII grossly intact Psychiatric exam: PRESENT: appropriate affect, normal mood Skin exam: PRESENT: dry, intact, warm Results Laboratory Results: 05/01/17 15:35 05/01/17 15:35 05/01/17 05/01/17 15:35 15:35 WBC 11.1 H RBC 2.89 L Hgb 9.1 L Hct 28.0 L MCV 97 MCH 31.4 MCHC 32.5 RDW 15.3 H Plt Count 427 Seg Neutrophils % 63.2 Lymphocytes % 21.9 Monocytes % 10.2 Eosinophils % 4.1 Basophils % 0.6 Absolute Neutrophils 7.0 Absolute Lymphocytes 2.4 Absolute Monocytes 1.1 Absolute Eosinophils 0.5 Absolute Basophils 0.1 Sodium 145.2 H Potassium 4.2 Chloride 105 Carbon Dioxide 27 Anion Gap 13 BUN 16 Creatinine 0.81 Est GFR ( Amer) > 60 Est GFR (Non-Af Amer) > 60 Glucose 99 Calcium 9.7 04/20/17 04/20/17 21:18 21:18 Creatine Kinase 316 H CK-MB (CK-2) 4.20 Troponin I < 0.012 NT-Pro-B Natriuret Pep 242 Impressions: Chest CT 04/20/17 00:00 IMPRESSION: Patchy consolidation in the left upper and left lower lobes. Small left pleural effusion. Scattered reactive appearing hilar and mediastinal nodes. Chest X-Ray 04/20/17 11:38 IMPRESSION: Left lower lobe pneumonia.
[2017-05-02 18:58] VITALS: BP 118/74
== END 2017-05-02 08:35 | DRG 871 ==
LOC: ER 11:34 → UNDOADMIN 14:21 → EH 14:21 → 3S 15:50 → EH 15:50 → 3S 18:27 → EH 18:27 → 4N 04-27 23:56
PROVIDERS: ADMIT Internal Medicine; ATTEND Internal Medicine
PROC: 3E0F73Z Introduction of Anti-inflammatory into Respiratory Tract, Via Natural or Artificial Opening (ICD-10-PCS; principal; 2017-04-20)
DX: A41.9 Sepsis, unspecified organism (principal); G93.41 Metabolic encephalopathy; J96.01 Acute respiratory failure with hypoxia; J18.1 Lobar pneumonia, unspecified organism; N30.00 Acute cystitis without hematuria; E87.2 Acidosis; I10 Essential (primary) hypertension; J44.9 Chronic obstructive pulmonary disease, unspecified; K21.9 Gastro-esophageal reflux disease without esophagitis; M19.90 Unspecified osteoarthritis, unspecified site; E03.9 Hypothyroidism, unspecified; E11.9 Type 2 diabetes mellitus without complications; F31.9 Bipolar disorder, unspecified; B96.20 Unspecified Escherichia coli [E. coli] as the cause of diseases classified elsewhere; F25.9 Schizoaffective disorder, unspecified; G31.84 Mild cognitive impairment of uncertain or unknown etiology; L30.9 Dermatitis, unspecified; Z79.4 Long term (current) use of insulin; Z90.710 Acquired absence of both cervix and uterus; Z30.2 Encounter for sterilization; Z88.8 Allergy status to other drugs, medicaments and biological substances; Z79.899 Other long term (current) drug therapy
CPT/HCPCS: 36415; 51702; 71020; 71250; 80048; 80053; 81001; 82550; 82553; 82803; 82962; 83036; 83605; 83880; 84484; 85025; 85610; 87040; 87086; 87088; 87186; 87493; 93005; 93010; 99291; J0692; J1335; J1650; J1956; J2405; J3490; J7030

== ENCOUNTER → 2017-06-25 | Outpatient (CLI) | payer MEDICARE, OTHER, MEDICAID ==
[2017-06-25 23:13] LABS: ABSOLUTE BASOPHILS # (AUTO) 0.1 10^3/uL (0.0-0.2); ABSOLUTE EOSINOPHILS # (AUTO) 0.2 10^3/uL (0.0-0.6); ABSOLUTE LYMPHOCYTES (AUTO) 3.1 10^3/uL (0.5-4.7); ABSOLUTE NEUT (AUTO) 5.3 10^3/uL (1.7-8.2); BASOPHILS % (AUTO) 0.7 % (0-2); HEMATOCRIT 30.5 % (36.0-47.0); HEMOGLOBIN 10.1 g/dL (12.0-15.5); HGB HCT DIFFERENCE -0.2; LYMPHOCYTES % (AUTO) 31.9 % (13-45); MEAN CORPUSCULAR HEMOGLOBIN 31.7 pg (27.0-33.4); MEAN CORPUSCULAR HGB CONC 33.1 g/dL (32.0-36.0); MEAN CORPUSCULAR VOLUME 96 fl (80-97); MONOCYTES % (AUTO) 10.7 % (3-13); RED BLOOD COUNT 3.19 10^6/uL (3.72-5.28); RED CELL DISTRIBUTION WIDTH 16.7 % (11.5-14.0); SEGMENTED NEUTROPHILS % (AUTO) 54.7 % (42-78); WHITE BLOOD COUNT 9.7 10^3/uL (4.0-10.5)
[2017-06-25 23:17] LABS: ALANINE AMINOTRANSFERASE 22 U/L (9-52); ALBUMIN 3.7 g/dL (3.5-5.0); ALKALINE PHOSPHATASE 79 U/L (38-126); ANION GAP 12 (5-19); ASPARTATE AMINO TRANSFERASE 14 U/L (14-36); BILIRUBIN,DIRECT 0.3 mg/dL (0.0-0.4); BILIRUBIN,TOTAL 0.3 mg/dL (0.2-1.3); BLOOD UREA NITROGEN 25 mg/dL (7-20); CALCIUM 9.9 mg/dL (8.4-10.2); CARBON DIOXIDE 26 mmol/L (22-30); CHLORIDE 103 mmol/L (98-107); CREATININE RESULT 0.97 mg/dL (0.52-1.25); GLUCOSE 125 mg/dL (75-110); POTASSIUM 5.5 mmol/L (3.6-5.0); SODIUM 140.9 mmol/L (137-145); TOTAL PROTEIN 7.6 g/dL (6.3-8.2)
== END ==
LOC: PNR 22:58
PROVIDERS: ATTEND Internal Medicine
DX: D50.9 Iron deficiency anemia, unspecified (principal); E11.42 Type 2 diabetes mellitus with diabetic polyneuropathy; E78.5 Hyperlipidemia, unspecified; N17.9 Acute kidney failure, unspecified; Z79.899 Other long term (current) drug therapy
CPT/HCPCS: 80053; 80164; 83036; 85025

== ENCOUNTER → 2018-06-17 | Outpatient (CLI) | payer MEDICARE, OTHER, MEDICAID ==
[2018-06-17 12:57] LABS: APPEARANCE,URINE CLOUDY; BILIRUBIN,URINE NEGATIVE (NEGATIVE); COLOR,URINE YELLOW; GLUCOSE, URINE NEGATIVE (NEGATIVE); KETONES,URINE NEGATIVE (NEGATIVE); LEUKOCYTE ESTERASE,URINE LARGE (NEGATIVE); NITRITE,URINE POSITIVE (NEGATIVE); PROTEIN,URINE NEGATIVE (NEGATIVE); URINE SPECIFIC GRAVITY 1.015; UROBILINOGEN,URINE NEGATIVE mg/dL (<2.0)
== END ==
LOC: PNR 11:21
PROVIDERS: ATTEND Internal Medicine
DX: N39.0 Urinary tract infection, site not specified (principal)
CPT/HCPCS: 81001; 87086; 87088

== ENCOUNTER 2018-08-31 22:34 | Emergency (ER) | payer MEDICARE, OTHER, MEDICAID ==
--- NOTE | 2018-08-31 23:06 | ER Document Report ---
ED General - General Stated Complaint: ABNORMAL LAB RESULTS Time Seen by Provider: 08/31/18 22:58 Primary Care Provider: ISRA KAY MD [Primary Care Provider] - Follow up tomorrow Notes: Patient is a 73-year-old female that comes to the emergency department from primary [facility] by EMS for chief complaint of possible worsening vital signs in the setting of pneumonia. In the report I am not given the current antibiotic patient was placed on, she did have an x-ray earlier today that did show a pneumonia, I am informed she was diagnosed with a urinary tract infection as well. No recorded fever. Reportedly by staff earlier she had an oxygen saturation of 93% and a heart rate of 104, this was normalized by the ti me EMS picked up the patient. Past medical history includes per previous records type 2 diabetes, asthma, dementia, schizoaffective disorder. TRAVEL OUTSIDE OF THE [place] IN LAST 30 DAYS: No - Related Data Allergies/Adverse Reactions: chlorpromazine HCl [From Thorazine] Allergy (Unknown, Verified 09/21/16 13:51) lithium [[place]] Allergy (Unknown, Verified 09/21/16 13:51) Past Medical History - General Information source: Patient - Social History Smoking Status: Never Smoker Frequency of alcohol use: None Drug Abuse: None Lives with: [facility] Family History: Reviewed & Not Pertinent, Other - Unknown - Past Medical History Cardiac Medical History: Reports: Hx Hypercholesterolemia, Hx Hypertension Denies: Hx Coronary Artery Disease, Hx Heart Attack, Hx Heart Murmur Pulmonary Medical History: Reports: Hx Asthma, Hx COPD, Hx Pneumonia Denies: Hx Bronchitis, Hx Respiratory Failure, Hx Sleep Apnea, Hx Tuberculosis Neurological Medical History: Reports: Hx Seizures. Denies: Hx Cerebrovascular Accident Endocrine Medical History: Reports: Hx Diabetes Mellitus Type 2, Hx Hypothyroidism Renal/ Medical History: Denies: Hx Peritoneal Dialysis GI Medical History: Reports: Hx Gastroesophageal Reflux Disease. Denies: Hx Pancreatitis Musculoskeletal Medical History: Reports Hx Arthritis - osteoarthritis Psychiatric Medical History: Reports: Hx Bipolar Disorder, Hx Dementia, Hx Depression, Hx Schizoaffective Disorder, Hx Schizophrenia Past Surgical History: Reports: Hx Hysterectomy, Hx Tubal Ligation - Immunizations Immunizations up to date: Yes Hx Diphtheria, Pertussis, Tetanus Vaccination: Yes Hx Pneumococcal Vaccination: 04/10/14 Review of Systems - Review of Systems Constitutional: See HPI EENT: No symptoms reported Cardiovascular: No symptoms reported Respiratory: See HPI Gastrointestinal: No symptoms reported Genitourinary: No symptoms reported Female Genitourinary: No symptoms reported Musculoskeletal: No symptoms reported Skin: No symptoms reported Hematologic/Lymphatic: No symptoms reported Neurological/Psychological: No symptoms reported Physical Exam - Vital signs Vitals: Temp Pulse Resp BP Pulse Ox 97.9 F 104 H 16 114/43 L 93 08/31/18 22:42 08/31/18 22:42 08/31/18 22:42 08/31/18 22:42 08/31/18 22:42 - Notes Notes: GENERAL: Alert, interacts well. No acute distress. HEAD: Normocephalic, atraumatic. EYES: Pupils equal, round, and reactive to light. Extraocular movements intact. ENT: Oral mucosa moist, tongue midline. Oropharynx unremarkable. Airway patent. Nares patent, no nasal septal hematoma, TM's intact. NECK: Full range of motion. Supple. Trachea midline. LUNGS: Clear to auscultation bilaterally, no wheezes, rales, or rhonchi. No respiratory distress. HEART: Regular rate and rhythm. No murmur ABDOMEN: Soft, non-tender. Non-distended. Bowel sounds present in all 4 quadrants. GENITOURINARY: Deferred EXTREMITIES: Moves all 4 extremities spontaneously. No edema, normal radial and dorsalis pedis pulses bilaterally. No cyanosis. BACK: no cervical, thoracic, lumbar midline tenderness. No saddle anesthesia, normal distal neurovascular exam. NEUROLOGICAL: Alert and interactive but disoriented. Normal speech. [cranial nerves II through XII grossly intact]. PSYCH: Normal affect, normal mood. SKIN: Warm, dry, normal turgor. No rashes or lesions noted. Course - Re-evaluation Re-evalutation: Patient is a pleasant, alert, talkative, interactive, however she is confused. Reportedly this is her baseline. Vital signs unremarkable on my evaluation with no tachycardia, hypoxia, tachypnea, or fever. Labs repeated, mild increase of leukocytosis without bandemia, chemistry shows mild elevation of creatinine, given IV fluids. Patient already had a urinalysis earlier that showed infection. Culture was placed. I called and discussed with Dr. Kay because of jail location, pneumonia which is clear on the x-ray, and a urinary tract infection diagnosis. Because patient does not have signs of sepsis, her vital signs are unremarkable, she is well-appearing on exam, he recommends Levaquin antibiotic, discharged back to jail, return precautions. Patient stable at time of discharge. - Vital Signs Vital signs: Temp Pulse Resp BP Pulse Ox 97.9 F 104 H 13 108/65 92 08/31/18 23:22 08/31/18 23:22 09/01/18 06:01 09/01/18 06:01 09/01/18 06:01 - Laboratory Result Diagrams: 08/31/18 23:30 08/31/18 23:30 Laboratory results interpreted by me: 08/31/18 08/31/18 23:30 23:30 WBC 13.4 H RBC 3.14 L Hgb 10.1 L Hct 30.7 L MCV 98 H RDW 14.6 H Abs Neuts (Manual) 9.2 H BUN 47 H Creatinine 1.29 H Est GFR ( Amer) 49 L Est GFR (Non-Af Amer) 40 L Glucose 189 H Discharge - Discharge Clinical Impression: Left lower lobe pneumonia Qualifiers: Pneumonia type: due to unspecified organism Qualified Code(s): J18.1 - Lobar pneumonia, unspecified organism Urinary tract infection Qualifiers: Urinary tract infection type: site unspecified Hematuria presence: without hematuria Qualified Code(s): N39.0 - Urinary tract infection, site not specified Condition: Stable Disposition: HOME-SNF (ED ONLY) Additional Instructions: Workup does show a left lower lobe pneumonia and urinary tract infection, however no additional concerning findings are noted at this time. I spoke with Dr. Kay about the patient. She has been given an initial dose of Levaquin. Fill and take Levaquin daily as prescribed. Continue current medications. We have blood cultures pending. Return for any concerning or worsening symptoms including spiking fevers, vomiting, difficulty breathing or low oxygen, or any other concerning or worsen ing symptoms. Prescriptions: Levofloxacin [Levaquin 750 mg Tablet] 750 mg PO DAILY 6 Days #6 tab Referrals: ISRA KAY MD [Primary Care Provider] - Follow up tomorrow
--- NOTE | 2018-08-31 23:47 | RADIOLOGY REPORT (SQ) ---
EXAM DESCRIPTION: XR CHEST 1 VIEW COMPLETED DATE/TME: 08/31/2018 23:04 CLINICAL HISTORY: 73 years, Female, congested cough, recent pneumonia COMPARISON: X-ray chest 04/20/2017 NUMBER OF VIEWS: TECHNIQUE: LIMITATIONS: None. FINDINGS: There is infiltrate at the left lung base, compatible with pneumonia. Pneumonia was present in a similar location on the prior chest x-rays. There is a possible small right pleural effusion. The heart and mediastinum are unremarkable. IMPRESSION: Left basilar pneumonia. Possible small right pleural effusion. copyright 2010 [employer]- All Rights Reserved
[2018-08-31 23:50] LABS: VENOUS BLOOD BASE EXCESS 2.5 mmol/L; VENOUS BLOOD HCO3 29.2 mmol/L (20-32); VENOUS BLOOD PCO2 55.7 mmHg (35-63); VENOUS BLOOD PH 7.34 (7.30-7.42)
[2018-08-31 23:53] LABS: HEMATOCRIT 30.7 % (36.0-47.0); HEMOGLOBIN 10.1 g/dL (12.0-15.5); MEAN CORPUSCULAR HEMOGLOBIN 32.1 pg (27.0-33.4); MEAN CORPUSCULAR HGB CONC 32.8 g/dL (32.0-36.0); MEAN CORPUSCULAR VOLUME 98 fl (80-97); PLATELET COUNT 271 10^3/uL (150-450); RED BLOOD COUNT 3.14 10^6/uL (3.72-5.28); RED CELL DISTRIBUTION WIDTH 14.6 % (11.5-14.0); WHITE BLOOD COUNT 13.4 10^3/uL (4.0-10.5)
[2018-09-01 00:11] LABS: ALANINE AMINOTRANSFERASE 21 U/L (9-52); ALBUMIN 3.9 g/dL (3.5-5.0); ALKALINE PHOSPHATASE 64 U/L (38-126); ANION GAP 11 (5-19); ASPARTATE AMINO TRANSFERASE 24 U/L (14-36); BILIRUBIN,DIRECT 0.2 mg/dL (0.0-0.4); BILIRUBIN,TOTAL 0.3 mg/dL (0.2-1.3); BLOOD UREA NITROGEN 47 mg/dL (7-20); CALCIUM 9.8 mg/dL (8.4-10.2); CARBON DIOXIDE 27 mmol/L (22-30); CHLORIDE 101 mmol/L (98-107); GLUCOSE 189 mg/dL (75-110); POTASSIUM 4.3 mmol/L (3.6-5.0); SODIUM 138.6 mmol/L (137-145); TOTAL PROTEIN 7.7 g/dL (6.3-8.2)
--- NOTE | 2018-09-01 00:24 | EKG REPORT ---
SEVERITY:- OTHERWISE NORMAL ECG - SINUS TACHYCARDIA : Confirmed by: Lisa Spangler MD 01-Sep-2018 00:23:54
[2018-09-01 00:40] LABS: ABSOLUTE LYMPHOCYTES# (MANUAL) 2.8 10^3/uL (0.5-4.7); ABSOLUTE MONOCYTES # (MANUAL) 1.2 10^3/uL (0.1-1.4); ABSOLUTE NEUTROPHILS# (MANUAL) 9.2 10^3/uL (1.7-8.2); BASOPHILS % (MANUAL) 1 % (0-2); EOSINOPHILS % (MANUAL) 0 % (0-6); LYMPHOCYTES % (MANUAL) 20 % (13-45); MONOCYTES % (MANUAL) 9 % (3-13); SEGMENTED NEUTROPHILS % (MAN) 69 % (42-78); TOTAL CELLS COUNTED 100
[2018-09-01 00:42] LABS: ANISOCYTOSIS SLIGHT; PLATELET LARGE PRESENT; POLYCHROMASIA 1+; TOXIC GRANULATION 1+; TOXIC VACUOLATION PRESENT
[2018-09-01 00:43] LABS: PLATELET COMMENT ADEQUATE
[2018-09-01] MEDS ORDERED: NORMAL SALINE 500 ML IV ONE (00:58)
[2018-09-01] MEDS ORDERED: LEVOFLOXACIN 750 MG TABLET PO ONE (01:17)
[2018-09-01 07:06] VITALS: BP 117/76
== END 2018-09-01 08:05 ==
LOC: ER 22:34
DX: J18.1 Lobar pneumonia, unspecified organism (principal); N39.0 Urinary tract infection, site not specified; R00.2 Palpitations; E11.9 Type 2 diabetes mellitus without complications; I10 Essential (primary) hypertension; J44.9 Chronic obstructive pulmonary disease, unspecified
CPT/HCPCS: 93005; 99284; 96360; 96361; 36415; 87040; 85025; 80053; 82803; 83605; 71045; 93010; J7040; A9270

== ENCOUNTER 2018-11-02 16:27 | Inpatient (IN) | payer MEDICARE, OTHER, MEDICAID ==
[2018-11-02] MEDS ORDERED: NORMAL SALINE 1000 ML 1,000 ML IV ONE (17:25)
--- NOTE | 2018-11-02 17:25 | RADIOLOGY REPORT (SQ) ---
EXAM DESCRIPTION: CHEST 2 VIEWS COMPLETED DATE/TIME: 11/02/2018 5:16 pm REASON FOR STUDY: shortness of breath COMPARISON: 08/31/2018 EXAM PARAMETERS: NUMBER OF VIEWS: two views TECHNIQUE: Digital Frontal and Lateral radiographic views of the chest acquired. RADIATION DOSE: NA LIMITATIONS: none FINDINGS: LUNGS AND PLEURA: As on the previous examination, mixed airspace and interstitial disease in the left mid-left lower lung zones. The right lung remains clear. Elevation of the left hemidia phragm, unchanged finding. No pneumothorax or pleural effusion. MEDIASTINUM AND HILAR STRUCTURES: No masses or contour abnormalities. HEART AND VASCULAR STRUCTURES: Heart normal size. No evidence for failure. BONES: No acute findings. HARDWARE: None in the chest. OTHER: No other significant finding. IMPRESSION: 1. Persistent mixed airspace and interstitial disease in the left mid-lower lung zones, since the prior study dated 08/31/2018. Correlation suggested and additional imaging may be helpful. TECHNICAL DOCUMENTATION: JOB ID: [id number]- All Rights Reserved Reading location - IP/workstation name: [email or web address]
--- NOTE | 2018-11-02 17:28 | ER Document Report ---
ED Medical Screen (RME) - General Chief Complaint: Shortness Of Breath Stated Complaint: WEAKNESS Time Seen by Provider: 11/02/18 17:19 Primary Care Provider: ISRA KAY MD [Primary Care Provider] - Follow up as needed TRAVEL OUTSIDE OF THE [place] IN LAST 30 DAYS: No - HPI Notes: 11/02/18 17:26 Patient is a 73-year-old female who presents the emergency department by EMS from [facility] per the direction of Dr. Kay for further evaluation as patient was diagnosed with pneumonia and has been on Levaquin for 6 days. She still able to eat and drink without difficult he. She is still urinating normally. Denies STONE, fever, neck pain, URI, CP, Abd pain, or rash. I have treated and performed a rapid initial assessment of this patient. A comprehensive ED assessment and evaluation of the patient, analysis of test results and completion of medical decision making process will be conducted by additional ED providers. Pt had XR performed today (see results) PHYSICAL EXAMINATION: GENERAL: Well-appearing, well-nourished and in no acute distress. A&Ox4. Answers questions appropriately. LUNGS: diminished at base b/l. no retractions. harsh dry cough noted. HEART: Regular rate and rhythm without murmurs, rubs, gallops. - Related Data Allergies/Adverse Reactions: chlorpromazine HCl [From Thorazine] Allergy (Unknown, Verified 11/02/18 16:29) lithium [[place]] Allergy (Unknown, Verified 11/02/18 16:29) Past Medical History - Past Medical History Cardiac Medical History: Reports: Hx Hypercholesterolemia, Hx Hypertension Denies: Hx Coronary Artery Disease, Hx Heart Attack, Hx Heart Murmur Pulmonary Medical History: Reports: Hx Asthma, Hx COPD, Hx Pneumonia Denies: Hx Bronchitis, Hx Respiratory Failure, Hx Sleep Apnea, Hx Tuberculosis Neurological Medical History: Reports: Hx Seizures. Denies: Hx Cerebrovascular Accident Endocrine Medical History: Reports: Hx Diabetes Mellitus Type 2, Hx Hypothyroidism Renal/ Medical History: Denies: Hx Peritoneal Dialysis GI Medical History: Reports: Hx Gastroesophageal Reflux Disease. Denies: Hx Pancreatitis Musculoskeltal Medical History: Reports Hx Arthritis - osteoarthritis Psychiatric Medical History: Reports: Hx Bipolar Disorder, Hx Dementia, Hx Depression, Hx Schizoaffective Disorder, Hx Schizophrenia Past Surgical History: Reports: Hx Hysterectomy, Hx Tubal Ligation - Immunizations Immunizations up to date: Yes Hx Diphtheria, Pertussis, Tetanus Vaccination: Yes History of Influenza Vaccine for 04/2017 - 09/2017 Season: Unknown Physical Exam - Vital signs Vitals: Temp Pulse BP Pulse Ox 98.4 F 115 H 98/55 L 94 11/02/18 16:42 11/02/18 16:42 11/02/18 16:42 11/02/18 16:42 Course - Vital Signs Vital signs: Temp Pulse Resp BP Pulse Ox 98.4 F 115 H 98/55 L 94 11/02/18 16:42 11/02/18 16:42 11/02/18 16:42 11/02/18 16:42 Doctor's Discharge - Discharge Referrals: ISRA KAY MD [Primary Care Provider] - Follow up as needed
[2018-11-02 18:35] LABS: VENOUS BLOOD BASE EXCESS 4.4 mmol/L; VENOUS BLOOD HCO3 30.8 mmol/L (20-32); VENOUS BLOOD PCO2 54.4 mmHg (35-63); VENOUS BLOOD PH 7.37 (7.30-7.42)
[2018-11-02 18:36] LABS: ABSOLUTE BASOPHILS # (AUTO) 0.1 10^3/uL (0.0-0.2); ABSOLUTE LYMPHOCYTES (AUTO) 1.8 10^3/uL (0.5-4.7); ABSOLUTE MONOCYTES (AUTO) 3.2 10^3/uL (0.1-1.4); BASOPHILS % (AUTO) 0.6 % (0-2); EOSINOPHILS % (AUTO) 0.2 % (0-6); HEMOGLOBIN 10.9 g/dL (12.0-15.5); LYMPHOCYTES % (AUTO) 9.9 % (13-45); MEAN CORPUSCULAR VOLUME 97 fl (80-97); MONOCYTES % (AUTO) 17.7 % (3-13); PLATELET COUNT 381 10^3/uL (150-450); RED CELL DISTRIBUTION WIDTH 15.6 % (11.5-14.0); SEGMENTED NEUTROPHILS % (AUTO) 71.6 % (42-78); TOTAL CELLS COUNTED % (AUTO) 100 %; WHITE BLOOD COUNT 18.2 10^3/uL (4.0-10.5)
[2018-11-02] MEDS ORDERED: BENZONATATE 100 MG CAPSULE PO ONE (18:44)
[2018-11-02 18:48] LABS: ALANINE AMINOTRANSFERASE 15 U/L (9-52); ALBUMIN 3.6 g/dL (3.5-5.0); ALKALINE PHOSPHATASE 69 U/L (38-126); ANION GAP 13 (5-19); ASPARTATE AMINO TRANSFERASE 11 U/L (14-36); BILIRUBIN,DIRECT 0.3 mg/dL (0.0-0.4); BILIRUBIN,TOTAL 0.3 mg/dL (0.2-1.3); BLOOD UREA NITROGEN 30 mg/dL (7-20); CALCIUM 11.2 mg/dL (8.4-10.2); CARBON DIOXIDE 30 mmol/L (22-30); CHLORIDE 93 mmol/L (98-107); GLUCOSE 229 mg/dL (75-110); POTASSIUM 5.1 mmol/L (3.6-5.0); TOTAL PROTEIN 8.2 g/dL (6.3-8.2)
[2018-11-02] MEDS ORDERED: ONDANSETRON HCL INJ/PF 4 MG/2 ML SDV ONE (22:19)
[2018-11-02] MEDS ORDERED: ONDANSETRON HCL INJ/PF 4 MG/2 ML SDV IV ONE (22:41)
[2018-11-02] MEDS ORDERED: DOXYCYCLINE HYCLATE 100 MG TABLET PO ONE (23:07)
--- NOTE | 2018-11-02 23:07 | ER Document Report ---
ED General - General Chief Complaint: Shortness Of Breath Stated Complaint: WEAKNESS Time Seen by Provider: 11/02/18 17:19 Mode of Arrival: Medic Information source: Emergency Med Personnel, [facility] Records Cannot obtain history due to: Dementia Notes: 73-year-old female with vascular dementia, bipolar disorder, anemia, type 2 diabetes, hyperlipidemia, hypothyroidism, Parkinson's disease, presents via EMS from [facility] with reported shortness of breath. Recent x-ray showed advancement of patient's pneumonia which she has been currently been being treated with Levaquin for 6 days. Upon my exam patient is actively vomiting and unable to give history. Patient is alert and oriented x1 which is her reported baseline. TRAVEL OUTSIDE OF THE [place] IN LAST 30 DAYS: No - HPI Onset: Other - Related Data Allergies/Adverse Reactions: chlorpromazine HCl [From Thorazine] Allergy (Unknown, Verified 11/02/18 16:29) lithium [[place]] Allergy (Unknown, Verified 11/02/18 16:29) Past Medical History - General Information source: Emergency Med Personnel, [facility] Records, Outside Facility R ecords Cannot obtain history due to: Dementia - Social History Smoking Status: Unknown if Ever Smoked Lives with: [facility] Family History: Reviewed & Not Pertinent, Other - Unknown Patient has suicidal ideation: No Patient has homicidal ideation: No - Past Medical History Cardiac Medical History: Reports: Hx Hypercholesterolemia, Hx Hypertension Denies: Hx Coronary Artery Disease, Hx Heart Attack, Hx Heart Murmur Pulmonary Medical History: Reports: Hx Asthma, Hx COPD, Hx Pneumonia Denies: Hx Bronchitis, Hx Respiratory Failure, Hx Sleep Apnea, Hx Tuberculosis Neurological Medical History: Reports: Hx Seizures. Denies: Hx Cerebrovascular Accident Endocrine Medical History: Reports: Hx Diabetes Mellitus Type 2, Hx Hypothyroidism Renal/ Medical History: Denies: Hx Peritoneal Dialysis GI Medical History: Reports: Hx Gastroesophageal Reflux Disease. Denies: Hx Pancreatitis Musculoskeletal Medical History: Reports Hx Arthritis - osteoarthritis Psychiatric Medical History: Reports: Hx Bipolar Disorder, Hx Dementia, Hx Depression, Hx Schizoaffective Disorder, Hx Schizophrenia Past Surgical History: Reports: Hx Hysterectomy, Hx Tubal Ligation - Immunizations Immunizations up to date: Yes Hx Diphtheria, Pertussis, Tetanus Vaccination: Yes Hx Pneumococcal Vaccination: 04/10/14 Review of Systems - Review of Systems -: Yes ROS unobtainable due to patient's medical condition Respiratory: Short of breath Gastrointestinal: Vomiting Physical Exam - Vital signs Vitals: Temp Pulse BP Pulse Ox 98.4 F 115 H 98/55 L 94 11/02/18 16:42 11/02/18 16:42 11/02/18 16:42 11/02/18 16:42 - Notes Notes: PHYSICAL EXAMINATION: GENERAL: Ill-appearing, actively vomiting. HEAD: Atraumatic, normocephalic. EYES: Pupils equal round and reactive to light, extraocular movements intact, conjunctiva are normal. ENT: Nares patent, oropharynx clear without exudates. Moist mucous membranes. NECK: Normal range of motion, supple without lymphadenopathy LUNGS: Diminished breath sounds in all lung green. HEART: Tachycardic, regular rhythm without murmurs ABDOMEN: Soft, nontender, nondistended abdomen. No guarding, no rebound. No masses appreciated. Female : deferred Musculoskeletal: Normal range of motion, no pitting or edema. No cyanosis. NEUROLOGICAL: Cranial nerves grossly intact. Normal speech, normal gait. Normal sensory, motor exams PSYCH: Normal mood, normal affect. SKIN: Warm, Dry, normal turgor, no rashes or lesions noted. Course - Re-evaluation Re-evalutation: 11/03/18 00:59 Laboratory 11/02/18 11/02/18 11/02/18 18:14 18:14 18:14 WBC 18.2 H RBC 3.40 L Hgb 10.9 L Hct 33.0 L MCV 97 MCH 32.0 MCHC 33.0 RDW 15.6 H Plt Count 381 Seg Neutrophils % 71.6 Lymphocytes % 9.9 L Monocytes % 17.7 H Eosinophils % 0.2 Basophils % 0.6 Absolute Neutrophils 13.0 H Absolute Lymphocytes 1.8 Absolute Monocytes 3.2 H Absolute Eosinophils 0.0 Absolute Basophils 0.1 VBG pH VBG pCO2 VBG HCO3 VBG Base Excess Sodium 136.0 L Potassium 5.1 H Chloride 93 L Carbon Dioxide 30 Anion Gap 13 BUN 30 H Creatinine 1.28 H Est GFR ( Amer) 49 L Est GFR (Non-Af Amer) 41 L Glucose 229 H Lactic Acid 2.0 Calcium 11.2 H Total Bilirubin 0.3 Direct Bilirubin 0.3 Neonat Total Bilirubin Not Reportable Neonat Direct Bilirubin Not Reportable Neonat Indirect Bili Not Reportable AST 11 L ALT 15 Alkaline Phosphatase 69 Creatine Kinase CK-MB (CK-2) Troponin I Total Protein 8.2 Albumin 3.6 11/02/18 11/02/18 11/02/18 18:14 18:14 18:14 WBC RBC Hgb Hct MCV MCH MCHC RDW Plt Count Seg Neutrophils % Lymphocytes % Monocytes % Eosinophils % Basophils % Absolute Neutrophils Absolute Lymphocytes Absolute Monocytes Absolute Eosinophils Absolute Basophils VBG pH 7.37 VBG pCO2 54.4 VBG HCO3 30.8 VBG Base Excess 4.4 Sodium Potassium Chloride Carbon Dioxide Anion Gap BUN Creatinine Est GFR ( Amer) Est GFR (Non-Af Amer) Glucose Lactic Acid Calcium Total Bilirubin Direct Bilirubin Neonat Total Bilirubin Neonat Direct Bilirubin Neonat Indirect Bili AST ALT Alkaline Phosphatase Creatine Kinase 21 L CK-MB (CK-2) 0.50 Troponin I < 0.012 Total Protein Albumin Chest X-Ray 11/02/18 00:00 IMPRESSION: 1. Persistent mixed airspace and interstitial disease in the left mid-lower lung zones, since the prior study dated 08/31/2018. Correlation suggested and additional imaging may be helpful. Chest CT 11/03/18 00:00 IMPRESSION: Patchy areas of alveolar infiltrate in the left upper lobe and in the left lower lobe concerning for pneumonia with small amount of pleural fluid or thickening Subtle areas of alveolar infiltrate are present in the inferior aspect of the right upper lobe also likely related to pneumonia Linear areas in the left midlung field/lingula likely related to fibrosis from previous infection Hiatal hernia with wall thickening in the distal esophagus which may reflect esophagitis Vascular calcification Temp Pulse Resp BP Pulse Ox 99.2 F 111 H 26 H 100/41 L 97 11/02/18 23:29 11/03/18 00:31 11/03/18 00:31 11/03/18 00:31 11/03/18 00:31 11/03/18 02:21 73-year-old female presents via EMS from [facility] with report of shortness of breath, recent discovery of worsening pneumonia after treatment with Levaquin. Patient unable to provide history secondary to dementia. Previous medical records and nursing notes reviewed. jail medical documentation reviewed. Vital signs reviewed upon arrival and patient is tachycardic, mildly hypotensive. CT of the chest was obtained in consistent with pneumonia. At this point patient has failed outpatient therapy and will be admitted by Dr. Muhammad to telemetry. CBC does show a leukocytosis of 18. CMP shows hyperglycemia, mild KORI. Patient did receive ceftriaxone, doxycycline during her ED course. She also received Zofran for vomiting. 11/03/18 06:36 - Vital Signs Vital signs: Temp Pulse Resp BP Pulse Ox 99.2 F 114 H 22 H 119/63 96 11/02/18 23:29 11/03/18 02:43 11/03/18 01:28 11/03/18 01:28 11/03/18 01:28 - Laboratory Result Diagrams: 11/03/18 04:32 11/03/18 04:32 Laboratory results interpreted by me: 11/02/18 11/02/18 11/02/18 18:14 18:14 18:14 WBC 18.2 H RBC 3.40 L Hgb 10.9 L Hct 33.0 L RDW 15.6 H Lymphocytes % 9.9 L Monocytes % 17.7 H Absolute Neutrophils 13.0 H Absolute Monocytes 3.2 H Sodium 136.0 L Potassium 5.1 H Chloride 93 L BUN 30 H Creatinine 1.28 H Est GFR ( Amer) 49 L Est GFR (Non-Af Amer) 41 L Glucose 229 H Calcium 11.2 H AST 11 L Creatine Kinase 21 L - Diagnostic Test Radiology reviewed: Image reviewed, Reports reviewed Discharge - Discharge Clinical Impression: Hyperglycemia, Shortness of breath Pneumonia Qualifiers: Pneumonia type: due to unspecified organism Laterality: left Lung location: unspecified part of lung Qualified Code(s): J18.9 - Pneumonia, unspecified organism Hypotension Qualifiers: Hypotension type: unspecified hypotension type Qualified Code(s): I95.9 - Hy potension, unspecified Leukocytosis Qualifiers: Leukocytosis type: unspecified Qualified Code(s): D72.829 - Elevated white blood cell count, unspecified Anemia Qualifiers: Anemia type: unspecified type Qualified Code(s): D64.9 - Anemia, unspecified Nausea & vomiting Qualifiers: Vomiting type: unspecified Vomiting Intractability: non-intractable Qualified Code(s): R11.2 - Nausea with vomiting, unspecified Dementia Qualifiers: Dementia type: unspecified type Dementia behavioral disturbance: without behavioral disturbance Qualified Code(s): F03.90 - Unspecified dementia without behavioral disturbance Condition: Good Disposition: ADMITTED INPATIENT Admitting Provider: [facility] Admitted: Telemetry
[2018-11-02] MEDS ORDERED: IPRATROPIUM/ALBUTEROL 0.5-2.5 MG/3 ML AMPUL NEB PRN (23:12)
[2018-11-02] MEDS ORDERED: AZITHROMYCIN INJ 500 MG VIAL IV PRN (23:24)
[2018-11-02] MEDS ORDERED: ENOXAPARIN SODIUM INJ 40 MG/0.4 ML DISP.SYRIN SUBCUT ONE (23:30)
[2018-11-02] MEDS ORDERED: CEFTRIAXONE 1 GM/D5W RTU 1 GM/50 ML RTUPB IV ONE (23:30)
[2018-11-03] MEDS ORDERED: AZITHROMYCIN 500 MG in DEXTROSE 5%-WATER 250 ML IV SCH ×2
[2018-11-03 00:08] LABS: TROPONIN I < 0.012 ng/mL
[2018-11-03] MEDS: NORMAL SALINE 1000 ML 1,000 ML IV PRN ×2 (00:40→13:08)
--- NOTE | 2018-11-03 00:50 | RADIOLOGY REPORT (SQ) ---
CT CHEST WITHOUT IV CONTRAST COMPLETED DATE/TME: 11/03/2018 00:00 CLINICAL HISTORY: 73 years Female pneumonia COMPARISON: 04/20/2017. TECHNIQUE: Contiguous axial images obtained through the chest without IV contrast. Reformatted images obtained. This exam was performed according to our department optimization program which includes automated exposure control, adjustment of the mA and/or kv according to patient size and/or use of iterative reconstruction technique. FINDINGS: Calcification in aorta and in the coronary arteries. Hiatal hernia. Fatty liver. Mildly enlarged mediastinal lymph nodes. Probable left hilar lymph nodes. This area is suboptimally evaluated without contrast. There is infiltrate in the left lower lobe consistent with acute pneumonic infiltrate. There are some areas of linear atelectasis or scarring in the lingula which may be related to fibrosis from the patient's previous pneumonia. There are also some areas that may reflect an acute superimposed alveolar infiltrate in the lateral aspect of the left upper lobe/lingula. Small nodular foci are present in the right midlung field. Minimal pleural thickening on the left. IMPRESSION: Patchy areas of alveolar infiltrate in the left upper lobe and in the left lower lobe concerning for pneumonia with small amount of pleural fluid or thickening Subtle areas of alveolar infiltrate are present in the inferior aspect of the right upper lobe also likely related to pneumonia Linear areas in the left midlung field/lingula likely related to fibrosis from previous infection Hiatal hernia with wall thickening in the distal esophagus which may reflect esophagitis Vascular calcification
[2018-11-03 02:46] LABS: ARTERIAL BLOOD BASE EXCESS 3.2 mmol/L; ARTERIAL BLOOD FIO2 36%; ARTERIAL BLOOD H2CO3 1.29 mmol/L (1.05-1.35); ARTERIAL BLOOD HCO3 27.9 mmol/L (20-24); ARTERIAL BLOOD O2 SATURATION 96.2 % (94-98); ARTERIAL BLOOD PCO2 42.8 mmHg (35-45); ARTERIAL BLOOD PH 7.43 (7.35-7.45); ARTERIAL BLOOD PO2 81.3 mmHg (80-100); ARTERIAL BLOOD TOTAL CO2 29.2 mmol/L (21-25)
[2018-11-03 05:01] LABS: ABSOLUTE BASOPHILS # (AUTO) 0.1 10^3/uL (0.0-0.2); ABSOLUTE LYMPHOCYTES (AUTO) 1.4 10^3/uL (0.5-4.7); ABSOLUTE MONOCYTES (AUTO) 2.6 10^3/uL (0.1-1.4); ABSOLUTE NEUT (AUTO) 13.2 10^3/uL (1.7-8.2); BASOPHILS % (AUTO) 0.6 % (0-2); EOSINOPHILS % (AUTO) 0.1 % (0-6); HEMATOCRIT 29.4 % (36.0-47.0); HEMOGLOBIN 9.8 g/dL (12.0-15.5); MEAN CORPUSCULAR HEMOGLOBIN 32.1 pg (27.0-33.4); MEAN CORPUSCULAR HGB CONC 33.4 g/dL (32.0-36.0); MEAN CORPUSCULAR VOLUME 96 fl (80-97); MONOCYTES % (AUTO) 14.8 % (3-13); PLATELET COUNT 291 10^3/uL (150-450); RED BLOOD COUNT 3.06 10^6/uL (3.72-5.28); RED CELL DISTRIBUTION WIDTH 15.7 % (11.5-14.0); SEGMENTED NEUTROPHILS % (AUTO) 76.5 % (42-78); TOTAL CELLS COUNTED % (AUTO) 100 %; WHITE BLOOD COUNT 17.3 10^3/uL (4.0-10.5)
[2018-11-03] MEDS ORDERED: CEFEPIME 2 GM/D5W RTU 2 GM/50 ML RTUPB IV ONE (05:42)
[2018-11-03 05:44] LABS: ALANINE AMINOTRANSFERASE 14 U/L (9-52); ALBUMIN 3.1 g/dL (3.5-5.0); ALKALINE PHOSPHATASE 63 U/L (38-126); ANION GAP 10 (5-19); ASPARTATE AMINO TRANSFERASE 11 U/L (14-36); BILIRUBIN,DIRECT 0.3 mg/dL (0.0-0.4); BILIRUBIN,TOTAL 0.3 mg/dL (0.2-1.3); BLOOD UREA NITROGEN 31 mg/dL (7-20); CALCIUM 10.4 mg/dL (8.4-10.2); CARBON DIOXIDE 31 mmol/L (22-30); CHLORIDE 97 mmol/L (98-107); GLUCOSE 209 mg/dL (75-110); SODIUM 137.6 mmol/L (137-145); TOTAL PROTEIN 6.9 g/dL (6.3-8.2)
[2018-11-03] MEDS ORDERED: CEFEPIME 2 GM/D5W RTU 2 GM/50 ML RTUPB IV SCH (06:00)
[2018-11-03 12:32] LABS: APPEARANCE,URINE CLEAR; BILIRUBIN,URINE NEGATIVE (NEGATIVE); COLOR,URINE YELLOW; GLUCOSE, URINE NEGATIVE (NEGATIVE); KETONES,URINE 20 mg/dL (NEGATIVE); LEUKOCYTE ESTERASE,URINE NEGATIVE (NEGATIVE); NITRITE,URINE NEGATIVE (NEGATIVE); PROTEIN,URINE NEGATIVE (NEGATIVE); URINE SPECIFIC GRAVITY 1.017; UROBILINOGEN,URINE NEGATIVE mg/dL (<2.0)
[2018-11-03] MEDS ORDERED: BENZOCAINE/MENTHOL SORE THROAT LOZENGE PO PRN ×2 (12:38→13:20)
[2018-11-03] MEDS ORDERED: (PENDING PHARMACY ID) (Acetaminophen [Tylenol Extra Strength 500 Mg Tablet] 1,000 MG) PO PRN (12:38)
[2018-11-03] MEDS: ONDANSETRON HCL INJ/PF 4 MG/2 ML SDV IV PRN ×2 (13:08→17:50)
[2018-11-03] MEDS ORDERED: ACETAMINOPHEN 325 MG TABLET PO PRN (13:22)
[2018-11-03] MEDS ORDERED: (PENDING PHARMACY ID) (Cranberry [Cranberry] 500 MG) PO SCH (14:00)
[2018-11-03] MEDS: OXCARBAZEPINE 150 MG TABLET PO SCH ×2 (15:05→21:57)
--- NOTE | 2018-11-03 15:43 | RADIOLOGY REPORT (SQ) ---
EXAM DESCRIPTION: CT ABD/PELVIS NO ORAL OR IV COMPLETED DATE/TIME: 11/03/2018 3:21 pm REASON FOR STUDY: ABD PAIN COMPARISON: CT chest 11/03/2018, 04/20/2017, 07/28/2016, 04/13/2014 CT abdomen pelvis 07/07/2008 TECHNIQUE: CT scan of the abdomen and pelvis performed without intravenous or oral contrast. Images reviewed with lung, soft tissue, and bone windows. Reconstructed coronal and sagittal MPR images revi ewed. All images stored on PACS. All CT scanners at this facility use dose modulation, iterative reconstruction, and/or weight based d osing when appropriate to reduce radiation dose to as low as reasonably achievable (ALARA). [facility]: Dose Right [facility]: CareDose [facility]: Dose Right [facility]: Teradose 4D [facility]: Smart Zebra Mobile RADIATION DOSE: CT Rad equipment meets quality standard of care and radiation dose reduction techniq ues were employed. CTDIvol: 26.4 mGy. DLP: 1380 mGy-cm.mGy. LIMITATIONS: None. FINDINGS: LOWER CHEST: Left lower lobe consolidation worrisome for acute pneumonia NON-CONTRASTED LIVER, SPLEEN, ADRENALS: Fatty liver. No gross masses. Normal size spleen. Adrenal glands unremarkable PANCREAS: No masses. No peripancreatic inflammatory changes. GALLBLADDER: No identified stones by CT criteria. No inflammatory changes to suggest cholecystitis. RIGHT KIDNEY AND URETER: No suspicious masses. Assessment limited by lack of IV contrast. No signif icant calcifications. No hydronephrosis or hydroureter. LEFT KIDNEY AND URETER: No suspicious masses. Assessment limited by lack of IV contrast. No signifi cant calcifications. No hydronephrosis or hydroureter. AORTA AND RETROPERITONEUM: No aneurysm. No retroperitoneal masses or adenopathy. BOWEL AND PERITONEAL CAVITY: No obvious masses or inflammatory changes. No free fluid. APPENDIX: Not identified. No right lower quadrant inflammatory change PELVIS, BLADDER, AND ABDOMINAL WALL:No abnormal masses. No free fluid. Bladder normal. BONES: No significant findings. OTHER: No other significant finding. IMPRESSION: NO SIGNIFICANT OR ACUTE PROCESS IN THE ABDOMEN OR PELVIS. COMMENT: Quality ID # [id number]: Final reports with documentation of one or more dose reduction techniques (e.g., Automated exposure control, adjustment of the mA and/or kV according to patient size, use of iterative reconstruction technique) TECHNICAL DOCUMENTATION: JOB ID: [id number] [employer]- All Rights Reserved Reading location - IP/workstation name: [email or web address]
[2018-11-03] MEDS: CALCIUM CARBONATE 250 MG/VITAMIN D3 125 UNIT TABLET PO SCH (17:41)
[2018-11-03] MEDS: DIVALPROEX SODIUM 250 MG TABLET.DR PO SCH (17:41)
[2018-11-03] MEDS: ALPRAZOLAM 0.25 MG TABLET PO SCH (17:41)
[2018-11-03] MEDS ORDERED: PHARMACY COMMUNICATION ORDER MC NR (17:45)
[2018-11-03] MEDS: CEFEPIME HCL 2 GM in DEXTROSE 5%-WATER 50 ML IV SCH (17:50)
[2018-11-03] MEDS ORDERED: [UNRECOGNIZED DRUG - OTHER] PO SCH (18:00)
[2018-11-03] MEDS ORDERED: CALCIUM CARBONATE PO SCH (18:00)
[2018-11-03] MEDS ORDERED: VITAMIN D3 PO SCH (18:00)
--- NOTE | 2018-11-03 18:44 | RADIOLOGY REPORT (SQ) ---
EXAM DESCRIPTION: KUB/ABDOMEN (SINGLE VIEW) COMPLETED DATE/TIME: 11/03/2018 6:03 pm REASON FOR STUDY: status post N/G tube placement COMPARISON: 07/30/2016 NUMBER OF VIEWS: One view. TECHNIQUE: Supine radiographic image of the abdomen acquired. LIMITATIONS: None. FINDINGS: BOWEL GAS PATTERN: Nonobstructive gas pattern. Large amount of stool is present. CALCIFICATIONS: No suspicious calcifications. SOFT TISSUES: No gross mass or suggestion of organomegaly. HARDWARE: An NG tube is present with the tip near the gastric antrum. BONES: No acute fracture. No worrisome bone lesions. OTHER: No other significant finding. IMPRESSION: NG tube placement. Constipation. TECHNICAL DOCUMENTATION: JOB ID: [id number] [employer]- All Rights Reserved Reading location - IP/workstation name: [email or web address]
[2018-11-03] MEDS ORDERED: LEVOTHYROXINE SODIUM INJ/PF 0.5 MG SDV IV SCH (20:45)
--- NOTE | 2018-11-03 20:47 | PDOC H&P ---
History of Present Illness Admission Date/PCP: 11/02/18 23:13 ISRA KAY MD History of Present Illness: DRE HOPKINS is a 73 year old female, Patient is a resident of the [facility], she was treated with antibiotic for 7 days for pneumonia in the [facility] despite treatment her condition continued to deteriorate, she was then transferred to the emergency room for further evaluation, in the emergency room, chest x-ray and subsequently CT chest without contrast was obtained, it demonstrated infiltrate in the left lower lobe consistent with acute pneumonic i nfiltrate. There are some areas of linear atelectasis or scarring in the lingula which may be related to fibrosis from the patient's previous pneumonia. There are also some areas that may reflect an acute superimposed alveolar infiltrate in the lateral aspect of the left upper lobe/lingula. Small nodular foci are present in the right midlung field.Patient was seen on the floor, she was vomiting consistently, a CAT scan of the abdomen and pelvis with no contrast was obtained this was negative. A nasogastric tube was inserted the return was coffee-ground material Past Medical History Cardiac Medical History: Reports: Hyperlipidema, Hypertension Pulmonary Medical History: Reports: Asthma, Chronic Obstructive Pulmonary Disea se (COPD), Pneumonia Neurological Medical History: Reports: Seizures Endocrine Medical History: Reports: Diabetes Mellitus Type 2, Hypothyroidism GI Medical History: Reports: Gastroesophageal Reflux Disease Musculoskeltal Medical History: Reports: Arthritis - osteoarthritis Psychiatric Medical History: Reports: Bipolar Disorder, Dementia, Depression, Schizoaffective Disorder Hematology: Reports: Anemia Past Surgical History Past Surgical History: Reports: Hysterectomy, Tubal Ligation Social History Lives with: [facility] Smoking Status: Unknown if Ever Smoked Frequency of Alcohol Use: None Hx Recreational Drug Use: No Hx Prescription Drug Abuse: No Family History Family History: Reviewed & Not Pertinent, Other - Unknown Parental Family History Reviewed: Yes Children Family History Reviewed: Yes Sibling(s) Family History Reviewed.: Yes Medication/Allergy Home Medications: Acetaminophen [Tylenol Extra Strength 500 mg Tablet] 1,000 mg PO Q8HP PRN 11/03/18 Alprazolam [Xanax 0.25 mg Tablet] 0.25 mg PO BID@0800,1600 11/03/18 Benzocaine/Menthol [Chloraseptic Sore Throat Lozenge] 1 nery PO Q2HP PRN 11/03/18 Calcium Carbonate/Vitamin D3 [Calcium 500-Vit D3 600 Tablet] 1 tab PO BID 11/03/18 Chlorhexidine Gluconate [Peridex] 15 ml PO QAM 11/03/18 Cranberry 500 mg PO QAM 11/03/18 Cyanocobalamin (Vitamin B-12) [Vitamin B-12 1000 mcg Tablet] 1,000 mcg PO QAM 11/03/18 Divalproex Sodium [Depakote] 250 mg PO Q6 11/03/18 Folic Acid [Folvite 1 mg Tablet] 1 mg PO QAM 11/03/18 Insulin Lispro [Humalog Insulin (Lispro) 100 unit/mL] 0 units SQ .PERSLIDINGSCALE 11/03/18 Levothyroxine Sodium [Synthroid 0.088 mg Tablet] 0.088 mg PO Q6AM 11/03/18 Linagliptin [Tradjenta] 5 mg PO QAM 11/03/18 Lisinopril [Zestril] 10 mg PO QAM 11/03/18 Olanzapine [Zyprexa] 20 mg PO QHS 11/03/18 Omeprazole 20 mg PO Q6AM 11/03/18 Oxcarbazepine [Trileptal 150 mg Tablet] 150 mg PO Q8 11/03/18 Oxybutynin Chloride [Oxybutynin Chloride ER] 10 mg PO QAM 11/03/18 Quetiapine Fumarate [Seroquel 25 mg Tablet] 25 mg PO QAM 11/03/18 Quetiapine Fumarate [Seroquel 25 mg Tablet] 75 mg PO QHS 11/03/18 Sennosides/Docusate 8.6-50 mg [Senna Plus Tablet] 1 tab PO QAM 11/03/18 Thiamine HCl [Thiamine 100 mg Tablet] 100 mg PO QAM 11/03/18 Tramadol HCl [Ultram 50 mg Tablet] 50 mg PO Q12HP PRN 11/03/18 Allergies/Adverse Reactions: chlorpromazine HCl [From Thorazine] Allergy (Unknown, Verified 11/02/18 16:29) lithium [[place]] Allergy (Unknown, Verified 11/02/18 16:29) Review of Systems Constitutional: PRESENT: fatigue Eyes: ABSENT: visual disturbances Ears: ABSENT: hearing changes Cardiovascular: ABSENT: chest pain, dyspnea on exertion, edema, orthropnea, palpitations Respiratory: PRESENT: cough. ABSENT: hemoptysis Gastrointestinal: PRESENT: vomiting Genitourinary: ABSENT: dysuria, hematuria Musculoskeletal: ABSENT: joint swelling Integumentary: ABSENT: rash, wounds Neurological: ABSENT: as per HPI, abnormal gait, abnormal movements, abnormal speech, confusion, convulsions, dizziness, focal weakness, frequent falls, lack of coordination, memory loss, numbness, paresthesias, restless legs, syncope, tingling, tremor(s), vertigo, weakness, other Psychiatric: ABSENT: anxiety, depression, homidical ideation, suicidal ideation Endocrine: ABSENT: cold intolerance, heat intolerance, menstrual abnormalities, polydipsia, polyuria Hematologic/Lymphatic: ABSENT: easy bleeding, easy bruising, lymphadenopathy Physical Exam Vital Signs: Temp Pulse Resp BP Pulse Ox 98.5 F 118 H 18 149/85 H 98 11/03/18 10:59 11/03/18 19:00 11/03/18 10:59 11/03/18 10:59 11/03/18 10:59 Intake & Output 11/02/18 11/03/18 11/04/18 06:59 06:59 06:59 Intake Total 1100 923 Output Total 30 400 Balance 1070 523 Weight 92.7 kg General appearance: PRESENT: mild distress Head exam: PRESENT: atraumatic, normocephalic Eye exam: PRESENT: conjunctiva pink, EOMI, PERRLA Ear exam: PRESENT: normal external ear exam Mouth exam: PRESENT: moist, tongue midline Neck exam: PRESENT: full ROM Respiratory exam: PRESENT: clear to auscultation juliette Cardiovascular exam: PRESENT: RRR, +S1, +S2 Pulses: PRESENT: normal dorsalis pedis pul, +2 pedal pulses bilateral Vascular exam: PRESENT: normal capillary refill GI/Abdominal exam: PRESENT: normal bowel sounds, soft Rectal exam: PRESENT: deferred Neurological exam: PRESENT: alert, CN II-XII grossly intact Psychiatric exam: PRESENT: appropriate affect, normal mood Skin exam: PRESENT: dry, intact, warm Results Laboratory Results: 11/03/18 04:32 11/03/18 04:32 11/03/18 11/03/18 11/03/18 02:25 04:32 04:32 WBC 17.3 H RBC 3.06 L Hgb 9.8 L Hct 29.4 L MCV 96 MCH 32.1 MCHC 33.4 RDW 15.7 H Plt Count 291 Seg Neutrophils % 76.5 Lymphocytes % 8.0 L Monocytes % 14.8 H Eosinophils % 0.1 Basophils % 0.6 Absolute Neutrophils 13.2 H Absolute Lymphocytes 1.4 Absolute Monocytes 2.6 H Absolute Eosinophils 0.0 Absolute Basophils 0.1 Carbonic Acid 1.29 HCO3/H2CO3 Ratio 21:1 ABG pH 7.43 ABG pCO2 42.8 ABG pO2 81.3 ABG HCO3 27.9 H ABG O2 Saturation 96.2 ABG Base Excess 3.2 FiO2 36% Sodium 137.6 Potassium 5.0 Chloride 97 L Carbon Dioxide 31 H Anion Gap 10 BUN 31 H Creatinine 0.99 Est GFR ( Amer) > 60 Est GFR (Non-Af Amer) 55 L Glucose 209 H Calcium 10.4 H Total Bilirubin 0.3 AST 11 L ALT 14 Alkaline Phosphatase 63 Total Protein 6.9 Albumin 3.1 L Urine Color Urine Appearance Urine pH Ur Specific [place] Urine Protein Urine Glucose (UA) Urine Ketones Urine Blood Urine Nitrite Ur Leukocyte Esterase Urine WBC (Auto) Urine RBC (Auto) 11/03/18 12:06 WBC RBC Hgb Hct MCV MCH MCHC RDW Plt Count Seg Neutrophils % Lymphocytes % Monocytes % Eosinophils % Basophils % Absolute Neutrophils Absolute Lymphocytes Absolute Monocytes Absolute Eosinophils Absolute Basophils Carbonic Acid HCO3/H2CO3 Ratio ABG pH ABG pCO2 ABG pO2 ABG HCO3 ABG O2 Saturation ABG Base Excess FiO2 Sodium Potassium Chloride Carbon Dioxide Anion Gap BUN Creatinine Est GFR ( Amer) Est GFR (Non-Af Amer) Glucose Calcium Total Bilirubin AST ALT Alkaline Phosphatase Total Protein Albumin Urine Color YELLOW Urine Appearance CLEAR Urine pH 8.0 Ur Specific [place] 1.017 Urine Protein NEGATIVE Urine Glucose (UA) NEGATIVE Urine Ketones 20 H Urine Blood NEGATIVE Urine Nitrite NEGATIVE Ur Leukocyte Esterase NEGATIVE Urine WBC (Auto) 4 Urine RBC (Auto) 1 11/02/18 11/02/18 18:14 18:14 Creatine Kinase 21 L CK-MB (CK-2) 0.50 Troponin I < 0.012 Impressions: Chest X-Ray 11/02/18 00:00 IMPRESSION: 1. Persistent mixed airspace and interstitial disease in the left mid-lower lung zones, since the prior study dated 08/31/2018. Correlation suggested and additional imaging may be helpful. Abdomen/Pelvis CT 11/03/18 00:00 IMPRESSION: NO SIGNIFICANT OR ACUTE PROCESS IN THE ABDOMEN OR PELVIS. Chest CT 11/03/18 00:00 IMPRESSION: Patchy areas of alveolar infiltrate in the left upper lobe and in the left lower lobe concerning for pneumonia with small amount of pleural fluid or thickening Subtle areas of alveolar infiltrate are present in the inferior aspect of the right upper lobe also likely related to pneumonia Linear areas in the left midlung field/lingula likely related to fibrosis from previous infection Hiatal hernia with wall thickening in the distal esophagus which may reflect esophagitis Vascular calcification KUB X-Ray 11/03/18 00:00 IMPRESSION: NG tube placement. Constipation. Assessment & Plan - Diagnosis (1) Pneumonia involving left lung Qualifiers: Pneumonia type: due to unspecified organism Lung location: unspecified part of lung Qualified Code(s): J18.9 - Pneumonia, unspecified organism Is this a current diagnosis for this admission?: Yes Plan: She has left lung pneumonia, she already was treated with Lev[facility]quin at the [facility] without improvement, she will be treated empirically with cefepime and azithromycin (2) Upper GI bleed Is this a current diagnosis for this admission?: Yes Plan: She has upper GI bleed with coffee-ground appearance, this is probably stress ulcer bleed, start Protonix 40 mg IV every 12 (3) Acute kidney injury Is this a current diagnosis for this admission?: Yes Plan: This is probably prerenal azotemia - Plan Summary Plan Summary: Patient is n.p.o., the p.o. medication will be transitioned to IV
[2018-11-03] MEDS: OXYBUTYNIN CHLORIDE 5 MG TABLET PO SCH (21:56)
[2018-11-03] MEDS: OLANZAPINE 5 MG TABLET PO SCH (21:57)
[2018-11-03] MEDS: QUETIAPINE FUMARATE 25 MG TABLET PO SCH (21:57)
[2018-11-03] MEDS: LEVETIRACETAM 500 MG/NACL-ISO 500 MG/100 ML RTUPB IV SCH (22:00)
[2018-11-03] MEDS: ENOXAPARIN SODIUM INJ 40 MG/0.4 ML DISP.SYRIN SUBCUT SCH (22:00)
[2018-11-03] MEDS: LEVOTHYROXINE SODIUM INJ/PF 0.1 MG SDV IV SCH (22:01)
[2018-11-03] MEDS: PANTOPRAZOLE SODIUM 40 MG VIAL IV SCH (22:01)
[2018-11-03] MEDS: AZITHROMYCIN 500 MG in DEXTROSE 5%-WATER 250 ML IV SCH (22:23)
[2018-11-04] MEDS: DIVALPROEX SODIUM 250 MG TABLET.DR PO SCH ×4 (00:19→17:02)
[2018-11-04] MEDS: DEXTROSE 5%-1/2 NORMAL SALINE 1,000 ML IV PRN ×2 (04:49→17:02)
[2018-11-04 05:10] LABS: HEMATOCRIT 30.7 % (36.0-47.0); MEAN CORPUSCULAR HEMOGLOBIN 31.6 pg (27.0-33.4); MEAN CORPUSCULAR HGB CONC 32.7 g/dL (32.0-36.0); MEAN CORPUSCULAR VOLUME 97 fl (80-97); PLATELET COUNT 347 10^3/uL (150-450); RED BLOOD COUNT 3.18 10^6/uL (3.72-5.28); WHITE BLOOD COUNT 23.3 10^3/uL (4.0-10.5)
[2018-11-04] MEDS: CEFEPIME HCL 2 GM in DEXTROSE 5%-WATER 50 ML IV SCH ×2 (05:18→17:02)
[2018-11-04] MEDS: OXCARBAZEPINE 150 MG TABLET PO SCH ×3 (05:22→22:11)
[2018-11-04 05:31] LABS: ALANINE AMINOTRANSFERASE 16 U/L (9-52); ALBUMIN 3.2 g/dL (3.5-5.0); ALKALINE PHOSPHATASE 70 U/L (38-126); ANION GAP 12 (5-19); ASPARTATE AMINO TRANSFERASE 13 U/L (14-36); BILIRUBIN,DIRECT 0.3 mg/dL (0.0-0.4); BILIRUBIN,TOTAL 0.3 mg/dL (0.2-1.3); BLOOD UREA NITROGEN 37 mg/dL (7-20); CALCIUM 9.9 mg/dL (8.4-10.2); CARBON DIOXIDE 35 mmol/L (22-30); CHLORIDE 95 mmol/L (98-107); GLUCOSE 188 mg/dL (75-110); POTASSIUM 4.1 mmol/L (3.6-5.0); SODIUM 141.5 mmol/L (137-145); TOTAL PROTEIN 7.2 g/dL (6.3-8.2)
[2018-11-04 05:51] LABS: ABSOLUTE LYMPHOCYTES# (MANUAL) 1.2 10^3/uL (0.5-4.7); ABSOLUTE MONOCYTES # (MANUAL) 3.7 10^3/uL (0.1-1.4); ABSOLUTE NEUTROPHILS# (MANUAL) 18.4 10^3/uL (1.7-8.2); BAND NEUTROPHILS % (MANUAL) 2 % (3-5); BASOPHILS % (MANUAL) 0 % (0-2); EOSINOPHILS % (MANUAL) 0 % (0-6); LYMPHOCYTES % (MANUAL) 5 % (13-45); MONOCYTES % (MANUAL) 16 % (3-13); SEGMENTED NEUTROPHILS % (MAN) 77 % (42-78); TOTAL CELLS COUNTED 100
[2018-11-04 05:52] LABS: HYPOCHROMASIA 1+; PLATELET COMMENT ADEQUATE
[2018-11-04] MEDS ORDERED: PANTOPRAZOLE SODIUM 20 MG TABLET.DR PO SCH (06:00)
[2018-11-04] MEDS ORDERED: (PENDING PHARMACY ID) (Oxybutynin Chloride [Oxybutynin Chloride Er] 10 MG) PO SCH (08:00)
[2018-11-04] MEDS ORDERED: (PENDING PHARMACY ID) (Linagliptin [Tradjenta] 5 MG) PO SCH (08:00)
[2018-11-04] MEDS ORDERED: (PENDING PHARMACY ID) (Cranberry [Cranberry] 500 MG) PO SCH (08:00)
--- NOTE | 2018-11-04 08:32 | PDOC PROGRESS REPORT ---
Subjective Progress Note for:: 11/04/18 Subjective:: Patient was seen by the bedside, the return from the NG tube is bilious, the NG tube will be discontinued, she has coffee-ground return most likely from stress ulcers presently on Protonix Reason For Visit: PNUEMONIA,FAILED OUTPATIENT TREATMENT Physical Exam Vital Signs: Temp Pulse Resp BP Pulse Ox 98.9 F 105 H 20 103/63 100 11/04/18 03:46 11/04/18 07:00 11/04/18 03:46 11/04/18 03:46 11/04/18 03:46 Intake & Output 11/03/18 11/04/18 11/05/18 06:59 06:59 06:59 Intake Total 1100 2323 Output Total 30 400 Balance 1070 1923 Weight 92.7 kg 90.7 kg General appearance: PRESENT: no acute distress Eye exam: PRESENT: PERRLA Respiratory exam: PRESENT: clear to auscultation juliette Cardiovascular exam: PRESENT: +S1, +S2 GI/Abdominal exam: PRESENT: soft Neurological exam: PRESENT: alert, CN II-XII grossly intact Results Laboratory Results: 11/04/18 04:00 11/04/18 04:00 11/03/18 11/03/18 11/04/18 12:06 21:30 04:00 WBC 23.3 H RBC 3.18 L Hgb 10.0 L Hct 30.7 L MCV 97 MCH 31.6 MCHC 32.7 RDW 16.0 H Plt Count 347 Seg Neutrophils % Not Reportable Lymphocytes % Not Reportable Monocytes % Not Reportable Eosinophils % Not Reportable Basophils % Not Reportable Absolute Neutrophils Not Reportable Absolute Lymphocytes Not Reportable Absolute Monocytes Not Reportable Absolute Eosinophils Not Reportable Absolute Basophils Not Reportable Sodium Potassium Chloride Carbon Dioxide Anion Gap BUN Creatinine Est GFR ( Amer) Est GFR (Non-Af Amer) Glucose Calcium Total Bilirubin AST ALT Alkaline Phosphatase Total Protein Albumin PTH Intact 130.1 H Urine Color YELLOW Urine Appearance CLEAR Urine pH 8.0 Ur Specific [place] 1.017 Urine Protein NEGATIVE Urine Glucose (UA) NEGATIVE Urine Ketones 20 H Urine Blood NEGATIVE Urine Nitrite NEGATIVE Ur Leukocyte Esterase NEGATIVE Urine WBC (Auto) 4 Urine RBC (Auto) 1 11/04/18 04:00 WBC RBC Hgb Hct MCV MCH MCHC RDW Plt Count Seg Neutrophils % Lymphocytes % Monocytes % Eosinophils % Basophils % Absolute Neutrophils Absolute Lymphocytes Absolute Monocytes Absolute Eosinophils Absolute Basophils Sodium 141.5 Potassium 4.1 Chloride 95 L Carbon Dioxide 35 H Anion Gap 12 BUN 37 H Creatinine 1.10 Est GFR ( Amer) 59 L Est GFR (Non-Af Amer) 48 L Glucose 188 H Calcium 9.9 Total Bilirubin 0.3 AST 13 L ALT 16 Alkaline Phosphatase 70 Total Protein 7.2 Albumin 3.2 L PTH Intact Urine Color Urine Appearance Urine pH Ur Specific [place] Urine Protein Urine Glucose (UA) Urine Ketones Urine Blood Urine Nitrite Ur Leukocyte Esterase Urine WBC (Auto) Urine RBC (Auto) 11/02/18 11/02/18 18:14 18:14 Creatine Kinase 21 L CK-MB (CK-2) 0.50 Troponin I < 0.012 Impressions: Chest X-Ray 11/02/18 00:00 IMPRESSION: 1. Persistent mixed airspace and interstitial disease in the left mid-lower lung zones, since the prior study dated 08/31/2018. Correlation suggested and additional imaging may be helpful. Abdomen/Pelvis CT 11/03/18 00:00 IMPRESSION: NO SIGNIFICANT OR ACUTE PROCESS IN THE ABDOMEN OR PELVIS. Chest CT 11/03/18 00:00 IMPRESSION: Patchy areas of alveolar infiltrate in the left upper lobe and in the left lower lobe concerning for pneumonia with small amount of pleural fluid or thickening Subtle areas of alveolar infiltrate are present in the inferior aspect of the right upper lobe also likely related to pneumonia Linear areas in the left midlung field/lingula likely related to fibrosis from previous infection Hiatal hernia with wall thickening in the distal esophagus which may reflect esophagitis Vascular calcification KUB X-Ray 11/03/18 00:00 IMPRESSION: NG tube placement. Constipation. Assessment & Plan - Diagnosis (1) Pneumonia involving left lung Qualifiers: Pneumonia type: due to unspecified organism Lung location: unspecified part of lung Qualified Code(s): J18.9 - Pneumonia, unspecified organism Is this a current diagnosis for this admission?: Yes Plan: Continue IV antibiotic (2) Upper GI bleed Is this a current diagnosis for this admission?: Yes Plan: Discontinue NG tube, continue IV Protonix, send the stool for helicobacter pylori antigen (3) Acute kidney injury Is this a current diagnosis for this admission?: Yes (4) Primary hyperparathyroidism Is this a current diagnosis for this admission?: Yes
[2018-11-04] MEDS: FOLIC ACID 1 MG TABLET PO SCH (08:57)
[2018-11-04] MEDS: QUETIAPINE FUMARATE 25 MG TABLET PO SCH ×2 (08:57→22:10)
[2018-11-04] MEDS: CHLORHEXIDINE GLUCONATE 0.12% ORAL RINSE 15 ML UDC PO SCH (08:57)
[2018-11-04] MEDS: LISINOPRIL 10 MG TABLET PO SCH (08:57)
[2018-11-04] MEDS: SENNOSIDES/DOCUSATE 8.6-50 MG 1 EACH TABLET PO SCH (08:57)
[2018-11-04] MEDS: THIAMINE HCL 100 MG TABLET PO SCH (08:58)
[2018-11-04] MEDS: ALPRAZOLAM 0.25 MG TABLET PO SCH ×2 (08:58→17:02)
[2018-11-04] MEDS: CYANOCOBALAMIN (VITAMIN B-12) 1,000 MCG TABLET PO SCH (08:58)
[2018-11-04] MEDS ORDERED: DEXTROSE 40% GEL 15 GM TUBE PO PRN ×2 (09:16)
[2018-11-04] MEDS ORDERED: DEXTROSE 50%-WATER 25 GM/50 ML DISP.SYRIN IV PRN ×2 (09:16)
[2018-11-04] MEDS ORDERED: GLUCAGON,HUMAN RECOMB 1 MG INJ SUBCUT PRN (09:16)
[2018-11-04] MEDS: SITAGLIPTIN PHOSPHATE 50 MG TABLET PO SCH (09:17)
[2018-11-04] MEDS: CALCIUM CARBONATE 250 MG/VITAMIN D3 125 UNIT TABLET PO SCH ×2 (09:17→17:02)
[2018-11-04] MEDS: OXYBUTYNIN CHLORIDE 5 MG TABLET PO SCH ×2 (09:17→22:11)
[2018-11-04] MEDS: LEVOTHYROXINE SODIUM INJ/PF 0.1 MG SDV IV SCH (09:17)
[2018-11-04] MEDS: LEVETIRACETAM 500 MG/NACL-ISO 500 MG/100 ML RTUPB IV SCH ×2 (09:21→22:05)
[2018-11-04] MEDS: PANTOPRAZOLE SODIUM 40 MG VIAL IV SCH ×2 (09:21→22:12)
[2018-11-04] MEDS: OLANZAPINE 5 MG TABLET PO SCH (22:08)
[2018-11-04] MEDS: AZITHROMYCIN 500 MG in DEXTROSE 5%-WATER 250 ML IV SCH (22:13)
[2018-11-04] MEDS: TRAMADOL HCL 50 MG TABLET PO PRN (22:21)
[2018-11-04] MEDS: ENOXAPARIN SODIUM INJ 40 MG/0.4 ML DISP.SYRIN SUBCUT SCH (22:27)
[2018-11-05] MEDS: DIVALPROEX SODIUM 250 MG TABLET.DR PO SCH ×5 (02:01→23:15)
[2018-11-05 03:50] LABS: ABSOLUTE BASOPHILS # (AUTO) 0.1 10^3/uL (0.0-0.2); ABSOLUTE EOSINOPHILS # (AUTO) 0.1 10^3/uL (0.0-0.6); ABSOLUTE LYMPHOCYTES (AUTO) 3.1 10^3/uL (0.5-4.7); ABSOLUTE MONOCYTES (AUTO) 2.5 10^3/uL (0.1-1.4); ABSOLUTE NEUT (AUTO) 10.2 10^3/uL (1.7-8.2); BASOPHILS % (AUTO) 0.4 % (0-2); EOSINOPHILS % (AUTO) 0.3 % (0-6); HEMATOCRIT 26.5 % (36.0-47.0); HEMOGLOBIN 8.6 g/dL (12.0-15.5); LYMPHOCYTES % (AUTO) 19.4 % (13-45); MEAN CORPUSCULAR HEMOGLOBIN 31.5 pg (27.0-33.4); MEAN CORPUSCULAR HGB CONC 32.5 g/dL (32.0-36.0); MEAN CORPUSCULAR VOLUME 97 fl (80-97); MONOCYTES % (AUTO) 15.4 % (3-13); PLATELET COUNT 275 10^3/uL (150-450); RED BLOOD COUNT 2.73 10^6/uL (3.72-5.28); RED CELL DISTRIBUTION WIDTH 15.8 % (11.5-14.0); SEGMENTED NEUTROPHILS % (AUTO) 64.5 % (42-78); TOTAL CELLS COUNTED % (AUTO) 100 %; WHITE BLOOD COUNT 15.9 10^3/uL (4.0-10.5)
[2018-11-05 04:12] LABS: ALANINE AMINOTRANSFERASE 12 U/L (9-52); ALBUMIN 2.6 g/dL (3.5-5.0); ALKALINE PHOSPHATASE 57 U/L (38-126); ANION GAP 8 (5-19); ASPARTATE AMINO TRANSFERASE 12 U/L (14-36); BILIRUBIN,DIRECT 0.2 mg/dL (0.0-0.4); BILIRUBIN,TOTAL 0.2 mg/dL (0.2-1.3); BLOOD UREA NITROGEN 31 mg/dL (7-20); CALCIUM 8.9 mg/dL (8.4-10.2); CARBON DIOXIDE 33 mmol/L (22-30); CHLORIDE 96 mmol/L (98-107); GLUCOSE 193 mg/dL (75-110); POTASSIUM 3.6 mmol/L (3.6-5.0); SODIUM 136.6 mmol/L (137-145)
[2018-11-05] MEDS: DEXTROSE 5%-1/2 NORMAL SALINE 1,000 ML IV PRN ×2 (04:58→17:25)
[2018-11-05] MEDS: CEFEPIME HCL 2 GM in DEXTROSE 5%-WATER 50 ML IV SCH ×2 (05:33→17:29)
[2018-11-05] MEDS: OXCARBAZEPINE 150 MG TABLET PO SCH ×3 (05:34→21:55)
[2018-11-05] MEDS: CHLORHEXIDINE GLUCONATE 0.12% ORAL RINSE 15 ML UDC PO SCH (10:08)
[2018-11-05] MEDS: LISINOPRIL 10 MG TABLET PO SCH (10:08)
[2018-11-05] MEDS: FOLIC ACID 1 MG TABLET PO SCH (10:08)
[2018-11-05] MEDS: CYANOCOBALAMIN (VITAMIN B-12) 1,000 MCG TABLET PO SCH (10:09)
[2018-11-05] MEDS: QUETIAPINE FUMARATE 25 MG TABLET PO SCH ×2 (10:09→21:54)
[2018-11-05] MEDS: SENNOSIDES/DOCUSATE 8.6-50 MG 1 EACH TABLET PO SCH (10:09)
[2018-11-05] MEDS: THIAMINE HCL 100 MG TABLET PO SCH (10:09)
[2018-11-05] MEDS: OXYBUTYNIN CHLORIDE 5 MG TABLET PO SCH ×2 (10:10→21:54)
[2018-11-05] MEDS: ALPRAZOLAM 0.25 MG TABLET PO SCH ×2 (10:10→17:21)
[2018-11-05] MEDS: CALCIUM CARBONATE 250 MG/VITAMIN D3 125 UNIT TABLET PO SCH ×2 (10:11→17:21)
[2018-11-05] MEDS: SITAGLIPTIN PHOSPHATE 50 MG TABLET PO SCH (10:11)
[2018-11-05] MEDS: LEVOTHYROXINE SODIUM INJ/PF 0.1 MG SDV IV SCH (10:27)
[2018-11-05] MEDS: LEVETIRACETAM 500 MG/NACL-ISO 500 MG/100 ML RTUPB IV SCH ×2 (10:41→21:39)
[2018-11-05] MEDS: PANTOPRAZOLE SODIUM 40 MG VIAL IV SCH ×2 (10:42→21:39)
--- NOTE | 2018-11-05 13:31 | PDOC PROGRESS REPORT ---
Subjective Progress Note for:: 11/05/18 Subjective:: Patient demonstrate significant coughing and swallowing difficulty on clear liquid administration today. No chest pain, fever, chills, nausea or vomiting. NGT was removed yesterday. Reason For Visit: PNUEMONIA,FAILED OUTPATIENT TREATMENT Physical Exam Vital Signs: Temp Pulse Resp BP Pulse Ox 97.9 F 83 14 89/58 L 96 11/05/18 11:57 11/05/18 11:57 11/05/18 11:57 11/05/18 11:57 11/05/18 11:57 Intake & Output 11/04/18 11/05/18 11/06/18 06:59 06:59 06:59 Intake Total 2323 3412 Output Total 400 100 Balance 1923 3312 Weight 90.7 kg 92.3 kg General appearance: PRESENT: no acute distress, obese Head exam: PRESENT: atraumatic, normocephalic Eye exam: PRESENT: conjunctiva pink. ABSENT: scleral icterus Ear exam: PRESENT: normal external ear exam Mouth exam: PRESENT: moist Respiratory exam: PRESENT: crackles - scattered bilaterally., decreased breath sounds - at lung bvases. Cardiovascular exam: PRESENT: RRR, +S1, +S2. ABSENT: diastolic murmur, systolic murmur Vascular exam: ABSENT: pallor GI/Abdominal exam: PRESENT: normal bowel sounds, soft. ABSENT: distended, guarding, mass, organolmegaly, rebound, tenderness Extremities exam: ABSENT: pedal edema Neurological exam: PRESENT: alert, awake Psychiatric exam: PRESENT: appropriate affect, normal mood. ABSENT: homicidal ideation, suicidal ideation Skin exam: PRESENT: dry, warm Results Laboratory Results: 11/05/18 03:16 11/05/18 03:16 11/05/18 11/05/18 03:16 03:16 WBC 15.9 H RBC 2.73 L Hgb 8.6 L Hct 26.5 L MCV 97 MCH 31.5 MCHC 32.5 RDW 15.8 H Plt Count 275 Seg Neutrophils % 64.5 Lymphocytes % 19.4 Monocytes % 15.4 H Eosinophils % 0.3 Basophils % 0.4 Absolute Neutrophils 10.2 H Absolute Lymphocytes 3.1 Absolute Monocytes 2.5 H Absolute Eosinophils 0.1 Absolute Basophils 0.1 Sodium 136.6 L Potassium 3.6 Chloride 96 L Carbon Dioxide 33 H Anion Gap 8 BUN 31 H Creatinine 0.88 Est GFR ( Amer) > 60 Est GFR (Non-Af Amer) > 60 Glucose 193 H Calcium 8.9 Total Bilirubin 0.2 AST 12 L ALT 12 Alkaline Phosphatase 57 Total Protein 6.0 L Albumin 2.6 L 11/03/18 12:06 Catheterized Urine Urine Culture - Final NO GROWTH 2 DAYS 11/02/18 11/02/18 18:14 18:14 Creatine Kinase 21 L CK-MB (CK-2) 0.50 Troponin I < 0.012 Impressions: Chest X-Ray 11/02/18 00:00 IMPRESSION: 1. Persistent mixed airspace and interstitial disease in the left mid-lower lung zones, since the prior study dated 08/31/2018. Correlation suggested and additional imaging may be helpful. Abdomen/Pelvis CT 11/03/18 00:00 IMPRESSION: NO SIGNIFICANT OR ACUTE PROCESS IN THE ABDOMEN OR PELVIS. Chest CT 11/03/18 00:00 IMPRESSION: Patchy areas of alveolar infiltrate in the left upper lobe and in the left lower lobe concerning for pneumonia with small amount of pleural fluid or thickening Subtle areas of alveolar infiltrate are present in the inferior aspect of the right upper lobe also likely related to pneumonia Linear areas in the left midlung field/lingula likely related to fibrosis from previous infection Hiatal hernia with wall thickening in the distal esophagus which may reflect esophagitis Vascular calcification KUB X-Ray 11/03/18 00:00 IMPRESSION: NG tube placement. Constipation. Assessment & Plan - Diagnosis (1) Pneumonia involving left lung Qualifiers: Pneumonia type: due to unspecified organism Lung location: unspecified part of lung Qualified Code(s): J18.9 - Pneumonia, unspecified organism Is this a current diagnosis for this admission?: Yes Plan: Continue IV Zithromax and Cefepime overage. Probably due to recurrent aspiration. (2) Aspiration into airway Qualifiers: Encounter type: subsequent encounter Qualified Code(s): T17.908D - Unspecified foreign body in respiratory tract, part unspecified causing other injury, subsequent encounter Is this a current diagnosis for this admission?: Yes Plan: Obtain speech pathologist consultation. Meanwhile maintain on puree diet, thicken liquid with full aspiration precautions. (3) Acute kidney injury Is this a current diagnosis for this admission?: Yes Plan: Continue IV fluid support. Obtain BMP in AM. (4) Primary hyperparathyroidism Is this a current diagnosis for this admission?: Yes Plan: Continue current medication management. (5) Upper GI bleed Is this a current diagnosis for this admission?: Yes Plan: Continue PPI therapy for possible stress ulcers as source of her GI bleed. Monitor CBC indices for possible need of PRBC transfusion. - Time Time Spent with patient: 25-34 minutes Medications reviewed and adjusted accordingly: Yes Anticipated discharge: SNF Within: Other - Inpatient Certification Based on my medical assessment, after consideration of the patient's comorbidities, presenting symptoms, or acuity I expect that the services needed warrant INPATIENT care.: Yes I certify that my determination is in accordance with my understanding of Medicare's requirements for reasonable and necessary INPATIENT services [42 CFR 412.3e].: Yes Medical Necessity: Significant Comorbidiites Make Outpatient Treatment Too Risky, Need Close Monitoring Due to Risk of Patient Decompensation, Need For IV Fluids, Need For Continuous Telemetry Monitoring, Need for IV Antibiotics, Risk of Complication if Not Cared For in Hospital, Risk of Diagnosis Which Will Require Inpatient Eval/Care/Monitoring Post Hospital Care: D/C or Transfer Summary - Plan Summary Plan Summary: See covering attending physician orders for care plan details.
[2018-11-05] MEDS: AZITHROMYCIN 500 MG in DEXTROSE 5%-WATER 250 ML IV SCH (21:38)
[2018-11-05] MEDS: ENOXAPARIN SODIUM INJ 40 MG/0.4 ML DISP.SYRIN SUBCUT SCH (21:39)
[2018-11-05] MEDS: OLANZAPINE 5 MG TABLET PO SCH (21:54)
[2018-11-06] MEDS: DEXTROSE 5%-1/2 NORMAL SALINE 1,000 ML IV PRN ×2 (04:06→14:59)
[2018-11-06] MEDS: DIVALPROEX SODIUM 250 MG TABLET.DR PO SCH ×4 (05:13→23:39)
[2018-11-06] MEDS: CEFEPIME HCL 2 GM in DEXTROSE 5%-WATER 50 ML IV SCH ×2 (05:13→17:52)
[2018-11-06] MEDS: OXCARBAZEPINE 150 MG TABLET PO SCH ×3 (05:32→22:54)
[2018-11-06] MEDS: PANTOPRAZOLE SODIUM 40 MG VIAL IV SCH ×2 (10:25→22:53)
[2018-11-06] MEDS: LEVETIRACETAM 500 MG/NACL-ISO 500 MG/100 ML RTUPB IV SCH ×2 (10:27→22:49)
[2018-11-06] MEDS: SENNOSIDES/DOCUSATE 8.6-50 MG 1 EACH TABLET PO SCH (10:28)
[2018-11-06] MEDS: THIAMINE HCL 100 MG TABLET PO SCH (10:28)
[2018-11-06] MEDS: OXYBUTYNIN CHLORIDE 5 MG TABLET PO SCH ×2 (10:29→22:53)
[2018-11-06] MEDS: CALCIUM CARBONATE 250 MG/VITAMIN D3 125 UNIT TABLET PO SCH ×2 (10:29→17:55)
[2018-11-06] MEDS: SITAGLIPTIN PHOSPHATE 50 MG TABLET PO SCH (10:30)
[2018-11-06] MEDS: CYANOCOBALAMIN (VITAMIN B-12) 1,000 MCG TABLET PO SCH (10:30)
[2018-11-06] MEDS: FOLIC ACID 1 MG TABLET PO SCH (10:31)
[2018-11-06] MEDS: LISINOPRIL 10 MG TABLET PO SCH (10:31)
[2018-11-06] MEDS: CHLORHEXIDINE GLUCONATE 0.12% ORAL RINSE 15 ML UDC PO SCH (10:31)
[2018-11-06] MEDS: LEVOTHYROXINE SODIUM INJ/PF 0.1 MG SDV IV SCH (10:34)
[2018-11-06] MEDS: ALPRAZOLAM 0.25 MG TABLET PO SCH ×2 (10:48→18:00)
[2018-11-06] MEDS: QUETIAPINE FUMARATE 25 MG TABLET PO SCH ×2 (10:50→22:53)
--- NOTE | 2018-11-06 16:00 | PDOC PROGRESS REPORT ---
Subjective Progress Note for:: 11/06/18 Subjective:: Patient tolerating oral feeding on puree and thicken liquid. No chest pain or difficulty with breathing. No fever or chills. No abdominal pain, nausea or vomiting. Reason For Visit: PNUEMONIA,FAILED OUTPATIENT TREATMENT Physical Exam Vital Signs: Temp Pulse Resp BP Pulse Ox 98.6 F 95 20 125/55 L 96 11/06/18 11:47 11/06/18 14:00 11/06/18 11:47 11/06/18 11:47 11/06/18 15:41 Intake & Output 11/05/18 11/06/18 11/07/18 06:59 06:59 06:59 Intake Total 3412 2550 1150 Output Total 100 Balance 3312 2550 1150 Weight 92.3 kg 92.7 kg Physical Exam: General appearance: PRESENT: no acute distress, obese Head exam: PRESENT: atraumatic, normocephalic Eye exam: PRESENT: conjunctiva pink. ABSENT: pallor, scleral icterus Ear exam: PRESENT: normal external ear exam Mouth exam: PRESENT: moist Respiratory exam: PRESENT: crackles - scattered bilaterally, decreased breath sounds - at lung bases. Cardiovascular exam: PRESENT: RRR, +S1, +S2. ABSENT: diastolic murmur, systolic murmur GI/Abdominal exam: PRESENT: normal bowel sounds, soft. ABSENT: distended, guarding, mass, organomegaly, rebound, tenderness Extremities exam: ABSENT: pedal edema Neurological exam: PRESENT: alert, awake Psychiatric exam: PRESENT: appropriate affect, normal mood. ABSENT: homicidal ideation, suicidal ideation Skin exam: PRESENT: dry, warm Results Laboratory Results: 11/05/18 03:16 11/05/18 03:16 11/03/18 12:06 Catheterized Urine Urine Culture - Final NO GROWTH 2 DAYS 11/02/18 11/02/18 18:14 18:14 Creatine Kinase 21 L CK-MB (CK-2) 0.50 Troponin I < 0.012 Impressions: Chest X-Ray 11/02/18 00:00 IMPRESSION: 1. Persistent mixed airspace and interstitial disease in the left mid-lower lung zones, since the prior study dated 08/31/2018. Correlation suggested and additional imaging may be helpful. Abdomen/Pelvis CT 11/03/18 00:00 IMPRESSION: NO SIGNIFICANT OR ACUTE PROCESS IN THE ABDOMEN OR PELVIS. Chest CT 11/03/18 00:00 IMPRESSION: Patchy areas of alveolar infiltrate in the left upper lobe and in the left lower lobe concerning for pneumonia with small amount of pleural fluid or thickening Subtle areas of alveolar infiltrate are present in the inferior aspect of the right upper lobe also likely related to pneumonia Linear areas in the left midlung field/lingula likely related to fibrosis from previous infection Hiatal hernia with wall thickening in the distal esophagus which may reflect esophagitis Vascular calcification KUB X-Ray 11/03/18 00:00 IMPRESSION: NG tube placement. Constipation. Assessment & Plan - Diagnosis (1) Pneumonia involving left lung Qualifiers: Pneumonia type: due to unspecified organism Lung location: unspecified part of lung Qualified Code(s): J18.9 - Pneumonia, unspecified organism Is this a current diagnosis for this admission?: Yes (2) Aspiration into airway Qualifiers: Encounter type: subsequent encounter Qualified Code(s): T17.908D - Unspecified foreign body in respiratory tract, part unspecified causing other injury, subsequent encounter Is this a current diagnosis for this admission?: Yes (3) Acute kidney injury Is this a current diagnosis for this admission?: Yes (4) Primary hyperparathyroidism Is this a current diagnosis for this admission?: Yes (5) Upper GI bleed Is this a current diagnosis for this admission?: Yes - Time Time Spent with patient: 25-34 minutes Medications reviewed and adjusted accordingly: Yes Anticipated discharge: SNF Within: Other - Inpatient Certification Based on my medical assessment, after consideration of the patient's comorbidities, presenting symptoms, or acuity I expect that the services needed warrant INPATIENT care.: Yes I certify that my determination is in accordance with my understanding of Medicare's requirements for reasonable and necessary INPATIENT services [42 CFR 412.3e].: Yes Medical Necessity: Significant Comorbidiites Make Outpatient Treatment Too Risky, Need Close Monitoring Due to Risk of Patient Decompensation, Need For IV Fluids, Need for IV Antibiotics, Risk of Complication if Not Cared For in Hospital, Risk of Diagnosis Which Will Require Inpatient Eval/Care/Monitoring Post Hospital Care: D/C or Transfer Summary - Plan Summary Plan Summary: Continue all current medication management. Obtain CBC with diff, CMP in AM.
[2018-11-06] MEDS: ENOXAPARIN SODIUM INJ 40 MG/0.4 ML DISP.SYRIN SUBCUT SCH (22:52)
[2018-11-06] MEDS: OLANZAPINE 5 MG TABLET PO SCH (22:53)
[2018-11-06] MEDS: AZITHROMYCIN 500 MG in DEXTROSE 5%-WATER 250 ML IV SCH (22:54)
[2018-11-07] MEDS: DEXTROSE 5%-1/2 NORMAL SALINE 1,000 ML IV PRN ×2 (04:27→20:47)
[2018-11-07] MEDS: CEFEPIME HCL 2 GM in DEXTROSE 5%-WATER 50 ML IV SCH ×2 (05:04→18:00)
[2018-11-07] MEDS: DIVALPROEX SODIUM 250 MG TABLET.DR PO SCH ×3 (05:04→17:57)
[2018-11-07] MEDS: OXCARBAZEPINE 150 MG TABLET PO SCH ×3 (05:04→22:53)
[2018-11-07 05:43] LABS: HEMATOCRIT 27.5 % (36.0-47.0); HEMOGLOBIN 8.9 g/dL (12.0-15.5)
[2018-11-07 05:49] LABS: MEAN CORPUSCULAR HGB CONC 32.5 g/dL (32.0-36.0); MEAN CORPUSCULAR VOLUME 99 fl (80-97); PLATELET COUNT 288 10^3/uL (150-450); RED BLOOD COUNT 2.79 10^6/uL (3.72-5.28); RED CELL DISTRIBUTION WIDTH 15.6 % (11.5-14.0)
[2018-11-07 06:02] LABS: ALANINE AMINOTRANSFERASE 15 U/L (9-52); ALBUMIN 2.8 g/dL (3.5-5.0); ALKALINE PHOSPHATASE 60 U/L (38-126); ANION GAP 8 (5-19); ASPARTATE AMINO TRANSFERASE 15 U/L (14-36); BILIRUBIN,DIRECT 0.2 mg/dL (0.0-0.4); BILIRUBIN,TOTAL 0.2 mg/dL (0.2-1.3); BLOOD UREA NITROGEN 13 mg/dL (7-20); CALCIUM 9.2 mg/dL (8.4-10.2); CARBON DIOXIDE 29 mmol/L (22-30); CHLORIDE 105 mmol/L (98-107); GLUCOSE 153 mg/dL (75-110); POTASSIUM 3.6 mmol/L (3.6-5.0); TOTAL PROTEIN 6.4 g/dL (6.3-8.2)
[2018-11-07 06:36] LABS: ABSOLUTE LYMPHOCYTES# (MANUAL) 2.8 10^3/uL (0.5-4.7); ABSOLUTE MONOCYTES # (MANUAL) 1.6 10^3/uL (0.1-1.4); ABSOLUTE NEUTROPHILS# (MANUAL) 7.7 10^3/uL (1.7-8.2); BASOPHILS % (MANUAL) 0 % (0-2); EOSINOPHILS % (MANUAL) 0 % (0-6); LYMPHOCYTES % (MANUAL) 23 % (13-45); MONOCYTES % (MANUAL) 13 % (3-13); PLATELET CLUMPS PRESENT; SEGMENTED NEUTROPHILS % (MAN) 60 % (42-78); TOTAL CELLS COUNTED 100
[2018-11-07 06:39] LABS: ANISOCYTOSIS 1+; HYPOCHROMASIA SLIGHT; POLYCHROMASIA SLIGHT; STOMATOCYTES SLIGHT; TOXIC GRANULATION 1+; TOXIC VACUOLATION PRESENT
[2018-11-07 06:40] LABS: METAMYELOCYTES % (MANUAL) 1 % (0); MYELOCYTES % (MANUAL) 2 % (0); PROMYELOCYTES % (MANUAL) 1 % (0)
[2018-11-07] MEDS: ALPRAZOLAM 0.25 MG TABLET PO SCH ×2 (10:07→17:57)
[2018-11-07] MEDS: LEVETIRACETAM 500 MG/NACL-ISO 500 MG/100 ML RTUPB IV SCH ×2 (10:08→22:52)
[2018-11-07] MEDS: PANTOPRAZOLE SODIUM 40 MG VIAL IV SCH ×2 (10:15→22:53)
[2018-11-07] MEDS: LEVOTHYROXINE SODIUM INJ/PF 0.1 MG SDV IV SCH (10:18)
[2018-11-07 13:19] LABS: ARTERIAL BLOOD BASE EXCESS 4.3 mmol/L; ARTERIAL BLOOD H2CO3 1.38 mmol/L (1.05-1.35); ARTERIAL BLOOD HCO3 29.3 mmol/L (20-24); ARTERIAL BLOOD PH 7.42 (7.35-7.45); ARTERIAL BLOOD PO2 68.6 mmHg (80-100); ARTERIAL BLOOD TOTAL CO2 30.7 mmol/L (21-25)
[2018-11-07 13:20] LABS: ARTERIAL BLOOD FIO2 3.5L
[2018-11-07 13:39] LABS: PATH REVIEW PATHOLOGIST REVIEWED
--- NOTE | 2018-11-07 14:22 | RADIOLOGY REPORT (SQ) ---
EXAM DESCRIPTION: CHEST SINGLE VIEW COMPLETED DATE/TIME: 11/07/2018 2:08 pm REASON FOR STUDY: pneumonia COMPARISON: CT chest 11/03/2018, CT chest 04/20/2017 Two-view chest 11/02/2018, 08/31/2018, 04/20/2017 EXAM PARAMETERS: NUMBER OF VIEWS: One view. TECHNIQUE: Single frontal radiographic view of the chest acquired. RADIATION DOSE: NA LIMITATIONS: None. FINDINGS: LUNGS AND PLEURA: Stable chronic scarring and volume loss at the left lung base unchanged from studies dating back to 2017. Prominent right epicardial fat pad along the medial right lung base. No acute infiltrates. No pleural effusion or pneumothorax. MEDIASTINUM AND HILAR STRUCTURES: No masses. Contour normal. HEART AND VASCULAR STRUCTURES: Heart normal in size. Normal vasculature. BONES: No acute findings. HARDWARE: None in the chest. OTHER: No other significant finding. IMPRESSION: Chronic scarring at the left lung base, prominent right epicardial fat pad. No acute findings TECHNICAL DOCUMENTATION: JOB ID: [id number] [employer]- All Rights Reserved Reading location - IP/workstation name: [email or web address]
[2018-11-07] MEDS: CALCIUM CARBONATE 250 MG/VITAMIN D3 125 UNIT TABLET PO SCH ×2 (14:52→18:14)
[2018-11-07] MEDS: SENNOSIDES/DOCUSATE 8.6-50 MG 1 EACH TABLET PO SCH (14:53)
[2018-11-07] MEDS: FOLIC ACID 1 MG TABLET PO SCH (14:53)
[2018-11-07] MEDS: SITAGLIPTIN PHOSPHATE 50 MG TABLET PO SCH (14:53)
[2018-11-07] MEDS: LISINOPRIL 10 MG TABLET PO SCH (14:54)
[2018-11-07] MEDS: CYANOCOBALAMIN (VITAMIN B-12) 1,000 MCG TABLET PO SCH (14:55)
[2018-11-07] MEDS: OXYBUTYNIN CHLORIDE 5 MG TABLET PO SCH ×2 (14:55→22:54)
[2018-11-07] MEDS: CHLORHEXIDINE GLUCONATE 0.12% ORAL RINSE 15 ML UDC PO SCH (17:54)
[2018-11-07] MEDS: QUETIAPINE FUMARATE 25 MG TABLET PO SCH ×2 (17:55→22:59)
[2018-11-07] MEDS: THIAMINE HCL 100 MG TABLET PO SCH (17:56)
--- NOTE | 2018-11-07 20:15 | PDOC PROGRESS REPORT ---
Subjective Progress Note for:: 11/07/18 Subjective:: Patient seen by the bedside, there is concerned that she may be aspirating she was seen by speech earlier today clinically she seemed to be improving Reason For Visit: PNUEMONIA,FAILED OUTPATIENT TREATMENT Physical Exam Vital Signs: Temp Pulse Resp BP Pulse Ox 98.3 F 102 H 21 H 131/61 H 99 11/07/18 18:53 11/07/18 18:53 11/07/18 18:53 11/07/18 18:53 11/07/18 18:53 Intake & Output 11/06/18 11/07/18 11/08/18 06:59 06:59 06:59 Intake Total 2550 2669 454 Balance 2550 2669 454 Weight 92.7 kg 92.8 kg General appearance: PRESENT: no acute distress Eye exam: PRESENT: PERRLA Respiratory exam: PRESENT: clear to auscultation juliette Cardiovascular exam: PRESENT: +S1, +S2 GI/Abdominal exam: PRESENT: soft Neurological exam: PRESENT: alert Results Laboratory Results: 11/07/18 04:44 11/07/18 04:44 11/07/18 11/07/18 11/07/18 04:44 04:44 13:09 WBC 12.0 H RBC 2.79 L Hgb 8.9 L Hct 27.5 L MCV 99 H MCH 32.0 MCHC 32.5 RDW 15.6 H Plt Count 288 Seg Neutrophils % Not Reportable Lymphocytes % Not Reportable Monocytes % Not Reportable Eosinophils % Not Reportable Basophils % Not Reportable Absolute Neutrophils Not Reportable Absolute Lymphocytes Not Reportable Absolute Monocytes Not Reportable Absolute Eosinophils Not Reportable Absolute Basophils Not Reportable Carbonic Acid 1.38 H HCO3/H2CO3 Ratio 21:1 ABG pH 7.42 ABG pCO2 46.0 H ABG pO2 68.6 L ABG HCO3 29.3 H ABG O2 Saturation 94.0 ABG Base Excess 4.3 FiO2 3.5L Sodium 142.0 Potassium 3.6 Chloride 105 Carbon Dioxide 29 Anion Gap 8 BUN 13 Creatinine 0.70 Est GFR ( Amer) > 60 Est GFR (Non-Af Amer) > 60 Glucose 153 H Calcium 9.2 Total Bilirubin 0.2 AST 15 ALT 15 Alkaline Phosphatase 60 Total Protein 6.4 Albumin 2.8 L 11/02/18 18:55 Blood Blood Culture - Final NO GROWTH IN 5 DAYS 11/02/18 18:14 Blood Blood Culture - Final NO GROWTH IN 5 DAYS 11/02/18 11/02/18 18:14 18:14 Creatine Kinase 21 L CK-MB (CK-2) 0.50 Troponin I < 0.012 Impressions: Abdomen/Pelvis CT 11/03/18 00:00 IMPRESSION: NO SIGNIFICANT OR ACUTE PROCESS IN THE ABDOMEN OR PELVIS. Chest CT 11/03/18 00:00 IMPRESSION: Patchy areas of alveolar infiltrate in the left upper lobe and in the left lower lobe concerning for pneumonia with small amount of pleural fluid or thickening Subtle areas of alveolar infiltrate are present in the inferior aspect of the right upper lobe also likely related to pneumonia Linear areas in the left midlung field/lingula likely related to fibrosis from previous infection Hiatal hernia with wall thickening in the distal esophagus which may reflect esophagitis Vascular calcification KUB X-Ray 11/03/18 00:00 IMPRESSION: NG tube placement. Constipation. Chest X-Ray 11/07/18 00:00 IMPRESSION: Chronic scarring at the left lung base, prominent right epicardial fat pad. No acute findings Assessment & Plan - Diagnosis (1) Pneumonia involving left lung Qualifiers: Pneumonia type: due to unspecified organism Lung location: unspecified part of lung Qualified Code(s): J18.9 - Pneumonia, unspecified organism Is this a current diagnosis for this admission?: Yes Plan: Continue IV antibiotic (2) Upper GI bleed Is this a current diagnosis for this admission?: Yes (3) Acute kidney injury Is this a current diagnosis for this admission?: Yes (4) Primary hyperparathyroidism Is this a current diagnosis for this admission?: Yes
[2018-11-07] MEDS: ENOXAPARIN SODIUM INJ 40 MG/0.4 ML DISP.SYRIN SUBCUT SCH (22:52)
[2018-11-07] MEDS: OLANZAPINE 5 MG TABLET PO SCH (22:53)
[2018-11-07] MEDS: AZITHROMYCIN 500 MG in DEXTROSE 5%-WATER 250 ML IV SCH (22:58)
[2018-11-08] MEDS: DIVALPROEX SODIUM 250 MG TABLET.DR PO SCH ×2 (00:41→06:26)
[2018-11-08] MEDS: OXCARBAZEPINE 150 MG TABLET PO SCH ×2 (06:26→13:22)
[2018-11-08] MEDS: CEFEPIME HCL 2 GM in DEXTROSE 5%-WATER 50 ML IV SCH ×2 (06:26→17:14)
[2018-11-08] MEDS: FOLIC ACID 1 MG TABLET PO SCH (08:27)
[2018-11-08] MEDS: LISINOPRIL 10 MG TABLET PO SCH (08:28)
[2018-11-08] MEDS: THIAMINE HCL 100 MG TABLET PO SCH (08:28)
[2018-11-08] MEDS: CYANOCOBALAMIN (VITAMIN B-12) 1,000 MCG TABLET PO SCH (08:29)
[2018-11-08] MEDS: QUETIAPINE FUMARATE 25 MG TABLET PO SCH (08:30)
[2018-11-08] MEDS: CHLORHEXIDINE GLUCONATE 0.12% ORAL RINSE 15 ML UDC PO SCH (08:30)
[2018-11-08] MEDS: SENNOSIDES/DOCUSATE 8.6-50 MG 1 EACH TABLET PO SCH (08:30)
[2018-11-08] MEDS: DEXTROSE 5%-1/2 NORMAL SALINE 1,000 ML IV PRN (08:38)
[2018-11-08] MEDS: ALPRAZOLAM 0.25 MG TABLET PO SCH ×2 (09:00→15:06)
[2018-11-08] MEDS: PANTOPRAZOLE SODIUM 40 MG VIAL IV SCH (10:17)
[2018-11-08] MEDS: OXYBUTYNIN CHLORIDE 5 MG TABLET PO SCH (10:18)
[2018-11-08] MEDS: CALCIUM CARBONATE 250 MG/VITAMIN D3 125 UNIT TABLET PO SCH ×2 (10:18→17:14)
[2018-11-08] MEDS: SITAGLIPTIN PHOSPHATE 50 MG TABLET PO SCH (10:18)
[2018-11-08] MEDS: LEVETIRACETAM 500 MG/NACL-ISO 500 MG/100 ML RTUPB IV SCH (10:18)
[2018-11-08] MEDS: DIVALPROEX SODIUM 125 MG CAP.SPRINK PO SCH ×2 (11:07→17:14)
[2018-11-08] MEDS: LEVOTHYROXINE SODIUM INJ/PF 0.1 MG SDV IV SCH (11:30)
[2018-11-08] MEDS ORDERED: LEVOTHYROXINE SODIUM 0.088 MG TABLET PO ONE (11:30)
[2018-11-08] MEDS: ONDANSETRON HCL INJ/PF 4 MG/2 ML SDV IV PRN (18:40)
--- NOTE | 2018-11-08 20:35 | PDOC PROGRESS REPORT ---
Subjective Progress Note for:: 11/08/18 Subjective:: Patient seen by the bedside, she has no more vomiting, tolerating. Diet Reason For Visit: PNUEMONIA,FAILED OUTPATIENT TREATMENT Physical Exam Vital Signs: Temp Pulse Resp BP Pulse Ox 97.5 F 99 18 113/51 L 91 L 11/08/18 14:43 11/08/18 19:00 11/08/18 14:43 11/08/18 14:43 11/08/18 14:43 Intake & Output 11/07/18 11/08/18 11/09/18 06:59 06:59 06:59 Intake Total 2669 2904 150 Balance 2669 2904 150 Weight 92.8 kg 93.2 kg General appearance: PRESENT: no acute distress Eye exam: PRESENT: PERRLA Respiratory exam: PRESENT: clear to auscultation juliette Cardiovascular exam: PRESENT: +S1, +S2 GI/Abdominal exam: PRESENT: soft Neurological exam: PRESENT: alert Results Laboratory Results: 11/07/18 04:44 11/07/18 04:44 11/02/18 18:55 Blood Blood Culture - Final NO GROWTH IN 5 DAYS 11/02/18 18:14 Blood Blood Culture - Final NO GROWTH IN 5 DAYS 11/02/18 11/02/18 18:14 18:14 Creatine Kinase 21 L CK-MB (CK-2) 0.50 Troponin I < 0.012 Impressions: Abdomen/Pelvis CT 11/03/18 00:00 IMPRESSION: NO SIGNIFICANT OR ACUTE PROCESS IN THE ABDOMEN OR PELVIS. Chest CT 11/03/18 00:00 IMPRESSION: Patchy areas of alveolar infiltrate in the left upper lobe and in the left lower lobe concerning for pneumonia with small amount of pleural fluid or thickening Subtle areas of alveolar infiltrate are present in the inferior aspect of the right upper lobe also likely related to pneumonia Linear areas in the left midlung field/lingula likely related to fibrosis from previous infection Hiatal hernia with wall thickening in the distal esophagus which may reflect esophagitis Vascular calcification KUB X-Ray 11/03/18 00:00 IMPRESSION: NG tube placement. Constipation. Chest X-Ray 11/07/18 00:00 IMPRESSION: Chronic scarring at the left lung base, prominent right epicardial fat pad. No acute findings Assessment & Plan - Diagnosis (1) Pneumonia involving left lung Qualifiers: Pneumonia type: due to unspecified organism Lung location: unspecified part of lung Qualified Code(s): J18.9 - Pneumonia, unspecified organism Is this a current diagnosis for this admission?: Yes Plan: Continue IV antibiotic (2) Upper GI bleed Is this a current diagnosis for this admission?: Yes (3) Acute kidney injury Is this a current diagnosis for this admission?: Yes (4) Primary hyperparathyroidism Is this a current diagnosis for this admission?: Yes
[2018-11-09] MEDS: AZITHROMYCIN 500 MG in DEXTROSE 5%-WATER 250 ML IV SCH ×2 (00:17→22:49)
[2018-11-09] MEDS: ONDANSETRON HCL INJ/PF 4 MG/2 ML SDV IV PRN (00:17)
[2018-11-09] MEDS: ENOXAPARIN SODIUM INJ 40 MG/0.4 ML DISP.SYRIN SUBCUT SCH ×2 (00:18→22:50)
[2018-11-09] MEDS: QUETIAPINE FUMARATE 25 MG TABLET PO SCH ×4 (00:25→22:49)
[2018-11-09] MEDS: OLANZAPINE 5 MG TABLET PO SCH ×3 (00:26→22:49)
[2018-11-09] MEDS: LEVETIRACETAM ORAL SOLN 500 MG/5 ML UDCUP PO SCH ×4 (00:26→22:50)
[2018-11-09] MEDS: OXYBUTYNIN CHLORIDE 5 MG TABLET PO SCH ×4 (00:26→22:49)
[2018-11-09] MEDS: OXCARBAZEPINE 150 MG TABLET PO SCH ×5 (00:26→22:49)
[2018-11-09] MEDS: DIVALPROEX SODIUM 125 MG CAP.SPRINK PO SCH ×6 (00:28→23:00)
[2018-11-09] MEDS: CEFEPIME HCL 2 GM in DEXTROSE 5%-WATER 50 ML IV SCH ×2 (05:59→17:14)
[2018-11-09] MEDS: CHLORHEXIDINE GLUCONATE 0.12% ORAL RINSE 15 ML UDC PO SCH (08:01)
[2018-11-09] MEDS: SENNOSIDES/DOCUSATE 8.6-50 MG 1 EACH TABLET PO SCH (08:02)
[2018-11-09] MEDS: THIAMINE HCL 100 MG TABLET PO SCH (08:02)
[2018-11-09] MEDS: ALPRAZOLAM 0.25 MG TABLET PO SCH ×2 (08:02→15:00)
[2018-11-09] MEDS: LEVOTHYROXINE SODIUM 0.088 MG TABLET PO SCH (08:02)
[2018-11-09] MEDS: LISINOPRIL 10 MG TABLET PO SCH (08:03)
[2018-11-09] MEDS: FOLIC ACID 1 MG TABLET PO SCH (08:03)
[2018-11-09] MEDS: CYANOCOBALAMIN (VITAMIN B-12) 1,000 MCG TABLET PO SCH (08:03)
[2018-11-09] MEDS: PANTOPRAZOLE SODIUM 40 MG TABLET.DR PO SCH (09:07)
[2018-11-09] MEDS: CALCIUM CARBONATE 250 MG/VITAMIN D3 125 UNIT TABLET PO SCH ×2 (09:07→17:14)
[2018-11-09] MEDS: SITAGLIPTIN PHOSPHATE 50 MG TABLET PO SCH (09:07)
[2018-11-09] MEDS: TRAMADOL HCL 50 MG TABLET PO PRN (11:09)
--- NOTE | 2018-11-09 17:43 | PDOC TRANSFER SUMMARY ---
General - Admit/Disc Date/PCP Admission Date/Primary Care Provider: 11/02/18 23:13 ISRA KAY MD Discharge Date: 11/09/18 - Discharge Diagnosis (1) Pneumonia involving left lung Is this a current diagnosis for this admission?: Yes (2) Upper GI bleed Is this a current diagnosis for this admission?: Yes (3) Acute kidney injury Is this a current diagnosis for this admission?: Yes (4) Primary hyperparathyroidism Is this a current diagnosis for this admission?: Yes - Additional Information Prescriptions: Valsartan 160 mg PO DAILY #1000 tablet Home Medications: Acetaminophen [Tylenol Extra Strength 500 mg Tablet] 1,000 mg PO Q8HP PRN 11/03/18 Alprazolam [Xanax 0.25 mg Tablet] 0.25 mg PO BID@0800,1600 11/03/18 Benzocaine/Menthol [Chloraseptic Sore Throat Lozenge] 1 nery PO Q2HP PRN 11/03/18 Calcium Carbonate/Vitamin D3 [Calcium 500-Vit D3 600 Tablet] 1 tab PO BID 11/03/18 Chlorhexidine Gluconate [Peridex] 15 ml PO QAM 11/03/18 Cranberry 500 mg PO QAM 11/03/18 Cyanocobalamin (Vitamin B-12) [Vitamin B-12 1000 mcg Tablet] 1,000 mcg PO QAM 11/03/18 Divalproex Sodium [Depakote] 250 mg PO Q6 11/03/18 Folic Acid [Folvite 1 mg Tablet] 1 mg PO QAM 11/03/18 Insulin Lispro [Humalog Insulin (Lispro) 100 unit/mL] 0 units SQ .PERSLIDINGSCALE 11/03/18 Levothyroxine Sodium [Synthroid 0.088 mg Tablet] 0.088 mg PO Q6AM 11/03/18 Linagliptin [Tradjenta] 5 mg PO QAM 11/03/18 Olanzapine [Zyprexa] 20 mg PO QHS 11/03/18 Oxcarbazepine [Trileptal 150 mg Tablet] 150 mg PO Q8 11/03/18 Oxybutynin Chloride [Oxybutynin Chloride ER] 10 mg PO QAM 11/03/18 Quetiapine Fumarate [Seroquel 25 mg Tablet] 25 mg PO QAM 11/03/18 Quetiapine Fumarate [Seroquel 25 mg Tablet] 75 mg PO QHS 11/03/18 Sennosides/Docusate 8.6-50 mg [Senna Plus Tablet] 1 tab PO QAM 11/03/18 Thiamine HCl [Thiamine 100 mg Tablet] 100 mg PO QAM 11/03/18 Tramadol HCl [Ultram 50 mg Tablet] 50 mg PO Q12HP PRN 11/03/18 Pantoprazole Sodium [Protonix [address] Tablet] 40 mg PO DAILY #0 tablet.dr 11/09/18 Valsartan 160 mg PO DAILY #1000 tablet 11/09/18 History of Present Illness Admission Date/PCP: 11/02/18 23:13 ISRA KAY MD History of Present Illness: DRE HOPKINS is a 73 year old female, Patient is a resident of the [facility], she was treated with antibiotic for 7 days for pneumonia in the [facility] despite treatment her condition continued to deteriorate, she was then transferred to the emergency room for further evaluation, in the emergency room, chest x-ray and subsequently CT chest without contrast was obtained, it demonstrated infiltrate in the left lower lobe consistent with acute pneumonic infiltrate. There are some areas of linear atelectasis or scarring in the lingula which may be related to fibrosis from the patient's previous pneumonia. There are also some areas that may reflect an acute superimposed alveolar infiltrate in the lateral aspect of the left upper lobe/lingula. Small nodular foci are present in the right midlung field.Patient was seen on the floor, she was vomiting consistently, a CAT scan of the abdomen and pelvis with no contrast was obtained this was negative. A nasogastric tube was inserted the return was coffee-ground material Hospital Course Hospital Course: Patient was admitted for the management of pneumonia involving the left lung, she was treated with intravenous cefepime and azithromycin. She had episode of upper GI bleed specifically coffee-ground vomitus she was managed conservatively with NG tube and intravenous Protonix with resolution of symptoms, the etiology was felt to be due to stress induced ulcers. There was associated acute kidney injury felt to be prerenal this was corrected with IV fluid Physical Exam Vital Signs: Temp Pulse Resp BP Pulse Ox 98.6 F 103 H 22 H 123/59 L 98 11/09/18 11:15 11/09/18 14:00 11/09/18 11:15 11/09/18 11:15 11/09/18 11:15 Intake & Output 11/08/18 11/09/18 11/10/18 06:59 06:59 06:59 Intake Total 2904 450 118 Balance 2904 450 118 Weight 93.2 kg 94.3 kg General appearance: PRESENT: no acute distress Head exam: PRESENT: atraumatic, normocephalic Eye exam: PRESENT: conjunctiva pink, EOMI, PERRLA Ear exam: PRESENT: normal external ear exam Mouth exam: PRESENT: moist, tongue midline Respiratory exam: PRESENT: clear to auscultation juliette Cardiovascular exam: PRESENT: RRR, +S1, +S2 Vascular exam: PRESENT: normal capillary refill GI/Abdominal exam: PRESENT: normal bowel sounds, soft Rectal exam: PRESENT: deferred Extremities exam: PRESENT: full ROM Neurological exam: PRESENT: alert, CN II-XII grossly intact Psychiatric exam: PRESENT: appropriate affect, normal mood Skin exam: PRESENT: dry, intact, warm Results Laboratory Results: 11/07/18 04:44 11/07/18 04:44 11/02/18 11/02/18 18:14 18:14 Creatine Kinase 21 L CK-MB (CK-2) 0.50 Troponin I < 0.012 Impressions: Abdomen/Pelvis CT 11/03/18 00:00 IMPRESSION: NO SIGNIFICANT OR ACUTE PROCESS IN THE ABDOMEN OR PELVIS. Chest CT 11/03/18 00:00 IMPRESSION: Patchy areas of alveolar infiltrate in the left upper lobe and in the left lower lobe concerning for pneumonia with small amount of pleural fluid or thickening Subtle areas of alveolar infiltrate are present in the inferior aspect of the right upper lobe also likely related to pneumonia Linear areas in the left midlung field/lingula likely related to fibrosis from previous infection Hiatal hernia with wall thickening in the distal esophagus which may reflect esophagitis Vascular calcification KUB X-Ray 11/03/18 00:00 IMPRESSION: NG tube placement. Constipation. Chest X-Ray 11/07/18 00:00 IMPRESSION: Chronic scarring at the left lung base, prominent right epicardial fat pad. No acute findings Qualifiers - * PATIENT BEING DISCHARGED WITH ANY OF THE FOLLOWING DIAGNOSIS: No
[2018-11-10] MEDS: OXCARBAZEPINE 150 MG TABLET PO SCH (06:33)
[2018-11-10] MEDS: CEFEPIME HCL 2 GM in DEXTROSE 5%-WATER 50 ML IV SCH (06:33)
[2018-11-10] MEDS: DIVALPROEX SODIUM 125 MG CAP.SPRINK PO SCH (06:33)
[2018-11-10] MEDS: LEVOTHYROXINE SODIUM 0.088 MG TABLET PO SCH (06:33)
[2018-11-10] MEDS: ALPRAZOLAM 0.25 MG TABLET PO SCH (08:56)
[2018-11-10] MEDS: THIAMINE HCL 100 MG TABLET PO SCH (09:07)
[2018-11-10] MEDS: OXYBUTYNIN CHLORIDE 5 MG TABLET PO SCH (09:07)
[2018-11-10] MEDS: QUETIAPINE FUMARATE 25 MG TABLET PO SCH (09:07)
[2018-11-10] MEDS: LISINOPRIL 10 MG TABLET PO SCH (09:07)
[2018-11-10] MEDS: FOLIC ACID 1 MG TABLET PO SCH (09:07)
[2018-11-10] MEDS: CYANOCOBALAMIN (VITAMIN B-12) 1,000 MCG TABLET PO SCH (09:07)
[2018-11-10] MEDS: PANTOPRAZOLE SODIUM 40 MG TABLET.DR PO SCH (09:07)
[2018-11-10] MEDS: LEVETIRACETAM ORAL SOLN 500 MG/5 ML UDCUP PO SCH (09:07)
[2018-11-10] MEDS: SENNOSIDES/DOCUSATE 8.6-50 MG 1 EACH TABLET PO SCH (09:07)
[2018-11-10] MEDS: CHLORHEXIDINE GLUCONATE 0.12% ORAL RINSE 15 ML UDC PO SCH (09:07)
[2018-11-10] MEDS: CALCIUM CARBONATE 250 MG/VITAMIN D3 125 UNIT TABLET PO SCH (09:07)
[2018-11-10] MEDS: SITAGLIPTIN PHOSPHATE 50 MG TABLET PO SCH (09:08)
[2018-11-10 11:23] VITALS: BP 108/46
== END 2018-11-10 13:04 | DRG 194 ==
LOC: ER 16:27 → EH 23:13 → 3N 11-03 02:06
PROVIDERS: ADMIT Internal Medicine; ATTEND Internal Medicine
PROC: 0D9670Z Drainage of Stomach with Drainage Device, Via Natural or Artificial Opening (ICD-10-PCS; principal; 2018-11-03)
DX: J18.9 Pneumonia, unspecified organism (principal); K92.2 Gastrointestinal hemorrhage, unspecified; N17.9 Acute kidney failure, unspecified; E78.5 Hyperlipidemia, unspecified; I10 Essential (primary) hypertension; J44.9 Chronic obstructive pulmonary disease, unspecified; E11.9 Type 2 diabetes mellitus without complications; E03.9 Hypothyroidism, unspecified; M19.90 Unspecified osteoarthritis, unspecified site; E21.3 Hyperparathyroidism, unspecified; F31.9 Bipolar disorder, unspecified; F03.90 Unspecified dementia, unspecified severity, without behavioral disturbance, psychotic disturbance, mood disturbance, and anxiety; D64.9 Anemia, unspecified; Z90.710 Acquired absence of both cervix and uterus; Z79.4 Long term (current) use of insulin; Z79.899 Other long term (current) drug therapy; Z88.8 Allergy status to other drugs, medicaments and biological substances
CPT/HCPCS: 36415; 36600; 71045; 71046; 71250; 74018; 74176; 80053; 81001; 82271; 82306; 82550; 82553; 82803; 82962; 83036; 83605; 83970; 84484; 85025; 87040; 87086; 96361; 96374; 99285; J0456; J0692; J0696; J1650; J1953; J2405; J3490; J7030; J7060; S0164

== ENCOUNTER 2018-12-11 16:49 | Inpatient (IN) | payer MEDICARE, OTHER, MEDICAID ==
[2018-12-11] MEDS ORDERED: NORMAL SALINE 1000 ML 500 ML IV ONE (17:37)
[2018-12-11 17:45] LABS: ABSOLUTE BASOPHILS # (AUTO) 0.1 10^3/uL (0.0-0.2); ABSOLUTE EOSINOPHILS # (AUTO) 0.1 10^3/uL (0.0-0.6); ABSOLUTE LYMPHOCYTES (AUTO) 1.7 10^3/uL (0.5-4.7); ABSOLUTE MONOCYTES (AUTO) 1.8 10^3/uL (0.1-1.4); ABSOLUTE NEUT (AUTO) 6.8 10^3/uL (1.7-8.2); BASOPHILS % (AUTO) 0.7 % (0-2); EOSINOPHILS % (AUTO) 0.8 % (0-6); HEMATOCRIT 25.4 % (36.0-47.0); HEMOGLOBIN 8.1 g/dL (12.0-15.5); LYMPHOCYTES % (AUTO) 16.7 % (13-45); MEAN CORPUSCULAR HEMOGLOBIN 31.8 pg (27.0-33.4); MEAN CORPUSCULAR VOLUME 99 fl (80-97); PLATELET COUNT 245 10^3/uL (150-450); RED BLOOD COUNT 2.56 10^6/uL (3.72-5.28); RED CELL DISTRIBUTION WIDTH 17.3 % (11.5-14.0); SEGMENTED NEUTROPHILS % (AUTO) 64.8 % (42-78); TOTAL CELLS COUNTED % (AUTO) 100 %; WHITE BLOOD COUNT 10.5 10^3/uL (4.0-10.5)
[2018-12-11 18:01] LABS: ALANINE AMINOTRANSFERASE < 6 U/L (9-52); ALBUMIN 3.7 g/dL (3.5-5.0); ALKALINE PHOSPHATASE 63 U/L (38-126); ANION GAP 11 (5-19); ASPARTATE AMINO TRANSFERASE 19 U/L (14-36); BILIRUBIN,DIRECT 0.4 mg/dL (0.0-0.4); BILIRUBIN,TOTAL 0.4 mg/dL (0.2-1.3); BLOOD UREA NITROGEN 74 mg/dL (7-20); CALCIUM 9.6 mg/dL (8.4-10.2); CARBON DIOXIDE 27 mmol/L (22-30); CHLORIDE 105 mmol/L (98-107); GLUCOSE 104 mg/dL (75-110); POTASSIUM 5.1 mmol/L (3.6-5.0); TOTAL PROTEIN 8.3 g/dL (6.3-8.2)
--- NOTE | 2018-12-11 18:17 | RADIOLOGY REPORT (SQ) ---
EXAM DESCRIPTION: CHEST SINGLE VIEW COMPLETED DATE/TIME: 12/11/2018 6:07 pm REASON FOR STUDY: ALOC COMPARISON: 11/07/2018 EXAM PARAMETERS: NUMBER OF VIEWS: One view. TECHNIQUE: Single frontal radiographic view of the chest acquired. RADIATION DOSE: NA LIMITATIONS: None. FINDINGS: LUNGS AND PLEURA: There is mild diffuse interstitial pulmonary opacity suggestive of fibro sis. No focal airspace opacity. MEDIASTINUM AND HILAR STRUCTURES: No masses. Contour normal. HEART AND VASCULAR STRUCTURES: Heart normal in size. Normal vasculature. BONES: No acute findings. HARDWARE: None in the chest. OTHER: No other significant finding. IMPRESSION: There is mild diffuse interstitial pulmonary opacity suggestive of fibrosis. No acute f ocal airspace opacity. TECHNICAL DOCUMENTATION: JOB ID: [id number] [employer]- All Rights Reserved Reading location - IP/workstation name: [email or web address]
--- NOTE | 2018-12-11 18:31 | RADIOLOGY REPORT (SQ) ---
EXAM DESCRIPTION: CT HEAD WITHOUT COMPLETED DATE/TIME: 12/11/2018 6:18 pm REASON FOR STUDY: ALOC COMPARISON: 08/29/2015 TECHNIQUE: Axial images acquired through the brain without intravenous contrast. Images reviewed wi th bone, brain and subdural windows. Images stored on PACS. All CT scanners at this facility use dose modulation, iterative reconstruction, and/or weight based d osing when appropriate to reduce radiation dose to as low as reasonably achievable (ALARA). [facility]: Dose Right [facility]: CareDose [facility]: Dose Right [facility]: Teradose 4D [facility]: TermScout RADIATION DOSE: CT Rad equipment meets quality standard of care and radiation dose reduction techniq ues were employed. CTDIvol: 53.2 mGy. DLP: 1044 mGy-cm. mGy. LIMITATIONS: None. FINDINGS: VENTRICLES: Normal size and contour. CEREBRUM: No masses. No hemorrhage. No midline shift. No evidence for acute infarction. Normal gra y/white matter differentiation. No areas of low density in the white matter. CEREBELLUM: No masses. No hemorrhage. No alteration of density. No evidence for acute infarction. EXTRAAXIAL SPACES: No fluid collections. No masses. ORBITS AND GLOBE: No intra- or extraconal masses. Normal contour of globe without masses. CALVARIUM: No fracture. PARANASAL SINUSES: No fluid or mucosal thickening. SOFT TISSUES: No mass or hematoma. OTHER: No other significant finding. IMPRESSION: No acute intracranial pathology. EVIDENCE OF ACUTE STROKE: NO. COMMENT: Quality ID # [id number]: Final reports with documentation of one or more dose reduction techniques (e.g., Automated exposure control, adjustment of the mA and/or kV according to patient size, use of iterative reconstruction technique) TECHNICAL DOCUMENTATION: JOB ID: [id number] [employer]- All Rights Reserved Reading location - IP/workstation name: [email or web address]
[2018-12-11] MEDS ORDERED: ERTAPENEM SODIUM INJ 1 GM VIAL IV ONE (18:51)
[2018-12-11] MEDS ORDERED: RINGERS SOLUTION,LACTATED 1,000 ML IV ONE ×2 (18:51→20:36)
[2018-12-11 19:23] LABS: INTERNATIONAL RATION (INR) 1.02; PROTHROMBIN TIME 13.9 SEC (11.4-15.4)
[2018-12-11 19:43] LABS: APPEARANCE,URINE TURBID; BILIRUBIN,URINE NEGATIVE (NEGATIVE); COLOR,URINE YELLOW; GLUCOSE, URINE NEGATIVE (NEGATIVE); KETONES,URINE TRACE mg/dL (NEGATIVE); LEUKOCYTE ESTERASE,URINE LARGE (NEGATIVE); NITRITE,URINE POSITIVE (NEGATIVE); PROTEIN,URINE 100 mg/dL (NEGATIVE); URINE SPECIFIC GRAVITY 1.013; UROBILINOGEN,URINE NEGATIVE mg/dL (<2.0)
--- NOTE | 2018-12-11 20:24 | ER Document Report ---
Addendum entered and electronically signed by LANDON SINGH PA 12/12/18 00:45: Course - Re-evaluation Re-evalutation: 12/12/18 I did speak with Dr. Muhammad, I updated him on the conversation with Ms. De La Fuente, updated him on the completed DNR/DNI forms and the request that no invasive procedures be performed on the patient. Patient is currently still 105 and 106 systolic on blood pressure rechecks regardless. - Vital Signs Vital signs: Temp Pulse Resp BP Pulse Ox 97.6 F 100 15 105/53 L 100 12/11/18 23:59 12/11/18 16:50 12/12/18 00:16 12/12/18 00:16 12/12/18 00:16 - Laboratory Result Diagrams: 12/11/18 17:33 12/11/18 17:33 Laboratory results interpreted by me: 12/11/18 12/11/18 12/11/18 17:33 17:33 17:33 RBC 2.56 L Hgb 8.1 L Hct 25.4 L MCV 99 H RDW 17.3 H Monocytes % 17.0 H Absolute Monocytes 1.8 H VBG pH VBG pCO2 Potassium 5.1 H BUN 74 H Creatinine 3.10 H Est GFR ( Amer) 18 L Est GFR (Non-Af Amer) 15 L ALT < 6 L NT-Pro-B Natriuret Pep 657 H Total Protein 8.3 H Urine Protein Urine Ketones Urine Blood Urine Nitrite Ur Leukocyte Esterase 12/11/18 12/11/18 19:14 20:40 RBC Hgb Hct MCV RDW Monocytes % Absolute Monocytes VBG pH 7.25 L VBG pCO2 64.9 H Potassium BUN Creatinine Est GFR ( Amer) Est GFR (Non-Af Amer) ALT NT-Pro-B Natriuret Pep Total Protein Urine Protein 100 H Urine Ketones TRACE H Urine Blood SMALL H Urine Nitrite POSITIVE H Ur Leukocyte Esterase LARGE H Original Note: ED General - General TRAVEL OUTSIDE OF THE [place] IN LAST 30 DAYS: No <SAW BATES - Last Filed: 12/11/18 20:52> <LANDON SINGH - Last Filed: 12/11/18 23:55> - General Chief Complaint: Blood Pressure Problem Stated Complaint: BLOOD PRESSURE ISSUES Time Seen by Provider: 12/11/18 17:34 Notes: Patient is a 73-year-old female presents to the emergency department via EMS for change in mental status and hypotension. According to nursing staff who got report from EMS patient is a patient of [facility] [place]. Patient has dementia, Alzheimer, cognitive communication deficit, bipolar. Is unsure of patient's exact baseline but according to EMS who states nursing staff states that the patient has been "more sleepy." They also noted the patient was hypotensive so they alerted 911. Patient is sleeping upon my arrival to the room, easily arousable on verbal stimuli. Patient does know her name but is unsure of where she has her current events. Patient is afebrile, non-tachycardic but is hypotensive in the emergency department. Past medical history: Bipolar, congestive communication deficit, diverticulitis, GERD, schizoaffective disorder, bipolar, hyperlipidemia, anemia, Parkinson's disease, diabetic, asthma Medications: Tylenol, Xanax, Depakote, folic acid, Humalog, Synthroid, Seroquel, thiamine, Ultram, Protonix allergies: [place] (PAULO,SAW) - Related Data Allergies/Adverse Reactions: chlorpromazine HCl [From Thorazine] Allergy (Unknown, Verified 11/02/18 16:29) lithium [[place]] Allergy (Unknown, Verified 11/02/18 16:29) Past Medical History - Social History Smoking Status: Unknown if Ever Smoked Family History: Reviewed & Not Pertinent, Other - Unknown Patient has suicidal ideation: No Patient has homicidal ideation: No - Past Medical History Cardiac Medical History: Reports: Hx Hypercholesterolemia, Hx Hypertension Denies: Hx Coronary Artery Disease, Hx Heart Attack, Hx Heart Murmur Pulmonary Medical History: Reports: Hx Asthma, Hx COPD, Hx Pneumonia Denies: Hx Bronchitis, Hx Respiratory Failure, Hx Sleep Apnea, Hx Tuberculosis Neurological Medical History: Reports: Hx Seizures. Denies: Hx Cerebrovascular Accident Endocrine Medical History: Reports: Hx Diabetes Mellitus Type 2, Hx Hypothyr oidism Renal/ Medical History: Denies: Hx Peritoneal Dialysis GI Medical History: Reports: Hx Gastroesophageal Reflux Disease. Denies: Hx Pancreatitis Musculoskeletal Medical History: Reports Hx Arthritis - osteoarthritis, Denies Hx Systemic Lupus Erythematosus Psychiatric Medical History: Reports: Hx Bipolar Disorder, Hx Dementia, Hx Depression, Hx Schizoaffective Disorder, Hx Schizophrenia Past Surgical History: Reports: Hx Hysterectomy, Hx Tubal Ligation - Immunizations Immunizations up to date: Yes Hx Diphtheria, Pertussis, Tetanus Vaccination: Yes Hx Pneumococcal Vaccination: 04/10/14 <SAW BATES - Last Filed: 12/11/18 20:52> - Vital signs Vitals: Temp Pulse Resp BP Pulse Ox 97.8 F 100 20 86/49 L 100 12/11/18 16:50 12/11/18 16:50 12/11/18 16:50 12/11/18 16:50 12/11/18 16:50 Course - Laboratory Result Diagrams: 12/11/18 17:33 12/11/18 17:33 <SAW BATES - Last Filed: 12/11/18 20:52> - Laboratory Result Diagrams: 12/11/18 17:33 12/11/18 17:33 <LANDON SINGH - Last Filed: 12/11/18 23:55> - Re-evaluation Re-evalutation: Patient is received a total of 2 L fluid bolus in the emergency department. Her current blood pressure is 109/68. Awaiting lab results. Lab results show no signs of leukocytosis, positive urinary tract infection, sent for culture. BUN 74, creatinine 3.10, GFR 15. Patient's hemoglobin was noted to be a 9.3 at 1300 hrs. this afternoon through routine blood work. Our lab results at 1731 note a hemoglobin of 8.1. Guaiac stool at bedside was negative, no active melena seen. Patient's head CT reveals no signs of intracranial bleeding, chest x-ray reveals no signs of pneumonia. In discussing this case with my attending Dr. Grant we have looked back at patient's past urinary tract infections and antibiotic susceptibility. Ertapenem has been susceptible and is started in the emergency department. Patient's blood pressure manually by nursing staff continues to be around 100 systolic. Discussed this case with patient's primary care provider Dr. Muhammad who is requesting admission to [facility]. 12/11/18 20:38 Was noted the patient's blood pressure is still 84 systolic by nursing staff. With a map of 67. I discussed this case with Dr. Muhammad attending physician who would like a central line and Levophed started. 12/11/18 20:43 Landon Singh PA-C currently taking over care of the patient. (SAW HARDEN) 12/11/18 21:10 I have evaluated patient at bedside. Her repeat blood pressure is 102/50, she is alert, talkative, interactive. Per nursing staff this is a significant im provement in her mental status and alertness. Because patient's blood pressure is improving and her mental status is improving, at this time we will hold off on to the central line. Patient will continue to be monitored at this time. 12/11/18 22:58 Patient falls asleep and becomes hypotensive when she sleeps. MAP drops below 65. When I examine the patient at bedside or position her she becomes very alert, conversational, asks a lot of questions although she is disoriented. I did ask if I could place an IV in her neck and she emphatically stated now, I asked if I could place an IV in her groin, she emphatically stated no again. I tried to explain that this was important because she is in critical condition but I could not clearly convey this to the patient because of her confusion. Patient actually becomes agitated and I am unable to calm the patient enough for us to place the central line safely. Patient would have to be sedated for us to place the central line. I discussed with Dr. Hairston. I called the listed contact number and this actually was to the [facility] facility that patient is staying in, the person that answered and instructed me that patient has a guardian who is associated with [facility] and does not have a relative that makes medical decisions for her. They did provide me with the number at [phone], I spoke to Wilfredo Victoria. She states that the patient is a DNR, she states that she is responsible for making decisions for the patient, I discussed the situation, she states that patient does have a baseline confusion, she requests that patient not undergo any invasive procedures including central line to include the DNR and DNI status. I discussed that patient can be admitted for IV fluids and antibiotics and she states that she is in agreement with this care. As result no central line will be placed. 12/11/18 23:55 Miss Sommer called back, stated there was discussion of DNR/DNI previously but none was completed. Asking if this is the recommendation to have it completed because this is not documented officially, per meter does not have this paperwork either. I discussed with Dr. Hairston, we did complete the DNR/DNI form to place on her chart. (LANDON SINGH) - Vital Signs Vital signs: Temp Pulse Resp BP Pulse Ox 97.8 F 100 18 87/55 L 98 12/11/18 16:50 12/11/18 16:50 12/11/18 23:31 12/11/18 23:31 12/11/18 23:31 - Laboratory Laboratory results interpreted by me: 12/11/18 12/11/18 12/11/18 17:33 17:33 17:33 RBC 2.56 L Hgb 8.1 L Hct 25.4 L MCV 99 H RDW 17.3 H Monocytes % 17.0 H Absolute Monocytes 1.8 H VBG pH VBG pCO2 Potassium 5.1 H BUN 74 H Creatinine 3.10 H Est GFR ( Amer) 18 L Est GFR (Non-Af Amer) 15 L ALT < 6 L NT-Pro-B Natriuret Pep 657 H Total Protein 8.3 H Urine Protein Urine Ketones Urine Blood Urine Nitrite Ur Leukocyte Esterase 12/11/18 12/11/18 19:14 20:40 RBC Hgb Hct MCV RDW Monocytes % Absolute Monocytes VBG pH 7.25 L VBG pCO2 64.9 H Potassium BUN Creatinine Est GFR ( Amer) Est GFR (Non-Af Amer) ALT NT-Pro-B Natriuret Pep Total Protein Urine Protein 100 H Urine Ketones TRACE H Urine Blood SMALL H Urine Nitrite POSITIVE H Ur Leukocyte Esterase LARGE H Discharge - Discharge Admitting Provider: Jb Unit Admitted: ICU <SAW BATES - Last Filed: 12/11/18 20:52> <LANDON SINGH - Last Filed: 12/11/18 23:55> - Discharge Clinical Impression: Acute kidney injury Urinary tract infection Qualifiers: Urinary tract infection type: site unspecified Hematuria presence: without hematuria Qualified Code(s): N39.0 - Urinary tract infection, site not specified Sepsis Qualifiers: Sepsis type: sepsis due to unspecified organism Qualified Code(s): A41.9 - Sepsis, unspecified organism Hypotension Qualifiers: Hypotension type: other hypotension type Qualified Code(s): I95.89 - Other hypotension Condition: Fair Disposition: ADMITTED INPATIENT
[2018-12-11 20:52] LABS: VENOUS BLOOD BASE EXCESS -0.6 mmol/L; VENOUS BLOOD HCO3 27.8 mmol/L (20-32); VENOUS BLOOD PCO2 64.9 mmHg (35-63); VENOUS BLOOD PH 7.25 (7.30-7.42)
[2018-12-11 21:45] LABS: LIPASE 76.3 U/L (23-300); PHOSPHORUS 4.5 mg/dL (2.5-4.5)
[2018-12-11 22:02] LABS: FREE T4 (FREE THYROXINE) 0.93 ng/dL (0.78-2.19)
[2018-12-11 22:16] LABS: THYROID STIMULATING HORMONE 1.38 uIU/mL (0.47-4.68)
[2018-12-11 22:22] LABS: URINE AMPHETAMINES SCREEN NEGATIVE; URINE BARBITURATES SCREEN NEGATIVE; URINE BENZODIAZEPINES SCREEN UNCONFIRMED POSITIVE; URINE COCAINE SCREEN NEGATIVE; URINE MARIJUANA (THC) SCREEN NEGATIVE; URINE METHADONE SCREEN NEGATIVE; URINE PHENCYCLIDINE SCREEN NEGATIVE
[2018-12-11] MEDS: HEPARIN SOD (PORCINE) 5,000 UNIT/ML 1 ML SYRINGE SUBCUT SCH (23:59)
--- NOTE | 2018-12-12 00:02 | EKG REPORT ---
SEVERITY:- NORMAL ECG - SINUS RHYTHM : Confirmed by: Vinay Galloway 12-Dec-2018 00:01:38
[2018-12-12] MEDS: NORMAL SALINE 1000 ML 1,000 ML IV PRN ×2 (01:16→19:42)
[2018-12-12] MEDS: HEPARIN SOD (PORCINE) 5,000 UNIT/ML 1 ML SYRINGE SUBCUT SCH ×3 (05:55→21:43)
[2018-12-12 06:28] LABS: ABSOLUTE EOSINOPHILS # (AUTO) 0.1 10^3/uL (0.0-0.6); ABSOLUTE MONOCYTES (AUTO) 1.1 10^3/uL (0.1-1.4); ABSOLUTE NEUT (AUTO) 4.1 10^3/uL (1.7-8.2); BASOPHILS % (AUTO) 0.6 % (0-2); EOSINOPHILS % (AUTO) 1.4 % (0-6); HEMATOCRIT 26.9 % (36.0-47.0); HEMOGLOBIN 8.5 g/dL (12.0-15.5); LYMPHOCYTES % (AUTO) 15.1 % (13-45); MEAN CORPUSCULAR HEMOGLOBIN 31.4 pg (27.0-33.4); MEAN CORPUSCULAR HGB CONC 31.5 g/dL (32.0-36.0); MEAN CORPUSCULAR VOLUME 100 fl (80-97); MONOCYTES % (AUTO) 18.1 % (3-13); PLATELET COUNT 208 10^3/uL (150-450); RED CELL DISTRIBUTION WIDTH 17.1 % (11.5-14.0); SEGMENTED NEUTROPHILS % (AUTO) 64.8 % (42-78); TOTAL CELLS COUNTED % (AUTO) 100 %; WHITE BLOOD COUNT 6.3 10^3/uL (4.0-10.5)
[2018-12-12 06:43] LABS: ALANINE AMINOTRANSFERASE 16 U/L (9-52); ALBUMIN 2.9 g/dL (3.5-5.0); ALKALINE PHOSPHATASE 51 U/L (38-126); ANION GAP 10 (5-19); ASPARTATE AMINO TRANSFERASE 13 U/L (14-36); BILIRUBIN,DIRECT 0.2 mg/dL (0.0-0.4); BILIRUBIN,TOTAL 0.2 mg/dL (0.2-1.3); BLOOD UREA NITROGEN 59 mg/dL (7-20); CALCIUM 9.2 mg/dL (8.4-10.2); CARBON DIOXIDE 27 mmol/L (22-30); CHLORIDE 109 mmol/L (98-107); CHOLESTEROL 183.65 mg/dL (0-200); GLUCOSE 98 mg/dL (75-110); POTASSIUM 4.6 mmol/L (3.6-5.0); SODIUM 145.6 mmol/L (137-145); TOTAL PROTEIN 6.5 g/dL (6.3-8.2); TRIGLYCERIDES 243 mg/dL (<150)
[2018-12-12 06:54] LABS: DIRECT LDL 97 mg/dL (<100)
[2018-12-12 06:59] LABS: VLDL CHOLESTEROL 48.6 mg/dL (10-31)
--- NOTE | 2018-12-12 10:44 | PDOC H&P ---
History of Present Illness Admission Date/PCP: 12/11/18 20:45 ISRA KAY MD History of Present Illness: DRE HOPKINS is a 73 year old female, patient is well-known to me I saw her in the skilled nursing on rounds, she was lethargic, very out of character for her she is usually very engaging, in the skilled nursing the blood pressure was low normal the initial blood work that was done demonstrated acute kidney injury, because of this finding I recommended that patient should be referred to the emergency room for further evaluation and management when she arrived in the ER the blood pressure recorded was 71 systolic the kidney function is worsening L&D date the serum creatinine was 2.4 the emergency room the serum creatinine was 3, she was in septic shock with evidence of endorgan dysfunction including encephalopathy, acute kidney injury. The source of the sepsis is most likely the urine, the urinalysis was grossly abnormal, she has a history of ESBL E. coli UTI. Fluid resuscitation was started in the emergency room, patient's family did not want any invasive intervention done, no mechanical ventilation no intubation no chest compression family discussed with the ER provider she was made a DNR status Past Medical History Cardiac Medical History: Reports: Hyperlipidema, Hypertension Pulmonary Medical History: Reports: Asthma, Chronic Obstructive Pulmonary Disease (COPD), Pneumonia Neurological Medical History: Reports: Seizures Endocrine Medical History: Reports: Diabetes Mellitus Type 2, Hypothyroidism GI Medical History: Reports: Gastroesophageal Reflux Disease Musculoskeltal Medical History: Reports: Arthritis - osteoarthritis Psychiatric Medical History: Reports: Bipolar Disorder, Dementia, Depression, Schizoaffective Disorder Hematology: Reports: Anemia Past Surgical History Past Surgical History: Reports: Hysterectomy, Tubal Ligation Social History Lives with: [facility]pc Smoking Status: Former Smoker Frequency of Alcohol Use: None Hx Recreational Drug Use: No Hx Prescription Drug Abuse: No Family History Family History: Reviewed & Not Pertinent, Other - Unknown Parental Family History Reviewed: Yes Children Family History Reviewed: Yes Sibling(s) Family History Reviewed.: Yes Medication/Allergy Home Medications: Acetaminophen [Tylenol Extra Strength 500 mg Tablet] 1,000 mg PO Q8HP PRN 11/03/18 Alprazolam [Xanax 0.25 mg Tablet] 0.25 mg PO BID@0800,1600 11/03/18 Benzocaine/Menthol [Chloraseptic Sore Throat Lozenge] 1 nery PO Q2HP PRN 11/03/18 Calcium Carbonate/Vitamin D3 [Calcium 500-Vit D3 600 Tablet] 1 tab PO BID 11/03/18 Chlorhexidine Gluconate [Peridex] 15 ml PO QAM 11/03/18 Cranberry 500 mg PO QAM 11/03/18 Cyanocobalamin (Vitamin B-12) [Vitamin B-12 1000 mcg Tablet] 1,000 mcg PO QAM 11/03/18 Divalproex Sodium [Depakote] 250 mg PO Q6 11/03/18 Folic Acid [Folvite 1 mg Tablet] 1 mg PO QAM 11/03/18 Insulin Lispro [Humalog Insulin (Lispro) 100 unit/mL] 0 units SQ .PERSLIDINGSCALE 11/03/18 Levothyroxine Sodium [Synthroid 0.088 mg Tablet] 0.088 mg PO Q6AM 11/03/18 Linagliptin [Tradjenta] 5 mg PO QAM 11/03/18 Olanzapine [Zyprexa] 20 mg PO QHS 11/03/18 Oxcarbazepine [Trileptal 150 mg Tablet] 150 mg PO Q8 11/03/18 Oxybutynin Chloride [Oxybutynin Chloride ER] 10 mg PO QAM 11/03/18 Quetiapine Fumarate [Seroquel 25 mg Tablet] 25 mg PO QAM 11/03/18 Quetiapine Fumarate [Seroquel 25 mg Tablet] 75 mg PO QHS 11/03/18 Sennosides/Docusate 8.6-50 mg [Senna Plus Tablet] 1 tab PO QAM 11/03/18 Thiamine HCl [Thiamine 100 mg Tablet] 100 mg PO QAM 11/03/18 Tramadol HCl [Ultram 50 mg Tablet] 50 mg PO Q12HP PRN 11/03/18 Pantoprazole Sodium [Protonix [address] Tablet] 40 mg PO DAILY #0 tablet.dr 11/09/18 Valsartan 160 mg PO DAILY #1000 tablet 11/09/18 Allergies/Adverse Reactions: chlorpromazine HCl [From Thorazine] Allergy (Unknown, Verified 11/02/18 16:29) lithium [[place]] Allergy (Unknown, Verified 11/02/18 16:29) Review of Systems ROS unobtainable: Due to mental status Physical Exam Vital Signs: Temp Pulse Resp BP Pulse Ox 97.4 F 81 20 98/47 L 100 12/12/18 07:37 12/12/18 07:37 12/12/18 07:37 12/12/18 07:37 12/12/18 07:37 Intake & Output 12/11/18 12/12/18 12/13/18 06:59 06:59 06:59 Intake Total 2500 Output Total 1050 Balance 1450 Weight 87.5 kg General appearance: PRESENT: no acute distress Head exam: PRESENT: atraumatic, normocephalic Eye exam: PRESENT: PERRLA Mouth exam: PRESENT: moist, tongue midline Neck exam: PRESENT: full ROM Respiratory exam: PRESENT: clear to auscultation juliette Cardiovascular exam: PRESENT: +S1, +S2 Vascular exam: PRESENT: normal capillary refill GI/Abdominal exam: PRESENT: normal bowel sounds, soft Rectal exam: PRESENT: deferred Neurological exam: PRESENT: altered Skin exam: PRESENT: dry, intact, warm Results Laboratory Results: 12/12/18 05:45 12/12/18 05:45 12/11/18 12/11/18 12/11/18 17:33 17:33 17:33 WBC 10.5 RBC 2.56 L Hgb 8.1 L Hct 25.4 L MCV 99 H MCH 31.8 MCHC 32.0 RDW 17.3 H Plt Count 245 Seg Neutrophils % 64.8 Lymphocytes % 16.7 Monocytes % 17.0 H Eosinophils % 0.8 Basophils % 0.7 Absolute Neutrophils 6.8 Absolute Lymphocytes 1.7 Absolute Monocytes 1.8 H Absolute Eosinophils 0.1 Absolute Basophils 0.1 VBG pH VBG pCO2 VBG HCO3 VBG Base Excess Sodium 143.0 Potassium 5.1 H Chloride 105 Carbon Dioxide 27 Anion Gap 11 BUN 74 H Creatinine 3.10 H Est GFR ( Amer) 18 L Est GFR (Non-Af Amer) 15 L Glucose 104 Lactic Acid Calcium 9.6 Phosphorus 4.5 Magnesium 2.3 Total Bilirubin 0.4 AST 19 ALT < 6 L Alkaline Phosphatase 63 Total Protein 8.3 H Albumin 3.7 Triglycerides Cholesterol LDL Cholesterol Direct VLDL Cholesterol HDL Cholesterol Amylase 61 Lipase 76.3 TSH Free T4 Urine Color Urine Appearance Urine pH Ur Specific [place] Urine Protein Urine Glucose (UA) Urine Ketones Urine Blood Urine Nitrite Ur Leukocyte Esterase Urine WBC (Auto) Urine RBC (Auto) Blood Type Antibody Screen 12/11/18 12/11/18 12/11/18 17:33 18:45 18:45 WBC RBC Hgb Hct MCV MCH MCHC RDW Plt Count Seg Neutrophils % Lymphocytes % Monocytes % Eosinophils % Basophils % Absolute Neutrophils Absolute Lymphocytes Absolute Monocytes Absolute Eosinophils Absolute Basophils VBG pH VBG pCO2 VBG HCO3 VBG Base Excess Sodium Potassium Chloride Carbon Dioxide Anion Gap BUN Creatinine Est GFR ( Amer) Est GFR (Non-Af Amer) Glucose Lactic Acid 0.9 Calcium Phosphorus Magnesium Total Bilirubin AST ALT Alkaline Phosphatase Total Protein Albumin Triglycerides Cholesterol LDL Cholesterol Direct VLDL Cholesterol HDL Cholesterol Amylase Lipase TSH 1.38 Free T4 0.93 Urine Color Urine Appearance Urine pH Ur Specific [place] Urine Protein Urine Glucose (UA) Urine Ketones Urine Blood Urine Nitrite Ur Leukocyte Esterase Urine WBC (Auto) Urine RBC (Auto) Blood Type A POSITIVE Antibody Screen NEGATIVE 12/11/18 12/11/18 12/12/18 19:14 20:40 05:45 WBC 6.3 RBC 2.70 L Hgb 8.5 L Hct 26.9 L MCV 100 H MCH 31.4 MCHC 31.5 L RDW 17.1 H Plt Count 208 Seg Neutrophils % 64.8 Lymphocytes % 15.1 Monocytes % 18.1 H Eosinophils % 1.4 Basophils % 0.6 Absolute Neutrophils 4.1 Absolute Lymphocytes 1.0 Absolute Monocytes 1.1 Absolute Eosinophils 0.1 Absolute Basophils 0.0 VBG pH 7.25 L VBG pCO2 64.9 H VBG HCO3 27.8 VBG Base Excess -0.6 Sodium Potassium Chloride Carbon Dioxide Anion Gap BUN Creatinine Est GFR ( Amer) Est GFR (Non-Af Amer) Glucose Lactic Acid Calcium Phosphorus Magnesium Total Bilirubin AST ALT Alkaline Phosphatase Total Protein Albumin Triglycerides Cholesterol LDL Cholesterol Direct VLDL Cholesterol HDL Cholesterol Amylase Lipase TSH Free T4 Urine Color YELLOW Urine Appearance TURBID Urine pH 7.0 Ur Specific [place] 1.013 Urine Protein 100 H Urine Glucose (UA) NEGATIVE Urine Ketones TRACE H Urine Blood SMALL H Urine Nitrite POSITIVE H Ur Leukocyte Esterase LARGE H Urine WBC (Auto) >182 Urine RBC (Auto) 8 Blood Type Antibody Screen 12/12/18 05:45 WBC RBC Hgb Hct MCV MCH MCHC RDW Plt Count Seg Neutrophils % Lymphocytes % Monocytes % Eosinophils % Basophils % Absolute Neutrophils Absolute Lymphocytes Absolute Monocytes Absolute Eosinophils Absolute Basophils VBG pH VBG pCO2 VBG HCO3 VBG Base Excess Sodium 145.6 H Potassium 4.6 Chloride 109 H Carbon Dioxide 27 Anion Gap 10 BUN 59 H Creatinine 2.17 H Est GFR ( Amer) 27 L Est GFR (Non-Af Amer) 22 L Glucose 98 Lactic Acid Calcium 9.2 Phosphorus Magnesium Total Bilirubin 0.2 AST 13 L ALT 16 Alkaline Phosphatase 51 Total Protein 6.5 Albumin 2.9 L Triglycerides 243 H Cholesterol 183.65 LDL Cholesterol Direct 97 VLDL Cholesterol 48.6 H HDL Cholesterol 30 L Amylase Lipase TSH Free T4 Urine Color Urine Appearance Urine pH Ur Specific [place] Urine Protein Urine Glucose (UA) Urine Ketones Urine Blood Urine Nitrite Ur Leukocyte Esterase Urine WBC (Auto) Urine RBC (Auto) Blood Type Antibody Screen 12/11/18 17:33 NT-Pro-B Natriuret Pep 657 H Impressions: Chest X-Ray 12/11/18 17:35 IMPRESSION: There is mild diffuse interstitial pulmonary opacity suggestive of fibrosis. No acute focal airspace opacity. Head CT 12/11/18 17:35 IMPRESSION: No acute intracranial pathology. EVIDENCE OF ACUTE STROKE: NO. Assessment & Plan - Diagnosis (1) Septic shock Is this a current diagnosis for this admission?: Yes Plan: She has septic shock, start fluid resuscitation, presently not requiring vasopressor (2) Urinary tract infection Qualifiers: Urinary tract infection type: site unspecified Hematuria presence: without hematuria Qualified Code(s): N39.0 - Urinary tract infection, site not s pecified Is this a current diagnosis for this admission?: Yes Plan: History of ESBL E. coli UTI, start empiric IV ertapenem (3) Acute kidney injury Is this a current diagnosis for this admission?: Yes Plan: This is most likely from septic shock (4) Hypotension Qualifiers: Hypotension type: unspecified hypotension type Qualified Code(s): I95.9 - Hypotension, unspecified Is this a current diagnosis for this admission?: Yes (5) T2DM (type 2 diabetes mellitus) Qualifiers: Diabetes mellitus correction insulin use: without lobsterman use Diabetes mellitus complication status: with neurologic complications Diabetes mellitus complication detail: with polyneuropathy Qualified Code(s): E11.42 - Type 2 diabetes mellitus with diabetic polyneuropathy Is this a current diagnosis for this admission?: Yes
[2018-12-12] MEDS ORDERED: BENZOCAINE/MENTHOL SORE THROAT LOZENGE PO PRN (14:19)
[2018-12-12] MEDS ORDERED: TRAMADOL HCL 50 MG TABLET PO PRN (14:19)
--- NOTE | 2018-12-12 14:24 | PDOC PROGRESS REPORT ---
Subjective Progress Note for:: 12/12/18 Subjective:: Patient was seen by the bedside, she was admitted yesterday for the management of septic shock, she is more responsive today than yesterday she says she was dying Reason For Visit: SEPTIC SHOCK,ACUTE KIDNEY INJURY /H/O ESBL E-COLI Physical Exam Vital Signs: Temp Pulse Resp BP Pulse Ox 97.4 F 81 20 98/47 L 100 12/12/18 07:37 12/12/18 07:37 12/12/18 07:37 12/12/18 07:37 12/12/18 07:37 Intake & Output 12/11/18 12/12/18 12/13/18 06:59 06:59 06:59 Intake Total 2500 Output Total 1050 Balance 1450 Weight 87.5 kg General appearance: PRESENT: no acute distress Eye exam: PRESENT: PERRLA Respiratory exam: PRESENT: clear to auscultation juliette Cardiovascular exam: PRESENT: +S1, +S2 GI/Abdominal exam: PRESENT: soft Neurological exam: PRESENT: alert, CN II-XII grossly intact Results Laboratory Results: 12/12/18 05:45 12/12/18 05:45 12/11/18 12/11/18 12/11/18 17:33 17:33 17:33 WBC 10.5 RBC 2.56 L Hgb 8.1 L Hct 25.4 L MCV 99 H MCH 31.8 MCHC 32.0 RDW 17.3 H Plt Count 245 Seg Neutrophils % 64.8 Lymphocytes % 16.7 Monocytes % 17.0 H Eosinophils % 0.8 Basophils % 0.7 Absolute Neutrophils 6.8 Absolute Lymphocytes 1.7 Absolute Monocytes 1.8 H Absolute Eosinophils 0.1 Absolute Basophils 0.1 VBG pH VBG pCO2 VBG HCO3 VBG Base Excess Sodium 143.0 Potassium 5.1 H Chloride 105 Carbon Dioxide 27 Anion Gap 11 BUN 74 H Creatinine 3.10 H Est GFR ( Amer) 18 L Est GFR (Non-Af Amer) 15 L Glucose 104 Lactic Acid Calcium 9.6 Phosphorus 4.5 Magnesium 2.3 Total Bilirubin 0.4 AST 19 ALT < 6 L Alkaline Phosphatase 63 Total Protein 8.3 H Albumin 3.7 Triglycerides Cholesterol LDL Cholesterol Direct VLDL Cholesterol HDL Cholesterol Amylase 61 Lipase 76.3 TSH Free T4 Urine Color Urine Appearance Urine pH Ur Specific [place] Urine Protein Urine Glucose (UA) Urine Ketones Urine Blood Urine Nitrite Ur Leukocyte Esterase Urine WBC (Auto) Urine RBC (Auto) Blood Type Antibody Screen 12/11/18 12/11/18 12/11/18 17:33 18:45 18:45 WBC RBC Hgb Hct MCV MCH MCHC RDW Plt Count Seg Neutrophils % Lymphocytes % Monocytes % Eosinophils % Basophils % Absolute Neutrophils Absolute Lymphocytes Absolute Monocytes Absolute Eosinophils Absolute Basophils VBG pH VBG pCO2 VBG HCO3 VBG Base Excess Sodium Potassium Chloride Carbon Dioxide Anion Gap BUN Creatinine Est GFR ( Amer) Est GFR (Non-Af Amer) Glucose Lactic Acid 0.9 Calcium Phosphorus Magnesium Total Bilirubin AST ALT Alkaline Phosphatase Total Protein Albumin Triglycerides Cholesterol LDL Cholesterol Direct VLDL Cholesterol HDL Cholesterol Amylase Lipase TSH 1.38 Free T4 0.93 Urine Color Urine Appearance Urine pH Ur Specific [place] Urine Protein Urine Glucose (UA) Urine Ketones Urine Blood Urine Nitrite Ur Leukocyte Esterase Urine WBC (Auto) Urine RBC (Auto) Blood Type A POSITIVE Antibody Screen NEGATIVE 12/11/18 12/11/18 12/12/18 19:14 20:40 05:45 WBC 6.3 RBC 2.70 L Hgb 8.5 L Hct 26.9 L MCV 100 H MCH 31.4 MCHC 31.5 L RDW 17.1 H Plt Count 208 Seg Neutrophils % 64.8 Lymphocytes % 15.1 Monocytes % 18.1 H Eosinophils % 1.4 Basophils % 0.6 Absolute Neutrophils 4.1 Absolute Lymphocytes 1.0 Absolute Monocytes 1.1 Absolute Eosinophils 0.1 Absolute Basophils 0.0 VBG pH 7.25 L VBG pCO2 64.9 H VBG HCO3 27.8 VBG Base Excess -0.6 Sodium Potassium Chloride Carbon Dioxide Anion Gap BUN Creatinine Est GFR ( Amer) Est GFR (Non-Af Amer) Glucose Lactic Acid Calcium Phosphorus Magnesium Total Bilirubin AST ALT Alkaline Phosphatase Total Protein Albumin Triglycerides Cholesterol LDL Cholesterol Direct VLDL Cholesterol HDL Cholesterol Amylase Lipase TSH Free T4 Urine Color YELLOW Urine Appearance TURBID Urine pH 7.0 Ur Specific [place] 1.013 Urine Protein 100 H Urine Glucose (UA) NEGATIVE Urine Ketones TRACE H Urine Blood SMALL H Urine Nitrite POSITIVE H Ur Leukocyte Esterase LARGE H Urine WBC (Auto) >182 Urine RBC (Auto) 8 Blood Type Antibody Screen 12/12/18 05:45 WBC RBC Hgb Hct MCV MCH MCHC RDW Plt Count Seg Neutrophils % Lymphocytes % Monocytes % Eosinophils % Basophils % Absolute Neutrophils Absolute Lymphocytes Absolute Monocytes Absolute Eosinophils Absolute Basophils VBG pH VBG pCO2 VBG HCO3 VBG Base Excess Sodium 145.6 H Potassium 4.6 Chloride 109 H Carbon Dioxide 27 Anion Gap 10 BUN 59 H Creatinine 2.17 H Est GFR ( Amer) 27 L Est GFR (Non-Af Amer) 22 L Glucose 98 Lactic Acid Calcium 9.2 Phosphorus Magnesium Total Bilirubin 0.2 AST 13 L ALT 16 Alkaline Phosphatase 51 Total Protein 6.5 Albumin 2.9 L Triglycerides 243 H Cholesterol 183.65 LDL Cholesterol Direct 97 VLDL Cholesterol 48.6 H HDL Cholesterol 30 L Amylase Lipase TSH Free T4 Urine Color Urine Appearance Urine pH Ur Specific [place] Urine Protein Urine Glucose (UA) Urine Ketones Urine Blood Urine Nitrite Ur Leukocyte Esterase Urine WBC (Auto) Urine RBC (Auto) Blood Type Antibody Screen 12/11/18 17:33 NT-Pro-B Natriuret Pep 657 H Impressions: Chest X-Ray 12/11/18 17:35 IMPRESSION: There is mild diffuse interstitial pulmonary opacity suggestive of fibrosis. No acute focal airspace opacity. Head CT 12/11/18 17:35 IMPRESSION: No acute intracranial pathology. EVIDENCE OF ACUTE STROKE: NO. Assessment & Plan - Diagnosis (1) Septic shock Is this a current diagnosis for this admission?: Yes Plan: Continue IV hydration change IV fluid to Ringer's lactate (2) Urinary tract infection Qualifiers: Urinary tract infection type: site unspecified Hematuria presence: without hematuria Qualified Code(s): N39.0 - Urinary tract infection, site not specified Is this a current diagnosis for this admission?: Yes Plan: Continue IV antibiotic, ertapenem until culture results return (3) Acute kidney injury Is this a current diagnosis for this admission?: Yes Plan: Improving on present regimen (4) Hypotension Qualifiers: Hypotension type: unspecified hypotension type Qualified Code(s): I95.9 - Hypotension, unspecified Is this a current diagnosis for this admission?: Yes Plan: Blood pressure is low normal (5) T2DM (type 2 diabetes mellitus) Qualifiers: 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
[2018-12-12] MEDS ORDERED: (PENDING PHARMACY ID) (Linagliptin [Tradjenta] 5 MG) PO SCH (14:30)
[2018-12-12] MEDS ORDERED: (PENDING PHARMACY ID) (Oxybutynin Chloride [Oxybutynin Chloride Er] 10 MG) PO SCH (14:30)
[2018-12-12] MEDS ORDERED: ONDANSETRON HCL INJ/PF 4 MG/2 ML SDV IV PRN (15:54)
[2018-12-12] MEDS: FOLIC ACID 1 MG TABLET PO SCH (17:14)
[2018-12-12] MEDS: CYANOCOBALAMIN (VITAMIN B-12) 1,000 MCG TABLET PO SCH (17:15)
[2018-12-12] MEDS: THIAMINE HCL 100 MG TABLET PO SCH (17:15)
[2018-12-12] MEDS: ALPRAZOLAM 0.25 MG TABLET PO SCH (17:15)
[2018-12-12] MEDS: DIVALPROEX SODIUM 250 MG TABLET.DR PO SCH (17:15)
[2018-12-12] MEDS: PANTOPRAZOLE SODIUM 40 MG TABLET.DR PO SCH (17:15)
[2018-12-12] MEDS: OXCARBAZEPINE 150 MG TABLET PO SCH ×2 (17:15→21:24)
[2018-12-12] MEDS: QUETIAPINE FUMARATE 25 MG TABLET PO SCH (17:15)
[2018-12-12] MEDS ORDERED: ERTAPENEM SODIUM 1 GM in NORMAL SALINE 50 ML IV SCH (18:00)
[2018-12-12] MEDS: OXYBUTYNIN CHLORIDE 5 MG TABLET PO SCH (21:24)
[2018-12-12] MEDS: OLANZAPINE 5 MG TABLET PO SCH (21:24)
[2018-12-13] MEDS: DIVALPROEX SODIUM 250 MG TABLET.DR PO SCH ×4 (00:30→18:43)
[2018-12-13] MEDS: HEPARIN SOD (PORCINE) 5,000 UNIT/ML 1 ML SYRINGE SUBCUT SCH ×3 (05:45→21:42)
[2018-12-13] MEDS: OXCARBAZEPINE 150 MG TABLET PO SCH ×3 (05:45→21:42)
[2018-12-13] MEDS: LEVOTHYROXINE SODIUM 0.088 MG TABLET PO SCH (05:45)
[2018-12-13 06:05] LABS: HEMATOCRIT 25.7 % (36.0-47.0); HEMOGLOBIN 8.3 g/dL (12.0-15.5); MEAN CORPUSCULAR HEMOGLOBIN 31.5 pg (27.0-33.4); MEAN CORPUSCULAR HGB CONC 32.2 g/dL (32.0-36.0); MEAN CORPUSCULAR VOLUME 98 fl (80-97); PLATELET COUNT 238 10^3/uL (150-450); RED BLOOD COUNT 2.62 10^6/uL (3.72-5.28); RED CELL DISTRIBUTION WIDTH 16.7 % (11.5-14.0); WHITE BLOOD COUNT 5.6 10^3/uL (4.0-10.5)
[2018-12-13 06:23] LABS: ALANINE AMINOTRANSFERASE 18 U/L (9-52); ALBUMIN 2.9 g/dL (3.5-5.0); ALKALINE PHOSPHATASE 52 U/L (38-126); ANION GAP 10 (5-19); ASPARTATE AMINO TRANSFERASE 17 U/L (14-36); BILIRUBIN,DIRECT 0.3 mg/dL (0.0-0.4); BILIRUBIN,TOTAL 0.3 mg/dL (0.2-1.3); BLOOD UREA NITROGEN 39 mg/dL (7-20); CALCIUM 9.1 mg/dL (8.4-10.2); CARBON DIOXIDE 24 mmol/L (22-30); CHLORIDE 112 mmol/L (98-107); GLUCOSE 87 mg/dL (75-110); POTASSIUM 4.6 mmol/L (3.6-5.0); SODIUM 145.8 mmol/L (137-145); TOTAL PROTEIN 6.4 g/dL (6.3-8.2)
[2018-12-13 06:31] LABS: ABSOLUTE LYMPHOCYTES# (MANUAL) 1.2 10^3/uL (0.5-4.7); ABSOLUTE NEUTROPHILS# (MANUAL) 3.3 10^3/uL (1.7-8.2); BASOPHILS % (MANUAL) 0 % (0-2); EOSINOPHILS % (MANUAL) 2 % (0-6); LYMPHOCYTES % (MANUAL) 22 % (13-45); MONOCYTES % (MANUAL) 17 % (3-13); SEGMENTED NEUTROPHILS % (MAN) 59 % (42-78); TOTAL CELLS COUNTED 100
[2018-12-13 06:33] LABS: ANISOCYTOSIS 1+; HYPOCHROMASIA SLIGHT; PLATELET COMMENT ADEQUATE; STOMATOCYTES 2+
[2018-12-13] MEDS: THIAMINE HCL 100 MG TABLET PO SCH (10:39)
[2018-12-13] MEDS: QUETIAPINE FUMARATE 25 MG TABLET PO SCH (10:39)
[2018-12-13] MEDS: ALPRAZOLAM 0.25 MG TABLET PO SCH ×2 (10:40→18:43)
[2018-12-13] MEDS: OXYBUTYNIN CHLORIDE 5 MG TABLET PO SCH ×2 (10:40→21:40)
[2018-12-13] MEDS: SITAGLIPTIN PHOSPHATE 25 MG TABLET PO SCH (10:40)
[2018-12-13] MEDS: PANTOPRAZOLE SODIUM 40 MG TABLET.DR PO SCH (10:41)
[2018-12-13] MEDS: CYANOCOBALAMIN (VITAMIN B-12) 1,000 MCG TABLET PO SCH (10:41)
[2018-12-13] MEDS: FOLIC ACID 1 MG TABLET PO SCH (10:41)
[2018-12-13] MEDS: MEROPENEM 1 GM in NORMAL SALINE 50 ML IV SCH ×2 (11:51→21:39)
--- NOTE | 2018-12-13 21:28 | PDOC PROGRESS REPORT ---
Subjective Progress Note for:: 12/13/18 Subjective:: Patient seen by the bedside showing signs of improvement Reason For Visit: SEPTIC SHOCK,ACUTE KIDNEY INJURY /H/O ESBL E-COLI Physical Exam Vital Signs: Temp Pulse Resp BP Pulse Ox 97.8 F 83 20 105/52 L 99 12/13/18 19:36 12/13/18 19:36 12/13/18 19:36 12/13/18 19:36 12/13/18 19:36 Intake & Output 12/12/18 12/13/18 12/14/18 06:59 06:59 06:59 Intake Total 2500 1200 Output Total 1050 2050 950 Balance 1450 -850 -950 Weight 87.5 kg 87.5 kg General appearance: PRESENT: no acute distress Eye exam: PRESENT: PERRLA Respiratory exam: PRESENT: clear to auscultation juliette Cardiovascular exam: PRESENT: +S1, +S2 GI/Abdominal exam: PRESENT: soft Neurological exam: PRESENT: alert Results Laboratory Results: 12/13/18 05:52 12/13/18 05:52 12/13/18 12/13/18 05:52 05:52 WBC 5.6 RBC 2.62 L Hgb 8.3 L Hct 25.7 L MCV 98 H MCH 31.5 MCHC 32.2 RDW 16.7 H Plt Count 238 Seg Neutrophils % Not Reportable Lymphocytes % Not Reportable Monocytes % Not Reportable Eosinophils % Not Reportable Basophils % Not Reportable Absolute Neutrophils Not Reportable Absolute Lymphocytes Not Reportable Absolute Monocytes Not Reportable Absolute Eosinophils Not Reportable Absolute Basophils Not Reportable Sodium 145.8 H Potassium 4.6 Chloride 112 H Carbon Dioxide 24 Anion Gap 10 BUN 39 H Creatinine 1.44 H Est GFR ( Amer) 43 L Est GFR (Non-Af Amer) 35 L Glucose 87 Calcium 9.1 Total Bilirubin 0.3 AST 17 ALT 18 Alkaline Phosphatase 52 Total Protein 6.4 Albumin 2.9 L 12/11/18 19:14 Catheterized Urine Urine Culture - Final Providencia Stuartii 12/11/18 17:33 NT-Pro-B Natriuret Pep 657 H Impressions: Chest X-Ray 12/11/18 17:35 IMPRESSION: There is mild diffuse interstitial pulmonary opacity suggestive of fibrosis. No acute focal airspace opacity. Head CT 12/11/18 17:35 IMPRESSION: No acute intracranial pathology. EVIDENCE OF ACUTE STROKE: NO. Assessment & Plan - Diagnosis (1) Septic shock Is this a current diagnosis for this admission?: Yes (2) Urinary tract infection Qualifiers: Urinary tract infection type: site unspecified Hematuria presence: without hematuria Qualified Code(s): N39.0 - Urinary tract infection, site not specified Is this a current diagnosis for this admission?: Yes Plan: The urine culture grew providentia specie (3) Acute kidney injury Is this a current diagnosis for this admission?: Yes (4) Hypotension Qualifiers: Hypotension type: unspecified hypotension type Qualified Code(s): I95.9 - Hypotension, unspecified Is this a current diagnosis for this admission?: Yes (5) T2DM (type 2 diabetes mellitus) Qualifiers: Diabetes mellitus intermediate insulin use: without intermediate use Diabetes mellitus complication status: with neurologic complications Diabetes mellitus complication detail: with polyneuropathy Qualified Code(s): E11.42 - Type 2 diabetes mellitus with diabetic polyneuropathy Is this a current diagnosis for this admission?: Yes
[2018-12-13] MEDS: OLANZAPINE 5 MG TABLET PO SCH (21:40)
[2018-12-14] MEDS: DIVALPROEX SODIUM 250 MG TABLET.DR PO SCH ×5 (00:35→23:00)
[2018-12-14] MEDS: OXCARBAZEPINE 150 MG TABLET PO SCH ×3 (05:53→21:07)
[2018-12-14] MEDS: LEVOTHYROXINE SODIUM 0.088 MG TABLET PO SCH (05:53)
[2018-12-14] MEDS: HEPARIN SOD (PORCINE) 5,000 UNIT/ML 1 ML SYRINGE SUBCUT SCH ×3 (05:54→21:07)
[2018-12-14 06:20] LABS: ALANINE AMINOTRANSFERASE 14 U/L (9-52); ALBUMIN 2.9 g/dL (3.5-5.0); ALKALINE PHOSPHATASE 57 U/L (38-126); ANION GAP 10 (5-19); ASPARTATE AMINO TRANSFERASE 18 U/L (14-36); BILIRUBIN,DIRECT 0.3 mg/dL (0.0-0.4); BILIRUBIN,TOTAL 0.3 mg/dL (0.2-1.3); BLOOD UREA NITROGEN 20 mg/dL (7-20); CALCIUM 9.2 mg/dL (8.4-10.2); CARBON DIOXIDE 24 mmol/L (22-30); CHLORIDE 111 mmol/L (98-107); GLUCOSE 82 mg/dL (75-110); POTASSIUM 4.7 mmol/L (3.6-5.0); SODIUM 145.1 mmol/L (137-145); TOTAL PROTEIN 6.7 g/dL (6.3-8.2)
[2018-12-14 06:21] LABS: ABSOLUTE EOSINOPHILS # (AUTO) 0.2 10^3/uL (0.0-0.6); ABSOLUTE LYMPHOCYTES (AUTO) 1.2 10^3/uL (0.5-4.7); ABSOLUTE NEUT (AUTO) 3.4 10^3/uL (1.7-8.2); BASOPHILS % (AUTO) 0.8 % (0-2); EOSINOPHILS % (AUTO) 3.5 % (0-6); HEMOGLOBIN 8.8 g/dL (12.0-15.5); LYMPHOCYTES % (AUTO) 20.4 % (13-45); MEAN CORPUSCULAR HEMOGLOBIN 31.9 pg (27.0-33.4); MEAN CORPUSCULAR HGB CONC 32.7 g/dL (32.0-36.0); MEAN CORPUSCULAR VOLUME 98 fl (80-97); MONOCYTES % (AUTO) 17.1 % (3-13); PLATELET COUNT 244 10^3/uL (150-450); RED BLOOD COUNT 2.76 10^6/uL (3.72-5.28); RED CELL DISTRIBUTION WIDTH 16.5 % (11.5-14.0); SEGMENTED NEUTROPHILS % (AUTO) 58.2 % (42-78); TOTAL CELLS COUNTED % (AUTO) 100 %; WHITE BLOOD COUNT 5.9 10^3/uL (4.0-10.5)
[2018-12-14] MEDS: SITAGLIPTIN PHOSPHATE 25 MG TABLET PO SCH (09:11)
[2018-12-14] MEDS: OXYBUTYNIN CHLORIDE 5 MG TABLET PO SCH ×2 (09:11→21:07)
[2018-12-14] MEDS: CYANOCOBALAMIN (VITAMIN B-12) 1,000 MCG TABLET PO SCH (09:11)
[2018-12-14] MEDS: PANTOPRAZOLE SODIUM 40 MG TABLET.DR PO SCH (09:11)
[2018-12-14] MEDS: THIAMINE HCL 100 MG TABLET PO SCH (09:11)
[2018-12-14] MEDS: ALPRAZOLAM 0.25 MG TABLET PO SCH ×2 (09:11→18:22)
[2018-12-14] MEDS: QUETIAPINE FUMARATE 25 MG TABLET PO SCH (09:11)
[2018-12-14] MEDS: FOLIC ACID 1 MG TABLET PO SCH (09:11)
[2018-12-14] MEDS: MEROPENEM 1 GM in NORMAL SALINE 50 ML IV SCH ×2 (09:12→21:07)
--- NOTE | 2018-12-14 18:55 | PDOC PROGRESS REPORT ---
Subjective Progress Note for:: 12/14/18 Subjective:: Patient is are not improving with treatment Reason For Visit: SEPTIC SHOCK,ACUTE KIDNEY INJURY /H/O ESBL E-COLI Physical Exam Vital Signs: Temp Pulse Resp BP Pulse Ox 98.5 F 100 18 91/38 L 90 L 12/14/18 16:25 12/14/18 16:25 12/14/18 16:25 12/14/18 16:25 12/14/18 16:25 Intake & Output 12/13/18 12/14/18 12/15/18 06:59 06:59 06:59 Intake Total 1200 340 Output Total 2050 2750 Balance -850 -2410 Weight 87.5 kg 87.7 kg General appearance: PRESENT: no acute distress Eye exam: PRESENT: PERRLA Respiratory exam: PRESENT: clear to auscultation juliette Cardiovascular exam: PRESENT: +S1, +S2 GI/Abdominal exam: PRESENT: soft Neurological exam: PRESENT: alert Results Laboratory Results: 12/14/18 05:30 12/14/18 05:30 12/14/18 12/14/18 05:30 05:30 WBC 5.9 RBC 2.76 L Hgb 8.8 L Hct 27.0 L MCV 98 H MCH 31.9 MCHC 32.7 RDW 16.5 H Plt Count 244 Seg Neutrophils % 58.2 Lymphocytes % 20.4 Monocytes % 17.1 H Eosinophils % 3.5 Basophils % 0.8 Absolute Neutrophils 3.4 Absolute Lymphocytes 1.2 Absolute Monocytes 1.0 Absolute Eosinophils 0.2 Absolute Basophils 0.0 Sodium 145.1 H Potassium 4.7 Chloride 111 H Carbon Dioxide 24 Anion Gap 10 BUN 20 Creatinine 1.15 Est GFR ( Amer) 56 L Est GFR (Non-Af Amer) 46 L Glucose 82 Calcium 9.2 Total Bilirubin 0.3 AST 18 ALT 14 Alkaline Phosphatase 57 Total Protein 6.7 Albumin 2.9 L 12/11/18 17:33 NT-Pro-B Natriuret Pep 657 H Impressions: Chest X-Ray 12/11/18 17:35 IMPRESSION: There is mild diffuse interstitial pulmonary opacity suggestive of fibrosis. No acute focal airspace opacity. Head CT 12/11/18 17:35 IMPRESSION: No acute intracranial pathology. EVIDENCE OF ACUTE STROKE: NO. Assessment & Plan - Diagnosis (1) Septic shock Is this a current diagnosis for this admission?: Yes Plan: Continue IV hydration (2) Urinary tract infection Qualifiers: Urinary tract infection type: site unspecified Hematuria presence: without hematuria Qualified Code(s): N39.0 - Urinary tract infection, site not specified Is this a current diagnosis for this admission?: Yes (3) Acute kidney injury Is this a current diagnosis for this admission?: Yes Plan: improved (4) Hypotension Qualifiers: Hypotension type: unspecified hypotension type Qualified Code(s): I95.9 - Hypotension, unspecified Is this a current diagnosis for this admission?: Yes (5) T2DM (type 2 diabetes mellitus) 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
[2018-12-14] MEDS: OLANZAPINE 5 MG TABLET PO SCH (21:07)
[2018-12-14] MEDS: NORMAL SALINE 1000 ML 1,000 ML IV PRN (21:08)
[2018-12-14] MEDS ORDERED: ACETAMINOPHEN 325 MG TABLET PO PRN (23:40)
[2018-12-15] MEDS: DIVALPROEX SODIUM 250 MG TABLET.DR PO SCH ×4 (05:59→23:42)
[2018-12-15] MEDS: HEPARIN SOD (PORCINE) 5,000 UNIT/ML 1 ML SYRINGE SUBCUT SCH ×3 (05:59→21:12)
[2018-12-15] MEDS: LEVOTHYROXINE SODIUM 0.088 MG TABLET PO SCH (05:59)
[2018-12-15] MEDS: OXCARBAZEPINE 150 MG TABLET PO SCH ×3 (05:59→21:12)
[2018-12-15] MEDS: SITAGLIPTIN PHOSPHATE 25 MG TABLET PO SCH (09:24)
[2018-12-15] MEDS: CYANOCOBALAMIN (VITAMIN B-12) 1,000 MCG TABLET PO SCH (09:24)
[2018-12-15] MEDS: QUETIAPINE FUMARATE 25 MG TABLET PO SCH (09:25)
[2018-12-15] MEDS: PANTOPRAZOLE SODIUM 40 MG TABLET.DR PO SCH (09:25)
[2018-12-15] MEDS: MEROPENEM 1 GM in NORMAL SALINE 50 ML IV SCH ×2 (09:25→21:12)
[2018-12-15] MEDS: FOLIC ACID 1 MG TABLET PO SCH (09:25)
[2018-12-15] MEDS: THIAMINE HCL 100 MG TABLET PO SCH (09:25)
[2018-12-15] MEDS: OXYBUTYNIN CHLORIDE 5 MG TABLET PO SCH ×2 (09:25→21:12)
[2018-12-15] MEDS: ALPRAZOLAM 0.25 MG TABLET PO SCH ×2 (09:43→16:32)
--- NOTE | 2018-12-15 16:28 | RADIOLOGY REPORT (SQ) ---
EXAM DESCRIPTION: CHEST SINGLE VIEW COMPLETED DATE/TIME: 12/15/2018 3:12 pm REASON FOR STUDY: abnormal lung sounds, SOB COMPARISON: Chest films 08/31/2018, 11/07/2018, 12/11/2018 CT chest 11/03/2018, 04/20/2017 EXAM PARAMETERS: NUMBER OF VIEWS: One view. TECHNIQUE: Single frontal radiographic view of the chest acquired. RADIATION DOSE: NA LIMITATIONS: None. FINDINGS: LUNGS AND PLEURA: Small focus of new airspace disease in the left upper lobe. Stable airspace disease in the left retrocardiac region worrisome for pneumonia. Right lung grossly clear. No right or left pleural effusion or pneumothorax. MEDIASTINUM AND HILAR STRUCTURES: No masses. Contour normal. HEART AND VASCULAR STRUCTURES: Heart normal in size. Normal vasculature. BONES: No acute findings. HARDWARE: None in the chest. OTHER: No other significant finding. IMPRESSION: New small focus of left upper lobe airspace disease. Persistent left basilar airspace d isease. TECHNICAL DOCUMENTATION: JOB ID: [id number] [employer]- All Rights Reserved Reading location - IP/workstation name: [email or web address]
[2018-12-15] MEDS ORDERED: LEVALBUTEROL HCL NEB 1.25 MG/3 ML AMPUL NEB PRN (18:30)
--- NOTE | 2018-12-15 21:10 | PDOC PROGRESS REPORT ---
Subjective Progress Note for:: 12/15/18 Subjective:: Patient was seen by the bedside, the blood pressure is very labile fluctuating between low and high Reason For Visit: SEPTIC SHOCK,ACUTE KIDNEY INJURY /H/O ESBL E-COLI Physical Exam Vital Signs: Temp Pulse Resp BP Pulse Ox 97.8 F 97 18 115/73 90 L 12/15/18 11:00 12/15/18 19:00 12/15/18 11:00 12/15/18 11:00 12/15/18 11:00 Intake & Output 12/14/18 12/15/18 12/16/18 06:59 06:59 06:59 Intake Total 553 361 4735 Output Total 2750 1800 600 Balance -2410 -1464 902 Weight 87.7 kg 89.3 kg General appearance: PRESENT: no acute distress Eye exam: PRESENT: PERRLA Respiratory exam: PRESENT: clear to auscultation juliette Cardiovascular exam: PRESENT: +S1, +S2 GI/Abdominal exam: PRESENT: soft Neurological exam: PRESENT: alert, CN II-XII grossly intact Results Laboratory Results: 12/14/18 05:30 12/14/18 05:30 12/11/18 17:33 NT-Pro-B Natriuret Pep 657 H Impressions: Head CT 12/11/18 17:35 IMPRESSION: No acute intracranial pathology. EVIDENCE OF ACUTE STROKE: NO. Chest X-Ray 12/15/18 00:00 IMPRESSION: New small focus of left upper lobe airspace disease. Persistent left basilar airspace disease. Assessment & Plan - Diagnosis (1) Septic shock Is this a current diagnosis for this admission?: Yes Plan: resolved (2) Urinary tract infection Qualifiers: Urinary tract infection type: site unspecified Hematuria presence: without hematuria Qualified Code(s): N39.0 - Urinary tract infection, site not specified Is this a current diagnosis for this admission?: Yes (3) Acute kidney injury Is this a current diagnosis for this admission?: Yes (4) Hypotension Qualifiers: Hypotension type: unspecified hypotension type Qualified Code(s): I95.9 - Hypotension, unspecified Is this a current diagnosis for this admission?: Yes (5) T2DM (type 2 diabetes mellitus) Qualifiers: Diabetes mellitus [facility] insulin use: without canal equipment 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
[2018-12-15] MEDS: OLANZAPINE 5 MG TABLET PO SCH (21:12)
[2018-12-15 22:10] LABS: HEMATOCRIT 26.5 % (36.0-47.0); HEMOGLOBIN 8.7 g/dL (12.0-15.5); MEAN CORPUSCULAR HEMOGLOBIN 31.9 pg (27.0-33.4); MEAN CORPUSCULAR HGB CONC 32.8 g/dL (32.0-36.0); MEAN CORPUSCULAR VOLUME 98 fl (80-97); PLATELET COUNT 242 10^3/uL (150-450); RED BLOOD COUNT 2.72 10^6/uL (3.72-5.28); RED CELL DISTRIBUTION WIDTH 16.4 % (11.5-14.0); WHITE BLOOD COUNT 7.4 10^3/uL (4.0-10.5)
[2018-12-15 22:24] LABS: ALANINE AMINOTRANSFERASE 15 U/L (9-52); ALKALINE PHOSPHATASE 52 U/L (38-126); ANION GAP 10 (5-19); ASPARTATE AMINO TRANSFERASE 17 U/L (14-36); BILIRUBIN,DIRECT 0.2 mg/dL (0.0-0.4); BILIRUBIN,TOTAL 0.2 mg/dL (0.2-1.3); BLOOD UREA NITROGEN 12 mg/dL (7-20); CALCIUM 9.3 mg/dL (8.4-10.2); CARBON DIOXIDE 24 mmol/L (22-30); CHLORIDE 108 mmol/L (98-107); GLUCOSE 134 mg/dL (75-110); POTASSIUM 4.3 mmol/L (3.6-5.0); SODIUM 141.5 mmol/L (137-145); TOTAL PROTEIN 6.6 g/dL (6.3-8.2)
[2018-12-15 22:33] LABS: ABSOLUTE LYMPHOCYTES# (MANUAL) 2.2 10^3/uL (0.5-4.7); ABSOLUTE MONOCYTES # (MANUAL) 0.7 10^3/uL (0.1-1.4); ABSOLUTE NEUTROPHILS# (MANUAL) 4.4 10^3/uL (1.7-8.2); BASOPHILS % (MANUAL) 0 % (0-2); EOSINOPHILS % (MANUAL) 1 % (0-6); LYMPHOCYTES % (MANUAL) 30 % (13-45); MONOCYTES % (MANUAL) 10 % (3-13); SEGMENTED NEUTROPHILS % (MAN) 59 % (42-78); TOTAL CELLS COUNTED 100
[2018-12-15 22:34] LABS: TOXIC GRANULATION SLIGHT
[2018-12-15 22:35] LABS: ANISOCYTOSIS 1+; PLATELET COMMENT ADEQUATE
[2018-12-16 04:55] LABS: HEMATOCRIT 26.2 % (36.0-47.0); HEMOGLOBIN 8.5 g/dL (12.0-15.5); MEAN CORPUSCULAR HEMOGLOBIN 31.8 pg (27.0-33.4); MEAN CORPUSCULAR HGB CONC 32.5 g/dL (32.0-36.0); MEAN CORPUSCULAR VOLUME 98 fl (80-97); RED BLOOD COUNT 2.68 10^6/uL (3.72-5.28); RED CELL DISTRIBUTION WIDTH 16.9 % (11.5-14.0); WHITE BLOOD COUNT 6.6 10^3/uL (4.0-10.5)
[2018-12-16 05:18] LABS: ALANINE AMINOTRANSFERASE 12 U/L (9-52); ALBUMIN 2.9 g/dL (3.5-5.0); ALKALINE PHOSPHATASE 50 U/L (38-126); ANION GAP 8 (5-19); ASPARTATE AMINO TRANSFERASE 15 U/L (14-36); BILIRUBIN,DIRECT 0.3 mg/dL (0.0-0.4); BILIRUBIN,TOTAL 0.3 mg/dL (0.2-1.3); BLOOD UREA NITROGEN 11 mg/dL (7-20); CALCIUM 9.4 mg/dL (8.4-10.2); CARBON DIOXIDE 25 mmol/L (22-30); CHLORIDE 111 mmol/L (98-107); GLUCOSE 108 mg/dL (75-110); POTASSIUM 4.3 mmol/L (3.6-5.0); SODIUM 144.1 mmol/L (137-145); TOTAL PROTEIN 6.5 g/dL (6.3-8.2)
[2018-12-16 05:22] LABS: ABSOLUTE MONOCYTES # (MANUAL) 1.5 10^3/uL (0.1-1.4); ABSOLUTE NEUTROPHILS# (MANUAL) 3.1 10^3/uL (1.7-8.2); BASOPHILS % (MANUAL) 0 % (0-2); EOSINOPHILS % (MANUAL) 0 % (0-6); LYMPHOCYTES % (MANUAL) 30 % (13-45); MONOCYTES % (MANUAL) 23 % (3-13); SEGMENTED NEUTROPHILS % (MAN) 47 % (42-78); TOTAL CELLS COUNTED 100
[2018-12-16 05:25] LABS: PLATELET CLUMPS PRESENT; PLATELET COMMENT ADEQUATE; STOMATOCYTES 2+
[2018-12-16 05:26] LABS: ANISOCYTOSIS 1+; PLATELET COUNT 243 10^3/uL (150-450)
[2018-12-16] MEDS: LEVOTHYROXINE SODIUM 0.088 MG TABLET PO SCH (05:48)
[2018-12-16] MEDS: DIVALPROEX SODIUM 250 MG TABLET.DR PO SCH ×4 (05:48→23:50)
[2018-12-16] MEDS: OXCARBAZEPINE 150 MG TABLET PO SCH ×3 (05:48→21:00)
[2018-12-16] MEDS: HEPARIN SOD (PORCINE) 5,000 UNIT/ML 1 ML SYRINGE SUBCUT SCH ×3 (05:48→21:00)
[2018-12-16] MEDS: SITAGLIPTIN PHOSPHATE 25 MG TABLET PO SCH (09:31)
[2018-12-16] MEDS: QUETIAPINE FUMARATE 25 MG TABLET PO SCH (09:32)
[2018-12-16] MEDS: CYANOCOBALAMIN (VITAMIN B-12) 1,000 MCG TABLET PO SCH (09:32)
[2018-12-16] MEDS: ALPRAZOLAM 0.25 MG TABLET PO SCH ×2 (09:32→15:42)
[2018-12-16] MEDS: PANTOPRAZOLE SODIUM 40 MG TABLET.DR PO SCH (09:32)
[2018-12-16] MEDS: OXYBUTYNIN CHLORIDE 5 MG TABLET PO SCH ×2 (09:32→21:00)
[2018-12-16] MEDS: FOLIC ACID 1 MG TABLET PO SCH (09:32)
[2018-12-16] MEDS: THIAMINE HCL 100 MG TABLET PO SCH (09:37)
[2018-12-16] MEDS: MEROPENEM 1 GM in NORMAL SALINE 50 ML IV SCH ×2 (09:37→21:00)
[2018-12-16] MEDS: OLANZAPINE 5 MG TABLET PO SCH (21:00)
--- NOTE | 2018-12-16 21:09 | PDOC PROGRESS REPORT ---
Subjective Progress Note for:: 12/16/18 Subjective:: Patient seen by the bedside Reason For Visit: SEPTIC SHOCK,ACUTE KIDNEY INJURY /H/O ESBL E-COLI Physical Exam Vital Signs: Temp Pulse Resp BP Pulse Ox 97.3 F 97 18 104/51 L 98 12/16/18 15:23 12/16/18 15:23 12/16/18 15:23 12/16/18 15:23 12/16/18 15:23 Intake & Output 12/15/18 12/16/18 12/17/18 06:59 06:59 06:59 Intake Total 336 1951 1175 Output Total 1800 1925 1000 Balance -1464 26 175 Weight 89.3 kg 88.6 kg General appearance: PRESENT: no acute distress Eye exam: PRESENT: PERRLA Respiratory exam: PRESENT: clear to auscultation juliette Cardiovascular exam: PRESENT: +S1, +S2 GI/Abdominal exam: PRESENT: soft Neurological exam: PRESENT: alert Results Laboratory Results: 12/16/18 04:35 12/16/18 04:35 12/15/18 12/15/18 12/16/18 21:58 21:58 04:35 WBC 7.4 6.6 RBC 2.72 L 2.68 L Hgb 8.7 L 8.5 L Hct 26.5 L 26.2 L MCV 98 H 98 H MCH 31.9 31.8 MCHC 32.8 32.5 RDW 16.4 H 16.9 H Plt Count 242 243 Seg Neutrophils % Not Reportable Not Reportable Lymphocytes % Not Reportable Not Reportable Monocytes % Not Reportable Not Reportable Eosinophils % Not Reportable Not Reportable Basophils % Not Reportable Not Reportable Absolute Neutrophils Not Reportable Not Reportable Absolute Lymphocytes Not Reportable Not Reportable Absolute Monocytes Not Reportable Not Reportable Absolute Eosinophils Not Reportable Not Reportable Absolute Basophils Not Reportable Not Reportable Sodium 141.5 Potassium 4.3 Chloride 108 H Carbon Dioxide 24 Anion Gap 10 BUN 12 Creatinine 0.95 Est GFR ( Amer) > 60 Est GFR (Non-Af Amer) 57 L Glucose 134 H Calcium 9.3 Total Bilirubin 0.2 AST 17 ALT 15 Alkaline Phosphatase 52 Total Protein 6.6 Albumin 3.0 L 12/16/18 04:35 WBC RBC Hgb Hct MCV MCH MCHC RDW Plt Count Seg Neutrophils % Lymphocytes % Monocytes % Eosinophils % Basophils % Absolute Neutrophils Absolute Lymphocytes Absolute Monocytes Absolute Eosinophils Absolute Basophils Sodium 144.1 Potassium 4.3 Chloride 111 H Carbon Dioxide 25 Anion Gap 8 BUN 11 Creatinine 0.88 Est GFR ( Amer) > 60 Est GFR (Non-Af Amer) > 60 Glucose 108 Calcium 9.4 Total Bilirubin 0.3 AST 15 ALT 12 Alkaline Phosphatase 50 Total Protein 6.5 Albumin 2.9 L 12/11/18 18:45 Blood Blood Culture - Final NO GROWTH IN 5 DAYS 12/11/18 17:33 NT-Pro-B Natriuret Pep 657 H Impressions: Head CT 12/11/18 17:35 IMPRESSION: No acute intracranial pathology. EVIDENCE OF ACUTE STROKE: NO. Chest X-Ray 12/15/18 00:00 IMPRESSION: New small focus of left upper lobe airspace disease. Persistent left basilar airspace disease. Assessment & Plan - Diagnosis (1) Septic shock Is this a current diagnosis for this admission?: Yes (2) Urinary tract infection Qualifiers: Urinary tract infection type: site unspecified Hematuria presence: without hematuria Qualified Code(s): N39.0 - Urinary tract infection, site not specified Is this a current diagnosis for this admission?: Yes Plan: The urine culture grew providentia specie (3) Acute kidney injury Is this a current diagnosis for this admission?: Yes (4) Hypotension Qualifiers: Hypotension type: unspecified hypotension type Qualified Code(s): I95.9 - Hypotension, unspecified Is this a current diagnosis for this admission?: Yes (5) T2DM (type 2 diabetes mellitus) Qualifiers: Diabetes mellitus long term care pharmacist insulin use: without mcc use Diabetes mellitus complication status: with neurologic complications Diabetes mellitus complication detail: with polyneuropathy Qualified Code(s): E11.42 - Type 2 diabetes mellitus with diabetic polyneuropathy Is this a current diagnosis for this admission?: Yes - Plan Summary Plan Summary: Continue treatment
[2018-12-17] MEDS: NORMAL SALINE 1000 ML 1,000 ML IV PRN ×2 (04:34→14:48)
[2018-12-17] MEDS: OXCARBAZEPINE 150 MG TABLET PO SCH ×3 (05:59→21:50)
[2018-12-17] MEDS: HEPARIN SOD (PORCINE) 5,000 UNIT/ML 1 ML SYRINGE SUBCUT SCH ×3 (05:59→21:50)
[2018-12-17] MEDS: DIVALPROEX SODIUM 250 MG TABLET.DR PO SCH ×3 (05:59→17:04)
[2018-12-17] MEDS: LEVOTHYROXINE SODIUM 0.088 MG TABLET PO SCH (05:59)
[2018-12-17] MEDS: SITAGLIPTIN PHOSPHATE 25 MG TABLET PO SCH (10:24)
[2018-12-17] MEDS: PANTOPRAZOLE SODIUM 40 MG TABLET.DR PO SCH (10:24)
[2018-12-17] MEDS: FOLIC ACID 1 MG TABLET PO SCH (10:24)
[2018-12-17] MEDS: CYANOCOBALAMIN (VITAMIN B-12) 1,000 MCG TABLET PO SCH (10:24)
[2018-12-17] MEDS: ALPRAZOLAM 0.25 MG TABLET PO SCH ×2 (10:24→17:04)
[2018-12-17] MEDS: QUETIAPINE FUMARATE 25 MG TABLET PO SCH (10:24)
[2018-12-17] MEDS: OXYBUTYNIN CHLORIDE 5 MG TABLET PO SCH ×2 (10:24→21:50)
[2018-12-17] MEDS: THIAMINE HCL 100 MG TABLET PO SCH (10:24)
[2018-12-17] MEDS: MEROPENEM 1 GM in NORMAL SALINE 50 ML IV SCH ×2 (10:25→21:50)
--- NOTE | 2018-12-17 10:35 | PDOC PROGRESS REPORT ---
Subjective Progress Note for:: 12/17/18 Subjective:: Patient was admitted for the septic shock and urinary tract infections Patient is currently doing fair Alert awake denied any complaints Discussed with the nursing staff no other concerns Reason For Visit: SEPTIC SHOCK,ACUTE KIDNEY INJURY /H/O ESBL E-COLI Physical Exam Vital Signs: Temp Pulse Resp BP Pulse Ox 98.6 F 85 18 114/50 L 99 12/17/18 08:13 12/17/18 08:13 12/17/18 08:13 12/17/18 08:13 12/17/18 08:13 Intake & Output 12/16/18 12/17/18 12/18/18 06:59 06:59 06:59 Intake Total 1950 1225 Output Total 1925 1600 Balance 26 -375 Weight 88.6 kg 89.6 kg General appearance: PRESENT: no acute distress, well-developed, well-nourished Head exam: PRESENT: atraumatic, normocephalic Eye exam: PRESENT: conjunctiva pink, EOMI, PERRLA. ABSENT: scleral icterus Ear exam: PRESENT: normal external ear exam Mouth exam: PRESENT: moist, tongue midline Neck exam: PRESENT: full ROM. ABSENT: carotid bruit, JVD, lymphadenopathy, thyromegaly Respiratory exam: PRESENT: clear to auscultation juliette Cardiovascular exam: PRESENT: RRR. ABSENT: diastolic murmur, rubs, systolic murmur Pulses: PRESENT: normal [place] pedis pul, +2 pedal pulses bilateral Vascular exam: PRESENT: normal capillary refill GI/Abdominal exam: PRESENT: normal bowel sounds, soft. ABSENT: distended, guarding, mass, organolmegaly, rebound, tenderness Rectal exam: PRESENT: deferred Neurological exam: PRESENT: alert, awake, oriented to person, oriented to place. ABSENT: motor sensory deficit Psychiatric exam: PRESENT: appropriate affect, normal mood. ABSENT: homicidal ideation, suicidal ideation Skin exam: PRESENT: dry, intact, warm. ABSENT: cyanosis, rash Results Laboratory Results: 12/16/18 04:35 12/16/18 04:35 12/11/18 20:40 Blood Blood Culture - Final NO GROWTH IN 5 DAYS 12/11/18 18:45 Blood Blood Culture - Final NO GROWTH IN 5 DAYS 12/11/18 17:33 NT-Pro-B Natriuret Pep 657 H Impressions: Head CT 12/11/18 17:35 IMPRESSION: No acute intracranial pathology. EVIDENCE OF ACUTE STROKE: NO. Chest X-Ray 12/15/18 00:00 IMPRESSION: New small focus of left upper lobe airspace disease. Persistent left basilar airspace disease. 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: without mcc use Diabetes mellitus complication status: with neurologic complications Diabetes mellitus complication detail: with polyneuropathy Qualified Code(s): E11.42 - Type 2 diabetes mellitus with diabetic polyneuropathy Is this a current diagnosis for this admission?: Yes (4) COPD (chronic obstructive pulmonary disease) Is this a current diagnosis for this admission?: Yes (5) Dementia Qualifiers: Dementia type: unspecified type Dementia behavioral disturbance: without behavioral disturbance Qualified Code(s): F03.90 - Unspecified dementia without behavioral disturbance Is this a current diagnosis for this admission?: Yes - Time Time Spent with patient: 15-24 minutes Medications reviewed and adjusted accordingly: Yes Anticipated discharge: Other Within: Other - Plan Summary Plan Summary: Continues to IV antibiotics Check a blood work in the morning Physical therapy evaluations
[2018-12-17] MEDS: OLANZAPINE 5 MG TABLET PO SCH (21:50)
[2018-12-18] MEDS: DIVALPROEX SODIUM 250 MG TABLET.DR PO SCH ×5 (00:12→23:47)
[2018-12-18] MEDS: NORMAL SALINE 1000 ML 1,000 ML IV PRN ×3 (00:48→23:30)
[2018-12-18 05:14] LABS: ABSOLUTE BASOPHILS # (AUTO) 0.1 10^3/uL (0.0-0.2); ABSOLUTE EOSINOPHILS # (AUTO) 0.3 10^3/uL (0.0-0.6); ABSOLUTE LYMPHOCYTES (AUTO) 2.5 10^3/uL (0.5-4.7); ABSOLUTE NEUT (AUTO) 1.9 10^3/uL (1.7-8.2); EOSINOPHILS % (AUTO) 5.9 % (0-6); HEMATOCRIT 24.6 % (36.0-47.0); HEMOGLOBIN 8.1 g/dL (12.0-15.5); LYMPHOCYTES % (AUTO) 43.1 % (13-45); MEAN CORPUSCULAR HEMOGLOBIN 32.1 pg (27.0-33.4); MEAN CORPUSCULAR HGB CONC 33.1 g/dL (32.0-36.0); MEAN CORPUSCULAR VOLUME 97 fl (80-97); MONOCYTES % (AUTO) 17.3 % (3-13); PLATELET COUNT 231 10^3/uL (150-450); RED BLOOD COUNT 2.53 10^6/uL (3.72-5.28); RED CELL DISTRIBUTION WIDTH 16.8 % (11.5-14.0); SEGMENTED NEUTROPHILS % (AUTO) 32.7 % (42-78); TOTAL CELLS COUNTED % (AUTO) 100 %; WHITE BLOOD COUNT 5.9 10^3/uL (4.0-10.5)
[2018-12-18] MEDS: OXCARBAZEPINE 150 MG TABLET PO SCH ×3 (05:33→21:35)
[2018-12-18] MEDS: HEPARIN SOD (PORCINE) 5,000 UNIT/ML 1 ML SYRINGE SUBCUT SCH ×3 (05:33→21:35)
[2018-12-18] MEDS: LEVOTHYROXINE SODIUM 0.088 MG TABLET PO SCH (05:33)
[2018-12-18 05:40] LABS: ANION GAP 8 (5-19); BLOOD UREA NITROGEN 9 mg/dL (7-20); CALCIUM 8.8 mg/dL (8.4-10.2); CARBON DIOXIDE 24 mmol/L (22-30); CHLORIDE 113 mmol/L (98-107); GLUCOSE 120 mg/dL (75-110); POTASSIUM 3.7 mmol/L (3.6-5.0); SODIUM 144.9 mmol/L (137-145)
[2018-12-18] MEDS: CYANOCOBALAMIN (VITAMIN B-12) 1,000 MCG TABLET PO SCH (08:39)
[2018-12-18] MEDS: QUETIAPINE FUMARATE 25 MG TABLET PO SCH (08:39)
[2018-12-18] MEDS: THIAMINE HCL 100 MG TABLET PO SCH (08:39)
[2018-12-18] MEDS: FOLIC ACID 1 MG TABLET PO SCH (08:39)
[2018-12-18] MEDS: ALPRAZOLAM 0.25 MG TABLET PO SCH ×2 (08:42→16:47)
[2018-12-18] MEDS ORDERED: TRAMADOL HCL 50 MG TABLET PO PRN (09:10)
--- NOTE | 2018-12-18 09:33 | PDOC PROGRESS REPORT ---
Subjective Progress Note for:: 12/18/18 Subjective:: Patient was admitted for the septic shock and urinary tract infections Patient is currently doing fair Alert awake denied any complaints Discussed with the nursing staff no other concerns Reason For Visit: SEPTIC SHOCK,ACUTE KIDNEY INJURY /H/O ESBL E-COLI Physical Exam Vital Signs: Temp Pulse Resp BP Pulse Ox 97.8 F 83 18 110/56 L 94 12/17/18 14:41 12/18/18 07:00 12/17/18 14:41 12/17/18 14:41 12/17/18 14:41 Intake & Output 12/17/18 12/18/18 12/19/18 06:59 06:59 06:59 Intake Total 1225 3781 Output Total 1600 2225 Balance -375 1556 Weight 89.6 kg 89.8 kg General appearance: PRESENT: no acute distress, well-developed, well-nourished Head exam: PRESENT: atraumatic, normocephalic Eye exam: PRESENT: conjunctiva pink, EOMI, PERRLA. ABSENT: scleral icterus Ear exam: PRESENT: normal external ear exam Mouth exam: PRESENT: moist, tongue midline Neck exam: PRESENT: full ROM. ABSENT: carotid bruit, JVD, lymphadenopathy, thyromegaly Respiratory exam: PRESENT: clear to auscultation juliette Cardiovascular exam: PRESENT: RRR. ABSENT: diastolic murmur, rubs, systolic murmur Pulses: PRESENT: normal dorsalis pedis pul, +2 pedal pulses bilateral Vascular exam: PRESENT: normal capillary refill GI/Abdominal exam: PRESENT: normal bowel sounds, soft. ABSENT: distended, guarding, mass, organolmegaly, rebound, tenderness Rectal exam: PRESENT: deferred Neurological exam: PRESENT: alert, awake. ABSENT: motor sensory deficit Psychiatric exam: PRESENT: appropriate affect, normal mood. ABSENT: homicidal ideation, suicidal ideation Skin exam: PRESENT: dry, intact, warm. ABSENT: cyanosis, rash Results Laboratory Results: 12/18/18 04:59 12/18/18 04:59 12/18/18 12/18/18 04:59 04:59 WBC 5.9 RBC 2.53 L Hgb 8.1 L Hct 24.6 L MCV 97 MCH 32.1 MCHC 33.1 RDW 16.8 H Plt Count 231 Seg Neutrophils % 32.7 L Lymphocytes % 43.1 Monocytes % 17.3 H Eosinophils % 5.9 Basophils % 1.0 Absolute Neutrophils 1.9 Absolute Lymphocytes 2.5 Absolute Monocytes 1.0 Absolute Eosinophils 0.3 Absolute Basophils 0.1 Sodium 144.9 Potassium 3.7 Chloride 113 H Carbon Dioxide 24 Anion Gap 8 BUN 9 Creatinine 0.68 Est GFR ( Amer) > 60 Est GFR (Non-Af Amer) > 60 Glucose 120 H Calcium 8.8 12/11/18 17:33 NT-Pro-B Natriuret Pep 657 H Impressions: Head CT 12/11/18 17:35 IMPRESSION: No acute intracranial pathology. EVIDENCE OF ACUTE STROKE: NO. Chest X-Ray 12/15/18 00:00 IMPRESSION: New small focus of left upper lobe airspace disease. Persistent left basilar airspace disease. 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: Diabetes mellitus shelter insulin use: without termite helper use Diabetes mellitus complication status: with neurologic complications Diabetes mellitus complication detail: with polyneuropathy Qualified Code(s): E11.42 - Type 2 diabetes mellitus with diabetic polyneuropathy Is this a current diagnosis for this admission?: Yes (4) COPD (chronic obstructive pulmonary disease) Is this a current diagnosis for this admission?: Yes (5) Dementia Qualifiers: Dementia type: unspecified type Dementia behavioral disturbance: without behavioral disturbance Qualified Code(s): F03.90 - Unspecified dementia without behavioral disturbance Is this a current diagnosis for this admission?: Yes - Time Time Spent with patient: 15-24 minutes Medications reviewed and adjusted accordingly: Yes Anticipated discharge: Other Within: Other - Plan Summary Plan Summary: Continues to IV antibiotic
[2018-12-18] MEDS: SITAGLIPTIN PHOSPHATE 25 MG TABLET PO SCH (10:37)
[2018-12-18] MEDS: PANTOPRAZOLE SODIUM 40 MG TABLET.DR PO SCH (10:37)
[2018-12-18] MEDS: OXYBUTYNIN CHLORIDE 5 MG TABLET PO SCH ×2 (10:37→21:35)
[2018-12-18] MEDS: MEROPENEM 1 GM in NORMAL SALINE 50 ML IV SCH ×2 (11:01→21:34)
[2018-12-18] MEDS: OLANZAPINE 5 MG TABLET PO SCH (21:35)
[2018-12-19] MEDS: HEPARIN SOD (PORCINE) 5,000 UNIT/ML 1 ML SYRINGE SUBCUT SCH ×2 (05:12→13:07)
[2018-12-19] MEDS: LEVOTHYROXINE SODIUM 0.088 MG TABLET PO SCH (05:13)
[2018-12-19] MEDS: DIVALPROEX SODIUM 250 MG TABLET.DR PO SCH ×3 (05:13→17:01)
[2018-12-19] MEDS: OXCARBAZEPINE 150 MG TABLET PO SCH ×2 (05:13→13:07)
[2018-12-19 07:23] LABS: ANION GAP 8 (5-19); BLOOD UREA NITROGEN 8 mg/dL (7-20); CALCIUM 8.8 mg/dL (8.4-10.2); CARBON DIOXIDE 26 mmol/L (22-30); CHLORIDE 113 mmol/L (98-107); GLUCOSE 97 mg/dL (75-110); SODIUM 146.9 mmol/L (137-145)
[2018-12-19 07:25] LABS: POTASSIUM 4.3 mmol/L (3.6-5.0)
[2018-12-19] MEDS: MEROPENEM 1 GM in NORMAL SALINE 50 ML IV SCH (09:34)
[2018-12-19] MEDS: THIAMINE HCL 100 MG TABLET PO SCH (09:36)
[2018-12-19] MEDS: PANTOPRAZOLE SODIUM 40 MG TABLET.DR PO SCH (09:36)
[2018-12-19] MEDS: ALPRAZOLAM 0.25 MG TABLET PO SCH (09:36)
[2018-12-19] MEDS: OXYBUTYNIN CHLORIDE 5 MG TABLET PO SCH (09:36)
[2018-12-19] MEDS: CYANOCOBALAMIN (VITAMIN B-12) 1,000 MCG TABLET PO SCH (09:36)
[2018-12-19] MEDS: SITAGLIPTIN PHOSPHATE 25 MG TABLET PO SCH (09:37)
[2018-12-19] MEDS: FOLIC ACID 1 MG TABLET PO SCH (09:37)
[2018-12-19] MEDS: QUETIAPINE FUMARATE 25 MG TABLET PO SCH (09:37)
[2018-12-19] MEDS: NORMAL SALINE 1000 ML 1,000 ML IV PRN (09:38)
[2018-12-19] MEDS ORDERED: ALPRAZOLAM 0.25 MG TABLET PO SCH (16:00)
--- NOTE | 2018-12-19 16:56 | PDOC TRANSFER SUMMARY ---
General - Admit/Disc Date/PCP Admission Date/Primary Care Provider: 12/11/18 20:45 ISRA KAY MD Discharge Date: 12/19/18 - Discharge Diagnosis (1) Septic shock Is this a current diagnosis for this admission?: Yes (2) Urinary tract infection Is this a current diagnosis for this admission?: Yes (3) Acute kidney injury Is this a current diagnosis for this admission?: Yes (4) Hypotension Is this a current diagnosis for this admission?: Yes (5) T2DM (type 2 diabetes mellitus) Is this a current diagnosis for this admission?: Yes (6) History of recurrent UTIs Is this a current diagnosis for this admission?: Yes (7) Sepsis Is this a current diagnosis for this admission?: Yes (8) Acute respiratory acidosis Is this a current diagnosis for this admission?: Yes (9) Left upper lobe pneumonia Is this a current diagnosis for this admission?: Yes - Additional Information Home Medications: Acetaminophen [Tylenol Extra Strength 500 mg Tablet] 1,000 mg PO Q8HP PRN 11/03/18 Alprazolam [Xanax 0.25 mg Tablet] 0.25 mg PO BID@0800,1600 11/03/18 Calcium Carbonate/Vitamin D3 [Calcium 500-Vit D3 600 Tablet] 1 tab PO BID 11/03/18 Chlorhexidine Gluconate [Peridex] 15 ml PO QAM 11/03/18 Cranberry 500 mg PO QAM 11/03/18 Cyanocobalamin (Vitamin B-12) [Vitamin B-12 1000 mcg Tablet] 1,000 mcg PO QAM 11/03/18 Divalproex Sodium [Depakote] 250 mg PO Q6 11/03/18 Folic Acid [Folvite 1 mg Tablet] 1 mg PO QAM 11/03/18 Insulin Lispro [Humalog Insulin (Lispro) 100 unit/mL] 0 units SQ .PERSLIDINGSCALE 11/03/18 Levothyroxine Sodium [Synthroid 0.088 mg Tablet] 0.088 mg PO Q6AM 11/03/18 Linagliptin [Tradjenta] 5 mg PO QAM 11/03/18 Olanzapine [Zyprexa] 20 mg PO QHS 11/03/18 Oxcarbazepine [Trileptal 150 mg Tablet] 150 mg PO Q8 11/03/18 Oxybutynin Chloride [Oxybutynin Chloride ER] 10 mg PO QAM 11/03/18 Quetiapine Fumarate [Seroquel 25 mg Tablet] 25 mg PO QAM 11/03/18 Quetiapine Fumarate [Seroquel 25 mg Tablet] 75 mg PO QHS 11/03/18 Sennosides/Docusate 8.6-50 mg [Senna Plus Tablet] 1 tab PO QAM 11/03/18 Thiamine HCl [Thiamine 100 mg Tablet] 100 mg PO QAM 11/03/18 Pantoprazole Sodium [Protonix [address] Tablet] 40 mg PO DAILY #0 tablet.dr 11/09/18 Valsartan 160 mg PO DAILY #1000 tablet 11/09/18 History of Present Illness Admission Date/PCP: 12/11/18 20:45 ISRA KAY MD History of Present Illness: DRE HOPKINS is a 73 year old female, patient is well-known to me I saw her in the custodial on rounds, she was lethargic, very out of character for her she is usually very engaging, in the custodial the blood pressure was low normal the initial blood work that was done demonstrated acute kidney injury, because of this finding I recommended that patient should be referred to the emergency room for further evaluation and management when she arrived in the ER the blood pressure recorded was 71 systolic the kidney function is worsening L&D date the serum creatinine was 2.4 the emergency room the serum creatinine was 3, she was in septic shock with evidence of endorgan dysfunction including e ncephalopathy, acute kidney injury. The source of the sepsis is most likely the urine, the urinalysis was grossly abnormal, she has a history of ESBL E. coli UTI. Fluid resuscitation was started in the emergency room, patient's family did not want any invasive intervention done, no mechanical ventilation no intubation no chest compression family discussed with the ER provider she was made a DNR status Hospital Course Hospital Course: Patient was admitted for the management of septic shock due to urinary tract infection, she was empirically treated with IV antibiotic, intravenous ertapenem because she has a history of ESBL E. coli. The blood pressure was very low on admission she required intravenous fluid resuscitation, she did respond to fluid challenge, there was no indication to treat with intravenous vasopressors. The urine culture grew [id number] specia. She had episode of intermittent low blood pressure requiring fluid therapy, hospital course was prolonged for the most past primarily due to low blood pressure there was associated acute kidney injury, this was prerenal corrected with IV fluid therapy. The venous pH suggest respiratory acidosis but she did not require noninvasive positive pressure ventilation BiPAP she was treated with supplemental oxygen via nasal cannula the initial chest x-ray done demonstrated mild diffuse interstitial pulmonary opacity suggestive of fibrosis there was no focal airspace opacity., She had a repeat chest x-ray done on 12/15/2018 because of concern that she may be volume overloaded, it demonstrated small focus of new airspace disease in the left upper lobe. Lung was clear there was suggestion of pneumonia, patient was continued the same antibiotic, the antibiotic was changed from ertapenem to meropenem during the course of hospital stay. Physical Exam Vital Signs: Temp Pulse Resp BP Pulse Ox 98.1 F 87 19 100/71 97 12/19/18 15:05 12/19/18 15:05 12/19/18 15:05 12/19/18 15:05 12/19/18 15:05 Intake & Output 12/18/18 12/19/18 12/20/18 06:59 06:59 06:59 Intake Total 3781 4357 1890 Output Total 2225 2400 500 Balance 1556 1957 1390 Weight 89.8 kg 85.6 kg General appearance: PRESENT: no acute distress, well-developed, well-nourished Head exam: PRESENT: atraumatic, normocephalic Eye exam: PRESENT: conjunctiva pink, EOMI, PERRLA Ear exam: PRESENT: normal external ear exam Mouth exam: PRESENT: moist, tongue midline Respiratory exam: PRESENT: clear to auscultation juliette Cardiovascular exam: PRESENT: RRR, +S1, +S2 Pulses: PRESENT: normal dorsalis pedis pul Vascular exam: PRESENT: normal capillary refill GI/Abdominal exam: PRESENT: normal bowel sounds, soft Rectal exam: PRESENT: deferred Extremities exam: PRESENT: full ROM Neurological exam: PRESENT: alert, awake, oriented to person, oriented to place, oriented to time, oriented to situation, CN II-XII grossly intact Psychiatric exam: PRESENT: appropriate affect, normal mood Skin exam: PRESENT: dry, intact, warm Results Laboratory Results: 12/18/18 04:59 12/19/18 06:10 12/19/18 06:10 Sodium 146.9 H Potassium 4.3 Chloride 113 H Carbon Dioxide 26 Anion Gap 8 BUN 8 Creatinine 0.67 Est GFR ( Amer) > 60 Est GFR (Non-Af Amer) > 60 Glucose 97 Calcium 8.8 12/11/18 17:33 NT-Pro-B Natriuret Pep 657 H Impressions: Head CT 12/11/18 17:35 IMPRESSION: No acute intracranial pathology. EVIDENCE OF ACUTE STROKE: NO. Chest X-Ray 12/15/18 00:00 IMPRESSION: New small focus of left upper lobe airspace disease. Persistent left basilar airspace disease. Qualifiers - * PATIENT BEING DISCHARGED WITH ANY OF THE FOLLOWING DIAGNOSIS: No Acute Heart Failure Is this a Heart Failure Patient?: No
[2018-12-19 19:39] VITALS: BP 137/63
== END 2018-12-19 19:45 | DRG 871 ==
LOC: ER 16:49 → EH 20:45 → 3S 12-12 01:30
PROVIDERS: ADMIT Internal Medicine; ATTEND Internal Medicine
DX: A41.9 Sepsis, unspecified organism (principal); J18.1 Lobar pneumonia, unspecified organism; N17.9 Acute kidney failure, unspecified; J44.0 Chronic obstructive pulmonary disease with (acute) lower respiratory infection; R65.20 Severe sepsis without septic shock; Z66 Do not resuscitate; I95.9 Hypotension, unspecified; B96.20 Unspecified Escherichia coli [E. coli] as the cause of diseases classified elsewhere; E78.5 Hyperlipidemia, unspecified; I10 Essential (primary) hypertension; E03.9 Hypothyroidism, unspecified; K21.9 Gastro-esophageal reflux disease without esophagitis; D64.9 Anemia, unspecified; F31.9 Bipolar disorder, unspecified; E11.42 Type 2 diabetes mellitus with diabetic polyneuropathy; G30.9 Alzheimer's disease, unspecified; F02.80 Dementia in other diseases classified elsewhere, unspecified severity, without behavioral disturbance, psychotic disturbance, mood disturbance, and anxiety; Z79.4 Long term (current) use of insulin; Z87.440 Personal history of urinary (tract) infections; Z79.899 Other long term (current) drug therapy; Z79.890 Hormone replacement therapy; Z90.710 Acquired absence of both cervix and uterus; Z87.891 Personal history of nicotine dependence; Z79.1 Long term (current) use of non-steroidal anti-inflammatories (NSAID); Z88.8 Allergy status to other drugs, medicaments and biological substances
CPT/HCPCS: 36415; 51702; 70450; 71045; 80048; 80053; 80061; 80076; 80307; 81001; 82150; 82803; 83036; 83605; 83690; 83735; 83880; 84100; 84439; 84443; 85025; 85610; 86850; 86900; 86901; 87040; 87086; 87088; 87186; 93005; 93010; 96361; 96374; 99285; C1751; J1335; J1644; J2185; J2405; J3490; J7030; J7120

== ENCOUNTER 2019-01-18 20:36 | Inpatient (IN) | payer MEDICARE, MEDICAID ==
[2019-01-18 20:54] LABS: ABSOLUTE BASOPHILS # (AUTO) 0.1 10^3/uL (0.0-0.2); ABSOLUTE EOSINOPHILS # (AUTO) 0.1 10^3/uL (0.0-0.6); ABSOLUTE LYMPHOCYTES (AUTO) 2.1 10^3/uL (0.5-4.7); ABSOLUTE MONOCYTES (AUTO) 2.7 10^3/uL (0.1-1.4); ABSOLUTE NEUT (AUTO) 10.8 10^3/uL (1.7-8.2); BASOPHILS % (AUTO) 0.5 % (0-2); EOSINOPHILS % (AUTO) 0.8 % (0-6); HEMATOCRIT 26.9 % (36.0-47.0); HEMOGLOBIN 8.6 g/dL (12.0-15.5); LYMPHOCYTES % (AUTO) 13.4 % (13-45); MEAN CORPUSCULAR HEMOGLOBIN 31.8 pg (27.0-33.4); MEAN CORPUSCULAR HGB CONC 32.1 g/dL (32.0-36.0); MEAN CORPUSCULAR VOLUME 99 fl (80-97); PLATELET COUNT 281 10^3/uL (150-450); RED BLOOD COUNT 2.71 10^6/uL (3.72-5.28); RED CELL DISTRIBUTION WIDTH 16.5 % (11.5-14.0); SEGMENTED NEUTROPHILS % (AUTO) 68.3 % (42-78); TOTAL CELLS COUNTED % (AUTO) 100 %; WHITE BLOOD COUNT 15.8 10^3/uL (4.0-10.5)
[2019-01-18 20:58] LABS: INTERNATIONAL RATION (INR) 1.25; PROTHROMBIN TIME 15.8 SEC (11.4-15.4)
[2019-01-18 21:02] LABS: VENOUS BLOOD BASE EXCESS 0.1 mmol/L; VENOUS BLOOD HCO3 26.2 mmol/L (20-32); VENOUS BLOOD PCO2 50.3 mmHg (35-63); VENOUS BLOOD PH 7.34 (7.30-7.42)
[2019-01-18 21:09] LABS: ALANINE AMINOTRANSFERASE 14 U/L (9-52); ALBUMIN 3.4 g/dL (3.5-5.0); ALKALINE PHOSPHATASE 67 U/L (38-126); ANION GAP 11 (5-19); ASPARTATE AMINO TRANSFERASE 21 U/L (14-36); BILIRUBIN,DIRECT 0.3 mg/dL (0.0-0.4); BILIRUBIN,TOTAL 0.3 mg/dL (0.2-1.3); BLOOD UREA NITROGEN 48 mg/dL (7-20); CALCIUM 9.7 mg/dL (8.4-10.2); CARBON DIOXIDE 25 mmol/L (22-30); CHLORIDE 101 mmol/L (98-107); GLUCOSE 164 mg/dL (75-110); POTASSIUM 4.4 mmol/L (3.6-5.0); SODIUM 136.6 mmol/L (137-145)
[2019-01-18 21:51] LABS: APPEARANCE,URINE TURBID; BILIRUBIN,URINE NEGATIVE (NEGATIVE); COLOR,URINE AMBER; GLUCOSE, URINE NEGATIVE (NEGATIVE); KETONES,URINE TRACE mg/dL (NEGATIVE); LEUKOCYTE ESTERASE,URINE LARGE (NEGATIVE); NITRITE,URINE NEGATIVE (NEGATIVE); PROTEIN,URINE 100 mg/dL (NEGATIVE); URINE SPECIFIC GRAVITY 1.021; UROBILINOGEN,URINE NEGATIVE mg/dL (<2.0)
--- NOTE | 2019-01-18 21:59 | ER Document Report ---
ED General - General Chief Complaint: Abnormal Lab Results Stated Complaint: ABNORMAL LAB VALUES Time Seen by Provider: 01/18/19 21:57 Notes: Patient is a 74-year-old female with history of dementia who presents from a retirement due to "lab abnormality". Is unclear exactly what the lab abnormality was his the paramedics informed the nursing staff that the retirement was unsure what it was. They were informed of this and the patient to the ER. From x-ray patient was hypotensive and she has been hypotensive upon arrival to the ED. Looking through records she was recently discharged from hospital after being diagnosed with septic shock. Patient denies any pain at this time. She denies feeling nauseous or sick in her stomach. She has no current complaints at this time. TRAVEL OUTSIDE OF THE [place] IN LAST 30 DAYS: No - Related Data Allergies/Adverse Reactions: chlorpromazine HCl [From Thorazine] Allergy (Unknown, Verified 11/02/18 16:29) lithium [Rosine] Allergy (Unknown, Verified 11/02/18 16:29) Past Medical History - Social History Smoking Status: Never Smoker Frequency of alcohol use: None Drug Abuse: None Family History: Reviewed & Not Pertinent, Other - Unknown - Past Medical History Cardiac Medical History: Reports: Hx Hypercholesterolemia, Hx Hypertension Denies: Hx Coronary Artery Disease, Hx Heart Attack, Hx Heart Murmur Pulmonary Medical History: Reports: Hx Asthma, Hx COPD, Hx Pneumonia Denies: Hx Bronchitis, Hx Respiratory Failure, Hx Sleep Apnea, Hx Tuberculosis Neurological Medical History: Reports: Hx Seizures. Denies: Hx Cerebrovascular Accident Endocrine Medical History: Reports: Hx Diabetes Mellitus Type 2, Hx Hypothyroidism Renal/ Medical History: Denies: Hx Peritoneal Dialysis GI Medical History: Reports: Hx Gastroesophageal Reflux Disease. Denies: Hx Pancreatitis Musculoskeletal Medical History: Reports Hx Arthritis - osteoarthritis, Denies Hx Systemic Lupus Erythematosus Psychiatric Medical History: Reports: Hx Bipolar Disorder, Hx Dementia, Hx D epression, Hx Schizoaffective Disorder, Hx Schizophrenia Past Surgical History: Reports: Hx Hysterectomy, Hx Tubal Ligation - Immunizations Immunizations up to date: Yes Hx Diphtheria, Pertussis, Tetanus Vaccination: Yes Hx Pneumococcal Vaccination: 04/10/14 Review of Systems - Review of Systems Notes: My Normal Review Basic REVIEW OF SYSTEMS: CONSTITUTIONAL : Denies fever, chills, or sweats. Denies recent illness. RESPIRATORY: Denies cough, cold, or chest congestion. Denies shortness of breath, difficulty breathing, or wheezing. GASTROINTESTINAL: Denies abdominal pain. Denies nausea, vomiting, or diarrhea. Denies constipation. Last BM: GENITOURINARY: Denies difficulty urinating, painful urination, burning, frequency, or blood in urine. MUSCULOSKELETAL: Denies neck or back pain or joint pain or swelling. SKIN: Denies rash or skin lesions. NEUROLOGICAL: Denies altered mental status or loss of consciousness. Denies headache. Denies weakness or paralysis or loss of use of either side. Denies problems with gait or speech. Denies sensory or motor loss. ALL OTHER SYSTEMS REVIEWED AND NEGATIVE. Physical Exam - Vital signs Vitals: Resp Pulse Ox 16 96 01/18/19 20:43 01/18/19 20:43 - Notes Notes: General Appearance: Well nourished, alert, cooperative, no acute distress, no obvious discomfort. Vitals: reviewed, See vital signs table. Head: no swelling or tenderness to the head Eyes: PERRL, EOMI, Conjuctiva clear Mouth: No decreasd moisture Lungs: No wheezing, No rales, No rhonci, No accessory muscle use, good air exchange bilaterally. Heart: Normal rate, Regular rythm, No murmur, no rub Abdomen: Normal BS, soft, No rigidity, No abdominal tenderness, No guarding, no rebound, no abdominal masses, no organomegaly Extremities: strength 5/5 in all extremities, good pulses in all extremities, no swelling or tenderness in the extremities, no edema. Skin: warm, dry, appropriate color, no rash Neuro: speech clear, oriented x 2, normal affect, responds appropriately to most questions. Symmetric facial movement. Patient able to move her extremities without difficulty. Distal sensation intact. Course - Re-evaluation Re-evalutation: 01/19/19 01:[address] Robledo who is covering for Dr. Muhammad on the phone. Informed of the patient's condition. Informed him that the patient initially responds IV fluids but then her blood pressure drops again. I did review Dr. Muhammad's notes from her last admission which mentioned that he had spoke with the family and that they wanted the patient to be a DNR without intubation or CPR and they did not want significant interventions done. He did not specify specify what they meant by significant interventions and therefore I did try to contact the point of contact on her paperwork which is Kenia Victoria. Do not olive picker the phone and I did leave a message. I want to see if they would be okay with central line and pressor therapy or if this was against her wishes. When I spoke with Dr. Ramirez he says that he does not want to start pressors on the patient due to her previous history of DNR. He recommends just continued fluid therapy and he will admit the patient to the IMCU. I did start patient on Rocephin. This was based on sensitivities from her previous urine culture. Dictation of this chart was performed using voice recognition software; therefore, there may be some unintended grammatical errors. - Vital Signs Vital signs: Temp Pulse Resp BP Pulse Ox 98.4 F 96 24 H 106/48 L 92 01/19/19 03:48 01/19/19 03:51 01/19/19 03:48 01/19/19 03:51 01/19/19 03:51 - Laboratory Result Diagrams: 01/19/19 06:29 01/19/19 06:29 Laboratory results interpreted by me: 01/18/19 01/18/19 01/18/19 20:10 20:10 20:10 WBC 15.8 H RBC 2.71 L Hgb 8.6 L Hct 26.9 L MCV 99 H RDW 16.5 H Monocytes % 17.0 H Absolute Neutrophils 10.8 H Absolute Monocytes 2.7 H PT 15.8 H Sodium 136.6 L BUN 48 H Creatinine 2.20 H Est GFR ( Amer) 26 L Est GFR (Non-Af Amer) 22 L Glucose 164 H Albumin 3.4 L Urine Protein Urine Ketones Ur Leukocyte Esterase Urine Ascorbic Acid 01/18/19 21:13 WBC RBC Hgb Hct MCV RDW Monocytes % Absolute Neutrophils Absolute Monocytes PT Sodium BUN Creatinine Est GFR ( Amer) Est GFR (Non-Af Amer) Glucose Albumin Urine Protein 100 H Urine Ketones TRACE H Ur Leukocyte Esterase LARGE H Urine Ascorbic Acid 40 H - EKG Interpretation by Me Additional EKG results interpreted by me: 01/18/19 21:58 EKG is reviewed and interpreted by me. EKG shows normal sinus rhythm with a rate [address] segment elevation or depression. No ischemic T wave inversions. MT interval, QRS duration, QT intervals are within normal range. Old EKG for comparison is from December 11, 2018. Discharge - Discharge Clinical Impression: UTI (urinary tract infection) Qualifiers: Urinary tract infection type: site unspecified Hematuria presence: without hematuria Qualified Code(s): N39.0 - Urinary tract infection, site not specified Hypotension Qualifiers: Hypotension type: unspecified hypotension type Qualified Code(s): I95.9 - Hypotension, unspecified Sepsis Qualifiers: Sepsis type: sepsis due to unspecified organism Qualified Code(s): A41.9 - Sepsis, unspecified organism Condition: Stable Disposition: ADMITTED INPATIENT Admitting Provider: [facility] Admitted: [facility]
[2019-01-18] MEDS ORDERED: NORMAL SALINE 1000 ML 1,000 ML IV ONE ×3 (22:21→23:37)
[2019-01-18] MEDS ORDERED: CEFTRIAXONE 1 GM/D5W RTU 1 GM/50 ML RTUPB IV ONE (23:00)
--- NOTE | 2019-01-18 23:36 | EKG REPORT ---
SEVERITY:- NORMAL ECG - SINUS RHYTHM : Confirmed by: Vinay Galloway 18-Jan-2019 23:35:58
--- NOTE | 2019-01-19 02:21 | RADIOLOGY REPORT (SQ) ---
EXAM DESCRIPTION: [facility]: XR CHEST 1 VIEW CLINICAL HISTORY: 74 years Female, sepsis COMPARISON: 12/15/2018 FINDINGS: There is a dense predominantly interstitial infiltrate in the right mid and lower lung field, with mild right lateral pleural thickening, possibly effusion. No pneumothorax. Aeration of the left lower lobe has improved since prior exam. No left pneumothorax or pleural effusion. Aortic calcifications are again noted. Mediastinum is unchanged. Bony structures are unremarkable. IMPRESSION: 1. Pneumonia involving right middle lobe and right lower lobe, and possibly a portion of the right upper lobe. 2. Minimal right pleural effusion. 3. Improved aeration of the left lower lobe since 12/15/2018
[2019-01-19] MEDS ORDERED: NORMAL SALINE 1000 ML 1,000 ML IV ONE (02:41)
[2019-01-19] MEDS ORDERED: GLUCAGON,HUMAN RECOMB 1 MG INJ IM PRN (06:30)
[2019-01-19] MEDS ORDERED: DEXTROSE 40% GEL 15 GM TUBE X 2 PO PRN (06:30)
[2019-01-19] MEDS ORDERED: DEXTROSE 50%-WATER SYRINGE 12.5 GM/25 ML DOSE IV PRN (06:30)
[2019-01-19] MEDS ORDERED: DEXTROSE 40% GEL 15 GM TUBE PO PRN (06:30)
[2019-01-19] MEDS ORDERED: DEXTROSE 50%-WATER SYRINGE 25 GM/50 ML DOSE IV PRN (06:30)
[2019-01-19 06:50] LABS: ABSOLUTE EOSINOPHILS # (AUTO) 0.2 10^3/uL (0.0-0.6); ABSOLUTE LYMPHOCYTES (AUTO) 1.2 10^3/uL (0.5-4.7); ABSOLUTE MONOCYTES (AUTO) 2.2 10^3/uL (0.1-1.4); BASOPHILS % (AUTO) 0.4 % (0-2); EOSINOPHILS % (AUTO) 1.4 % (0-6); HEMATOCRIT 25.6 % (36.0-47.0); HEMOGLOBIN 8.2 g/dL (12.0-15.5); LYMPHOCYTES % (AUTO) 9.3 % (13-45); MEAN CORPUSCULAR HEMOGLOBIN 31.4 pg (27.0-33.4); MEAN CORPUSCULAR HGB CONC 32.1 g/dL (32.0-36.0); MEAN CORPUSCULAR VOLUME 98 fl (80-97); MONOCYTES % (AUTO) 17.2 % (3-13); PLATELET COUNT 240 10^3/uL (150-450); RED BLOOD COUNT 2.61 10^6/uL (3.72-5.28); RED CELL DISTRIBUTION WIDTH 16.5 % (11.5-14.0); SEGMENTED NEUTROPHILS % (AUTO) 71.7 % (42-78); TOTAL CELLS COUNTED % (AUTO) 100 %; WHITE BLOOD COUNT 12.5 10^3/uL (4.0-10.5)
[2019-01-19] MEDS: NORMAL SALINE 1000 ML 1,000 ML IV PRN ×2 (06:57→17:00)
[2019-01-19 06:58] LABS: ANION GAP 10 (5-19); BLOOD UREA NITROGEN 36 mg/dL (7-20); CALCIUM 8.1 mg/dL (8.4-10.2); CARBON DIOXIDE 21 mmol/L (22-30); CHLORIDE 111 mmol/L (98-107); GLUCOSE 140 mg/dL (75-110); POTASSIUM 4.2 mmol/L (3.6-5.0); SODIUM 141.8 mmol/L (137-145)
[2019-01-19] MEDS: INSULIN LISPRO 100 UNIT/ML 3 ML VIAL SUBCUT SCH ×4 (08:17→23:14)
--- NOTE | 2019-01-19 19:38 | PDOC H&P ---
History of Present Illness Admission Date/PCP: 01/19/19 02:03 ISRA KAY MD History of Present Illness: DRE HOPKINS is a 74 year old female of Dr Kay, brought to the Ed by EMS from local SNF due to unclear abnormal lab result. Patient was hypotensive upon arrival in the ED and her evaluation was remarkable for multi lobar airspace disease, abnormal urinalysis and leukocytosis. due to her baseline dementia she was unable to significantly contribute to her medical history. Her morbidities include DM type 2, Hypothyroidism, HTN, HLD, COPD, Bipolar depression, seizure disorder, Dementia, and Osteoarthritis. Past Medical History Cardiac Medical History: Reports: Hyperlipidema, Hypertension Denies: Coronary Artery Disease, Myocardial Infarction, Heart Murmur Pulmonary Medical History: Reports: Asthma, Chronic Obstructive Pulmonary Disease (COPD), Pneumonia Denies: Bronchitis, Respiratory Failure, Sleep Apnea, Tuberculosis Neurological Medical History: Reports: Seizures Endocrine Medical History: Reports: Diabetes Mellitus Type 2, Hypothyroidism GI Medical History: Reports: Gastroesophageal Reflux Disease Musculoskeltal Medical History: Reports: Arthritis - osteoarthritis Psychiatric Medical History: Reports: Bipolar Disorder, Dementia, Depression, Schizoaffective Disorder Hematology: Reports: Anemia Past Surgical History Past Surgical History: Reports: Hysterectomy, Tubal Ligation Social History Smoking Status: Never Smoker Frequency of Alcohol Use: None Hx Recreational Drug Use: No Hx Prescription Drug Abuse: No - Advance Directive Resuscitation Status: Do Not Resuscitate Family History Family History: Reviewed & Not Pertinent, Other - Unknown Parental Family History Reviewed: Yes Children Family History Reviewed: Yes Sibling(s) Family History Reviewed.: Yes Medication/Allergy Home Medications: Acetaminophen [Tylenol Extra Strength 500 mg Tablet] 1,000 mg PO Q8HP PRN 01/19/19 Calcium Carbonate/Vitamin D3 [Calcium 600-Vit D3 200 Tablet] 1 each PO BID 01/19/19 Chlorhexidine Gluconate [Periogard 0.12% Oral Rinse 15 ml] 15 ml MM QAM 01/19/19 Cranberry Fruit Extract [Cranberry] 500 mg PO QAM 01/19/19 Cyanocobalamin (Vitamin B-12) [Vitamin B-12 1000 Mcg Tablet] 1,000 mcg PO QAM 01/19/19 Divalproex Sodium [Depakote] 250 mg PO Q6 01/19/19 Folic Acid [Folvite 1 mg Tablet] 1 mg PO QAM 01/19/19 Insulin Lispro [Humalog Insulin 100 Unit/1 ml 3 ml Vial] 0 unit SUBCUT .SLD SCALE 01/19/19 Levothyroxine Sodium [Synthroid 0.088 mg Tablet] 88 mcg PO Q6AM 01/19/19 Linagliptin [Tradjenta] 5 mg PO DAILY 01/19/19 Olanzapine [Zyprexa] 20 mg PO QHS 01/19/19 Oxcarbazepine [Trileptal 150 Mg Tablet] 150 mg PO Q8 01/19/19 Oxybutynin Chloride [Oxybutynin Chloride ER] 10 mg PO QAM 01/19/19 Pantoprazole Sodium [Protonix [address] Tablet] 40 mg PO DAILY 01/19/19 Quetiapine Fumarate [Seroquel 25 mg Tablet] 75 mg PO QPM 01/19/19 Quetiapine Fumarate [Seroquel] 25 mg PO QAM 01/19/19 Sennosides/Docusate 8.6-50 mg [Senna Plus Tablet] 1 tab PO QAM 01/19/19 Thiamine HCl [Thiamine 100 mg Tablet] 100 mg PO QAM 01/19/19 Valsartan [Diovan 160 mg Tablet] 160 mg PO DAILY 01/19/19 Allergies/Adverse Reactions: chlorpromazine HCl [From Thorazine] Allergy (Unknown, Verified 11/02/18 16:29) lithium [[place]] Allergy (Unknown, Verified 11/02/18 16:29) Review of Systems Constitutional: ABSENT: anorexia, chills, fever(s) Eyes: ABSENT: visual disturbances Ears: ABSENT: hearing changes Cardiovascular: ABSENT: chest pain Respiratory: ABSENT: cough, dyspnea Gastrointestinal: ABSENT: abdominal pain, constipation, diarrhea, nausea, vomiting Genitourinary: ABSENT: difficulty urinating, dysuria Neurological: ABSENT: dizziness, vertigo Hematologic/Lymphatic: ABSENT: easy bleeding, easy bruising Allergic/Immunologic: ABSENT: seasonal rhinorrhea Physical Exam Vital Signs: Temp Pulse Resp BP Pulse Ox 98.2 F 96 20 107/52 L 97 01/19/19 07:21 01/19/19 14:00 01/19/19 07:21 01/19/19 07:21 01/19/19 07:21 Intake & Output 07/10/0401/19/19 01/20/19 06:59 06:59 06:59 Intake Total 3571 220 Balance 3571 220 Weight 89.9 kg General appearance: PRESENT: no acute distress Head exam: PRESENT: atraumatic, normocephalic Eye exam: PRESENT: conjunctiva pink, EOMI, PERRLA. ABSENT: scleral icterus Ear exam: PRESENT: normal external ear exam Mouth exam: PRESENT: moist Respiratory exam: PRESENT: decreased breath sounds - lung bases Cardiovascular exam: PRESENT: RRR. ABSENT: diastolic murmur, rubs, systolic murmur Vascular exam: ABSENT: pallor GI/Abdominal exam: PRESENT: normal bowel sounds, soft. ABSENT: distended, guarding, mass, organolmegaly, rebound, tenderness Rectal exam: PRESENT: deferred Extremities exam: ABSENT: pedal edema Neurological exam: PRESENT: alert, awake - and appropriate in simple responses Psychiatric exam: PRESENT: normal mood. ABSENT: agitated, anxious Skin exam: PRESENT: dry, warm Results Laboratory Results: 01/19/19 06:29 01/19/19 06:29 01/18/19 01/18/19 01/18/19 20:10 20:10 20:50 WBC 15.8 H RBC 2.71 L Hgb 8.6 L Hct 26.9 L MCV 99 H MCH 31.8 MCHC 32.1 RDW 16.5 H Plt Count 281 Seg Neutrophils % 68.3 Lymphocytes % 13.4 Monocytes % 17.0 H Eosinophils % 0.8 Basophils % 0.5 Absolute Neutrophils 10.8 H Absolute Lymphocytes 2.1 Absolute Monocytes 2.7 H Absolute Eosinophils 0.1 Absolute Basophils 0.1 VBG pH VBG pCO2 VBG HCO3 VBG Base Excess Sodium 136.6 L Potassium 4.4 Chloride 101 Carbon Dioxide 25 Anion Gap 11 BUN 48 H Creatinine 2.20 H Est GFR ( Amer) 26 L Est GFR (Non-Af Amer) 22 L Glucose 164 H Lactic Acid 1.8 Calcium 9.7 Total Bilirubin 0.3 AST 21 ALT 14 Alkaline Phosphatase 67 Total Protein 7.0 Albumin 3.4 L Urine Color Urine Appearance Urine pH Ur Specific [place] Urine Protein Urine Glucose (UA) Urine Ketones Urine Blood Urine Nitrite Ur Leukocyte Esterase Urine WBC (Auto) Urine RBC (Auto) 01/18/19 01/18/19 01/19/19 20:50 21:13 06:29 WBC 12.5 H RBC 2.61 L Hgb 8.2 L Hct 25.6 L MCV 98 H MCH 31.4 MCHC 32.1 RDW 16.5 H Plt Count 240 Seg Neutrophils % 71.7 Lymphocytes % 9.3 L Monocytes % 17.2 H Eosinophils % 1.4 Basophils % 0.4 Absolute Neutrophils 9.0 H Absolute Lymphocytes 1.2 Absolute Monocytes 2.2 H Absolute Eosinophils 0.2 Absolute Basophils 0.0 VBG pH 7.34 VBG pCO2 50.3 VBG HCO3 26.2 VBG Base Excess 0.1 Sodium Potassium Chloride Carbon Dioxide Anion Gap BUN Creatinine Est GFR ( Amer) Est GFR (Non-Af Amer) Glucose Lactic Acid Calcium Total Bilirubin AST ALT Alkaline Phosphatase Total Protein Albumin Urine Color [place] Urine Appearance TURBID Urine pH 5.0 Ur Specific [place] 1.021 Urine Protein 100 H Urine Glucose (UA) NEGATIVE Urine Ketones TRACE H Urine Blood NEGATIVE Urine Nitrite NEGATIVE Ur Leukocyte Esterase LARGE H Urine WBC (Auto) >182 Urine RBC (Auto) 7 01/19/19 06:29 WBC RBC Hgb Hct MCV MCH MCHC RDW Plt Count Seg Neutrophils % Lymphocytes % Monocytes % Eosinophils % Basophils % Absolute Neutrophils Absolute Lymphocytes Absolute Monocytes Absolute Eosinophils Absolute Basophils VBG pH VBG pCO2 VBG HCO3 VBG Base Excess Sodium 141.8 Potassium 4.2 Chloride 111 H Carbon Dioxide 21 L Anion Gap 10 BUN 36 H Creatinine 1.20 Est GFR ( Amer) 53 L Est GFR (Non-Af Amer) 44 L Glucose 140 H Lactic Acid Calcium 8.1 L Total Bilirubin AST ALT Alkaline Phosphatase Total Protein Albumin Urine Color Urine Appearance Urine pH Ur Specific [place] Urine Protein Urine Glucose (UA) Urine Ketones Urine Blood Urine Nitrite Ur Leukocyte Esterase Urine WBC (Auto) Urine RBC (Auto) Impressions: Chest X-Ray 01/19/19 01:42 IMPRESSION: 1. Pneumonia involving right middle lobe and right lower lobe, and possibly a portion of the right upper lobe. 2. Minimal right pleural effusion. 3. Improved aeration of the left lower lobe since 12/15/2018 Assessment & Plan - Diagnosis (1) Multilobar lung infiltrate Is this a current diagnosis for this admission?: Yes Plan: See admitting physician orders for details of care plan. (2) Urinary tract infection Qualifiers: Urinary tract infection type: site unspecified Hematuria presence: without hematuria Qualified Code(s): N39.0 - Urinary tract infection, site not specified Is this a current diagnosis for this admission?: Yes Plan: See admitting physician orders for details of care plan. (3) Hypotension Qualifiers: Trimester: unspecified trimester Is this a current diagnosis for this admission?: Yes Plan: See admitting physician orders for details of care plan. (4) COPD (chronic obstructive pulmonary disease) Qualifiers: Emphysema type: unspecified Is this a current diagnosis for this admission?: Yes Plan: See admitting physician orders for details of care plan. 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 - Time Time Spent: 50 to 70 Minutes Medications reviewed and adjusted accordingly: Yes Anticipated discharge: SNF Within: Other - Inpatient Certification Based on my medical assessment, after consideration of the patient's comorbidities, presenting symptoms, or acuity I expect that the services needed warrant INPATIENT care.: Yes I certify that my determination is in accordance with my understanding of Medicare's requirements for reasonable and necessary INPATIENT services [42 CFR 412.3e].: Yes Medical Necessity: Significant Comorbidiites Make Outpatient Treatment Too Risky, Need Close Monitoring Due to Risk of Patient Decompensation, Need For IV Fluids, Need For Continuous Telemetry Monitoring, Need for IV Antibiotics, Risk of Complication if Not Cared For in Hospital, Risk of Diagnosis Which Will Require Inpatient Eval/Care/Monitoring Post Hospital Care: D/C or Transfer Summary - Plan Summary Plan Summary: See admitting physician orders for details of care plan.
--- NOTE | 2019-01-19 19:53 | ADVANCED CARE ---
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 Allowed medical treatment and if necessary central line placement. Care Planning Goals: No resuscitative intervention. Document(s) Completed: Order entered on the EHR system Time Spent: 15 minutes
[2019-01-19] MEDS ORDERED: AMLODIPINE BESYLATE 5 MG TABLET PO ONE (20:30)
[2019-01-19] MEDS ORDERED: LEVOFLOXACIN 500 MG/D5W RTU 500 MG/100 ML RTUPB IV ONE (21:00)
[2019-01-19] MEDS: CEFEPIME 1 GM/D5W RTU 1 GM/50 ML RTUPB IV SCH (22:49)
[2019-01-19] MEDS: OLANZAPINE 5 MG TABLET PO SCH (22:49)
[2019-01-19] MEDS ORDERED: OXYBUTYNIN CHLORIDE 5 MG TABLET PO ONE (23:00)
[2019-01-19] MEDS ORDERED: QUETIAPINE FUMARATE 25 MG TABLET PO ONE (23:00)
[2019-01-19] MEDS: DIVALPROEX SODIUM 250 MG TABLET.DR PO SCH (23:07)
[2019-01-19] MEDS: QUETIAPINE FUMARATE 25 MG TABLET PO ONE ×2 (23:07→23:31)
[2019-01-19] MEDS: LEVOFLOXACIN 500 MG/D5W RTU 500 MG/100 ML RTUPB IV ONE (23:31)
[2019-01-20] MEDS: NORMAL SALINE 1000 ML 1,000 ML IV PRN (02:17)
[2019-01-20] MEDS: LEVOFLOXACIN 500 MG/D5W RTU 500 MG/100 ML RTUPB IV ONE (02:19)
[2019-01-20 05:45] LABS: HEMATOCRIT 24.5 % (36.0-47.0); MEAN CORPUSCULAR HEMOGLOBIN 32.3 pg (27.0-33.4); MEAN CORPUSCULAR HGB CONC 32.8 g/dL (32.0-36.0); MEAN CORPUSCULAR VOLUME 99 fl (80-97); PLATELET COUNT 277 10^3/uL (150-450); RED BLOOD COUNT 2.49 10^6/uL (3.72-5.28); RED CELL DISTRIBUTION WIDTH 16.9 % (11.5-14.0); WHITE BLOOD COUNT 9.7 10^3/uL (4.0-10.5)
[2019-01-20 05:52] LABS: ALANINE AMINOTRANSFERASE 18 U/L (9-52); ALBUMIN 2.7 g/dL (3.5-5.0); ALKALINE PHOSPHATASE 59 U/L (38-126); ANION GAP 8 (5-19); ASPARTATE AMINO TRANSFERASE 17 U/L (14-36); BILIRUBIN,DIRECT 0.2 mg/dL (0.0-0.4); BILIRUBIN,TOTAL 0.2 mg/dL (0.2-1.3); BLOOD UREA NITROGEN 22 mg/dL (7-20); CALCIUM 9.1 mg/dL (8.4-10.2); CARBON DIOXIDE 23 mmol/L (22-30); CHLORIDE 113 mmol/L (98-107); GLUCOSE 115 mg/dL (75-110); POTASSIUM 4.4 mmol/L (3.6-5.0); SODIUM 143.9 mmol/L (137-145)
[2019-01-20] MEDS ORDERED: LEVOTHYROXINE SODIUM 0.088 MG TABLET ONE (05:56)
[2019-01-20] MEDS: PANTOPRAZOLE SODIUM 40 MG TABLET.DR PO SCH (06:14)
[2019-01-20] MEDS: LEVOTHYROXINE SODIUM 0.088 MG TABLET PO SCH (06:14)
[2019-01-20] MEDS: DIVALPROEX SODIUM 250 MG TABLET.DR PO SCH ×3 (06:14→18:11)
[2019-01-20 06:39] LABS: ABSOLUTE LYMPHOCYTES# (MANUAL) 1.7 10^3/uL (0.5-4.7); ABSOLUTE MONOCYTES # (MANUAL) 1.8 10^3/uL (0.1-1.4); BAND NEUTROPHILS % (MANUAL) 2 % (3-5); BASOPHILS % (MANUAL) 0 % (0-2); EOSINOPHILS % (MANUAL) 0 % (0-6); LYMPHOCYTES % (MANUAL) 18 % (13-45); MONOCYTES % (MANUAL) 19 % (3-13); SEGMENTED NEUTROPHILS % (MAN) 61 % (42-78); TOTAL CELLS COUNTED 100
[2019-01-20 06:40] LABS: HYPOCHROMASIA 3+
[2019-01-20 06:41] LABS: ANISOCYTOSIS 1+; PLATELET COMMENT ADEQUATE
[2019-01-20] MEDS: FOLIC ACID 1 MG TABLET PO SCH (08:38)
[2019-01-20] MEDS: SENNOSIDES/DOCUSATE 8.6-50 MG 1 EACH TABLET PO SCH (08:38)
[2019-01-20] MEDS: THIAMINE HCL 100 MG TABLET PO SCH (08:39)
[2019-01-20] MEDS: QUETIAPINE FUMARATE 25 MG TABLET PO SCH ×2 (08:39→18:11)
[2019-01-20] MEDS: CYANOCOBALAMIN (VITAMIN B-12) 1,000 MCG TABLET PO SCH (08:39)
[2019-01-20] MEDS: CHLORHEXIDINE GLUCONATE 0.12% ORAL RINSE 15 ML UDC MM SCH (08:41)
[2019-01-20] MEDS: INSULIN LISPRO 100 UNIT/ML 3 ML VIAL SUBCUT SCH ×4 (08:41→21:47)
[2019-01-20] MEDS: VALSARTAN 160 MG TABLET PO SCH (09:51)
[2019-01-20] MEDS: SITAGLIPTIN PHOSPHATE 50 MG TABLET PO SCH (09:52)
[2019-01-20] MEDS: ENOXAPARIN SODIUM INJ 40 MG/0.4 ML DISP.SYRIN SUBCUT SCH (09:52)
[2019-01-20] MEDS: CALCIUM CARBONATE 250 MG/VITAMIN D3 125 UNIT TABLET PO SCH ×2 (09:52→18:10)
[2019-01-20] MEDS: OXYBUTYNIN CHLORIDE 5 MG TABLET PO SCH ×2 (09:52→21:47)
[2019-01-20] MEDS: CEFEPIME 1 GM/D5W RTU 1 GM/50 ML RTUPB IV SCH ×2 (09:54→21:47)
[2019-01-20] MEDS ORDERED: AMLODIPINE BESYLATE 5 MG TABLET PO SCH (10:00)
--- NOTE | 2019-01-20 14:50 | PDOC PROGRESS REPORT ---
Subjective Progress Note for:: 01/20/19 Reason For Visit: MULTILOBAR PNEUMONIA,UTI Physical Exam Vital Signs: Temp Pulse Resp BP Pulse Ox 98.3 F 103 H 18 128/59 H 97 01/20/19 07:23 01/20/19 07:23 01/20/19 07:23 01/20/19 07:23 01/20/19 07:23 Intake & Output 01/19/19 01/20/19 01/21/19 06:59 06:59 06:59 Intake Total 3571 2738 Balance 3571 2738 Weight 89.9 kg 89.1 kg General appearance: PRESENT: no acute distress Head exam: PRESENT: atraumatic, normocephalic Eye exam: PRESENT: conjunctiva pink. ABSENT: scleral icterus Ear exam: PRESENT: normal external ear exam Mouth exam: PRESENT: moist - fairly Respiratory exam: PRESENT: decreased breath sounds - at lung bases Cardiovascular exam: PRESENT: RRR. ABSENT: diastolic murmur, rubs, systolic murmur GI/Abdominal exam: PRESENT: normal bowel sounds, soft. ABSENT: distended, guarding, mass, organolmegaly, rebound, tenderness Extremities exam: ABSENT: pedal edema Psychiatric exam: PRESENT: other - dementia Skin exam: PRESENT: dry, warm Results Laboratory Results: 01/20/19 04:58 01/20/19 04:58 01/20/19 01/20/19 04:58 04:58 WBC 9.7 RBC 2.49 L Hgb 8.0 L Hct 24.5 L MCV 99 H MCH 32.3 MCHC 32.8 RDW 16.9 H Plt Count 277 Seg Neutrophils % Not Reportable Lymphocytes % Not Reportable Monocytes % Not Reportable Eosinophils % Not Reportable Basophils % Not Reportable Absolute Neutrophils Not Reportable Absolute Lymphocytes Not Reportable Absolute Monocytes Not Reportable Absolute Eosinophils Not Reportable Absolute Basophils Not Reportable Sodium 143.9 Potassium 4.4 Chloride 113 H Carbon Dioxide 23 Anion Gap 8 BUN 22 H Creatinine 0.89 Est GFR ( Amer) > 60 Est GFR (Non-Af Amer) > 60 Glucose 115 H Calcium 9.1 Total Bilirubin 0.2 AST 17 ALT 18 Alkaline Phosphatase 59 Total Protein 6.0 L Albumin 2.7 L Impressions: Chest X-Ray 01/19/19 01:42 IMPRESSION: 1. Pneumonia involving right middle lobe and right lower lobe, and possibly a portion of the right upper lobe. 2. Minimal right pleural effusion. 3. Improved aeration of the left lower lobe since 12/15/2018 Assessment & Plan - Diagnosis (1) Multilobar lung infiltrate Is this a current diagnosis for this admission?: Yes (2) Urinary tract infection Qualifiers: Urinary tract infection type: site unspecified Hematuria presence: without hematuria Qualified Code(s): N39.0 - Urinary tract infection, site not specified Is this a current diagnosis for this admission?: Yes (3) Hypotension Qualifiers: Trimester: unspecified trimester Is this a current diagnosis for this admission?: Yes (4) COPD (chronic obstructive pulmonary disease) Qualifiers: Emphysema type: unspecified Is this a current diagnosis for this admission?: Yes (5) T2DM (type 2 diabetes mellitus) Qualifiers: 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 Remain on DNR status. - Time Time Spent with patient: 25-34 minutes Medications reviewed and adjusted accordingly: Yes Anticipated discharge: SNF Within: Other - Inpatient Certification Based on my medical assessment, after consideration of the patient's comorbidities, presenting symptoms, or acuity I expect that the services needed warrant INPATIENT care.: Yes I certify that my determination is in accordance with my understanding of Medicare's requirements for reasonable and necessary INPATIENT services [42 CFR 412.3e].: Yes Medical Necessity: Significant Comorbidiites Make Outpatient Treatment Too Risky, Need Close Monitoring Due to Risk of Patient Decompensation, Need For IV Fluids, Need For Continuous Telemetry Monitoring, Need for IV Antibiotics, Risk of Complication if Not Cared For in Hospital, Risk of Diagnosis Which Will Require Inpatient Eval/Care/Monitoring Post Hospital Care: D/C or Transfer Summary - Plan Summary Plan Summary: Continue IV fluid support and antibiotic coverage. Overall prognosis remain poor. Follow up on blood and urine culture findings.
[2019-01-20] MEDS: OLANZAPINE 5 MG TABLET PO SCH (21:46)
[2019-01-20] MEDS: LEVOFLOXACIN 500 MG/D5W RTU 500 MG/100 ML RTUPB IV SCH (21:47)
[2019-01-21] MEDS: DIVALPROEX SODIUM 250 MG TABLET.DR PO SCH ×5 (00:23→23:55)
[2019-01-21] MEDS: PANTOPRAZOLE SODIUM 40 MG TABLET.DR PO SCH (05:14)
[2019-01-21] MEDS: LEVOTHYROXINE SODIUM 0.088 MG TABLET PO SCH (05:14)
[2019-01-21] MEDS: INSULIN LISPRO 100 UNIT/ML 3 ML VIAL SUBCUT SCH ×4 (07:54→21:08)
[2019-01-21] MEDS: VALSARTAN 160 MG TABLET PO SCH (09:30)
[2019-01-21] MEDS: THIAMINE HCL 100 MG TABLET PO SCH (09:31)
[2019-01-21] MEDS: QUETIAPINE FUMARATE 25 MG TABLET PO SCH ×2 (09:31→17:56)
[2019-01-21] MEDS: CALCIUM CARBONATE 250 MG/VITAMIN D3 125 UNIT TABLET PO SCH ×2 (09:31→17:56)
[2019-01-21] MEDS: OXYBUTYNIN CHLORIDE 5 MG TABLET PO SCH ×2 (09:31→21:08)
[2019-01-21] MEDS: SITAGLIPTIN PHOSPHATE 50 MG TABLET PO SCH (09:31)
[2019-01-21] MEDS: ENOXAPARIN SODIUM INJ 40 MG/0.4 ML DISP.SYRIN SUBCUT SCH (09:32)
[2019-01-21] MEDS: SENNOSIDES/DOCUSATE 8.6-50 MG 1 EACH TABLET PO SCH (09:32)
[2019-01-21] MEDS: CHLORHEXIDINE GLUCONATE 0.12% ORAL RINSE 15 ML UDC MM SCH (09:32)
[2019-01-21] MEDS: FOLIC ACID 1 MG TABLET PO SCH (09:32)
[2019-01-21] MEDS: CYANOCOBALAMIN (VITAMIN B-12) 1,000 MCG TABLET PO SCH (09:32)
[2019-01-21] MEDS: CEFEPIME 1 GM/D5W RTU 1 GM/50 ML RTUPB IV SCH ×2 (09:32→21:09)
--- NOTE | 2019-01-21 13:29 | PDOC PROGRESS REPORT ---
Subjective Progress Note for:: 01/21/19 Subjective:: No reported fever. She denied any chest pain or difficulty with breathing., Remain on supplemental oxygen via nasal cannula. Reason For Visit: MULTILOBAR PNEUMONIA,UTI Physical Exam Vital Signs: Temp Pulse Resp BP Pulse Ox 97.8 F 100 20 113/56 L 96 01/21/19 10:59 01/21/19 10:59 01/21/19 10:59 01/21/19 10:59 01/21/19 10:59 Intake & Output 01/20/19 01/21/19 01/22/19 06:59 06:59 06:59 Intake Total 2738 3196 840 Output Total 500 Balance 2738 3196 340 Weight 89.1 kg 87.1 kg Physical Exam: General appearance: PRESENT: no acute distress Head exam: PRESENT: atraumatic, normocephalic Eye exam: PRESENT: conjunctiva pink. ABSENT: scleral icterus Ear exam: PRESENT: normal external ear exam Mouth exam: PRESENT: moist - fairly Respiratory exam: PRESENT: decreased breath sounds - at lung bases Cardiovascular exam: PRESENT: RRR. ABSENT: diastolic murmur, rubs, systolic murmur GI/Abdominal exam: PRESENT: normal bowel sounds, soft. ABSENT: distended, guarding, mass, organolmegaly, rebound, tenderness Extremities exam: ABSENT: pedal edema Psychiatric exam: PRESENT: other - dementia Skin exam: PRESENT: dry, warm Results Laboratory Results: 01/20/19 04:58 01/20/19 04:58 01/18/19 21:13 Catheterized Urine Urine Culture - Final Klebsiella Pneumoniae Impressions: Chest X-Ray 01/19/19 01:42 IMPRESSION: 1. Pneumonia involving right middle lobe and right lower lobe, and possibly a portion of the right upper lobe. 2. Minimal right pleural effusion. 3. Improved aeration of the left lower lobe since 12/15/2018 Assessment & Plan - Diagnosis (1) Multilobar lung infiltrate Is this a current diagnosis for this admission?: Yes (2) UTI due to Klebsiella species Is this a current diagnosis for this admission?: Yes Plan: Continue IV Cefepime and Levofloxacin coverage. 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 Diabetes mellitus complication status: with neurologic complications Diabetes mellitus complication detail: with polyneuropathy Qualified Code(s): E11.42 - Type 2 diabetes mellitus with diabetic polyneuropathy Is this a current diagnosis for this admission?: Yes (6) Dementia Qualifiers: Dementia type: unspecified type Dementia behavioral disturbance: without behavioral disturbance Qualified Code(s): F03.90 - Unspecified dementia without behavioral disturbance Is this a current diagnosis for this admission?: Yes - Time Time Spent with patient: 25-34 minutes Medications reviewed and adjusted accordingly: Yes Anticipated discharge: SNF Within: Other - Inpatient Certification Based on my medical assessment, after consideration of the patient's comorbidities, presenting symptoms, or acuity I expect that the services needed warrant INPATIENT care.: Yes I certify that my determination is in accordance with my understanding of Medicare's requirements for reasonable and necessary INPATIENT services [42 CFR 412.3e].: Yes Medical Necessity: Significant Comorbidiites Make Outpatient Treatment Too Risky, Need Close Monitoring Due to Risk of Patient Decompensation, Need For IV Fluids, Need For Continuous Telemetry Monitoring, Need for IV Antibiotics, Risk of Complication if Not Cared For in Hospital, Risk of Diagnosis Which Will Require Inpatient Eval/Care/Monitoring Post Hospital Care: D/C or Transfer Summary - Plan Summary Plan Summary: Continue IV Levofloxacin and Cefepime coverage. Follow up on blood culture findings.
[2019-01-21] MEDS: OLANZAPINE 5 MG TABLET PO SCH (21:08)
[2019-01-21] MEDS: LEVOFLOXACIN 500 MG/D5W RTU 500 MG/100 ML RTUPB IV SCH (21:09)
[2019-01-22] MEDS: DIVALPROEX SODIUM 250 MG TABLET.DR PO SCH ×4 (05:04→23:26)
[2019-01-22] MEDS: LEVOTHYROXINE SODIUM 0.088 MG TABLET PO SCH (05:04)
[2019-01-22] MEDS: PANTOPRAZOLE SODIUM 40 MG TABLET.DR PO SCH (05:04)
[2019-01-22 06:28] LABS: HEMATOCRIT 24.7 % (36.0-47.0); HEMOGLOBIN 8.2 g/dL (12.0-15.5); MEAN CORPUSCULAR HEMOGLOBIN 32.4 pg (27.0-33.4); MEAN CORPUSCULAR HGB CONC 33.3 g/dL (32.0-36.0); MEAN CORPUSCULAR VOLUME 97 fl (80-97); PLATELET COUNT 353 10^3/uL (150-450); RED BLOOD COUNT 2.53 10^6/uL (3.72-5.28); RED CELL DISTRIBUTION WIDTH 16.4 % (11.5-14.0); WHITE BLOOD COUNT 10.1 10^3/uL (4.0-10.5)
[2019-01-22 06:50] LABS: ABSOLUTE LYMPHOCYTES# (MANUAL) 1.9 10^3/uL (0.5-4.7); ABSOLUTE MONOCYTES # (MANUAL) 0.9 10^3/uL (0.1-1.4); BAND NEUTROPHILS % (MANUAL) 1 % (3-5); BASOPHILS % (MANUAL) 0 % (0-2); EOSINOPHILS % (MANUAL) 4 % (0-6); LYMPHOCYTES % (MANUAL) 19 % (13-45); METAMYELOCYTES % (MANUAL) 1 % (0); MONOCYTES % (MANUAL) 9 % (3-13); SEGMENTED NEUTROPHILS % (MAN) 64 % (42-78); TOTAL CELLS COUNTED 100
[2019-01-22 06:51] LABS: PLATELET COMMENT ADEQUATE
[2019-01-22 06:53] LABS: ANISOCYTOSIS 1+; HYPOCHROMASIA 1+; MYELOCYTES % (MANUAL) 2 % (0); POLYCHROMASIA SLIGHT; STOMATOCYTES 1+
[2019-01-22 07:06] LABS: ANION GAP 7 (5-19); BLOOD UREA NITROGEN 13 mg/dL (7-20); CALCIUM 9.5 mg/dL (8.4-10.2); CARBON DIOXIDE 27 mmol/L (22-30); CHLORIDE 110 mmol/L (98-107); GLUCOSE 122 mg/dL (75-110); POTASSIUM 4.2 mmol/L (3.6-5.0); SODIUM 143.6 mmol/L (137-145)
[2019-01-22] MEDS: INSULIN LISPRO 100 UNIT/ML 3 ML VIAL SUBCUT SCH ×4 (07:57→22:43)
[2019-01-22] MEDS: SITAGLIPTIN PHOSPHATE 50 MG TABLET PO SCH (09:54)
[2019-01-22] MEDS: CALCIUM CARBONATE 250 MG/VITAMIN D3 125 UNIT TABLET PO SCH ×2 (09:54→17:20)
[2019-01-22] MEDS: QUETIAPINE FUMARATE 25 MG TABLET PO SCH ×2 (09:54→17:20)
[2019-01-22] MEDS: CHLORHEXIDINE GLUCONATE 0.12% ORAL RINSE 15 ML UDC MM SCH (09:54)
[2019-01-22] MEDS: OXYBUTYNIN CHLORIDE 5 MG TABLET PO SCH ×2 (09:54→22:42)
[2019-01-22] MEDS: FOLIC ACID 1 MG TABLET PO SCH (09:54)
[2019-01-22] MEDS: CYANOCOBALAMIN (VITAMIN B-12) 1,000 MCG TABLET PO SCH (09:54)
[2019-01-22] MEDS: VALSARTAN 160 MG TABLET PO SCH (09:54)
[2019-01-22] MEDS: SENNOSIDES/DOCUSATE 8.6-50 MG 1 EACH TABLET PO SCH (09:54)
[2019-01-22] MEDS: THIAMINE HCL 100 MG TABLET PO SCH (09:54)
[2019-01-22] MEDS: CEFEPIME 1 GM/D5W RTU 1 GM/50 ML RTUPB IV SCH ×2 (09:55→22:42)
[2019-01-22] MEDS: ENOXAPARIN SODIUM INJ 40 MG/0.4 ML DISP.SYRIN SUBCUT SCH (09:55)
--- NOTE | 2019-01-22 17:11 | PDOC PROGRESS REPORT ---
Subjective Progress Note for:: 01/22/19 Subjective:: No chest pain or difficulty with breathing. No fever or chills. No nausea, vomiting, or abdominal pain. Tolerating oral feeding. Remain on supplemental oxygen via nasal cannula. Reason For Visit: MULTILOBAR PNEUMONIA,UTI Physical Exam Vital Signs: Temp Pulse Resp BP Pulse Ox 98.5 F 96 16 96/47 L 92 01/22/19 15:13 01/22/19 15:13 01/22/19 15:13 01/22/19 15:13 01/22/19 15:13 Intake & Output 01/21/19 01/22/19 01/23/19 06:59 06:59 06:59 Intake Total 3196 1840 480 Output Total 700 Balance 3196 1140 480 Weight 87.1 kg 86.3 kg Physical Exam: General appearance: PRESENT: no acute distress Head exam: PRESENT: atraumatic, normocephalic Eye exam: PRESENT: conjunctiva pink. ABSENT: pallor, scleral icterus Ear exam: PRESENT: normal external ear exam Mouth exam: PRESENT: moist Respiratory exam: PRESENT: decreased breath sounds - at lung bases Cardiovascular exam: PRESENT: RRR. ABSENT: diastolic murmur, rubs, systolic murmur GI/Abdominal exam: PRESENT: normal bowel sounds, soft. ABSENT: distended, gua rding, mass, organomegaly, rebound, tenderness Extremities exam: ABSENT: pedal edema Psychiatric exam: PRESENT: other - dementia Skin exam: PRESENT: dry, warm Results Laboratory Results: 01/22/19 06:13 01/22/19 06:13 01/22/19 01/22/19 06:13 06:13 WBC 10.1 RBC 2.53 L Hgb 8.2 L Hct 24.7 L MCV 97 MCH 32.4 MCHC 33.3 RDW 16.4 H Plt Count 353 Seg Neutrophils % Not Reportable Lymphocytes % Not Reportable Monocytes % Not Reportable Eosinophils % Not Reportable Basophils % Not Reportable Absolute Neutrophils Not Reportable Absolute Lymphocytes Not Reportable Absolute Monocytes Not Reportable Absolute Eosinophils Not Reportable Absolute Basophils Not Reportable Sodium 143.6 Potassium 4.2 Chloride 110 H Carbon Dioxide 27 Anion Gap 7 BUN 13 Creatinine 0.86 Est GFR ( Amer) > 60 Est GFR (Non-Af Amer) > 60 Glucose 122 H Calcium 9.5 Impressions: Chest X-Ray 01/19/19 01:42 IMPRESSION: 1. Pneumonia involving right middle lobe and right lower lobe, and possibly a portion of the right upper lobe. 2. Minimal right pleural effusion. 3. Improved aeration of the left lower lobe since 12/15/2018 Assessment & Plan - Diagnosis (1) Multilobar lung infiltrate Is this a current diagnosis for this admission?: Yes (2) UTI due to Klebsiella species Is this a current diagnosis for this admission?: Yes (3) Hypotension Qualifiers: Trimester: unspecified trimester Is this a current diagnosis for this admission?: Yes (4) COPD (chronic obstructive pulmonary disease) Qualifiers: Emphysema type: unspecified Is this a current diagnosis for this admission?: Yes (5) T2DM (type 2 diabetes mellitus) Qualifiers: Diabetes mellitus longterm insulin use: without terminologist use Diabetes mellitus complication status: with neurologic complications Diabetes mellitus complication detail: with polyneuropathy Qualified Code(s): E11.42 - Type 2 diabetes mellitus with diabetic polyneuropathy Is this a current diagnosis for this admission?: Yes (6) Dementia Qualifiers: Dementia type: unspecified type Dementia behavioral disturbance: without behavioral disturbance Qualified Code(s): F03.90 - Unspecified dementia without behavioral disturbance Is this a current diagnosis for this admission?: Yes - Time Time Spent with patient: 25-34 minutes Medications reviewed and adjusted accordingly: Yes Anticipated discharge: SNF Within: Other - Inpatient Certification Based on my medical assessment, after consideration of the patient's comorbidities, presenting symptoms, or acuity I expect that the services needed warrant INPATIENT care.: Yes I certify that my determination is in accordance with my understanding of Medicare's requirements for reasonable and necessary INPATIENT services [42 CFR 412.3e].: Yes Medical Necessity: Significant Comorbidiites Make Outpatient Treatment Too Risky, Need Close Monitoring Due to Risk of Patient Decompensation, Need For IV Fluids, Need For Continuous Telemetry Monitoring, Need for IV Antibiotics, Risk of Complication if Not Cared For in Hospital, Risk of Diagnosis Which Will Require Inpatient Eval/Care/Monitoring Post Hospital Care: D/C or Transfer Summary - Plan Summary Plan Summary: Continue IV antibiotic therapy. Follow up on blood culture results.
[2019-01-22] MEDS: ACETAMINOPHEN 325 MG TABLET PO PRN (17:52)
[2019-01-22] MEDS: LEVOFLOXACIN 500 MG/D5W RTU 500 MG/100 ML RTUPB IV SCH (22:42)
[2019-01-22] MEDS: OLANZAPINE 5 MG TABLET PO SCH (22:42)
[2019-01-23] MEDS: ACETAMINOPHEN 325 MG TABLET PO PRN (04:28)
[2019-01-23] MEDS: DIVALPROEX SODIUM 250 MG TABLET.DR PO SCH ×3 (06:36→17:03)
[2019-01-23] MEDS: LEVOTHYROXINE SODIUM 0.088 MG TABLET PO SCH (06:36)
[2019-01-23] MEDS: PANTOPRAZOLE SODIUM 40 MG TABLET.DR PO SCH (06:36)
[2019-01-23] MEDS: FOLIC ACID 1 MG TABLET PO SCH (08:20)
[2019-01-23] MEDS: THIAMINE HCL 100 MG TABLET PO SCH (08:20)
[2019-01-23] MEDS: SENNOSIDES/DOCUSATE 8.6-50 MG 1 EACH TABLET PO SCH (08:20)
[2019-01-23] MEDS: CYANOCOBALAMIN (VITAMIN B-12) 1,000 MCG TABLET PO SCH (08:20)
[2019-01-23] MEDS: QUETIAPINE FUMARATE 25 MG TABLET PO SCH ×2 (08:20→17:03)
[2019-01-23] MEDS: INSULIN LISPRO 100 UNIT/ML 3 ML VIAL SUBCUT SCH ×4 (08:20→21:18)
[2019-01-23] MEDS: CHLORHEXIDINE GLUCONATE 0.12% ORAL RINSE 15 ML UDC MM SCH (08:21)
[2019-01-23] MEDS: VALSARTAN 160 MG TABLET PO SCH (09:45)
[2019-01-23] MEDS: CALCIUM CARBONATE 250 MG/VITAMIN D3 125 UNIT TABLET PO SCH ×2 (09:48→17:03)
[2019-01-23] MEDS: OXYBUTYNIN CHLORIDE 5 MG TABLET PO SCH ×2 (09:48→21:17)
[2019-01-23] MEDS: CEFEPIME 1 GM/D5W RTU 1 GM/50 ML RTUPB IV SCH ×2 (09:49→21:17)
[2019-01-23] MEDS: SITAGLIPTIN PHOSPHATE 50 MG TABLET PO SCH (09:49)
[2019-01-23] MEDS: ENOXAPARIN SODIUM INJ 40 MG/0.4 ML DISP.SYRIN SUBCUT SCH (09:49)
[2019-01-23 14:39] LABS: PATH REVIEW PATHOLOGIST REVIEWED
--- NOTE | 2019-01-23 20:52 | PDOC PROGRESS REPORT ---
Subjective Progress Note for:: 01/23/19 Subjective:: Patient was admitted over the weekend for the management of multilobar pneumonia, anemia, sepsis, she was seen today by the bedside, she is alert she is back to baseline, she is still pale looking, the last hemoglobin was 8 Reason For Visit: MULTILOBAR PNEUMONIA,UTI Physical Exam Vital Signs: Temp Pulse Resp BP Pulse Ox 99.3 F 111 H 17 107/54 L 95 01/23/19 15:05 01/23/19 15:05 01/23/19 15:05 01/23/19 15:05 01/23/19 15:05 Intake & Output 01/22/19 01/23/19 01/24/19 06:59 06:59 06:59 Intake Total 1840 1040 890 Output Total 700 200 Balance 1140 840 890 Weight 86.3 kg 86.1 kg General appearance: PRESENT: no acute distress Eye exam: PRESENT: PERRLA Respiratory exam: PRESENT: clear to auscultation juliette Cardiovascular exam: PRESENT: +S1, +S2 GI/Abdominal exam: PRESENT: soft Neurological exam: PRESENT: alert Results Laboratory Results: 01/22/19 06:13 01/22/19 06:13 Impressions: Chest X-Ray 01/19/19 01:42 IMPRESSION: 1. Pneumonia involving right middle lobe and right lower lobe, and possibly a portion of the right upper lobe. 2. Minimal right pleural effusion. 3. Improved aeration of the left lower lobe since 12/15/2018 Assessment & Plan - Diagnosis (1) Pneumonia Qualifiers: Pneumonia type: due to unspecified organism Laterality: unspecified laterality Lung location: unspecified part of lung Qualified Code(s): J18.9 - Pneumonia, unspecified organism Is this a current diagnosis for this admission?: Yes Plan: Continue present IV antibiotic coverage (2) Anemia Qualifiers: Anemia type: unspecified type Qualified Code(s): D64.9 - Anemia, unspecified Is this a current diagnosis for this admission?: Yes Plan: Patient to undergo anemia work-up (3) Sepsis Qualifiers: Sepsis type: sepsis due to unspecified organism Qualified Code(s): A41.9 - Sepsis, unspecified organism Is this a current diagnosis for this admission?: Yes
[2019-01-23] MEDS: OLANZAPINE 5 MG TABLET PO SCH (21:17)
[2019-01-23 21:28] LABS: ABSOLUTE RETICS # 0.046 10^6/uL (0.028-0.122); RETICULOCYTE COUNT (AUTO) 1.67 % (0.66-2.85)
[2019-01-23] MEDS: LEVOFLOXACIN 500 MG/D5W RTU 500 MG/100 ML RTUPB IV SCH (21:49)
[2019-01-23 22:45] LABS: IRON(TIBC) 22.1 ug/dL (37-170)
[2019-01-23 23:53] LABS: FOLATE > 20.00 ng/mL (>2.76)
[2019-01-24] MEDS: DIVALPROEX SODIUM 250 MG TABLET.DR PO SCH ×5 (00:50→23:18)
[2019-01-24] MEDS: PANTOPRAZOLE SODIUM 40 MG TABLET.DR PO SCH (05:19)
[2019-01-24] MEDS: LEVOTHYROXINE SODIUM 0.088 MG TABLET PO SCH (05:19)
[2019-01-24] MEDS: FOLIC ACID 1 MG TABLET PO SCH (08:11)
[2019-01-24] MEDS: CYANOCOBALAMIN (VITAMIN B-12) 1,000 MCG TABLET PO SCH (08:11)
[2019-01-24] MEDS: THIAMINE HCL 100 MG TABLET PO SCH (08:11)
[2019-01-24] MEDS: SENNOSIDES/DOCUSATE 8.6-50 MG 1 EACH TABLET PO SCH (08:11)
[2019-01-24] MEDS: CHLORHEXIDINE GLUCONATE 0.12% ORAL RINSE 15 ML UDC MM SCH (08:11)
[2019-01-24] MEDS: QUETIAPINE FUMARATE 25 MG TABLET PO SCH ×2 (08:11→17:00)
[2019-01-24] MEDS: INSULIN LISPRO 100 UNIT/ML 3 ML VIAL SUBCUT SCH ×4 (08:11→21:42)
[2019-01-24] MEDS: SITAGLIPTIN PHOSPHATE 50 MG TABLET PO SCH (09:00)
[2019-01-24] MEDS: OXYBUTYNIN CHLORIDE 5 MG TABLET PO SCH ×2 (09:00→21:35)
[2019-01-24] MEDS: ENOXAPARIN SODIUM INJ 40 MG/0.4 ML DISP.SYRIN SUBCUT SCH (09:01)
[2019-01-24] MEDS: VALSARTAN 160 MG TABLET PO SCH (09:01)
[2019-01-24] MEDS: CEFEPIME 1 GM/D5W RTU 1 GM/50 ML RTUPB IV SCH ×2 (09:02→21:39)
[2019-01-24] MEDS: CALCIUM CARBONATE 250 MG/VITAMIN D3 125 UNIT TABLET PO SCH ×2 (09:03→17:00)
--- NOTE | 2019-01-24 21:18 | PDOC TRANSFER SUMMARY ---
General - Admit/Disc Date/PCP Admission Date/Primary Care Provider: 01/19/19 02:03 ISRA KAY MD Discharge Date: 01/25/19 - Discharge Diagnosis (1) Pneumonia Is this a current diagnosis for this admission?: Yes (2) Anemia Is this a current diagnosis for this admission?: Yes (3) Sepsis Is this a current diagnosis for this admission?: Yes (4) Acute kidney injury Is this a current diagnosis for this admission?: Yes (5) Hypotension Is this a current diagnosis for this admission?: Yes (7) UTI due to Klebsiella species Is this a current diagnosis for this admission?: Yes (8) Schizo-affective schizophrenia Is this a current diagnosis for this admission?: Yes - Additional Information Resuscitation Status: Do Not Resuscitate Discharge Diet: Diabetic Prescriptions: Cefepime 1 gm/D5w RTU [Maxipime RTU 1 gm/D5w 50 ml Premix Bag] 1 gm IV Q12 #10 rtupb Levofloxacin [Levaquin 750 mg Tablet] 750 mg PO DAILY #5 tab Home Medications: Acetaminophen [Tylenol Extra Strength 500 mg Tablet] 1,000 mg PO Q8HP PRN 01/19/19 Calcium Carbonate/Vitamin D3 [Calcium 600-Vit D3 200 Tablet] 1 each PO BID 01/19/19 Chlorhexidine Gluconate [Periogard 0.12% Oral Rinse 15 ml] 15 ml MM QAM 01/19/19 Cranberry Fruit Extract [Cranberry] 500 mg PO QAM 01/19/19 Cyanocobalamin (Vitamin B-12) [Vitamin B-12 1000 mcg Tablet] 1,000 mcg PO QAM 01/19/19 Divalproex Sodium [Depakote] 250 mg PO Q6 01/19/19 Folic Acid [Folvite 1 mg Tablet] 1 mg PO QAM 01/19/19 Insulin Lispro [Humalog Insulin (Lispro) 100 unit/mL] 0 unit SUBCUT .SLD SCALE 01/19/19 Levothyroxine Sodium [Synthroid 0.088 mg Tablet] 88 mcg PO Q6AM 01/19/19 Linagliptin [Tradjenta] 5 mg PO DAILY 01/19/19 Olanzapine [Zyprexa] 20 mg PO QHS 01/19/19 Oxcarbazepine [Trileptal 150 mg Tablet] 150 mg PO Q8 01/19/19 Oxybutynin Chloride [Oxybutynin Chloride ER] 10 mg PO QAM 01/19/19 Pantoprazole Sodium [Protonix [address] Tablet] 40 mg PO DAILY 01/19/19 Quetiapine Fumarate [Seroquel 25 mg Tablet] 75 mg PO QPM 01/19/19 Quetiapine Fumarate [Seroquel] 25 mg PO QAM 01/19/19 Sennosides/Docusate 8.6-50 mg [Senna Plus Tablet] 1 tab PO QAM 01/19/19 Thiamine HCl [Thiamine 100 mg Tablet] 100 mg PO QAM 01/19/19 Valsartan [Diovan 160 mg Tablet] 160 mg PO DAILY 01/19/19 Cefepime 1 gm/D5w RTU [Maxipime RTU 1 gm/D5w 50 ml Premix Bag] 1 gm IV Q12 #10 rtupb 01/24/19 Levofloxacin [Levaquin 750 mg Tablet] 750 mg PO DAILY #5 tab 01/24/19 History of Present Illness Admission Date/PCP: 01/19/19 02:03 ISRA KAY MD History of Present Illness: DRE HOPKINS is a 74 year old female,She was admitted for the management of multilobar pneumonia, she was transferred from the senior living for evaluation of abnormal lab data, she was found to have severe leukocytosis with no clear- cut explanation there was a cough in the emergency room chest x-ray was done that demonstrated multilobar pneumonia. Hospital Course Hospital Course: Patient was treated empirically with IV antibiotic cefepime and Levaquin, there was associated acute kidney injury, anemia not requiring blood transfusion there was no evidence of hemolysis on anemia work-up.Patient is improved clinically, she want to return back to [facility], she has been on antibiotic for about 6 days because the pneumonia is severe and because it is healthcare associated pneumonia it is best to continue antibiotic for 10 days, typically pneumonia today for 7 days because of the nature of the patient's pneumonia it is advisable to treat for 10 days Physical Exam Vital Signs: Temp Pulse Resp BP Pulse Ox 98.4 F 107 H 17 113/65 92 01/24/19 11:01 01/24/19 14:00 01/24/19 11:01 01/24/19 11:01 01/24/19 11:01 Intake & Output 01/23/19 01/24/19 01/25/19 06:59 06:59 06:59 Intake Total 1040 1440 770 Output Total 200 400 2 Balance 840 1040 768 Weight 86.1 kg 85.6 kg General appearance: PRESENT: no acute distress Eye exam: PRESENT: PERRLA Respiratory exam: PRESENT: clear to auscultation juliette Cardiovascular exam: PRESENT: +S1, +S2 GI/Abdominal exam: PRESENT: soft Neurological exam: PRESENT: alert Results Laboratory Results: 01/22/19 06:13 01/22/19 06:13 01/23/19 01/23/19 21:08 21:08 Retic Count (auto) 1.67 Absolute Retic 0.046 Iron 22.1 L TIBC 240 L % Saturation 9 Ferritin 111.00 Vitamin B12 > 1000.0 H Folate > 20.00 01/18/19 21:31 Blood Blood Culture - Final NO GROWTH IN 5 DAYS 01/18/19 20:50 Blood Blood Culture - Final NO GROWTH IN 5 DAYS Impressions: Chest X-Ray 01/19/19 01:42 IMPRESSION: 1. Pneumonia involving right middle lobe and right lower lobe, and possibly a portion of the right upper lobe. 2. Minimal right pleural effusion. 3. Improved aeration of the left lower lobe since 12/15/2018 Qualifiers - * PATIENT BEING DISCHARGED WITH ANY OF THE FOLLOWING DIAGNOSIS: No VTE patient discharged on overlapping Therapy?: No Reason(s) for not prescribing Overlap Therapy:: Not indicated Stroke Pt being discharged on Anti-thrombolytic therapy?: No Reason(s) for not prescribing Anti-thrombolytic therapy:: Not indicated Stroke Pt being discharged on Anti-coagulation therapy?: No Reason(s) for not prescribing Anti-coagulation therapy:: Not indicated Stroke Pt being discharged on Statins?: No Reason(s) for not prescribing Statins therapy:: Not indicated [place] Pt being discharged on Aspirin therapy?: No Reason(s) for not prescribing Aspirin therapy:: Not indicated [place] Pt being discharged on Statins?: No Reason(s) for not prescribing Statin therapy:: Not indicated [place] Pt discharged ACEI/ARBS?: No Reason(s) for not prescribing ACEI/ARBS:: Not indicated Acute Heart Failure - Is this a Heart Failure Patient?: No e) For LVEF <35%, discharged on Aldosterone antagonist?: N/A (LVEF > or = 35%) Plan Discharge Plan: Patient should continue IV antibiotic for another 5 days in the senior living she wants to return back to senior living she is improved
[2019-01-24] MEDS: OLANZAPINE 5 MG TABLET PO SCH (21:35)
[2019-01-24 22:04] LABS: ABSOLUTE BASOPHILS # (AUTO) 0.1 10^3/uL (0.0-0.2); ABSOLUTE EOSINOPHILS # (AUTO) 0.2 10^3/uL (0.0-0.6); ABSOLUTE LYMPHOCYTES (AUTO) 2.4 10^3/uL (0.5-4.7); ABSOLUTE MONOCYTES (AUTO) 2.1 10^3/uL (0.1-1.4); ABSOLUTE NEUT (AUTO) 6.2 10^3/uL (1.7-8.2); BASOPHILS % (AUTO) 0.6 % (0-2); EOSINOPHILS % (AUTO) 2.2 % (0-6); HEMATOCRIT 26.3 % (36.0-47.0); HEMOGLOBIN 8.5 g/dL (12.0-15.5); MEAN CORPUSCULAR HEMOGLOBIN 31.7 pg (27.0-33.4); MEAN CORPUSCULAR HGB CONC 32.4 g/dL (32.0-36.0); MEAN CORPUSCULAR VOLUME 98 fl (80-97); MONOCYTES % (AUTO) 19.2 % (3-13); PLATELET COUNT 486 10^3/uL (150-450); RED BLOOD COUNT 2.69 10^6/uL (3.72-5.28); RED CELL DISTRIBUTION WIDTH 16.5 % (11.5-14.0); TOTAL CELLS COUNTED % (AUTO) 100 %
[2019-01-24 22:14] LABS: ALANINE AMINOTRANSFERASE 8 U/L (9-52); ALBUMIN 3.1 g/dL (3.5-5.0); ALKALINE PHOSPHATASE 57 U/L (38-126); ANION GAP 10 (5-19); ASPARTATE AMINO TRANSFERASE 11 U/L (14-36); BILIRUBIN,DIRECT 0.2 mg/dL (0.0-0.4); BILIRUBIN,TOTAL 0.2 mg/dL (0.2-1.3); BLOOD UREA NITROGEN 16 mg/dL (7-20); CALCIUM 9.6 mg/dL (8.4-10.2); CARBON DIOXIDE 26 mmol/L (22-30); CHLORIDE 104 mmol/L (98-107); GLUCOSE 155 mg/dL (75-110); POTASSIUM 4.3 mmol/L (3.6-5.0); SODIUM 139.7 mmol/L (137-145); TOTAL PROTEIN 6.8 g/dL (6.3-8.2)
[2019-01-24] MEDS: LEVOFLOXACIN 500 MG/D5W RTU 500 MG/100 ML RTUPB IV SCH (22:19)
[2019-01-25] MEDS: LEVOTHYROXINE SODIUM 0.088 MG TABLET PO SCH (05:22)
[2019-01-25] MEDS: PANTOPRAZOLE SODIUM 40 MG TABLET.DR PO SCH (05:22)
[2019-01-25] MEDS: DIVALPROEX SODIUM 250 MG TABLET.DR PO SCH ×2 (05:22→12:41)
[2019-01-25] MEDS: SENNOSIDES/DOCUSATE 8.6-50 MG 1 EACH TABLET PO SCH (08:34)
[2019-01-25] MEDS: FOLIC ACID 1 MG TABLET PO SCH (08:34)
[2019-01-25] MEDS: THIAMINE HCL 100 MG TABLET PO SCH (08:34)
[2019-01-25] MEDS: QUETIAPINE FUMARATE 25 MG TABLET PO SCH (08:34)
[2019-01-25] MEDS: CYANOCOBALAMIN (VITAMIN B-12) 1,000 MCG TABLET PO SCH (08:34)
[2019-01-25] MEDS: INSULIN LISPRO 100 UNIT/ML 3 ML VIAL SUBCUT SCH ×2 (08:39→12:41)
[2019-01-25] MEDS: CHLORHEXIDINE GLUCONATE 0.12% ORAL RINSE 15 ML UDC MM SCH (08:41)
[2019-01-25] MEDS: CEFEPIME 1 GM/D5W RTU 1 GM/50 ML RTUPB IV SCH (10:09)
[2019-01-25] MEDS: CALCIUM CARBONATE 250 MG/VITAMIN D3 125 UNIT TABLET PO SCH (10:09)
[2019-01-25] MEDS: VALSARTAN 160 MG TABLET PO SCH (10:09)
[2019-01-25] MEDS: SITAGLIPTIN PHOSPHATE 50 MG TABLET PO SCH (10:09)
[2019-01-25] MEDS: OXYBUTYNIN CHLORIDE 5 MG TABLET PO SCH (10:10)
[2019-01-25] MEDS: ENOXAPARIN SODIUM INJ 40 MG/0.4 ML DISP.SYRIN SUBCUT SCH (10:10)
[2019-01-25 13:33] VITALS: BP 129/87
== END 2019-01-25 14:15 | DRG 871 ==
LOC: ER 20:36 → EH 01-19 02:03 → 3W 01-19 03:41
PROVIDERS: ADMIT Internal Medicine Geriatric Medicine; ATTEND Internal Medicine
DX: A41.9 Sepsis, unspecified organism (principal); J18.1 Lobar pneumonia, unspecified organism; N39.0 Urinary tract infection, site not specified; N17.9 Acute kidney failure, unspecified; Z66 Do not resuscitate; F03.90 Unspecified dementia, unspecified severity, without behavioral disturbance, psychotic disturbance, mood disturbance, and anxiety; Z88.8 Allergy status to other drugs, medicaments and biological substances; E78.5 Hyperlipidemia, unspecified; I10 Essential (primary) hypertension; J44.9 Chronic obstructive pulmonary disease, unspecified; G40.909 Epilepsy, unspecified, not intractable, without status epilepticus; E03.9 Hypothyroidism, unspecified; K21.9 Gastro-esophageal reflux disease without esophagitis; M19.90 Unspecified osteoarthritis, unspecified site; F25.0 Schizoaffective disorder, bipolar type; Z79.4 Long term (current) use of insulin; E11.42 Type 2 diabetes mellitus with diabetic polyneuropathy; B96.1 Klebsiella pneumoniae [K. pneumoniae] as the cause of diseases classified elsewhere; D64.9 Anemia, unspecified
CPT/HCPCS: 36415; 51701; 71045; 80048; 80053; 81001; 82607; 82728; 82746; 82803; 82962; 83010; 83540; 83550; 83605; 83615; 85025; 85045; 85610; 87040; 87086; 87088; 87186; 93005; 93010; 96365; 96366; 99285; C1751; J0692; J0696; J1650; J1815; J1956; J3490; J7030

== ENCOUNTER 2019-02-16 19:51 | Inpatient (IN) | payer MEDICARE, OTHER, MEDICAID ==
[2019-02-16] MEDS ORDERED: NORMAL SALINE 1000 ML 1,000 ML IV PRN (20:23)
--- NOTE | 2019-02-16 20:25 | ER Document Report ---
ED General - General Chief Complaint: Altered Mental Status Stated Complaint: CHOKING Time Seen by Provider: 02/16/19 20:21 Notes: Patient is a 74-year-old female resident of [facility] who presents the emergency department after being found choking on popcorn and in her vomit. She was brought in by ambulance and she was hypoxic and hypotensive. Her current blood pressure is 54/48. Patient has altered mental status. Lactic aci d via EMS was 2.6. Patient is on a nonrebreather satting 99%. Patient has past medical history of acute kidney failure, anemia, bipolar disorder, diverticulosis, GERD, irritable bowel syndrome, major depressive disorder, pneumonia, respiratory failure, diabetes, asthma, osteoarthritis, vitamin B d eficiency, and asthma. She is confused at this time, but I am unsure as to whether or not this is her baseline. TRAVEL OUTSIDE OF THE [place] IN LAST 30 DAYS: No - Related Data Allergies/Adverse Reactions: chlorpromazine HCl [From Thorazine] Allergy (Unknown, Verified 11/02/18 16:29) lithium [[place]] Allergy (Unknown, Verified 11/02/18 16:29) Past Medical History - Social History Smoking Status: Unknown if Ever Smoked Family History: Reviewed & Not Pertinent, Other - Unknown Patient has suicidal ideation: No Patient has homicidal ideation: No - Past Medical History Cardiac Medical History: Reports: Hx Hypercholesterolemia, Hx Hypertension Denies: Hx Coronary Artery Disease, Hx Heart Attack, Hx Heart Murmur Pulmonary Medical History: Reports: Hx Asthma, Hx COPD, Hx Pneumonia Denies: Hx Bronchitis, Hx Respiratory Failure, Hx Sleep Apnea, Hx Tuberculosis Neurological Medical History: Reports: Hx Seizures. Denies: Hx Cerebrovascular Accident Endocrine Medical History: Reports: Hx Diabetes Mellitus Type 2, Hx Hypothyroidism Renal/ Medical History: Denies: Hx Peritoneal Dialysis GI Medical History: Reports: Hx Gastroesophageal Reflux Disease. Denies: Hx Pancreatitis Musculoskeletal Medical History: Reports Hx Arthritis - osteoarthritis, Denies Hx Systemic Lupus Erythematosus Psychiatric Medical History: Reports: Hx Bipolar Disorder, Hx Dementia, Hx D epression, Hx Schizoaffective Disorder, Hx Schizophrenia Past Surgical History: Reports: Hx Hysterectomy, Hx Tubal Ligation - Immunizations Immunizations up to date: Yes Hx Diphtheria, Pertussis, Tetanus Vaccination: Yes Hx Pneumococcal Vaccination: 04/10/14 Review of Systems - Review of Systems -: Yes ROS unobtainable due to patient's medical condition Physical Exam - Vital signs Vitals: Resp 29 H 02/16/19 20:01 - Notes Notes: PHYSICAL EXAMINATION: GENERAL: Appears ill, acute distress. HEAD: Normocephalic, atraumatic. EYES: PERRL, conjunctiva normal, all extraocular movements intact, sclera nonicteric ENT: Dry mucous membranes. NECK: Supple, no noticeable swelling, redness, rash. Normal range of motion. LUNGS: Equal breath sounds bilaterally and rhonchi to auscultation. Tachypneic. CARDIOVASCULAR: S1-S2, regular rate, regular rhythm. Radial pulses 2+, normal. ABDOMEN: Normoactive bowel sounds. Soft, nontender, no guarding, no rebound tenderness, and no masses palpated. EXTREMITIES: Normal strength and range of motion, no pitting or edema. No cyanosis. NEUROLOGICAL: Moves all extremities upon command. Strength 5/5 in all extremities. PSYCH: Confused SKIN: Warm, dry. No rash, lesions, ulcerations noted. Normal skin turgor. Course - Re-evaluation Re-evalutation: 02/16/19 20:40 Based off my assessment, the patient is able to talk, but I believe that she is at her baseline of being confused and agitated. She is on 100% oxygen via nonrebreather. She is tachypneic. She is hypotensive with a blood pressure of 60/39. 2 L of IV fluids ordered. I did not appreciate any upper respiratory stridor. There is a possibility for aspiration pneumonia. 02/16/19 21:45 She was also placed on BiPAP for her tachypnea and her CO2 of 51. 02/16/19 22:47 Patient's chest x-ray shows pneumonia. Her urine shows a urinary tract infection. I suspect this is the reason why she was hypotensive. The patient has responded to 1 L of IV fluids. She has a mild leukocytosis of 10,000. 1 she is scratching herself is 1 okay patient will be given cefepime to cover hospital-acquired pneumonia. Blood pressure has improved and is now 110/53. 02/16/19 23:00 Patient has been on BiPAP for about 30 minutes. We will recheck ABG. I spoke with Dr. Muhammad and the patient will be admitted to IMCU. 02/16/19 23:45 Patient was attempting to climb out of bed and was attempting to take off her BiPAP. Patient will receive a dose of Ativan. - Vital Signs Vital signs: Temp Pulse Resp BP Pulse Ox 98.2 F 108 H 36 H 87/49 L 94 02/17/19 18:00 02/17/19 18:00 02/17/19 18:00 02/17/19 18:00 02/17/19 18:00 - Laboratory Result Diagrams: 02/17/19 08:49 02/17/19 08:49 Laboratory results interpreted by me: 02/16/19 02/16/19 02/16/19 20:35 20:48 20:48 WBC 10.6 H RBC 2.90 L Hgb 9.2 L Hct 28.2 L RDW 16.1 H Monocytes % 13.7 H Carbonic Acid 1.55 H ABG pH 7.26 L ABG pCO2 51.6 H ABG pO2 108.9 H ABG O2 Saturation Potassium 5.3 H BUN 37 H Creatinine 1.75 H Est GFR ( Amer) 34 L Est GFR (Non-Af Amer) 28 L Glucose 151 H POC Glucose NT-Pro-B Natriuret Pep Albumin 3.3 L Urine Protein Ur Leukocyte Esterase 02/16/19 02/16/19 02/16/19 20:48 21:25 22:25 WBC RBC Hgb Hct RDW Monocytes % Carbonic Acid ABG pH ABG pCO2 ABG pO2 ABG O2 Saturation Potassium BUN Creatinine Est GFR ( Amer) Est GFR (Non-Af Amer) Glucose POC Glucose 122 H NT-Pro-B Natriuret Pep 837 H Albumin Urine Protein 30 H Ur Leukocyte Esterase LARGE H 02/16/19 23:45 WBC RBC Hgb Hct RDW Monocytes % Carbonic Acid ABG pH 7.32 L ABG pCO2 ABG pO2 69.2 L ABG O2 Saturation 92.6 L Potassium BUN Creatinine Est GFR ( Amer) Est GFR (Non-Af Amer) Glucose POC Glucose NT-Pro-B Natriuret Pep Albumin Urine Protein Ur Leukocyte Esterase Discharge - Discharge Clinical Impression: Hypercapnia Pneumonia Qualifiers: Pneumonia type: due to unspecified organism Laterality: right Lung location: lower lobe of lung Qualified Code(s): J18.1 - Lobar pneumonia, unspecified organism Acute renal failure (ARF) Qualifiers: Acute renal failure type: unspecified Qualified Code(s): N17.9 - Acute kidney failure, unspecified Urinary tract infection Qualifiers: Urinary tract infection type: site unspecified Hematuria presence: without hematuria Qualified Code(s): N39.0 - Urinary tract infection, site not specified Respiratory failure Qualifiers: Chronicity: acute Respiratory failure complication: hypercapnia Qualified Code(s): J96.02 - Acute respiratory failure with hypercapnia Condition: Fair Disposition: ADMITTED INPATIENT [facility] Admitted: [facility]
[2019-02-16 20:45] LABS: ARTERIAL BLOOD BASE EXCESS -4.6 mmol/L; ARTERIAL BLOOD H2CO3 1.55 mmol/L (1.05-1.35); ARTERIAL BLOOD HCO3 22.5 mmol/L (20-24); ARTERIAL BLOOD O2 SATURATION 97.2 % (94-98); ARTERIAL BLOOD PCO2 51.6 mmHg (35-45); ARTERIAL BLOOD PH 7.26 (7.35-7.45); ARTERIAL BLOOD PO2 108.9 mmHg (80-100); ARTERIAL BLOOD TOTAL CO2 24.1 mmol/L (21-25)
[2019-02-16 20:46] LABS: ARTERIAL BLOOD FIO2 100%
[2019-02-16 21:10] LABS: ABSOLUTE LYMPHOCYTES (AUTO) 1.9 10^3/uL (0.5-4.7); ABSOLUTE MONOCYTES (AUTO) 1.4 10^3/uL (0.1-1.4); ABSOLUTE NEUT (AUTO) 7.1 10^3/uL (1.7-8.2); BASOPHILS % (AUTO) 0.3 % (0-2); EOSINOPHILS % (AUTO) 0.4 % (0-6); HEMATOCRIT 28.2 % (36.0-47.0); HEMOGLOBIN 9.2 g/dL (12.0-15.5); LYMPHOCYTES % (AUTO) 18.1 % (13-45); MEAN CORPUSCULAR HEMOGLOBIN 31.8 pg (27.0-33.4); MEAN CORPUSCULAR HGB CONC 32.7 g/dL (32.0-36.0); MEAN CORPUSCULAR VOLUME 97 fl (80-97); MONOCYTES % (AUTO) 13.7 % (3-13); PLATELET COUNT 266 10^3/uL (150-450); RED CELL DISTRIBUTION WIDTH 16.1 % (11.5-14.0); SEGMENTED NEUTROPHILS % (AUTO) 67.5 % (42-78); TOTAL CELLS COUNTED % (AUTO) 100 %; WHITE BLOOD COUNT 10.6 10^3/uL (4.0-10.5)
[2019-02-16 21:16] LABS: INTERNATIONAL RATION (INR) 1.11; PROTHROMBIN TIME 14.4 SEC (11.4-15.4)
[2019-02-16 21:26] LABS: ALANINE AMINOTRANSFERASE 12 U/L (9-52); ALBUMIN 3.3 g/dL (3.5-5.0); ALKALINE PHOSPHATASE 45 U/L (38-126); ANION GAP 10 (5-19); ASPARTATE AMINO TRANSFERASE 18 U/L (14-36); BILIRUBIN,DIRECT 0.3 mg/dL (0.0-0.4); BILIRUBIN,TOTAL 0.3 mg/dL (0.2-1.3); BLOOD UREA NITROGEN 37 mg/dL (7-20); CARBON DIOXIDE 25 mmol/L (22-30); CHLORIDE 104 mmol/L (98-107); GLUCOSE 151 mg/dL (75-110); POTASSIUM 5.3 mmol/L (3.6-5.0); TOTAL PROTEIN 7.1 g/dL (6.3-8.2)
--- NOTE | 2019-02-16 21:26 | RADIOLOGY REPORT (SQ) ---
EXAM DESCRIPTION: CT HEAD WITHOUT IV CONTRAST COMPLETED DATE/TME: 02/16/2019 20:17 CLINICAL HISTORY: 74 years, Female, AMS Compared to CT head dated 12/11/2018. This exam was performed according to our departmental dose-optimization program which includes automated exposure control, adjustment of the mA and/or kVp according to patient size and/or use of iterative reconstruction technique where applicable. FINDINGS: No acute intracranial hemorrhage, mass effect or midline shift. No extra-axial fluid collections. Ventricles and subarachnoid spaces are mildly dilated consistent with cerebral atrophy. Visualized paranasal sinuses and the mastoid air cells are clear. The skull is intact. IMPRESSION: No acute intracranial hemorrhage.
--- NOTE | 2019-02-16 21:27 | RADIOLOGY REPORT (SQ) ---
XR CHEST 1 VIEW CLINICAL STATEMENT: AMS COMPARISON: 01/19/2019 FINDINGS: Heart is mildly enlarged. Right lower lobe airspace disease is improved. No significant pleural effusion. No pneumothorax. IMPRESSION: Improvement in right lower lobe pneumonia.
[2019-02-16] MEDS ORDERED: NORMAL SALINE 1000 ML 1,000 ML IV ONE (22:39)
[2019-02-16] MEDS ORDERED: CEFEPIME 2 GM/D5W RTU 2 GM/50 ML RTUPB IV ONE (22:41)
[2019-02-16 22:42] LABS: APPEARANCE,URINE CLOUDY; BILIRUBIN,URINE NEGATIVE (NEGATIVE); COLOR,URINE YELLOW; GLUCOSE, URINE NEGATIVE (NEGATIVE); KETONES,URINE NEGATIVE (NEGATIVE); LEUKOCYTE ESTERASE,URINE LARGE (NEGATIVE); NITRITE,URINE NEGATIVE (NEGATIVE); PROTEIN,URINE 30 mg/dL (NEGATIVE); URINE SPECIFIC GRAVITY 1.013; UROBILINOGEN,URINE NEGATIVE mg/dL (<2.0)
[2019-02-16 23:25] LABS: CREATINE KINASE MB 0.87 ng/mL (<4.55); TROPONIN I < 0.012 ng/mL
[2019-02-16] MEDS ORDERED: BOR PO SCH (23:45)
[2019-02-16] MEDS ORDERED: CAL PO SCH (23:45)
[2019-02-16] MEDS ORDERED: COP PO SCH (23:45)
[2019-02-16] MEDS ORDERED: ZINC PO SCH (23:45)
[2019-02-16] MEDS ORDERED: [UNRECOGNIZED DRUG - OTHER] PO SCH (23:45)
[2019-02-16] MEDS ORDERED: CRANBERRY FRUIT EXTRACT 500 MG PO SCH (23:45)
[2019-02-16] MEDS ORDERED: MAG11 PO SCH (23:45)
[2019-02-16] MEDS ORDERED: MANG PO SCH (23:45)
[2019-02-16] MEDS ORDERED: D3 PO SCH (23:45)
[2019-02-16] MEDS ORDERED: RINGERS SOLUTION,LACTATED 1,000 ML IV PRN (23:53)
[2019-02-16] MEDS ORDERED: (PENDING PHARMACY ID) (Acetaminophen [Tylenol Extra Strength 500 Mg Tablet] 1,000 MG) PO PRN (23:57)
[2019-02-17] MEDS ORDERED: IMIPENEM/CILASTATIN SODIUM 1,000 MG in NORMAL SALINE 250 ML IV SCH ×2
[2019-02-17 00:14] LABS: ARTERIAL BLOOD BASE EXCESS -3.4 mmol/L; ARTERIAL BLOOD H2CO3 1.34 mmol/L (1.05-1.35); ARTERIAL BLOOD HCO3 22.6 mmol/L (20-24); ARTERIAL BLOOD O2 SATURATION 92.6 % (94-98); ARTERIAL BLOOD PCO2 44.4 mmHg (35-45); ARTERIAL BLOOD PH 7.32 (7.35-7.45); ARTERIAL BLOOD PO2 69.2 mmHg (80-100); ARTERIAL BLOOD TOTAL CO2 23.9 mmol/L (21-25)
[2019-02-17 00:16] LABS: ARTERIAL BLOOD FIO2 45%
[2019-02-17] MEDS ORDERED: LORAZEPAM INJ 2 MG/1 ML VIAL IV ONE (00:18)
[2019-02-17] MEDS ORDERED: DOPAMINE HCL/DEXTROSE 5%-WATER 800 MG/250 ML RTUINJ IV PRN (01:23)
[2019-02-17] MEDS ORDERED: ACETAMINOPHEN 650 MG SUPP.RECT PR ONE (01:53)
[2019-02-17] MEDS ORDERED: ACETAMINOPHEN 325 MG TABLET PO PRN ×2 (02:15→02:16)
[2019-02-17] MEDS ORDERED: CYANOCOBALAMIN (VITAMIN B-12) 1,000 MCG TABLET PO ONE (02:15)
[2019-02-17] MEDS ORDERED: ETOMIDATE INJ/PF 20 MG/10 ML SDV IV ONE ×2 (02:24→02:35)
[2019-02-17] MEDS ORDERED: PHARMACY COMMUNICATION ORDER MC NR (02:30)
[2019-02-17] MEDS ORDERED: CALCIUM CARBONATE 500 MG TABLET PO ONE (02:30)
[2019-02-17] MEDS ORDERED: GLUCAGON,HUMAN RECOMB 1 MG INJ IM PRN (02:32)
[2019-02-17] MEDS ORDERED: DEXTROSE 50%-WATER 25 GM/50 ML DISP.SYRIN IV PRN ×2 (02:32)
[2019-02-17] MEDS ORDERED: DEXTROSE 40% GEL 15 GM TUBE PO PRN ×2 (02:32)
[2019-02-17] MEDS ORDERED: ROCURONIUM BROMIDE INJ 50 MG/5 ML VIAL IV ONE ×2 (02:35→10:02)
[2019-02-17] MEDS ORDERED: PHENYLEPHRINE HCL INJ/PF 10 MG/1 ML SDV ONE ×3 (02:39→09:42)
--- NOTE | 2019-02-17 02:40 | ER Document Report ---
Doctor's Note Notes: 02/17/19 02:38 Patient is a 74-year-old female that is still on the ER who was admitted to Dr. Muhammad service. Patient apparently is being admitted for urosepsis and difficulty breathing. She is on dopamine for pressor agent and was on BiPAP for difficulty breathing. Patient apparently vomited into the BiPAP mask and they asked me to come evaluate the patient immediately. Patient's O2 saturation was in the upper 60s and she appeared unwell and was having difficulty breathing. She cannot talk to me. She is poorly responsive. I immediately started manual ventilation of the patient and suction of the oropharynx. The nurse called Dr. Muhammad to make sure the patient is allowed to be intubated as she is a DNR per nursing report to me and he says that is okay to intubate the patient. I therefore intubated the patient. Patient was intubated first attempt. Post inutbation chest x-ray has been ordered. O2 saturations are slowly improving. Patient's O2 saturation now is around 80%. I did call Dr. Muhammad and informed him that she she is now intubated. I informed him that she is still hypotensive. He says that he has ordered John-Synephrine and sedation medications. He says he will continue with remainder of the paitent's management. Dictation of this chart was performed using voice recognition software; therefore, there may be some unintended grammatical errors. 02/17/19 02:40
[2019-02-17] MEDS: DEXTROSE 5%-WATER 250 ML with PHENYLEPHRINE HCL 40 MG IV PRN ×12 (02:50→22:09)
[2019-02-17] MEDS ORDERED: INSULIN LISPRO 100 UNIT/ML 3 ML VIAL SUBCUT ONE (03:00)
[2019-02-17 03:18] LABS: ARTERIAL BLOOD FIO2 100%; ARTERIAL BLOOD H2CO3 1.62 mmol/L (1.05-1.35); ARTERIAL BLOOD PCO2 53.8 mmHg (35-45); ARTERIAL BLOOD PH 7.21 (7.35-7.45); ARTERIAL BLOOD PO2 52.1 mmHg (80-100); ARTERIAL BLOOD TOTAL CO2 22.6 mmol/L (21-25)
--- NOTE | 2019-02-17 03:23 | RADIOLOGY REPORT (SQ) ---
EXAM DESCRIPTION: XR CHEST 1 VIEW COMPLETED DATE/TME: 02/17/2019 00:00 CLINICAL HISTORY: 74 years, Female, post intubation/pneumonia COMPARISON: 02/16/2019 NUMBER OF VIEWS: One TECHNIQUE: AP view the chest LIMITATIONS: None. FINDINGS: The endotracheal tube terminates approximately 3.8 cm above the luisito. The nasogastric tube terminates within the stomach. There are worsening bilateral pulmonary opacities, more severe on the right. The heart size is stable. A small right pleural effusion may be present. There is no pneumothorax. The bones are unchanged. IMPRESSION: Satisfactory position of the endotracheal and nasogastric tubes. Worsening bilateral pulmonary airspace disease. copyright 2010 [employer]- All Rights Reserved
[2019-02-17] MEDS: RINGERS SOLUTION,LACTATED 1,000 ML IV PRN ×2 (03:50→14:42)
[2019-02-17] MEDS ORDERED: VASOPRESSIN INJ 20 UNIT/1 ML VIAL ONE ×2 (04:19→04:21)
[2019-02-17] MEDS: DEXTROSE 5%-WATER 250 ML with VASOPRESSIN 100 UNIT IV PRN ×2 (04:44)
[2019-02-17] MEDS: DIVALPROEX SODIUM 250 MG TABLET.DR PO SCH ×4 (05:02→17:15)
[2019-02-17] MEDS: CILASTATIN SODIUM IV SCH (05:07)
[2019-02-17] MEDS: IMIPENEM IV SCH (05:07)
[2019-02-17] MEDS: NORMAL SALINE IV SCH (05:07)
[2019-02-17] MEDS ORDERED: HYDROCORTISONE SOD SUCCINATE INJ/PF 100 MG/2 ML SDV IV SCH (06:00)
[2019-02-17] MEDS ORDERED: LEVOTHYROXINE SODIUM 0.088 MG TABLET PO SCH (06:00)
[2019-02-17] MEDS ORDERED: NORMAL SALINE IV SCH (06:00)
[2019-02-17] MEDS ORDERED: CILASTATIN SODIUM IV SCH (06:00)
[2019-02-17] MEDS ORDERED: OXCARBAZEPINE 150 MG TABLET PO SCH (06:00)
[2019-02-17] MEDS ORDERED: IMIPENEM IV SCH (06:00)
[2019-02-17] MEDS ORDERED: ACETAMINOPHEN 325 MG TABLET NG PRN (07:12)
[2019-02-17] MEDS ORDERED: NOREPINEPHRINE BITARTRATE INJ/PF 4 MG/4 ML SDV IV ONE (07:28)
[2019-02-17] MEDS ORDERED: SITAGLIPTIN PHOSPHATE 50 MG TABLET PO SCH (08:00)
[2019-02-17] MEDS ORDERED: (PENDING PHARMACY ID) (Linagliptin [Tradjenta] 5 MG) PO SCH (08:00)
[2019-02-17 09:00] LABS: ARTERIAL BLOOD BASE EXCESS -11.5 mmol/L; ARTERIAL BLOOD H2CO3 1.63 mmol/L (1.05-1.35); ARTERIAL BLOOD HCO3 17.6 mmol/L (20-24); ARTERIAL BLOOD O2 SATURATION 41.2 % (94-98); ARTERIAL BLOOD PCO2 54.3 mmHg (35-45); ARTERIAL BLOOD TOTAL CO2 19.3 mmol/L (21-25)
[2019-02-17 09:02] LABS: ARTERIAL BLOOD FIO2 100%
[2019-02-17 09:03] LABS: ARTERIAL BLOOD PH 7.13 (7.35-7.45); ARTERIAL BLOOD PO2 30.5 mmHg (80-100)
[2019-02-17 09:05] LABS: ABSOLUTE LYMPHOCYTES (AUTO) 1.6 10^3/uL (0.5-4.7); ABSOLUTE MONOCYTES (AUTO) 2.1 10^3/uL (0.1-1.4); ABSOLUTE NEUT (AUTO) 10.6 10^3/uL (1.7-8.2); BASOPHILS % (AUTO) 0.3 % (0-2); EOSINOPHILS % (AUTO) 0.1 % (0-6); HEMATOCRIT 29.8 % (36.0-47.0); HEMOGLOBIN 9.4 g/dL (12.0-15.5); LYMPHOCYTES % (AUTO) 11.2 % (13-45); MEAN CORPUSCULAR HEMOGLOBIN 31.3 pg (27.0-33.4); MEAN CORPUSCULAR HGB CONC 31.6 g/dL (32.0-36.0); MEAN CORPUSCULAR VOLUME 99 fl (80-97); MONOCYTES % (AUTO) 14.7 % (3-13); PLATELET COUNT 279 10^3/uL (150-450); RED BLOOD COUNT 3.01 10^6/uL (3.72-5.28); RED CELL DISTRIBUTION WIDTH 16.3 % (11.5-14.0); SEGMENTED NEUTROPHILS % (AUTO) 73.7 % (42-78); TOTAL CELLS COUNTED % (AUTO) 100 %; WHITE BLOOD COUNT 14.4 10^3/uL (4.0-10.5)
[2019-02-17 09:19] LABS: ALANINE AMINOTRANSFERASE 9 U/L (9-52); ALBUMIN 2.7 g/dL (3.5-5.0); ALKALINE PHOSPHATASE 43 U/L (38-126); ANION GAP 12 (5-19); ASPARTATE AMINO TRANSFERASE 34 U/L (14-36); BILIRUBIN,DIRECT 0.4 mg/dL (0.0-0.4); BILIRUBIN,TOTAL 0.4 mg/dL (0.2-1.3); BLOOD UREA NITROGEN 36 mg/dL (7-20); CALCIUM 8.7 mg/dL (8.4-10.2); CARBON DIOXIDE 18 mmol/L (22-30); CHLORIDE 107 mmol/L (98-107); GLUCOSE 212 mg/dL (75-110); TOTAL PROTEIN 6.2 g/dL (6.3-8.2)
[2019-02-17] MEDS: DOPAMINE HCL 800 MG/D5W 250 ML IV PRN ×3 (09:47→17:14)
[2019-02-17] MEDS ORDERED: QUETIAPINE FUMARATE 25 MG TABLET PO SCH ×2 (10:00→22:00)
[2019-02-17] MEDS ORDERED: CYANOCOBALAMIN (VITAMIN B-12) 1,000 MCG TABLET PO SCH (10:00)
[2019-02-17] MEDS ORDERED: THIAMINE HCL 100 MG TABLET PO SCH (10:00)
[2019-02-17] MEDS ORDERED: CALCIUM CARBONATE 500 MG TABLET PO SCH (10:00)
[2019-02-17] MEDS ORDERED: SENNOSIDES/DOCUSATE 8.6-50 MG 1 EACH TABLET PO SCH (10:00)
[2019-02-17] MEDS ORDERED: FOLIC ACID 1 MG TABLET PO SCH (10:00)
--- NOTE | 2019-02-17 10:43 | RADIOLOGY REPORT (SQ) ---
EXAM DESCRIPTION: CHEST SINGLE VIEW COMPLETED DATE/TIME: 02/17/2019 10:27 am REASON FOR STUDY: CENTRAL LINE PLACEMENT COMPARISON: 02/17/2019 EXAM PARAMETERS: NUMBER OF VIEWS: One view. TECHNIQUE: Single frontal radiographic view of the chest acquired. RADIATION DOSE: NA LIMITATIONS: None. FINDINGS: LUNGS AND PLEURA: Patchy opacification in the left base, right lung. MEDIASTINUM AND HILAR STRUCTURES: No masses. Contour normal. HEART AND VASCULAR STRUCTURES: Cardiomegaly. BONES: No acute findings. HARDWARE: Endotracheal tube and NG tube remain in place. There is a right internal jugular catheter with the tip in the superior vena cava. OTHER: No other significant finding. IMPRESSION: Right internal jugular catheter placement. Cardiomegaly. Possible asymmetric pulmonary edema versus multicentric pneumonia. TECHNICAL DOCUMENTATION: JOB ID: [id number] [employer]- All Rights Reserved Reading location - IP/workstation name: [email or web address]
[2019-02-17 10:46] LABS: ARTERIAL BLOOD BASE EXCESS -10.2 mmol/L; ARTERIAL BLOOD H2CO3 1.29 mmol/L (1.05-1.35); ARTERIAL BLOOD O2 SATURATION 87.9 % (94-98); ARTERIAL BLOOD PCO2 42.7 mmHg (35-45); ARTERIAL BLOOD PH 7.22 (7.35-7.45); ARTERIAL BLOOD PO2 63.6 mmHg (80-100); ARTERIAL BLOOD TOTAL CO2 18.3 mmol/L (21-25)
--- NOTE | 2019-02-17 10:46 | RADIOLOGY REPORT (SQ) ---
EXAM DESCRIPTION: CHEST SINGLE VIEW COMPLETED DATE/TIME: 02/17/2019 9:12 am REASON FOR STUDY: pneumonia COMPARISON: 02/17/2019 EXAM PARAMETERS: NUMBER OF VIEWS: One view. TECHNIQUE: Single frontal radiographic view of the chest acquired. RADIATION DOSE: NA LIMITATIONS: None. FINDINGS: LUNGS AND PLEURA: Patchy opacification in the left base and in the right lung. MEDIASTINUM AND HILAR STRUCTURES: No masses. Contour normal. HEART AND VASCULAR STRUCTURES: Cardiomegaly. BONES: No acute findings. HARDWARE: An endotracheal tube has its tip 3 cm above the luisito an NG tube extends to the stomach. OTHER: No other significant finding. IMPRESSION: Cardiomegaly. Cannot exclude asymmetric pulmonary edema. Likely multicentric pneumonia . TECHNICAL DOCUMENTATION: JOB ID: [id number] [employer]- All Rights Reserved Reading location - IP/workstation name: [email or web address]
[2019-02-17 10:47] LABS: ARTERIAL BLOOD FIO2 100%
[2019-02-17] MEDS ORDERED: RINGERS SOLUTION,LACTATED 2,000 ML IV ONE (11:00)
[2019-02-17] MEDS: INSULIN LISPRO 100 UNIT/ML 3 ML VIAL SUBCUT SCH ×3 (11:14→17:25)
[2019-02-17] MEDS: SITAGLIPTIN PHOSPHATE 50 MG TABLET NG SCH (11:15)
[2019-02-17] MEDS: CHLORHEXIDINE GLUCONATE 0.12% ORAL RINSE 15 ML UDC MM SCH (11:15)
[2019-02-17] MEDS: FOLIC ACID 1 MG TABLET NG SCH (11:15)
[2019-02-17] MEDS: QUETIAPINE FUMARATE 25 MG TABLET NG SCH ×2 (11:16→21:53)
[2019-02-17] MEDS: CYANOCOBALAMIN (VITAMIN B-12) 1,000 MCG TABLET NG SCH (11:16)
[2019-02-17] MEDS: CALCIUM CARBONATE 500 MG TABLET NG SCH (11:16)
[2019-02-17] MEDS: THIAMINE HCL 100 MG TABLET NG SCH (11:16)
[2019-02-17] MEDS: SENNOSIDES/DOCUSATE 8.6-50 MG 1 EACH TABLET NG SCH (11:16)
[2019-02-17 12:21] LABS: INTERNATIONAL RATION (INR) 1.42; PROTHROMBIN TIME 17.5 SEC (11.4-15.4)
[2019-02-17] MEDS ORDERED: HYDROCORTISONE SOD SUCCINATE INJ/PF 100 MG/2 ML SDV IV ONE (12:30)
[2019-02-17] MEDS: DEXTROSE 5%-WATER 250 ML with NOREPINEPHRINE BITARTRATE 4 MG IV PRN ×4 (13:00→17:14)
--- NOTE | 2019-02-17 14:30 | EKG REPORT ---
SEVERITY:- NORMAL ECG - SINUS RHYTHM : Confirmed by: Lisa Spangler MD 17-Feb-2019 14:30:12
[2019-02-17] MEDS ORDERED: IMIPENEM/CILASTATIN SODIUM 500 MG in NORMAL SALINE 100 ML IV SCH (15:00)
[2019-02-17] MEDS: OXCARBAZEPINE 150 MG TABLET NG SCH ×2 (15:37→21:53)
[2019-02-17] MEDS: PIPERACILLIN SODIUM/TAZOBACTAM 3.375 GM in NORMAL SALINE 100 ML IV SCH ×2 (15:42→20:40)
[2019-02-17 18:20] LABS: ARTERIAL BLOOD BASE EXCESS -10.5 mmol/L; ARTERIAL BLOOD H2CO3 1.19 mmol/L (1.05-1.35); ARTERIAL BLOOD HCO3 16.3 mmol/L (20-24); ARTERIAL BLOOD O2 SATURATION 94.9 % (94-98); ARTERIAL BLOOD PCO2 39.6 mmHg (35-45); ARTERIAL BLOOD PH 7.23 (7.35-7.45); ARTERIAL BLOOD PO2 86.1 mmHg (80-100); ARTERIAL BLOOD TOTAL CO2 17.5 mmol/L (21-25)
[2019-02-17 18:21] LABS: ARTERIAL BLOOD FIO2 75%
--- NOTE | 2019-02-17 20:40 | PDOC H&P ---
History of Present Illness Admission Date/PCP: 02/17/19 00:11 ISRA KAY MD History of Present Illness: DRE HOPKINS is a 74 year old female, She has underlying dementia, resident of [facility], she was transferred to the emergency room after being found choking on popcorn and in her vomit she was brought in by the ambulance on arrival she was hypotensive and also found to be hypoxemic, she was resuscitated in the emergency room with fluid and also started on noninvasive positive pressure ventilation, BiPAP. The initial intent was to admit to [facility], she has grossly abnormal urinalysis, the chest x-ray that was done when she arrived in the emergency room demonstrated improvement from the previous x-ray when she had pneumonia. Patient became agitated, blood pressure remains persistently low she was initially started on dopamine, patient was having difficulty maintaining number oxygen saturation she also had episode of vomiting in the ER ultimately culminating in trach intubation and mechanical ventilation she was then started on John-Synephrine and transferred to intensive care unit. Patient condition remains very critical she require multiple pressors including John-Synephrine, dopamine, norepinephrine, and vasopressin despite multiple pressors she remains hypotensive, she was also started on hydrocortisone. Patient is a payne of the [facility] no family member was available, she was a DNR status the last time she was admitted she was a DNR , on this admission I discussed with the state risk control field representative, guardian but she stated that she had to get authorization from her ingot supervisor ultimately they refused to melchor a DNR status, the initial DNR status was revoked so patient remain a full code despite very poor prognosis with underlying dementia, multiple hospital admission with multiple co-morbid conditions including chronic UTI, schizophrenia Past Medical History Cardiac Medical History: Reports: Hyperlipidema, Hypertension Pulmonary Medical History: Reports: Asthma, Chronic Obstructive Pulmonary Disease (COPD), Pneumonia Neurological Medical History: Reports: Seizures Endocrine Medical History: Reports: Diabetes Mellitus Type 2, Hypothyroidism GI Medical History: Reports: Gastroesophageal Reflux Disease Musculoskeltal Medical History: Reports: Arthritis - osteoarthritis Psychiatric Medical History: Reports: Bipolar Disorder, Dementia, Depression, Schizoaffective Disorder Hematology: Reports: Anemia Past Surgical History Past Surgical History: Reports: Hysterectomy, Tubal Ligation Social History Smoking Status: Unknown if Ever Smoked Frequency of Alcohol Use: None Hx Recreational Drug Use: No Hx Prescription Drug Abuse: No - Advance Directive Resuscitation Status: Full Code Family History Family History: Reviewed & Not Pertinent, Other - Unknown Parental Family History Reviewed: Yes Children Family History Reviewed: Yes Sibling(s) Family History Reviewed.: Yes Medication/Allergy Home Medications: Acetaminophen [Tylenol Extra Strength 500 mg Tablet] 1,000 mg PO Q8HP PRN 02/16/19 Sanchez/D3/Mag11/Zinc/Results Engineer/Fausto/Bor [Caltrate 600+D Plus Tablet] 1 tab PO DAILY 02/16/19 Chlorhexidine Gluconate [Peridex] 15 ml MM QAM 02/16/19 Cranberry Fruit Extract [Cranberry] 500 mg PO DAILY 02/16/19 Cyanocobalamin (Vitamin B-12) [Vitamin B-12 1000 Mcg Tablet] 1,000 mcg PO DAILY 02/16/19 Divalproex Sodium [Depakote] 250 mg PO Q6 02/16/19 Folic Acid [Folvite 1 mg Tablet] 1 mg PO DAILY 02/16/19 Insulin Lispro [Humalog Insulin 100 Unit/1 ml 3 ml Vial] 0 unit SUBCUT .SLD SCALE 02/16/19 Levothyroxine Sodium [Synthroid 0.088 mg Tablet] 0.088 mg PO DAILY 02/16/19 Linagliptin [Tradjenta] 5 mg PO QAM 02/16/19 Olanzapine [Zyprexa] 20 mg PO QHS 02/16/19 Oxcarbazepine [Trileptal 150 Mg Tablet] 150 mg PO Q8 02/16/19 Oxybutynin Chloride [Ditropan Xl] 10 mg PO DAILY 02/16/19 Pantoprazole Sodium [Protonix [address] Tablet] 40 mg PO QAM 02/16/19 Quetiapine Fumarate [Seroquel 25 mg Tablet] 25 mg PO DAILY 02/16/19 Quetiapine Fumarate [Seroquel 25 mg Tablet] 25 mg PO QHS 02/16/19 Sennosides/Docusate 8.6-50 mg [Senna Plus Tablet] 1 tab PO DAILY 02/16/19 Thiamine HCl [Thiamine 100 mg Tablet] 100 mg PO DAILY 02/16/19 Valsartan [Diovan 160 mg Tablet] 160 mg PO DAILY 02/16/19 Allergies/Adverse Reactions: chlorpromazine HCl [From Thorazine] Allergy (Unknown, Verified 04/17/19 16:29) lithium [[place]] Allergy (Unknown, Verified 11/02/18 16:29) Review of Systems ROS unobtainable: Due to mental status Physical Exam Vital Signs: Temp Pulse Resp BP Pulse Ox 98.2 F 108 H 36 H 87/49 L 94 02/17/19 18:00 02/17/19 18:00 02/17/19 18:00 02/17/19 18:00 02/17/19 18:00 Intake & Output 02/16/19 02/17/19 02/18/19 06:59 06:59 06:59 Intake Total 2250 2400 Output Total 250 1255 Balance 1999 114 Weight 86 kg General appearance: PRESENT: other - Patient on mechanical ventilation Respiratory exam: PRESENT: rhonchi Cardiovascular exam: PRESENT: +S1, +S2 GI/Abdominal exam: PRESENT: soft Neurological exam: PRESENT: altered Results Laboratory Results: 02/17/19 08:49 02/17/19 08:49 02/16/19 02/16/19 02/16/19 20:35 20:48 20:48 WBC 10.6 H RBC 2.90 L Hgb 9.2 L Hct 28.2 L MCV 97 MCH 31.8 MCHC 32.7 RDW 16.1 H Plt Count 266 Seg Neutrophils % 67.5 Lymphocytes % 18.1 Monocytes % 13.7 H Eosinophils % 0.4 Basophils % 0.3 Absolute Neutrophils 7.1 Absolute Lymphocytes 1.9 Absolute Monocytes 1.4 Absolute Eosinophils 0.0 Absolute Basophils 0.0 Carbonic Acid 1.55 H HCO3/H2CO3 Ratio 14:1 ABG pH 7.26 L ABG pCO2 51.6 H ABG pO2 108.9 H ABG HCO3 22.5 ABG O2 Saturation 97.2 ABG Base Excess -4.6 FiO2 100% Sodium 138.8 Potassium 5.3 H Chloride 104 Carbon Dioxide 25 Anion Gap 10 BUN 37 H Creatinine 1.75 H Est GFR ( Amer) 34 L Est GFR (Non-Af Amer) 28 L Glucose 151 H Lactic Acid Calcium 9.0 Magnesium Total Bilirubin 0.3 AST 18 ALT 12 Alkaline Phosphatase 45 Total Protein 7.1 Albumin 3.3 L Urine Color Urine Appearance Urine pH Ur Specific [place] Urine Protein Urine Glucose (UA) Urine Ketones Urine Blood Urine Nitrite Ur Leukocyte Esterase Urine WBC (Auto) Urine RBC (Auto) Fluid Type Fluid Source Fluid Color Fluid Appearance Fluid Viscosity Fluid WBC Fluid RBC 02/16/19 02/16/19 02/16/19 20:48 22:25 23:45 WBC RBC Hgb Hct MCV MCH MCHC RDW Plt Count Seg Neutrophils % Lymphocytes % Monocytes % Eosinophils % Basophils % Absolute Neutrophils Absolute Lymphocytes Absolute Monocytes Absolute Eosinophils Absolute Basophils Carbonic Acid 1.34 HCO3/H2CO3 Ratio 16:1 ABG pH 7.32 L ABG pCO2 44.4 ABG pO2 69.2 L ABG HCO3 22.6 ABG O2 Saturation 92.6 L ABG Base Excess -3.4 FiO2 45% Sodium Potassium Chloride Carbon Dioxide Anion Gap BUN Creatinine Est GFR ( Amer) Est GFR (Non-Af Amer) Glucose Lactic Acid 2.0 Calcium Magnesium Total Bilirubin AST ALT Alkaline Phosphatase Total Protein Albumin Urine Color YELLOW Urine Appearance CLOUDY Urine pH 6.0 Ur Specific [place] 1.013 Urine Protein 30 H Urine Glucose (UA) NEGATIVE Urine Ketones NEGATIVE Urine Blood NEGATIVE Urine Nitrite NEGATIVE Ur Leukocyte Esterase LARGE H Urine WBC (Auto) 149 Urine RBC (Auto) 3 Fluid Type Fluid Source Fluid Color Fluid Appearance Fluid Viscosity Fluid WBC Fluid RBC 02/17/19 02/17/19 02/17/19 01:33 02:55 06:43 WBC RBC Hgb Hct MCV MCH MCHC RDW Plt Count Seg Neutrophils % Lymphocytes % Monocytes % Eosinophils % Basophils % Absolute Neutrophils Absolute Lymphocytes Absolute Monocytes Absolute Eosinophils Absolute Basophils Carbonic Acid 1.62 H HCO3/H2CO3 Ratio 12:1 ABG pH 7.21 L ABG pCO2 53.8 H ABG pO2 52.1 L ABG HCO3 21.0 ABG O2 Saturation 79.0 L ABG Base Excess -7.0 FiO2 100% Sodium Potassium Chloride Carbon Dioxide Anion Gap BUN Creatinine Est GFR ( Amer) Est GFR (Non-Af Amer) Glucose Lactic Acid 4.7 H 4.8 H Calcium Magnesium Total Bilirubin AST ALT Alkaline Phosphatase Total Protein Albumin Urine Color Urine Appearance Urine pH Ur Specific [place] Urine Protein Urine Glucose (UA) Urine Ketones Urine Blood Urine Nitrite Ur Leukocyte Esterase Urine WBC (Auto) Urine RBC (Auto) Fluid Type Fluid Source Fluid Color Fluid Appearance Fluid Viscosity Fluid WBC Fluid RBC 02/17/19 02/17/19 02/17/19 06:59 08:49 08:49 WBC 14.4 H RBC 3.01 L Hgb 9.4 L Hct 29.8 L MCV 99 H MCH 31.3 MCHC 31.6 L RDW 16.3 H Plt Count 279 Seg Neutrophils % 73.7 Lymphocytes % 11.2 L Monocytes % 14.7 H Eosinophils % 0.1 Basophils % 0.3 Absolute Neutrophils 10.6 H Absolute Lymphocytes 1.6 Absolute Monocytes 2.1 H Absolute Eosinophils 0.0 Absolute Basophils 0.0 Carbonic Acid Cancelled HCO3/H2CO3 Ratio Cancelled ABG pH Cancelled ABG pCO2 Cancelled ABG pO2 Cancelled ABG HCO3 Cancelled ABG O2 Saturation Cancelled ABG Base Excess Cancelled FiO2 Cancelled Sodium 136.8 L Potassium 4.0 D Chloride 107 Carbon Dioxide 18 L Anion Gap 12 BUN 36 H Creatinine 2.14 H Est GFR ( Amer) 27 L Est GFR (Non-Af Amer) 22 L Glucose 212 H Lactic Acid Calcium 8.7 Magnesium 1.7 Total Bilirubin 0.4 AST 34 ALT 9 Alkaline Phosphatase 43 Total Protein 6.2 L Albumin 2.7 L Urine Color Urine Appearance Urine pH Ur Specific [place] Urine Protein Urine Glucose (UA) Urine Ketones Urine Blood Urine Nitrite Ur Leukocyte Esterase Urine WBC (Auto) Urine RBC (Auto) Fluid Type Fluid Source Fluid Color Fluid Appearance Fluid Viscosity Fluid WBC Fluid RBC 02/17/19 02/17/19 02/17/19 08:53 10:40 11:40 WBC RBC Hgb Hct MCV MCH MCHC RDW Plt Count Seg Neutrophils % Lymphocytes % Monocytes % Eosinophils % Basophils % Absolute Neutrophils Absolute Lymphocytes Absolute Monocytes Absolute Eosinophils Absolute Basophils Carbonic Acid 1.63 H 1.29 HCO3/H2CO3 Ratio 10:1 13:1 ABG pH 7.13 L* 7.22 L ABG pCO2 54.3 H 42.7 ABG pO2 30.5 L* 63.6 L ABG HCO3 17.6 L 17.0 L ABG O2 Saturation 41.2 L 87.9 L ABG Base Excess -11.5 -10.2 FiO2 100% 100% Sodium Potassium Chloride Carbon Dioxide Anion Gap BUN Creatinine Est GFR ( Amer) Est GFR (Non-Af Amer) Glucose Lactic Acid Calcium Magnesium Total Bilirubin AST ALT Alkaline Phosphatase Total Protein Albumin Urine Color Urine Appearance Urine pH Ur Specific [place] Urine Protein Urine Glucose (UA) Urine Ketones Urine Blood Urine Nitrite Ur Leukocyte Esterase Urine WBC (Auto) Urine RBC (Auto) Fluid Type Cancelled Fluid Source Cancelled Fluid Color Cancelled Fluid Appearance Cancelled Fluid Viscosity Cancelled Fluid WBC Cancelled Fluid RBC Cancelled 02/17/19 02/17/19 02/17/19 11:55 15:30 18:00 WBC RBC Hgb Hct MCV MCH MCHC RDW Plt Count Seg Neutrophils % Lymphocytes % Monocytes % Eosinophils % Basophils % Absolute Neutrophils Absolute Lymphocytes Absolute Monocytes Absolute Eosinophils Absolute Basophils Carbonic Acid 1.19 HCO3/H2CO3 Ratio 13:1 ABG pH 7.23 L ABG pCO2 39.6 ABG pO2 86.1 ABG HCO3 16.3 L ABG O2 Saturation 94.9 ABG Base Excess -10.5 FiO2 75% Sodium Potassium Chloride Carbon Dioxide Anion Gap BUN Creatinine Est GFR ( Amer) Est GFR (Non-Af Amer) Glucose Lactic Acid 7.3 H 6.7 H Calcium Magnesium Total Bilirubin AST ALT Alkaline Phosphatase Total Protein Albumin Urine Color Urine Appearance Urine pH Ur Specific [place] Urine Protein Urine Glucose (UA) Urine Ketones Urine Blood Urine Nitrite Ur Leukocyte Esterase Urine WBC (Auto) Urine RBC (Auto) Fluid Type Fluid Source Fluid Color Fluid Appearance Fluid Viscosity Fluid WBC Fluid RBC 02/16/19 02/16/19 02/16/19 20:48 20:48 20:48 Creatine Kinase 32 CK-MB (CK-2) 0.87 Troponin I < 0.012 NT-Pro-B Natriuret Pep 837 H Impressions: Head CT 02/16/19 20:17 IMPRESSION: No acute intracranial hemorrhage. Chest X-Ray 02/17/19 02:30 IMPRESSION: Cardiomegaly. Cannot exclude asymmetric pulmonary edema. Likely multicentric pneumonia. Assessment & Plan - Diagnosis (1) Septic shock Is this a current diagnosis for this admission?: Yes Plan: She has profound hypotension, presently on 4 vasopressors including norepinephrine, dopamine,Vasopressin, John-Synephrine on intravenous hydrocortisone, Also antibiotic Zosyn, imipenem (2) Respiratory failure Qualifiers: Chronicity: acute Respiratory failure complication: hypercapnia Qualified Code(s): J96.02 - Acute respiratory failure with hypercapnia Is this a current diagnosis for this admission?: Yes Plan: Patient on mechanical ventilation (3) Metabolic encephalopathy Is this a current diagnosis for this admission?: Yes (4) Pneumonia Qualifiers: Pneumonia type: due to unspecified organism Laterality: right Lung location: lower lobe of lung Qualified Code(s): J18.1 - Lobar pneumonia, unspecified organism Is this a current diagnosis for this admission?: Yes (5) Urinary tract infection Qualifiers: Urinary tract infection type: site unspecified Hematuria presence: without hematuria Qualified Code(s): N39.0 - Urinary tract infection, site not specified - Time Time Spent: Greater than 70 Minutes
[2019-02-17] MEDS: MIDAZOLAM HCL 50 MG/100 ML RTUINJ IV PRN (21:52)
[2019-02-17] MEDS: OLANZAPINE 5 MG TABLET NG SCH (21:53)
[2019-02-17] MEDS ORDERED: OLANZAPINE 5 MG TABLET PO SCH (22:00)
[2019-02-18] MEDS: DIVALPROEX SODIUM 250 MG TABLET.DR PO SCH ×2 (00:16→06:20)
[2019-02-18] MEDS: INSULIN LISPRO 100 UNIT/ML 3 ML VIAL SUBCUT SCH ×5 (00:20→23:02)
[2019-02-18] MEDS: DEXTROSE 5%-WATER 250 ML with NOREPINEPHRINE BITARTRATE 4 MG IV PRN ×2 (00:23)
[2019-02-18] MEDS: DEXTROSE 5%-WATER 250 ML with PHENYLEPHRINE HCL 40 MG IV PRN ×12 (01:44→20:15)
[2019-02-18] MEDS: PIPERACILLIN SODIUM/TAZOBACTAM 3.375 GM in NORMAL SALINE 100 ML IV SCH ×4 (03:12→21:09)
[2019-02-18] MEDS: DOPAMINE HCL 800 MG/D5W 250 ML IV PRN ×3 (03:12→18:28)
[2019-02-18] MEDS: RINGERS SOLUTION,LACTATED 1,000 ML IV PRN (03:13)
[2019-02-18] MEDS ORDERED: VASOPRESSIN INJ 20 UNIT/1 ML VIAL ONE (03:31)
[2019-02-18 03:58] LABS: ARTERIAL BLOOD BASE EXCESS -9.8 mmol/L; ARTERIAL BLOOD H2CO3 1.05 mmol/L (1.05-1.35); ARTERIAL BLOOD O2 SATURATION 97.5 % (94-98); ARTERIAL BLOOD PH 7.28 (7.35-7.45); ARTERIAL BLOOD PO2 110.5 mmHg (80-100); ARTERIAL BLOOD TOTAL CO2 17.1 mmol/L (21-25)
[2019-02-18 03:59] LABS: ARTERIAL BLOOD FIO2 70%
[2019-02-18 04:19] LABS: ANION GAP 13 (5-19); BLOOD UREA NITROGEN 34 mg/dL (7-20); CALCIUM 8.2 mg/dL (8.4-10.2); CARBON DIOXIDE 19 mmol/L (22-30); CHLORIDE 97 mmol/L (98-107); GLUCOSE 180 mg/dL (75-110); POTASSIUM 4.6 mmol/L (3.6-5.0)
[2019-02-18 04:20] LABS: PHOSPHORUS 4.3 mg/dL (2.5-4.5)
[2019-02-18 04:25] LABS: HEMATOCRIT 29.7 % (36.0-47.0); HEMOGLOBIN 9.4 g/dL (12.0-15.5); MEAN CORPUSCULAR HGB CONC 31.8 g/dL (32.0-36.0); MEAN CORPUSCULAR VOLUME 97 fl (80-97); PLATELET COUNT 169 10^3/uL (150-450); RED BLOOD COUNT 3.05 10^6/uL (3.72-5.28); RED CELL DISTRIBUTION WIDTH 16.1 % (11.5-14.0)
[2019-02-18 04:44] LABS: ABSOLUTE LYMPHOCYTES# (MANUAL) 1.7 10^3/uL (0.5-4.7); ABSOLUTE MONOCYTES # (MANUAL) 2.3 10^3/uL (0.1-1.4); BASOPHILS % (MANUAL) 0 % (0-2); EOSINOPHILS % (MANUAL) 0 % (0-6); LYMPHOCYTES % (MANUAL) 5 % (13-45); MONOCYTES % (MANUAL) 7 % (3-13); TOTAL CELLS COUNTED 100
[2019-02-18 04:47] LABS: ANISOCYTOSIS SLIGHT; HYPOCHROMASIA SLIGHT; OVALOCYTES SLIGHT; POIKILOCYTOSIS SLIGHT; TEAR DROP CELLS SLIGHT; TOXIC GRANULATION 1+; TOXIC VACUOLATION PRESENT
[2019-02-18 04:48] LABS: PLATELET COMMENT ADEQUATE
[2019-02-18 04:52] LABS: WHITE BLOOD COUNT 33.4 10^3/uL (4.0-10.5)
[2019-02-18] MEDS: DEXTROSE 5%-WATER 250 ML with VASOPRESSIN 100 UNIT IV PRN ×2 (05:01)
[2019-02-18] MEDS: MAGNESIUM SULFATE 1 GM/D5W 100 ML IV SCH ×2 (05:16→06:31)
[2019-02-18] MEDS: OXCARBAZEPINE 150 MG TABLET NG SCH ×4 (06:21→21:11)
[2019-02-18] MEDS: LEVOTHYROXINE SODIUM 0.088 MG TABLET NG SCH ×2 (06:21→06:36)
[2019-02-18] MEDS: CHLORHEXIDINE GLUCONATE 0.12% ORAL RINSE 15 ML UDC MM SCH (08:25)
[2019-02-18] MEDS: SITAGLIPTIN PHOSPHATE 50 MG TABLET NG SCH (08:26)
--- NOTE | 2019-02-18 08:26 | RADIOLOGY REPORT (SQ) ---
EXAM DESCRIPTION: CHEST SINGLE VIEW COMPLETED DATE/TIME: 02/18/2019 6:25 am REASON FOR STUDY: pneumonia COMPARISON: 02/17/2019. EXAM PARAMETERS: NUMBER OF VIEWS: One view. TECHNIQUE: Single frontal radiographic view of the chest acquired. RADIATION DOSE: NA LIMITATIONS: None. FINDINGS: LUNGS AND PLEURA: Extensive airspace disease in the right lung and in the left lower lobe. No large pleural effusion. No pneumothorax. MEDIASTINUM AND HILAR STRUCTURES: No masses. Contour normal. HEART AND VASCULAR STRUCTURES: Heart normal in size. Normal vasculature. BONES: No acute findings. HARDWARE: Stable endotracheal tube, nasogastric tube, and central line. OTHER: No other significant finding. IMPRESSION: BILATERAL AIRSPACE DISEASE, LIKELY DUE TO PNEUMONIA. NO SIGNIFICANT INTERVAL CHANGE. TECHNICAL DOCUMENTATION: JOB ID: [id number] [employer]- All Rights Reserved Reading location - IP/workstation name: [email or web address]
--- NOTE | 2019-02-18 10:23 | PDOC PROGRESS REPORT ---
Subjective Progress Note for:: 02/18/19 Subjective:: Patient remain intubated, sedated and vent supported. There is low graded fever. Remain on vasopressor support. Reason For Visit: SEPSIS,UTI,ENCEPHALOPATHY,KORI,HYPOTENSION Physical Exam Vital Signs: Temp Pulse Resp BP Pulse Ox 99.9 F 98 24 H 97/63 L 96 02/18/19 08:00 02/18/19 08:00 02/18/19 08:00 02/18/19 06:18 02/18/19 08:37 Intake & Output 02/17/19 02/18/19 02/19/19 06:59 06:59 06:59 Intake Total 2250 5114 271 Output Total 250 2280 200 Balance 1999 2834 71 Weight 86 kg 86.5 kg General appearance: PRESENT: severe distress - on ventilator support. Head exam: PRESENT: atraumatic, normocephalic Eye exam: PRESENT: conjunctiva pink. ABSENT: scleral icterus Ear exam: PRESENT: normal external ear exam Mouth exam: PRESENT: dry mucosa Respiratory exam: PRESENT: crackles - scattered bilaterally, decreased breath sounds - at lung bases Cardiovascular exam: PRESENT: RRR. ABSENT: diastolic murmur, rubs, systolic murmur Vascular exam: ABSENT: pallor GI/Abdominal exam: PRESENT: normal bowel sounds, soft Extremities exam: ABSENT: pedal edema Neurological exam: PRESENT: altered - due to sedation but withdraw to painful stimuli Skin exam: PRESENT: dry, warm Results Laboratory Results: 02/18/19 03:45 02/18/19 03:45 02/17/19 02/17/19 02/17/19 10:40 11:40 11:55 WBC RBC Hgb Hct MCV MCH MCHC RDW Plt Count Seg Neutrophils % Lymphocytes % Monocytes % Eosinophils % Basophils % Absolute Neutrophils Absolute Lymphocytes Absolute Monocytes Absolute Eosinophils Absolute Basophils Carbonic Acid 1.29 HCO3/H2CO3 Ratio 13:1 ABG pH 7.22 L ABG pCO2 42.7 ABG pO2 63.6 L ABG HCO3 17.0 L ABG O2 Saturation 87.9 L ABG Base Excess -10.2 FiO2 100% Sodium Potassium Chloride Carbon Dioxide Anion Gap BUN Creatinine Est GFR ( Amer) Est GFR (Non-Af Amer) Glucose Lactic Acid 7.3 H Calcium Phosphorus Magnesium Fluid Type Cancelled Fluid Source Cancelled Fluid Color Cancelled Fluid Appearance Cancelled Fluid Viscosity Cancelled Fluid WBC Cancelled Fluid RBC Cancelled 02/17/19 02/17/19 02/17/19 15:30 18:00 19:50 WBC RBC Hgb Hct MCV MCH MCHC RDW Plt Count Seg Neutrophils % Lymphocytes % Monocytes % Eosinophils % Basophils % Absolute Neutrophils Absolute Lymphocytes Absolute Monocytes Absolute Eosinophils Absolute Basophils Carbonic Acid 1.19 HCO3/H2CO3 Ratio 13:1 ABG pH 7.23 L ABG pCO2 39.6 ABG pO2 86.1 ABG HCO3 16.3 L ABG O2 Saturation 94.9 ABG Base Excess -10.5 FiO2 75% Sodium Potassium Chloride Carbon Dioxide Anion Gap BUN Creatinine Est GFR ( Amer) Est GFR (Non-Af Amer) Glucose Lactic Acid 6.7 H 5.9 H Calcium Phosphorus Magnesium Fluid Type Fluid Source Fluid Color Fluid Appearance Fluid Viscosity Fluid WBC Fluid RBC 02/17/19 02/17/19 02/18/19 19:50 23:50 03:45 WBC RBC Hgb Hct MCV MCH MCHC RDW Plt Count Seg Neutrophils % Lymphocytes % Monocytes % Eosinophils % Basophils % Absolute Neutrophils Absolute Lymphocytes Absolute Monocytes Absolute Eosinophils Absolute Basophils Carbonic Acid 1.05 HCO3/H2CO3 Ratio 15:1 ABG pH 7.28 L ABG pCO2 35.0 ABG pO2 110.5 H ABG HCO3 16.0 L ABG O2 Saturation 97.5 ABG Base Excess -9.8 FiO2 70% Sodium Potassium Chloride Carbon Dioxide Anion Gap BUN Creatinine Est GFR ( Amer) Est GFR (Non-Af Amer) Glucose Lactic Acid Cancelled 5.5 H Calcium Phosphorus Magnesium Fluid Type Fluid Source Fluid Color Fluid Appearance Fluid Viscosity Fluid WBC Fluid RBC 02/18/19 02/18/19 02/18/19 03:45 03:45 03:45 WBC 33.4 H* D RBC 3.05 L Hgb 9.4 L Hct 29.7 L MCV 97 MCH 31.0 MCHC 31.8 L RDW 16.1 H Plt Count 169 Seg Neutrophils % Not Reportable Lymphocytes % Not Reportable Monocytes % Not Reportable Eosinophils % Not Reportable Basophils % Not Reportable Absolute Neutrophils Not Reportable Absolute Lymphocytes Not Reportable Absolute Monocytes Not Reportable Absolute Eosinophils Not Reportable Absolute Basophils Not Reportable Carbonic Acid HCO3/H2CO3 Ratio ABG pH ABG pCO2 ABG pO2 ABG HCO3 ABG O2 Saturation ABG Base Excess FiO2 Sodium 129.1 L Potassium 4.6 Chloride 97 L Carbon Dioxide 19 L Anion Gap 13 BUN 34 H Creatinine 1.70 H Est GFR ( Amer) 35 L Est GFR (Non-Af Amer) 29 L Glucose 180 H Lactic Acid 5.0 H Calcium 8.2 L Phosphorus 4.3 Magnesium 1.3 L Fluid Type Fluid Source Fluid Color Fluid Appearance Fluid Viscosity Fluid WBC Fluid RBC 02/16/19 02/16/19 02/16/19 20:48 20:48 20:48 Creatine Kinase 32 CK-MB (CK-2) 0.87 Troponin I < 0.012 NT-Pro-B Natriuret Pep 837 H Impressions: Head CT 02/16/19 20:17 IMPRESSION: No acute intracranial hemorrhage. Chest X-Ray 02/18/19 02:30 IMPRESSION: BILATERAL AIRSPACE DISEASE, LIKELY DUE TO PNEUMONIA. NO SIGNIFICANT INTERVAL CHANGE. Assessment & Plan - Diagnosis (1) Acute hypoxemic respiratory failure Is this a current diagnosis for this admission?: Yes Plan: Continue ventilatory support with improvement in her oxygenation and titrate oxy gen support downward to avoid lung injury. Her hypercapnia is improving. (2) Septic shock Is this a current diagnosis for this admission?: Yes Plan: Continue IV fluid and vasopressor support. Maintain on IV antibiotic therapy. (3) Aspiration pneumonia of both lungs Qualifiers: Aspiration pneumonia type: due to vomit Lung location: unspecified part of lung Qualified Code(s): J69.0 - Pneumonitis due to inhalation of food and vomit Is this a current diagnosis for this admission?: Yes Plan: Continue ventilatory support and IV antibiotic coverage. Add IV Vancomycin to broaden her coverage in view of significant elevation in her WBC, possible high risk of MRSA due to recurrent hospitalization and institutional living environment. (4) Sepsis due to gram-negative UTI Is this a current diagnosis for this admission?: Yes Plan: Continue IV Zosyn coverage. Follow up on cultured organism identification and sensitivity report. (5) Metabolic encephalopathy Is this a current diagnosis for this admission?: Yes Plan: Continue current medication and IV fluid support management. (6) Acute renal failure (ARF) Qualifiers: Acute renal failure type: unspecified Qualified Code(s): N17.9 - Acute kidney failure, unspecified Is this a current diagnosis for this admission?: Yes Plan: Continue IV fluid support and adjust medication dosage as needed. (7) Type 2 diabetes mellitus Qualifiers: Diabetes mellitus shelter insulin use: with shelter use Is this a current diagnosis for this admission?: Yes Plan: Maintain on accuchek and Humalog insulin sliding scale coverage. Start on enteral tube feeding. - Time Time Spent with patient: 35 or more minutes Medications reviewed and adjusted accordingly: Yes Anticipated discharge: SNF Within: Other - Inpatient Certification Based on my medical assessment, after consideration of the patient's comorbidities, presenting symptoms, or acuity I expect that the services needed warrant INPATIENT care.: Yes I certify that my determination is in accordance with my understanding of Medicare's requirements for reasonable and necessary INPATIENT services [42 CFR 412.3e].: Yes Medical Necessity: Significant Comorbidiites Make Outpatient Treatment Too Risky, Need Close Monitoring Due to Risk of Patient Decompensation, Need For IV Fluids, Need For Continuous Telemetry Monitoring, Need for Nebulizer Therapy and Monitoring of Response, Need for IV Antibiotics, Risk of Complication if Not Cared For in Hospital, Risk of Diagnosis Which Will Require Inpatient Eval/Care/ Monitoring Post Hospital Care: D/C or Transfer Summary - Plan Summary Plan Summary: See covering attending physician orders for details about care plan.
--- NOTE | 2019-02-18 10:26 | Left Against Medical Advice ---
Against Medical Advice Admission Date/Time: 02/17/19 00:11 Primary Care Provider: ISRA KAY MD Date of Patient Emigration: 02/18/19 - Diagnosis: (1) Acute hypoxemic respiratory failure Is this a current diagnosis for this admission?: Yes (2) Septic shock Is this a current diagnosis for this admission?: Yes (3) Aspiration pneumonia of both lungs Is this a current diagnosis for this admission?: Yes (4) Sepsis due to gram-negative UTI Is this a current diagnosis for this admission?: Yes (5) Metabolic encephalopathy Is this a current diagnosis for this admission?: Yes (6) Acute renal failure (ARF) Is this a current diagnosis for this admission?: Yes (7) Type 2 diabetes mellitus Is this a current diagnosis for this admission?: Yes - Summary: Summary: Please see Admission and Progress Notes as well. DRE HOPKINS is a 74 F, who LEFT AGAINST MEDICAL ADVICE. The Patient was admitted on 02/17/19 00:11. I discussed at length with Maia Busch, director of APS, state appointed guardian, regarding patient resuscitation status. I was informed that the agency was able to reach patient's family and they are in agreement to make patient DNR at this time. Further discussion will take place in the near future regarding comfort care level if there is need for tracheostomy. I discussed the status with on duty nursing staff.
[2019-02-18] MEDS ORDERED: VANCOMYCIN HCL 0 MG in DEXTROSE 5%-WATER 250 ML IV NR (10:30)
[2019-02-18] MEDS: CALCIUM CARBONATE 500 MG TABLET NG SCH (10:46)
[2019-02-18] MEDS: QUETIAPINE FUMARATE 25 MG TABLET NG SCH ×2 (10:53→21:10)
[2019-02-18] MEDS: CYANOCOBALAMIN (VITAMIN B-12) 1,000 MCG TABLET NG SCH (10:53)
[2019-02-18] MEDS: FOLIC ACID 1 MG TABLET NG SCH (10:54)
[2019-02-18] MEDS: THIAMINE HCL 100 MG TABLET NG SCH (10:54)
[2019-02-18] MEDS: SENNOSIDES/DOCUSATE 8.6-50 MG 1 EACH TABLET NG SCH (10:54)
[2019-02-18] MEDS: NORMAL SALINE 1000 ML 1,000 ML IV PRN ×2 (10:55→21:14)
[2019-02-18] MEDS: VALPROATE SODIUM SYRUP 250 MG/5 ML UDCUP NG SCH ×3 (13:51→23:02)
[2019-02-18] MEDS: VANCOMYCIN HCL 1,000 MG in DEXTROSE 5%-WATER 250 ML IV SCH (13:52)
[2019-02-18] MEDS: MIDAZOLAM HCL 50 MG/100 ML RTUINJ IV PRN (15:14)
--- NOTE | 2019-02-18 17:35 | Operative Report ---
Bedside Procedure - History of Present Illness History of Present Illness: DRE HOPKINS is a 74 year old female, She has underlying dementia, resident of [facility], she was transferred to the emergency room after being found choking on popcorn and in her vomit she was brought in by the ambulance on arrival she was hypotensive and also found to be hypoxemic, she was resuscitated in the emergency room with fluid and also started on noninvasive positive pressure ventilation, BiPAP. The initial intent was to admit to [facility], she has grossly abnormal urinalysis, the chest x-ray that was done when she arrived in the emergency room demonstrated improvement from the previous x-ray when she had pneumonia. Patient became agitated, blood pressure remains persistently low she was initially started on dopamine, patient was having difficulty maintaining number oxygen saturation she also had episode of vomiting in the ER ultimately culminating in trach intubation and mechanical ventilation she was then started on John-Synephrine and transferred to intensive care unit. Patient condition remains very critical she require multiple pressors including John-Synephrine, dopamine, norepinephrine, and vasopressin despite multiple pressors she remains hypotensive, she was also started on hydrocortisone. Patient is a payne of the [facility] no family member was available, she was a DNR status the last time she was admitted she was a DNR , on this admission I discussed with the state small business sales representative, guardian but she stated that she had to get authorization from her supervisor tumbling and rolling ultimately they refused to melchor a DNR status, the initial DNR status was revoked so patient remain a full code despite very poor prognosis with underlying dementia, multiple hospital admission with multiple co-morbid conditions including chronic UTI, schizophrenia Indication for Procedure: septic shock vasopressors Date: 02/17/19 Surgeon: MICHAELA OCONNOR - Central Line Right Internal jugular Time completed: 10:00 Consent obtained: Yes Central line pre-insertion: Sterile PPE donned, Betadine prep applied, Chloraprep applied, Sterile drapes applied Central line lumen type: Triple Anesthetic type: 1% Lidocaine Ultrasound guided: Yes Line secured with sutures: Yes Central line post-insertion: Blood return from lumens, Biopatch applied, Sutured, Sterile dressing applied, Position confirmed w/ CXR Complications: No
--- NOTE | 2019-02-18 17:37 | Operative Report ---
Operative Report DATE OF SURGERY: 02/17/19 Operative Report: joseph obando a-line PREOPERATIVE DIAGNOSIS: septic shock POSTOPERATIVE DIAGNOSIS: same OPERATION: A line insertion SURGEON: MICHAELA OCONNOR ANESTHESIA: GA TISSUE REMOVED OR ALTERED: na COMPLICATIONS: na ESTIMATED BLOOD LOSS: 3cc
--- NOTE | 2019-02-18 17:42 | Operative Report ---
Operative Report DATE OF SURGERY: 02/17/19 Operative Report: patient aspirated afte eatinng popcorn allegedly into Bipap mask leading to LOGISTICS PLANNER and intubation PREOPERATIVE DIAGNOSIS: aspiratiion POSTOPERATIVE DIAGNOSIS: same OPERATION: fiberoptic bronchoscopy with bronchoalveolar lavage SURGEON: MICHAELA OCONNOR ANESTHESIA: GA TISSUE REMOVED OR ALTERED: popcorn shells COMPLICATIONS: na ESTIMATED BLOOD LOSS: 3cc
[2019-02-18] MEDS: OLANZAPINE 5 MG TABLET NG SCH (21:09)
[2019-02-19] MEDS ORDERED: VASOPRESSIN INJ 20 UNIT/1 ML VIAL ONE ×2 (00:08→22:15)
[2019-02-19] MEDS: DEXTROSE 5%-WATER 250 ML with VASOPRESSIN 100 UNIT IV PRN ×4 (00:24→23:00)
[2019-02-19] MEDS: DEXTROSE 5%-WATER 250 ML with PHENYLEPHRINE HCL 40 MG IV PRN ×2 (00:27)
[2019-02-19] MEDS: PIPERACILLIN SODIUM/TAZOBACTAM 3.375 GM in NORMAL SALINE 100 ML IV SCH ×4 (02:05→22:50)
[2019-02-19] MEDS: DOPAMINE HCL 800 MG/D5W 250 ML IV PRN ×3 (02:46→18:36)
[2019-02-19 03:26] LABS: ARTERIAL BLOOD BASE EXCESS -3.9 mmol/L; ARTERIAL BLOOD H2CO3 0.89 mmol/L (1.05-1.35); ARTERIAL BLOOD HCO3 19.5 mmol/L (20-24); ARTERIAL BLOOD O2 SATURATION 96.3 % (94-98); ARTERIAL BLOOD PCO2 29.7 mmHg (35-45); ARTERIAL BLOOD PH 7.44 (7.35-7.45); ARTERIAL BLOOD PO2 79.4 mmHg (80-100); ARTERIAL BLOOD TOTAL CO2 20.4 mmol/L (21-25)
[2019-02-19 03:28] LABS: HEMOGLOBIN 8.5 g/dL (12.0-15.5); MEAN CORPUSCULAR HEMOGLOBIN 30.9 pg (27.0-33.4); MEAN CORPUSCULAR HGB CONC 32.5 g/dL (32.0-36.0); MEAN CORPUSCULAR VOLUME 95 fl (80-97); PLATELET COUNT 105 10^3/uL (150-450); RED BLOOD COUNT 2.74 10^6/uL (3.72-5.28); RED CELL DISTRIBUTION WIDTH 16.3 % (11.5-14.0)
[2019-02-19 03:31] LABS: ARTERIAL BLOOD FIO2 45%
[2019-02-19 03:44] LABS: ALBUMIN 2.1 g/dL (3.5-5.0); ALKALINE PHOSPHATASE 56 U/L (38-126); ANION GAP 11 (5-19); ASPARTATE AMINO TRANSFERASE 150 U/L (14-36); BILIRUBIN,DIRECT 0.6 mg/dL (0.0-0.4); BILIRUBIN,TOTAL 0.6 mg/dL (0.2-1.3); BLOOD UREA NITROGEN 29 mg/dL (7-20); CALCIUM 8.1 mg/dL (8.4-10.2); CARBON DIOXIDE 20 mmol/L (22-30); CHLORIDE 97 mmol/L (98-107); GLUCOSE 111 mg/dL (75-110); PHOSPHORUS 3.5 mg/dL (2.5-4.5); POTASSIUM 4.2 mmol/L (3.6-5.0)
[2019-02-19 03:47] LABS: ABSOLUTE LYMPHOCYTES# (MANUAL) 0.6 10^3/uL (0.5-4.7); ABSOLUTE MONOCYTES # (MANUAL) 2.9 10^3/uL (0.1-1.4); BASOPHILS % (MANUAL) 0 % (0-2); EOSINOPHILS % (MANUAL) 0 % (0-6); LYMPHOCYTES % (MANUAL) 2 % (13-45); MONOCYTES % (MANUAL) 9 % (3-13); SEGMENTED NEUTROPHILS % (MAN) 62 % (42-78); TOTAL CELLS COUNTED 100
[2019-02-19 03:48] LABS: PLATELET COMMENT DECREASED; TOXIC GRANULATION SLIGHT; TOXIC VACUOLATION PRESENT
[2019-02-19 03:53] LABS: ANISOCYTOSIS 1+; HYPOCHROMASIA 2+; WHITE BLOOD COUNT 31.9 10^3/uL (4.0-10.5)
[2019-02-19 03:54] LABS: BAND NEUTROPHILS % (MANUAL) 24 % (3-5); METAMYELOCYTES % (MANUAL) 3 % (0)
[2019-02-19] MEDS: INSULIN LISPRO 100 UNIT/ML 3 ML VIAL SUBCUT SCH ×4 (05:22→23:07)
[2019-02-19] MEDS: VALPROATE SODIUM SYRUP 250 MG/5 ML UDCUP NG SCH ×4 (05:22→23:01)
[2019-02-19] MEDS: OXCARBAZEPINE 150 MG TABLET NG SCH ×3 (05:22→23:03)
[2019-02-19] MEDS: LEVOTHYROXINE SODIUM 0.088 MG TABLET NG SCH (05:22)
--- NOTE | 2019-02-19 08:25 | RADIOLOGY REPORT (SQ) ---
EXAM DESCRIPTION: CHEST SINGLE VIEW COMPLETED DATE/TIME: 02/19/2019 6:10 am REASON FOR STUDY: resp. failure/aspiration pneumonia COMPARISON: 02/18/2019. EXAM PARAMETERS: NUMBER OF VIEWS: One view. TECHNIQUE: Single frontal radiographic view of the chest acquired. RADIATION DOSE: NA LIMITATIONS: None. FINDINGS: LUNGS AND PLEURA: Diffuse airspace disease in the right lung and in the lower left lung, u nchanged. No pleural effusion. No pneumothorax. MEDIASTINUM AND HILAR STRUCTURES: No masses. Contour normal. HEART AND VASCULAR STRUCTURES: Heart normal in size. Normal vasculature. BONES: No acute findings. HARDWARE: Stable endotracheal tube, nasogastric tube, and central line. OTHER: No other significant finding. IMPRESSION: NO SIGNIFICANT CHANGE IN APPEARANCE OF THE CHEST. BILATERAL AIRSPACE DISEASE. TECHNICAL DOCUMENTATION: JOB ID: [id number] [employer]- All Rights Reserved Reading location - IP/workstation name: [email or web address]
[2019-02-19] MEDS: SITAGLIPTIN PHOSPHATE 50 MG TABLET NG SCH (08:41)
[2019-02-19] MEDS: CHLORHEXIDINE GLUCONATE 0.12% ORAL RINSE 15 ML UDC MM SCH (08:41)
[2019-02-19] MEDS: NORMAL SALINE 1000 ML 1,000 ML IV PRN ×2 (09:38→22:30)
[2019-02-19] MEDS: CYANOCOBALAMIN (VITAMIN B-12) 1,000 MCG TABLET NG SCH (09:39)
[2019-02-19] MEDS: SENNOSIDES/DOCUSATE 8.6-50 MG 1 EACH TABLET NG SCH (09:39)
[2019-02-19] MEDS: QUETIAPINE FUMARATE 25 MG TABLET NG SCH ×2 (09:39→23:02)
[2019-02-19] MEDS: THIAMINE HCL 100 MG TABLET NG SCH (09:39)
[2019-02-19] MEDS: FOLIC ACID 1 MG TABLET NG SCH (09:39)
[2019-02-19] MEDS: CALCIUM CARBONATE 500 MG TABLET NG SCH (09:40)
--- NOTE | 2019-02-19 09:58 | PDOC PROGRESS REPORT ---
Subjective Progress Note for:: 02/19/19 Subjective:: Patient remain intubated, sedated and vent supported. She remain on vasopressor and IV fluid support. Reason For Visit: SEPSIS,UTI,ENCEPHALOPATHY,KORI,HYPOTENSION Physical Exam Vital Signs: Temp Pulse Resp BP Pulse Ox 97.7 F 94 24 H 114/59 L 97 02/19/19 08:00 02/19/19 08:00 02/19/19 08:00 02/19/19 08:00 02/19/19 08:30 Intake & Output 02/18/19 02/19/19 02/20/19 06:59 06:59 06:59 Intake Total 5114 5015 1140 Output Total 2280 3775 300 Balance 2834 1240 840 Weight 86.5 kg 87.6 kg Physical Exam: General appearance: PRESENT: severe distress - on ventilator support. Head exam: PRESENT: atraumatic, normocephalic Eye exam: PRESENT: conjunctiva pink. ABSENT: pallor, scleral icterus Ear exam: PRESENT: normal external ear exam Mouth exam: PRESENT: dry mucosa Respiratory exam: PRESENT: crackles - scattered bilaterally, decreased breath sounds - at lung bases Cardiovascular exam: PRESENT: RRR. ABSENT: diastolic murmur, rubs, systolic murmur GI/Abdominal exam: PRESENT: normal bowel sounds, soft Extremities exam: ABSENT: pedal edema Neurological exam: PRESENT: altered - due to sedation but withdraw to painful stimuli Skin exam: PRESENT: dry, warm Results Laboratory Results: 02/19/19 03:20 02/19/19 03:20 02/18/19 02/18/19 02/19/19 13:00 16:30 03:20 WBC RBC Hgb Hct MCV MCH MCHC RDW Plt Count Seg Neutrophils % Lymphocytes % Monocytes % Eosinophils % Basophils % Absolute Neutrophils Absolute Lymphocytes Absolute Monocytes Absolute Eosinophils Absolute Basophils Carbonic Acid 0.89 L HCO3/H2CO3 Ratio 21:1 ABG pH 7.44 ABG pCO2 29.7 L ABG pO2 79.4 L ABG HCO3 19.5 L ABG O2 Saturation 96.3 ABG Base Excess -3.9 FiO2 45% Sodium Potassium Chloride Carbon Dioxide Anion Gap BUN Creatinine Est GFR ( Amer) Est GFR (Non-Af Amer) Glucose Lactic Acid 4.6 H 4.7 H Calcium Phosphorus Magnesium Total Bilirubin AST Alkaline Phosphatase Total Protein Albumin 02/19/19 02/19/19 02/19/19 03:20 03:20 03:20 WBC 31.9 H* RBC 2.74 L Hgb 8.5 L Hct 26.0 L MCV 95 MCH 30.9 MCHC 32.5 RDW 16.3 H Plt Count 105 L Seg Neutrophils % Not Reportable Lymphocytes % Not Reportable Monocytes % Not Reportable Eosinophils % Not Reportable Basophils % Not Reportable Absolute Neutrophils Not Reportable Absolute Lymphocytes Not Reportable Absolute Monocytes Not Reportable Absolute Eosinophils Not Reportable Absolute Basophils Not Reportable Carbonic Acid HCO3/H2CO3 Ratio ABG pH ABG pCO2 ABG pO2 ABG HCO3 ABG O2 Saturation ABG Base Excess FiO2 Sodium 128.0 L Potassium 4.2 Chloride 97 L Carbon Dioxide 20 L Anion Gap 11 BUN 29 H Creatinine 1.52 H Est GFR ( Amer) 40 L Est GFR (Non-Af Amer) 33 L Glucose 111 H Lactic Acid 3.7 H Calcium 8.1 L Phosphorus 3.5 Magnesium 1.6 Total Bilirubin 0.6 AST 150 H Alkaline Phosphatase 56 Total Protein 5.0 L Albumin 2.1 L 02/17/19 11:45 Bronchial Washings AFB Smear Concentration - Final 02/17/19 11:45 Bronchial Washings Acid Fast Bacilli Smear - Final 02/16/19 22:25 Malcolm Catheter Urine Culture - Final Klebsiella Pneumoniae-Esbl 02/16/19 02/16/19 02/16/19 20:48 20:48 20:48 Creatine Kinase 32 CK-MB (CK-2) 0.87 Troponin I < 0.012 NT-Pro-B Natriuret Pep 837 H Impressions: Head CT 02/16/19 20:17 IMPRESSION: No acute intracranial hemorrhage. Chest X-Ray 02/19/19 06:00 IMPRESSION: NO SIGNIFICANT CHANGE IN APPEARANCE OF THE CHEST. BILATERAL AIRSPACE DISEASE. Assessment & Plan - Diagnosis (1) Acute hypoxemic respiratory failure Is this a current diagnosis for this admission?: Yes Plan: Continue ventilatory support with adjustment to her FIO2 as per improvement. (2) Septic shock Is this a current diagnosis for this admission?: Yes Plan: Continue IV fluid and vasopressor support. Continue IV antibiotic therapy. Obtain stool for C.difficile toxin titer. (3) Aspiration pneumonia of both lungs Qualifiers: Aspiration pneumonia type: due to vomit Lung location: unspecified part of lung Qualified Code(s): J69.0 - Pneumonitis due to inhalation of food and vomit Is this a current diagnosis for this admission?: Yes Plan: Continue ventilatory support and IV antibiotic coverage. (4) Urinary tract infection due to ESBL Klebsiella Is this a current diagnosis for this admission?: Yes Plan: Continue IV Zosyn coverage based on reported sensitivity spectrum. (5) Metabolic encephalopathy Is this a current diagnosis for this admission?: Yes (6) Acute renal failure (ARF) Qualifiers: Acute renal failure type: unspecified Qualified Code(s): N17.9 - Acute kidney failure, unspecified Is this a current diagnosis for this admission?: Yes (7) Type 2 diabetes mellitus Qualifiers: Diabetes mellitus care home insulin use: with extermination inspector use Is this a current diagnosis for this admission?: Yes - Time Time Spent with patient: 35 or more minutes Medications reviewed and adjusted accordingly: Yes Anticipated discharge: SNF Within: Other - Inpatient Certification Based on my medical assessment, after consideration of the patient's comor bidities, presenting symptoms, or acuity I expect that the services needed warrant INPATIENT care.: Yes I certify that my determination is in accordance with my understanding of Medicare's requirements for reasonable and necessary INPATIENT services [42 CFR 412.3e].: Yes Medical Necessity: Significant Comorbidiites Make Outpatient Treatment Too Risky, Need Close Monitoring Due to Risk of Patient Decompensation, Need For IV Fluids, Need For Continuous Telemetry Monitoring, Need for Nebulizer Therapy and Monitoring of Response, Need for IV Antibiotics, Risk of Complication if Not Cared For in Hospital, Risk of Diagnosis Which Will Require Inpatient Eval/Care/Monitoring Post Hospital Care: D/C or Transfer Summary - Plan Summary Plan Summary: Continue IV Zosyn and Vancomycin coverage. Start on enteral tube feeding. Overall prognosis remain guarded.
--- NOTE | 2019-02-19 10:28 | ADVANCED CARE ---
- Diagnosis (1) Acute hypoxemic respiratory failure Diagnosis Current: Yes (2) Septic shock Diagnosis Current: Yes (3) Aspiration pneumonia of both lungs Diagnosis Current: Yes (4) Sepsis due to gram-negative UTI Diagnosis Current: Yes (5) Metabolic encephalopathy Diagnosis Current: Yes (6) Acute renal failure (ARF) Diagnosis Current: Yes (7) Type 2 diabetes mellitus Diagnosis Current: Yes Attendance: Maia Busch, APS director. Resuscitation Status: Do Not Resuscitate Discussion: I discussed at length with Maia Busch, director of APS, state appointed guardian, regarding patient resuscitation status. I was informed that the agency was able to reach patient's family and they are in agreement to make patient DNR at this time. Further discussion will take place in the near future regarding comfort care level if there is need for tracheostomy. I discussed the status with on duty nursing staff. Care Planning Goals: Presently directed at treating her underlying acute medical problems. Document(s) Completed: DNR status on the EHR system. Time Spent: 15 minutes.
[2019-02-19] MEDS: VANCOMYCIN HCL 1,000 MG in DEXTROSE 5%-WATER 250 ML IV SCH (13:37)
[2019-02-19] MEDS: PANTOPRAZOLE SODIUM 40 MG PACKET.DR NG SCH (13:52)
[2019-02-19] MEDS ORDERED: BISACODYL 10 MG SUPP.RECT PR ONE (17:00)
[2019-02-19] MEDS: OLANZAPINE 5 MG TABLET NG SCH (23:09)
[2019-02-20] MEDS: PIPERACILLIN SODIUM/TAZOBACTAM 3.375 GM in NORMAL SALINE 100 ML IV SCH ×4 (03:15→22:02)
[2019-02-20] MEDS: DOPAMINE HCL 800 MG/D5W 250 ML IV PRN ×2 (03:15→13:23)
[2019-02-20 03:45] LABS: HEMATOCRIT 23.9 % (36.0-47.0); MEAN CORPUSCULAR HEMOGLOBIN 30.8 pg (27.0-33.4); MEAN CORPUSCULAR HGB CONC 32.5 g/dL (32.0-36.0); MEAN CORPUSCULAR VOLUME 95 fl (80-97); RED BLOOD COUNT 2.52 10^6/uL (3.72-5.28); RED CELL DISTRIBUTION WIDTH 16.2 % (11.5-14.0); WHITE BLOOD COUNT 28.6 10^3/uL (4.0-10.5)
[2019-02-20 03:48] LABS: ARTERIAL BLOOD BASE EXCESS -2.5 mmol/L; ARTERIAL BLOOD HCO3 20.7 mmol/L (20-24); ARTERIAL BLOOD O2 SATURATION 98.3 % (94-98); ARTERIAL BLOOD PH 7.46 (7.35-7.45); ARTERIAL BLOOD PO2 111.2 mmHg (80-100); ARTERIAL BLOOD TOTAL CO2 21.6 mmol/L (21-25); HEMOGLOBIN 7.8 g/dL (12.0-15.5); PLATELET COUNT 92 10^3/uL (150-450)
[2019-02-20 03:52] LABS: ARTERIAL BLOOD FIO2 40%
[2019-02-20 03:56] LABS: ABSOLUTE LYMPHOCYTES# (MANUAL) 1.4 10^3/uL (0.5-4.7); ABSOLUTE MONOCYTES # (MANUAL) 1.4 10^3/uL (0.1-1.4); BAND NEUTROPHILS % (MANUAL) 22 % (3-5); BASOPHILS % (MANUAL) 0 % (0-2); EOSINOPHILS % (MANUAL) 0 % (0-6); LYMPHOCYTES % (MANUAL) 5 % (13-45); METAMYELOCYTES % (MANUAL) 1 % (0); MONOCYTES % (MANUAL) 5 % (3-13); PLATELET COMMENT DECREASED; SEGMENTED NEUTROPHILS % (MAN) 67 % (42-78); TOTAL CELLS COUNTED 100
[2019-02-20 03:59] LABS: ANISOCYTOSIS 1+; HYPOCHROMASIA 2+; POLYCHROMASIA SLIGHT; TOXIC GRANULATION SLIGHT; TOXIC VACUOLATION PRESENT
[2019-02-20 04:00] LABS: STOMATOCYTES SLIGHT
[2019-02-20 04:01] LABS: ALKALINE PHOSPHATASE 79 U/L (38-126); ANION GAP 8 (5-19); ASPARTATE AMINO TRANSFERASE 91 U/L (14-36); BILIRUBIN,DIRECT 0.4 mg/dL (0.0-0.4); BILIRUBIN,TOTAL 0.4 mg/dL (0.2-1.3); BLOOD UREA NITROGEN 23 mg/dL (7-20); CALCIUM 8.3 mg/dL (8.4-10.2); CARBON DIOXIDE 24 mmol/L (22-30); CHLORIDE 104 mmol/L (98-107); GLUCOSE 163 mg/dL (75-110); PHOSPHORUS 2.4 mg/dL (2.5-4.5); POTASSIUM 3.3 mmol/L (3.6-5.0); TOTAL PROTEIN 4.9 g/dL (6.3-8.2)
[2019-02-20] MEDS ORDERED: POTASSI CL 20 MEQ/50 ML RIDER 20 MEQ/50 ML RTUPB IV ONE (04:56)
[2019-02-20] MEDS: LEVOTHYROXINE SODIUM 0.088 MG TABLET NG SCH (05:03)
[2019-02-20] MEDS: PANTOPRAZOLE SODIUM 40 MG PACKET.DR NG SCH (05:03)
[2019-02-20] MEDS: VALPROATE SODIUM SYRUP 250 MG/5 ML UDCUP NG SCH ×3 (05:04→17:41)
[2019-02-20] MEDS: OXCARBAZEPINE 150 MG TABLET NG SCH ×3 (05:04→22:02)
[2019-02-20] MEDS: INSULIN LISPRO 100 UNIT/ML 3 ML VIAL SUBCUT SCH ×3 (05:07→17:09)
[2019-02-20] MEDS: POTASSIUM CHLORIDE 20 MEQ/50 ML RTU IV SCH ×2 (05:15→07:48)
[2019-02-20] MEDS ORDERED: POTASSIUM CHLORIDE 20 MEQ/50 ML RTU IV SCH (05:15)
[2019-02-20] MEDS: SITAGLIPTIN PHOSPHATE 50 MG TABLET NG SCH (07:53)
[2019-02-20] MEDS: CHLORHEXIDINE GLUCONATE 0.12% ORAL RINSE 15 ML UDC MM SCH (07:53)
--- NOTE | 2019-02-20 08:41 | RADIOLOGY REPORT (SQ) ---
EXAM DESCRIPTION: CHEST SINGLE VIEW COMPLETED DATE/TIME: 02/20/2019 6:23 am REASON FOR STUDY: resp. failure/aspiration pneumonia COMPARISON: Chest films 02/19/2019, 02/18/2019, 02/17/2019, 02/16/2019 EXAM PARAMETERS: NUMBER OF VIEWS: One view. TECHNIQUE: Single frontal radiographic view of the chest acquired. RADIATION DOSE: NA LIMITATIONS: None. FINDINGS: LUNGS AND PLEURA: No change in knee alveolar and interstitial infiltrates bilaterally. Pe rsistent hyperlucency left upper lobe from obstructive disease. No pneumothorax. No pleural effusio ns. MEDIASTINUM AND HILAR STRUCTURES: No masses. Contour normal. HEART AND VASCULAR STRUCTURES: Heart normal in size. Normal vasculature. BONES: No acute findings. HARDWARE: Endotracheal tube tip 3 to 4 cm above the luisito. Right jugular central line tip in the ri ght atrium. Nasogastric tube tip and side port in the stomach OTHER: No other significant finding. IMPRESSION: No change from yesterday TECHNICAL DOCUMENTATION: JOB ID: [id number] [employer]- All Rights Reserved Reading location - IP/workstation name: [email or web address]
[2019-02-20] MEDS ORDERED: SODIUM PHOS,M-BASIC-D-BASIC 15 MMOL in NORMAL SALINE 250 ML IV ONE (09:00)
[2019-02-20] MEDS: THIAMINE HCL 100 MG TABLET NG SCH (09:09)
[2019-02-20] MEDS: CALCIUM CARBONATE 500 MG TABLET NG SCH (09:09)
[2019-02-20] MEDS: FOLIC ACID 1 MG TABLET NG SCH (09:10)
[2019-02-20] MEDS: CYANOCOBALAMIN (VITAMIN B-12) 1,000 MCG TABLET NG SCH (09:10)
[2019-02-20] MEDS: QUETIAPINE FUMARATE 25 MG TABLET NG SCH ×2 (09:10→22:03)
[2019-02-20] MEDS: SENNOSIDES/DOCUSATE 8.6-50 MG 1 EACH TABLET NG SCH (09:10)
[2019-02-20] MEDS: NORMAL SALINE 1000 ML 1,000 ML IV PRN ×2 (10:02→22:09)
[2019-02-20 11:22] LABS: PATH REVIEW PATHOLOGIST REVIEWED
[2019-02-20] MEDS: VANCOMYCIN HCL 1,000 MG in DEXTROSE 5%-WATER 250 ML IV SCH (11:36)
[2019-02-20 12:23] LABS: ANION GAP 6 (5-19); BLOOD UREA NITROGEN 22 mg/dL (7-20); CARBON DIOXIDE 24 mmol/L (22-30); CHLORIDE 106 mmol/L (98-107); GLUCOSE 136 mg/dL (75-110); PHOSPHORUS 2.8 mg/dL (2.5-4.5); POTASSIUM 3.5 mmol/L (3.6-5.0)
[2019-02-20 15:43] LABS: BAND NEUTROPHILS % (MANUAL) 40 % (3-5)
[2019-02-20 15:44] LABS: METAMYELOCYTES % (MANUAL) 3 % (0)
[2019-02-20 15:45] LABS: PATH REVIEW PATHOLOGIST REVIEWED; SEGMENTED NEUTROPHILS % (MAN) 45 % (42-78)
[2019-02-20] MEDS: VANCOMYCIN HCL 750 MG in DEXTROSE 5%-WATER 250 ML IV SCH (22:02)
[2019-02-20] MEDS: OLANZAPINE 5 MG TABLET NG SCH (22:03)
--- NOTE | 2019-02-20 22:54 | PDOC PROGRESS REPORT ---
Subjective Progress Note for:: 02/20/19 Subjective:: Patient remain intubated, sedated and vent supported. She remain on IV fluid and tapering lower dose vasopressor support. Tube feeding on hold due to high residual volume as per nursing report. Reason For Visit: SEPSIS,UTI,ENCEPHALOPATHY,KORI,HYPOTENSION Physical Exam Vital Signs: Temp Pulse Resp BP Pulse Ox 97.7 F 98 20 102/52 L 95 02/19/19 16:00 02/19/19 21:42 02/20/19 06:20 02/20/19 05:30 02/20/19 06:20 Intake & Output 02/19/19 02/20/19 02/21/19 06:59 06:59 06:59 Intake Total 5015 3557 50 Output Total 3775 4585 Balance 1240 -1028 50 Weight 87.6 kg 86 kg Physical Exam: General appearance: PRESENT: severe distress - on ventilator support. Head exam: PRESENT: atraumatic, normocephalic Eye exam: PRESENT: conjunctiva pink. ABSENT: pallor, scleral icterus Ear exam: PRESENT: normal external ear exam Mouth exam: PRESENT: dry mucosa, OG and ET tubes in situ. Respiratory exam: PRESENT: crackles - scattered bilaterally, decreased breath sounds - at lung bases Cardiovascular exam: PRESENT: RRR. ABSENT: diastolic murmur, rubs, systolic murmur GI/Abdominal exam: PRESENT: normal bowel sounds, soft Extremities exam: ABSENT: pedal edema Neurological exam: PRESENT: altered - due to sedation but withdraw to painful stimuli Skin exam: PRESENT: dry, warm Results Laboratory Results: 02/20/19 03:30 02/20/19 03:30 02/20/19 02/20/19 02/20/19 03:30 03:30 03:30 WBC 28.6 H RBC 2.52 L Hgb 7.8 L Hct 23.9 L MCV 95 MCH 30.8 MCHC 32.5 RDW 16.2 H Plt Count 92 L Seg Neutrophils % Not Reportable Lymphocytes % Not Reportable Monocytes % Not Reportable Eosinophils % Not Reportable Basophils % Not Reportable Absolute Neutrophils Not Reportable Absolute Lymphocytes Not Reportable Absolute Monocytes Not Reportable Absolute Eosinophils Not Reportable Absolute Basophils Not Reportable Carbonic Acid 0.90 L HCO3/H2CO3 Ratio 23:1 ABG pH 7.46 H ABG pCO2 30.0 L ABG pO2 111.2 H ABG HCO3 20.7 ABG O2 Saturation 98.3 H ABG Base Excess -2.5 FiO2 40% Sodium 136.0 L Potassium 3.3 L Chloride 104 Carbon Dioxide 24 Anion Gap 8 BUN 23 H Creatinine 0.97 Est GFR ( Amer) > 60 Est GFR (Non-Af Amer) 56 L Glucose 163 H Lactic Acid Calcium 8.3 L Phosphorus 2.4 L Magnesium 1.6 Total Bilirubin 0.4 AST 91 H Alkaline Phosphatase 79 Total Protein 4.9 L Albumin 2.0 L 02/20/19 03:30 WBC RBC Hgb Hct MCV MCH MCHC RDW Plt Count Seg Neutrophils % Lymphocytes % Monocytes % Eosinophils % Basophils % Absolute Neutrophils Absolute Lymphocytes Absolute Monocytes Absolute Eosinophils Absolute Basophils Carbonic Acid HCO3/H2CO3 Ratio ABG pH ABG pCO2 ABG pO2 ABG HCO3 ABG O2 Saturation ABG Base Excess FiO2 Sodium Potassium Chloride Carbon Dioxide Anion Gap BUN Creatinine Est GFR ( Amer) Est GFR (Non-Af Amer) Glucose Lactic Acid 1.9 Calcium Phosphorus Magnesium Total Bilirubin AST Alkaline Phosphatase Total Protein Albumin 02/17/19 11:45 Bronchial Washings Gram Stain - Final 02/16/19 02/16/19 02/16/19 20:48 20:48 20:48 Creatine Kinase 32 CK-MB (CK-2) 0.87 Troponin I < 0.012 NT-Pro-B Natriuret Pep 837 H Impressions: Head CT 02/16/19 20:17 IMPRESSION: No acute intracranial hemorrhage. Assessment & Plan - Diagnosis (1) Acute hypoxemic respiratory failure Is this a current diagnosis for this admission?: Yes (2) Septic shock Is this a current diagnosis for this admission?: Yes (3) Aspiration pneumonia of both lungs Qualifiers: Aspiration pneumonia type: due to vomit Lung location: unspecified part of lung Qualified Code(s): J69.0 - Pneumonitis due to inhalation of food and vomit Is this a current diagnosis for this admission?: Yes (4) Sepsis due to gram-negative UTI Is this a current diagnosis for this admission?: Yes (5) Metabolic encephalopathy Is this a current diagnosis for this admission?: Yes (6) Acute renal failure (ARF) Qualifiers: Acute renal failure type: unspecified Qualified Code(s): N17.9 - Acute kidney failure, unspecified Is this a current diagnosis for this admission?: Yes (7) Type 2 diabetes mellitus Qualifiers: Diabetes mellitus terminal superintendent insulin use: with mcfp use Is this a current diagnosis for this admission?: Yes - Time Time Spent with patient: 35 or more minutes Medications reviewed and adjusted accordingly: Yes Anticipated discharge: SNF Within: Other - Inpatient Certification Based on my medical assessment, after consideration of the patient's comorbidities, presenting symptoms, or acuity I expect that the services needed warrant INPATIENT care.: Yes I certify that my determination is in accordance with my understanding of Medicare's requirements for reasonable and necessary INPATIENT services [42 CFR 412.3e].: Yes Medical Necessity: Significant Comorbidiites Make Outpatient Treatment Too Risky, Need Close Monitoring Due to Risk of Patient Decompensation, Need For IV Fluids, Need For Continuous Telemetry Monitoring, Need for Nebulizer Therapy and Monitoring of Response, Need for IV Antibiotics, Risk of Complication if Not Cared For in Hospital, Risk of Diagnosis Which Will Require Inpatient Eval/Care/Monitoring Post Hospital Care: D/C or Transfer Summary - Plan Summary Plan Summary: Continue IV Zosyn and Vancomycin coverage. Continue all other current medication management and ventilatory support. Obtain AM labs including cbc with diff and cmp.
[2019-02-21] MEDS: VALPROATE SODIUM SYRUP 250 MG/5 ML UDCUP NG SCH ×4 (01:12→18:24)
[2019-02-21] MEDS: INSULIN LISPRO 100 UNIT/ML 3 ML VIAL SUBCUT SCH ×4 (01:12→18:24)
[2019-02-21] MEDS: DOPAMINE HCL 800 MG/D5W 250 ML IV PRN (01:51)
[2019-02-21] MEDS: PIPERACILLIN SODIUM/TAZOBACTAM 3.375 GM in NORMAL SALINE 100 ML IV SCH ×4 (03:46→22:21)
[2019-02-21 04:50] LABS: HEMATOCRIT 24.9 % (36.0-47.0); HEMOGLOBIN 8.1 g/dL (12.0-15.5); MEAN CORPUSCULAR HGB CONC 32.5 g/dL (32.0-36.0); MEAN CORPUSCULAR VOLUME 96 fl (80-97); RED BLOOD COUNT 2.61 10^6/uL (3.72-5.28); RED CELL DISTRIBUTION WIDTH 16.4 % (11.5-14.0); WHITE BLOOD COUNT 20.9 10^3/uL (4.0-10.5)
[2019-02-21 04:56] LABS: PLATELET COUNT 94 10^3/uL (150-450)
[2019-02-21 04:57] LABS: ARTERIAL BLOOD BASE EXCESS -3.5 mmol/L; ARTERIAL BLOOD FIO2 30%; ARTERIAL BLOOD H2CO3 0.92 mmol/L (1.05-1.35); ARTERIAL BLOOD HCO3 19.9 mmol/L (20-24); ARTERIAL BLOOD O2 SATURATION 95.9 % (94-98); ARTERIAL BLOOD PCO2 30.5 mmHg (35-45); ARTERIAL BLOOD PH 7.43 (7.35-7.45); ARTERIAL BLOOD PO2 76.8 mmHg (80-100); ARTERIAL BLOOD TOTAL CO2 20.9 mmol/L (21-25)
[2019-02-21 05:01] LABS: ALBUMIN 2.1 g/dL (3.5-5.0); ALKALINE PHOSPHATASE 94 U/L (38-126); ANION GAP 7 (5-19); ASPARTATE AMINO TRANSFERASE 56 U/L (14-36); BILIRUBIN,DIRECT 0.3 mg/dL (0.0-0.4); BILIRUBIN,TOTAL 0.3 mg/dL (0.2-1.3); BLOOD UREA NITROGEN 19 mg/dL (7-20); CALCIUM 8.3 mg/dL (8.4-10.2); CARBON DIOXIDE 24 mmol/L (22-30); CHLORIDE 110 mmol/L (98-107); GLUCOSE 136 mg/dL (75-110); TOTAL PROTEIN 5.1 g/dL (6.3-8.2)
[2019-02-21] MEDS ORDERED: POTASSI CL 20 MEQ/50 ML RIDER 20 MEQ/50 ML RTUPB IV ONE (05:37)
[2019-02-21 05:38] LABS: ABSOLUTE LYMPHOCYTES# (MANUAL) 3.1 10^3/uL (0.5-4.7); ABSOLUTE MONOCYTES # (MANUAL) 1.5 10^3/uL (0.1-1.4); ANISOCYTOSIS 1+; BAND NEUTROPHILS % (MANUAL) 1 % (3-5); BASOPHILS % (MANUAL) 0 % (0-2); EOSINOPHILS % (MANUAL) 2 % (0-6); HYPOCHROMASIA 1+; LYMPHOCYTES % (MANUAL) 15 % (13-45); MONOCYTES % (MANUAL) 7 % (3-13); SEGMENTED NEUTROPHILS % (MAN) 75 % (42-78); TOTAL CELLS COUNTED 100
[2019-02-21 05:39] LABS: PLATELET COMMENT DECREASED
[2019-02-21] MEDS: POTASSIUM CHLORIDE 20 MEQ/50 ML RTU IV SCH ×3 (05:43→10:14)
[2019-02-21] MEDS: PANTOPRAZOLE SODIUM 40 MG PACKET.DR NG SCH (05:43)
[2019-02-21] MEDS: LEVOTHYROXINE SODIUM 0.088 MG TABLET NG SCH (05:44)
[2019-02-21] MEDS: OXCARBAZEPINE 150 MG TABLET NG SCH ×3 (05:44→22:25)
--- NOTE | 2019-02-21 08:51 | RADIOLOGY REPORT (SQ) ---
EXAM DESCRIPTION: CHEST SINGLE VIEW COMPLETED DATE/TIME: 02/21/2019 6:10 am REASON FOR STUDY: pneumonia COMPARISON: CT chest 11/03/2018, 04/20/2017 Chest films 08/31/2018, 02/16/2019, 02/18/2019, 02/19/2019, 02/20/2019 EXAM PARAMETERS: NUMBER OF VIEWS: One view. TECHNIQUE: Single frontal radiographic view of the chest acquired. RADIATION DOSE: NA LIMITATIONS: None. FINDINGS: LUNGS AND PLEURA: There is chronic scarring in the left mid lung. Elsewhere, increased alveolar and interstitial markings are present bilaterally, similar compared to studies dating back to 02/16/2019. No gross pleural effusion. No pneumothorax. MEDIASTINUM AND HILAR STRUCTURES: No masses. Contour normal. HEART AND VASCULAR STRUCTURES: No cardiomegaly BONES: No acute findings. HARDWARE: Endotracheal tube tip 4 cm above the luisito. Nasogastric tube tip and side port in the sto mach. Right jugular central line tip in the right atrium. OTHER: No other significant finding. IMPRESSION: No change from yesterday TECHNICAL DOCUMENTATION: JOB ID: [id number] [employer]- All Rights Reserved Reading location - IP/workstation name: [email or web address]
[2019-02-21] MEDS: SITAGLIPTIN PHOSPHATE 50 MG TABLET NG SCH (08:58)
[2019-02-21] MEDS: CHLORHEXIDINE GLUCONATE 0.12% ORAL RINSE 15 ML UDC MM SCH (08:58)
[2019-02-21] MEDS: FOLIC ACID 1 MG TABLET NG SCH (10:15)
[2019-02-21] MEDS: CALCIUM CARBONATE 500 MG TABLET NG SCH (10:15)
[2019-02-21] MEDS: CYANOCOBALAMIN (VITAMIN B-12) 1,000 MCG TABLET NG SCH (10:15)
[2019-02-21] MEDS: VANCOMYCIN HCL 750 MG in DEXTROSE 5%-WATER 250 ML IV SCH ×2 (10:15→22:40)
[2019-02-21] MEDS: QUETIAPINE FUMARATE 25 MG TABLET NG SCH ×2 (10:16→22:25)
[2019-02-21] MEDS: THIAMINE HCL 100 MG TABLET NG SCH (10:16)
[2019-02-21] MEDS: SENNOSIDES/DOCUSATE 8.6-50 MG 1 EACH TABLET NG SCH (10:16)
[2019-02-21 11:28] LABS: APPEARANCE,URINE CLEAR; BILIRUBIN,URINE NEGATIVE (NEGATIVE); COLOR,URINE YELLOW; GLUCOSE, URINE NEGATIVE (NEGATIVE); KETONES,URINE NEGATIVE (NEGATIVE); LEUKOCYTE ESTERASE,URINE LARGE (NEGATIVE); NITRITE,URINE NEGATIVE (NEGATIVE); PROTEIN,URINE NEGATIVE (NEGATIVE); URINE SPECIFIC GRAVITY 1.006; UROBILINOGEN,URINE NEGATIVE mg/dL (<2.0)
[2019-02-21] MEDS ORDERED: DEXAMETHASONE SOD PHOSPHATE INJ 4 MG/1 ML VIAL IV ONE (15:00)
--- NOTE | 2019-02-21 18:16 | PDOC PROGRESS REPORT ---
Subjective Progress Note for:: 02/21/19 Subjective:: Patient remain intubated, sedated and vent supported. She remain on tapering lower dose Dopamine infusion and IV fluid support. No reported fever. Her FiO2 is currently down to 30%. Tracheal secretion is getting clearer. Reason For Visit: SEPSIS,UTI,ENCEPHALOPATHY,KORI,HYPOTENSION Physical Exam Vital Signs: Temp Pulse Resp BP Pulse Ox 98.2 F 89 20 115/63 96 02/20/19 18:00 02/20/19 22:00 02/21/19 06:00 02/21/19 05:58 02/21/19 06:00 Intake & Output 02/20/19 02/21/19 02/22/19 06:59 06:59 06:59 Intake Total 3557 3812 Output Total 4585 4140 Balance -1028 -328 Weight 86 kg 86.7 kg Physical Exam: General appearance: PRESENT: severe distress - on ventilator support. Head exam: PRESENT: atraumatic, normocephalic Eye exam: PRESENT: conjunctiva pink. ABSENT: pallor, scleral icterus Ear exam: PRESENT: normal external ear exam Mouth exam: PRESENT: dry mucosa, OG and ET tubes in situ. Respiratory exam: PRESENT: crackles - scattered bilaterally, decreased breath sounds - at lung bases Cardiovascular exam: PRESENT: RRR. ABSENT: diastolic murmur, rubs, systolic murmur GI/Abdominal exam: PRESENT: normal bowel sounds, soft Extremities exam: ABSENT: pedal edema Neurological exam: PRESENT: altered - due to sedation but withdraw to painful stimuli Skin exam: PRESENT: dry, warm Results Laboratory Results: 02/21/19 03:20 02/21/19 03:20 02/19/19 02/20/19 02/21/19 03:20 11:45 03:20 WBC 31.9 H* RBC 2.74 L Hgb 8.5 L Hct 26.0 L MCV 95 MCH 30.9 MCHC 32.5 RDW 16.3 H Plt Count 105 L Seg Neutrophils % Lymphocytes % Monocytes % Eosinophils % Basophils % Absolute Neutrophils Absolute Lymphocytes Absolute Monocytes Absolute Eosinophils Absolute Basophils Carbonic Acid 0.92 L HCO3/H2CO3 Ratio 21:1 ABG pH 7.43 ABG pCO2 30.5 L ABG pO2 76.8 L ABG HCO3 19.9 L ABG O2 Saturation 95.9 ABG Base Excess -3.5 FiO2 30% Sodium 135.7 L Potassium 3.5 L Chloride 106 Carbon Dioxide 24 Anion Gap 6 BUN 22 H Creatinine 0.80 Est GFR ( Amer) > 60 Est GFR (Non-Af Amer) > 60 Glucose 136 H Calcium 8.0 L Phosphorus 2.8 Magnesium Total Bilirubin AST Alkaline Phosphatase Total Protein Albumin 02/21/19 02/21/19 03:20 03:20 WBC 20.9 H RBC 2.61 L Hgb 8.1 L Hct 24.9 L MCV 96 MCH 31.0 MCHC 32.5 RDW 16.4 H Plt Count 94 L Seg Neutrophils % Not Reportable Lymphocytes % Not Reportable Monocytes % Not Reportable Eosinophils % Not Reportable Basophils % Not Reportable Absolute Neutrophils Not Reportable Absolute Lymphocytes Not Reportable Absolute Monocytes Not Reportable Absolute Eosinophils Not Reportable Absolute Basophils Not Reportable Carbonic Acid HCO3/H2CO3 Ratio ABG pH ABG pCO2 ABG pO2 ABG HCO3 ABG O2 Saturation ABG Base Excess FiO2 Sodium 141.4 Potassium 3.0 L* Chloride 110 H Carbon Dioxide 24 Anion Gap 7 BUN 19 Creatinine 0.81 Est GFR ( Amer) > 60 Est GFR (Non-Af Amer) > 60 Glucose 136 H Calcium 8.3 L Phosphorus 3.0 Magnesium 1.5 L Total Bilirubin 0.3 AST 56 H Alkaline Phosphatase 94 Total Protein 5.1 L Albumin 2.1 L 02/17/19 11:40 Bronchial Washings Fungal Smear - Final 02/17/19 11:40 Bronchial Washings Fungal Smear - Final 02/17/19 11:45 Bronchial Washings Gram Stain - Final 02/16/19 02/16/19 02/16/19 20:48 20:48 20:48 Creatine Kinase 32 CK-MB (CK-2) 0.87 Troponin I < 0.012 NT-Pro-B Natriuret Pep 837 H Impressions: Head CT 02/16/19 20:17 IMPRESSION: No acute intracranial hemorrhage. Assessment & Plan - Diagnosis (1) Acute hypoxemic respiratory failure Is this a current diagnosis for this admission?: Yes (2) Septic shock Is this a current diagnosis for this admission?: Yes (3) Aspiration pneumonia of both lungs Qualifiers: Aspiration pneumonia type: due to vomit Lung location: unspecified part of lung Qualified Code(s): J69.0 - Pneumonitis due to inhalation of food and vomit Is this a current diagnosis for this admission?: Yes (4) Sepsis due to gram-negative UTI Is this a current diagnosis for this admission?: Yes (5) Metabolic encephalopathy Is this a current diagnosis for this admission?: Yes (6) Acute renal failure (ARF) Qualifiers: Acute renal failure type: unspecified Qualified Code(s): N17.9 - Acute kidney failure, unspecified Is this a current diagnosis for this admission?: Yes (7) Type 2 diabetes mellitus Qualifiers: Diabetes mellitus shelter insulin use: with medical terminologist use Is this a current diagnosis for this admission?: Yes - Time Time Spent with patient: 35 or more minutes Medications reviewed and adjusted accordingly: Yes Anticipated discharge: SNF Within: Other - Inpatient Certification Based on my medical assessment, after consideration of the patient's comorbidities, presenting symptoms, or acuity I expect that the services needed warrant INPATIENT care.: Yes I certify that my determination is in accordance with my understanding of Medicare's requirements for reasonable and necessary INPATIENT services [42 CFR 412.3e].: Yes Medical Necessity: Significant Comorbidiites Make Outpatient Treatment Too Risky, Need Close Monitoring Due to Risk of Patient Decompensation, Need For IV Fluids, Need For Continuous Telemetry Monitoring, Need for Nebulizer Therapy and Monitoring of Response, Need for IV Antibiotics, Risk of Complication if Not Cared For in Hospital, Risk of Diagnosis Which Will Require Inpatient Eval/Care/Monitoring Post Hospital Care: D/C or Transfer Summary - Plan Summary Plan Summary: Continue IV Zosyn and Vancomycin coverage. We will attempt discontinuation of her vasopressor if her blood pressure improves to allow such. Overall prognosis remain guarded.
[2019-02-21] MEDS ORDERED: MAGNESIUM SULFATE/D5W 1 GM/100 ML RTUPB IV ONE (19:00)
[2019-02-21] MEDS: OLANZAPINE 5 MG TABLET NG SCH (22:25)
[2019-02-22] MEDS: VALPROATE SODIUM SYRUP 250 MG/5 ML UDCUP NG SCH ×5 (00:15→23:29)
[2019-02-22] MEDS: PIPERACILLIN SODIUM/TAZOBACTAM 3.375 GM in NORMAL SALINE 100 ML IV SCH ×4 (04:21→21:29)
[2019-02-22] MEDS: DOPAMINE HCL 800 MG/D5W 250 ML IV PRN ×2 (04:24→09:26)
[2019-02-22] MEDS ORDERED: VALPROATE SODIUM SYRUP 250 MG/5 ML UDCUP ONE (05:26)
[2019-02-22] MEDS: LEVOTHYROXINE SODIUM 0.088 MG TABLET NG SCH (05:36)
[2019-02-22] MEDS: OXCARBAZEPINE 150 MG TABLET NG SCH ×3 (05:36→21:29)
[2019-02-22] MEDS: PANTOPRAZOLE SODIUM 40 MG PACKET.DR NG SCH (05:36)
[2019-02-22] MEDS: INSULIN LISPRO 100 UNIT/ML 3 ML VIAL SUBCUT SCH ×5 (05:49→23:29)
[2019-02-22 05:58] LABS: ARTERIAL BLOOD BASE EXCESS -3.4 mmol/L; ARTERIAL BLOOD H2CO3 1.07 mmol/L (1.05-1.35); ARTERIAL BLOOD HCO3 21.1 mmol/L (20-24); ARTERIAL BLOOD PCO2 35.6 mmHg (35-45); ARTERIAL BLOOD PH 7.39 (7.35-7.45); ARTERIAL BLOOD PO2 91.4 mmHg (80-100); ARTERIAL BLOOD TOTAL CO2 22.2 mmol/L (21-25)
[2019-02-22 05:59] LABS: ARTERIAL BLOOD FIO2 30%
[2019-02-22 06:03] LABS: HEMATOCRIT 24.6 % (36.0-47.0); MEAN CORPUSCULAR HGB CONC 32.2 g/dL (32.0-36.0); MEAN CORPUSCULAR VOLUME 97 fl (80-97); RED BLOOD COUNT 2.54 10^6/uL (3.72-5.28); RED CELL DISTRIBUTION WIDTH 16.7 % (11.5-14.0); WHITE BLOOD COUNT 13.3 10^3/uL (4.0-10.5)
[2019-02-22 06:06] LABS: HEMOGLOBIN 7.9 g/dL (12.0-15.5); PLATELET COUNT 69 10^3/uL (150-450)
[2019-02-22 06:21] LABS: BLOOD UREA NITROGEN 16 mg/dL (7-20); CALCIUM 8.1 mg/dL (8.4-10.2); CHLORIDE 114 mmol/L (98-107); GLUCOSE 178 mg/dL (75-110); PHOSPHORUS 3.5 mg/dL (2.5-4.5); POTASSIUM 3.4 mmol/L (3.6-5.0)
[2019-02-22 06:25] LABS: ABSOLUTE LYMPHOCYTES# (MANUAL) 2.3 10^3/uL (0.5-4.7); BASOPHILS % (MANUAL) 0 % (0-2); EOSINOPHILS % (MANUAL) 2 % (0-6); LYMPHOCYTES % (MANUAL) 17 % (13-45); MONOCYTES % (MANUAL) 15 % (3-13); SEGMENTED NEUTROPHILS % (MAN) 66 % (42-78); TOTAL CELLS COUNTED 100
[2019-02-22 06:26] LABS: ANION GAP 6 (5-19); CARBON DIOXIDE 23 mmol/L (22-30)
[2019-02-22 06:30] LABS: ANISOCYTOSIS 1+
[2019-02-22 06:31] LABS: HYPOCHROMASIA 1+
[2019-02-22 06:32] LABS: PLATELET COMMENT DECREASED
--- NOTE | 2019-02-22 08:03 | PDOC PROGRESS REPORT ---
Subjective Progress Note for:: 02/22/19 Subjective:: Patient remain intubated, sedated and vent supported. No reported fever. There is continued need for vasopressor support. Reason For Visit: SEPSIS,UTI,ENCEPHALOPATHY,KORI,HYPOTENSION Physical Exam Vital Signs: Temp Pulse Resp BP Pulse Ox 97.3 F 81 19 123/54 L 99 02/22/19 05:16 02/21/19 22:00 02/22/19 06:40 02/21/19 18:00 02/22/19 06:40 Intake & Output 02/21/19 02/22/19 02/23/19 06:59 06:59 06:59 Intake Total 3812 1127 Output Total 4140 5825 Balance -328 -1398 Weight 86.7 kg 87.5 kg Physical Exam: General appearance: PRESENT: severe distress - on ventilator support. Head exam: PRESENT: atraumatic, normocephalic Eye exam: PRESENT: conjunctiva pink. ABSENT: pallor, scleral icterus Mouth exam: PRESENT: OG and ET tubes in situ. Respiratory exam: PRESENT: crackles - scattered bilaterally, decreased breath sounds - at lung bases Cardiovascular exam: PRESENT: RRR. ABSENT: diastolic murmur, rubs, systolic murmur GI/Abdominal exam: PRESENT: normal bowel sounds, soft Extremities exam: ABSENT: pedal edema Neurological exam: PRESENT: altered - due to sedation but withdraw to painful stimuli Skin exam: PRESENT: dry, warm Results Laboratory Results: 02/22/19 05:42 02/22/19 05:42 02/21/19 02/21/19 02/22/19 10:30 15:30 05:42 WBC RBC Hgb Hct MCV MCH MCHC RDW Plt Count Seg Neutrophils % Lymphocytes % Monocytes % Eosinophils % Basophils % Absolute Neutrophils Absolute Lymphocytes Absolute Monocytes Absolute Eosinophils Absolute Basophils Carbonic Acid 1.07 HCO3/H2CO3 Ratio 19:1 ABG pH 7.39 ABG pCO2 35.6 ABG pO2 91.4 ABG HCO3 21.1 ABG O2 Saturation 97.0 ABG Base Excess -3.4 FiO2 30% Sodium Potassium 3.6 Chloride Carbon Dioxide Anion Gap BUN Creatinine Est GFR ( Amer) Est GFR (Non-Af Amer) Glucose Calcium Phosphorus Magnesium Urine Color YELLOW Urine Appearance CLEAR Urine pH 6.0 Ur Specific Mize 1.006 Urine Protein NEGATIVE Urine Glucose (UA) NEGATIVE Urine Ketones NEGATIVE Urine Blood SMALL H Urine Nitrite NEGATIVE Ur Leukocyte Esterase LARGE H Urine WBC (Auto) 19 Urine RBC (Auto) 1 02/22/19 02/22/19 05:42 05:42 WBC 13.3 H RBC 2.54 L Hgb 7.9 L Hct 24.6 L MCV 97 MCH 31.0 MCHC 32.2 RDW 16.7 H Plt Count 69 L Seg Neutrophils % Not Reportable Lymphocytes % Not Reportable Monocytes % Not Reportable Eosinophils % Not Reportable Basophils % Not Reportable Absolute Neutrophils Not Reportable Absolute Lymphocytes Not Reportable Absolute Monocytes Not Reportable Absolute Eosinophils Not Reportable Absolute Basophils Not Reportable Carbonic Acid HCO3/H2CO3 Ratio ABG pH ABG pCO2 ABG pO2 ABG HCO3 ABG O2 Saturation ABG Base Excess FiO2 Sodium 143.3 Potassium 3.4 L Chloride 114 H Carbon Dioxide 23 Anion Gap 6 BUN 16 Creatinine 0.68 Est GFR ( Amer) > 60 Est GFR (Non-Af Amer) > 60 Glucose 178 H Calcium 8.1 L Phosphorus 3.5 Magnesium 1.5 L Urine Color Urine Appearance Urine pH Ur Specific Mize Urine Protein Urine Glucose (UA) Urine Ketones Urine Blood Urine Nitrite Ur Leukocyte Esterase Urine WBC (Auto) Urine RBC (Auto) 02/16/19 20:48 Blood Blood Culture - Final NO GROWTH IN 5 DAYS 02/16/19 20:25 Blood Blood Culture - Final NO GROWTH IN 5 DAYS 02/17/19 11:45 Bronchial Washings Gram Stain - Final 02/17/19 11:45 Bronchial Washings Bronchial Washings Culture - Final REDUCED NORMAL VINICIO 02/16/19 02/16/19 02/16/19 20:48 20:48 20:48 Creatine Kinase 32 CK-MB (CK-2) 0.87 Troponin I < 0.012 NT-Pro-B Natriuret Pep 837 H Impressions: Head CT 02/16/19 20:17 IMPRESSION: No acute intracranial hemorrhage. Assessment & Plan - Diagnosis (1) Acute hypoxemic respiratory failure Is this a current diagnosis for this admission?: Yes (2) Septic shock Is this a current diagnosis for this admission?: Yes (3) Aspiration pneumonia of both lungs Qualifiers: Aspiration pneumonia type: due to vomit Lung location: unspecified part of lung Qualified Code(s): J69.0 - Pneumonitis due to inhalation of food and vomit Is this a current diagnosis for this admission?: Yes (4) Sepsis due to gram-negative UTI Is this a current diagnosis for this admission?: Yes (5) Metabolic encephalopathy Is this a current diagnosis for this admission?: Yes (6) Acute renal failure (ARF) Qualifiers: Acute renal failure type: unspecified Qualified Code(s): N17.9 - Acute kidney failure, unspecified Is this a current diagnosis for this admission?: Yes (7) Type 2 diabetes mellitus Qualifiers: Diabetes mellitus retirement insulin use: with intermediate school teacher use Is this a current diagnosis for this admission?: Yes - Time Time Spent with patient: 35 or more minutes Medications reviewed and adjusted accordingly: Yes Anticipated discharge: SNF Within: Other - Inpatient Certification Based on my medical assessment, after consideration of the patient's comorbidities, presenting symptoms, or acuity I expect that the services needed warrant INPATIENT care.: Yes I certify that my determination is in accordance with my understanding of Medicare's requirements for reasonable and necessary INPATIENT services [42 CFR 412.3e].: Yes Medical Necessity: Significant Comorbidiites Make Outpatient Treatment Too Risky, Need Close Monitoring Due to Risk of Patient Decompensation, Need For IV Fluids, Need For Continuous Telemetry Monitoring, Need for Nebulizer Therapy and Monitoring of Response, Need for IV Antibiotics, Risk of Complication if Not Cared For in Hospital, Risk of Diagnosis Which Will Require Inpatient Eval/Care/Monitoring Post Hospital Care: D/C or Transfer Summary - Plan Summary Plan Summary: She will continue on all current medication management. She will receive magnesium and potassium supplementation. Continue to monitor her hemoglobin trend at this time.
--- NOTE | 2019-02-22 08:18 | RADIOLOGY REPORT (SQ) ---
EXAM DESCRIPTION: CHEST SINGLE VIEW COMPLETED DATE/TIME: 02/22/2019 6:21 am REASON FOR STUDY: pneumonia COMPARISON: 02/21/2019 EXAM PARAMETERS: NUMBER OF VIEWS: One view. TECHNIQUE: Single frontal radiographic view of the chest acquired. RADIATION DOSE: NA LIMITATIONS: None. FINDINGS: LUNGS AND PLEURA: Persistent bibasilar predominant interstitial and alveolar opacities. C ostophrenic angles are excluded by collimation. No significant pneumothorax. MEDIASTINUM AND HILAR STRUCTURES: No masses. Contour normal. HEART AND VASCULAR STRUCTURES: Stable. Aortic atherosclerosis. BONES: No acute findings. HARDWARE: Endotracheal tube tip overlies midthoracic trachea. Enteric tube tip excluded by collimati on. Unchanged right internal jugular central venous catheter with tip over right atrium. OTHER: No other significant finding. IMPRESSION: Stable chest with persistent basilar predominant interstitial and alveolar opacities. Stable support lines and tubes as above. TECHNICAL DOCUMENTATION: JOB ID: [id number] [employer]- All Rights Reserved Reading location - IP/workstation name: [email or web address]
[2019-02-22] MEDS ORDERED: POTASSIUM CHLORIDE 20 MEQ PACKET NG ONE (09:00)
[2019-02-22] MEDS: VANCOMYCIN HCL 750 MG in DEXTROSE 5%-WATER 250 ML IV SCH ×2 (09:28→22:05)
[2019-02-22] MEDS: FOLIC ACID 1 MG TABLET NG SCH (09:29)
[2019-02-22] MEDS: THIAMINE HCL 100 MG TABLET NG SCH (09:29)
[2019-02-22] MEDS: MAGNESIUM SULFATE/D5W 1 GM/100 ML RTUPB IV SCH ×2 (09:29→11:03)
[2019-02-22] MEDS: CYANOCOBALAMIN (VITAMIN B-12) 1,000 MCG TABLET NG SCH (09:29)
[2019-02-22] MEDS: SENNOSIDES/DOCUSATE 8.6-50 MG 1 EACH TABLET NG SCH (09:29)
[2019-02-22] MEDS: SITAGLIPTIN PHOSPHATE 50 MG TABLET NG SCH (09:30)
[2019-02-22] MEDS: CHLORHEXIDINE GLUCONATE 0.12% ORAL RINSE 15 ML UDC MM SCH (09:30)
[2019-02-22] MEDS: QUETIAPINE FUMARATE 25 MG TABLET NG SCH ×2 (09:30→21:30)
[2019-02-22] MEDS: CALCIUM CARBONATE 500 MG TABLET NG SCH (09:37)
[2019-02-22 10:48] LABS: VANCOMYCIN,TROUGH 15.1 ug/mL (5.0-20.0)
[2019-02-22] MEDS: NORMAL SALINE 1000 ML 1,000 ML IV PRN ×2 (11:03→21:29)
[2019-02-22] MEDS: OLANZAPINE 5 MG TABLET NG SCH (21:30)
[2019-02-23] MEDS: DOPAMINE HCL 800 MG/D5W 250 ML IV PRN (00:51)
[2019-02-23] MEDS: PIPERACILLIN SODIUM/TAZOBACTAM 3.375 GM in NORMAL SALINE 100 ML IV SCH ×4 (02:24→21:13)
[2019-02-23 04:55] LABS: ARTERIAL BLOOD BASE EXCESS -5.1 mmol/L; ARTERIAL BLOOD H2CO3 0.99 mmol/L (1.05-1.35); ARTERIAL BLOOD HCO3 19.3 mmol/L (20-24); ARTERIAL BLOOD O2 SATURATION 97.5 % (94-98); ARTERIAL BLOOD PH 7.38 (7.35-7.45); ARTERIAL BLOOD PO2 98.6 mmHg (80-100); ARTERIAL BLOOD TOTAL CO2 20.3 mmol/L (21-25)
[2019-02-23 04:56] LABS: ARTERIAL BLOOD FIO2 30%
[2019-02-23 05:05] LABS: BLOOD UREA NITROGEN 14 mg/dL (7-20); CALCIUM 8.1 mg/dL (8.4-10.2); CHLORIDE 113 mmol/L (98-107); GLUCOSE 150 mg/dL (75-110); POTASSIUM 3.8 mmol/L (3.6-5.0)
[2019-02-23 05:10] LABS: CARBON DIOXIDE 23 mmol/L (22-30)
[2019-02-23 05:14] LABS: ANION GAP 5 (5-19)
[2019-02-23 05:17] LABS: HEMATOCRIT 24.8 % (36.0-47.0); HEMOGLOBIN 8.1 g/dL (12.0-15.5); MEAN CORPUSCULAR HEMOGLOBIN 31.6 pg (27.0-33.4); MEAN CORPUSCULAR HGB CONC 32.7 g/dL (32.0-36.0); MEAN CORPUSCULAR VOLUME 97 fl (80-97); RED BLOOD COUNT 2.56 10^6/uL (3.72-5.28); RED CELL DISTRIBUTION WIDTH 16.5 % (11.5-14.0); WHITE BLOOD COUNT 9.1 10^3/uL (4.0-10.5)
[2019-02-23] MEDS: VALPROATE SODIUM SYRUP 250 MG/5 ML UDCUP NG SCH ×3 (05:51→17:38)
[2019-02-23] MEDS: OXCARBAZEPINE 150 MG TABLET NG SCH ×3 (05:51→21:13)
[2019-02-23] MEDS: PANTOPRAZOLE SODIUM 40 MG PACKET.DR NG SCH (05:51)
[2019-02-23] MEDS: LEVOTHYROXINE SODIUM 0.088 MG TABLET NG SCH (05:51)
[2019-02-23] MEDS: INSULIN LISPRO 100 UNIT/ML 3 ML VIAL SUBCUT SCH ×3 (05:58→17:39)
[2019-02-23 07:24] LABS: PLATELET COUNT 69 10^3/uL (150-450)
[2019-02-23 07:40] LABS: ABSOLUTE LYMPHOCYTES# (MANUAL) 3.2 10^3/uL (0.5-4.7); ABSOLUTE MONOCYTES # (MANUAL) 1.1 10^3/uL (0.1-1.4); BASOPHILS % (MANUAL) 0 % (0-2); EOSINOPHILS % (MANUAL) 6 % (0-6); LYMPHOCYTES % (MANUAL) 35 % (13-45); MONOCYTES % (MANUAL) 12 % (3-13); SEGMENTED NEUTROPHILS % (MAN) 47 % (42-78); TOTAL CELLS COUNTED 100
[2019-02-23 07:42] LABS: ANISOCYTOSIS 1+; BURR CELLS SLIGHT; OVALOCYTES SLIGHT
[2019-02-23 07:43] LABS: PLATELET COMMENT DECREASED; TEAR DROP CELLS SLIGHT
[2019-02-23] MEDS ORDERED: MIDAZOLAM HCL 50 MG/100 ML RTUINJ IV PRN (07:43)
[2019-02-23] MEDS: SITAGLIPTIN PHOSPHATE 50 MG TABLET NG SCH (08:58)
[2019-02-23] MEDS: CHLORHEXIDINE GLUCONATE 0.12% ORAL RINSE 15 ML UDC MM SCH (08:58)
--- NOTE | 2019-02-23 08:58 | RADIOLOGY REPORT (SQ) ---
EXAM DESCRIPTION: CHEST SINGLE VIEW COMPLETED DATE/TIME: 02/23/2019 2:59 am REASON FOR STUDY: pneumonia COMPARISON: Chest films 02/22/2019, 02/20/2019, 829, 02/16/2019 EXAM PARAMETERS: NUMBER OF VIEWS: One view. TECHNIQUE: Single frontal radiographic view of the chest acquired. RADIATION DOSE: NA LIMITATIONS: None. FINDINGS: LUNGS AND PLEURA: Persistent increased interstitial markings are present throughout the ri ght lung and in the left lung base. These are improving compared to 02/22/2019 and 02/17/2019. No gross pleural effusions. No pneumothorax. MEDIASTINUM AND HILAR STRUCTURES: No masses. Contour normal. HEART AND VASCULAR STRUCTURES: Heart normal in size. Normal vasculature. BONES: No acute findings. HARDWARE: Endotracheal tube tip 4 cm above the luisito. Nasogastric tube tip and side port in the sto mach. Right jugular central line tip in the right atrium. OTHER: No other significant finding. IMPRESSION: Partial clearing of the bilateral alveolar and interstitial infiltrates compared to prev ious studies TECHNICAL DOCUMENTATION: JOB ID: [id number] [employer]- All Rights Reserved Reading location - IP/workstation name: [email or web address]
[2019-02-23] MEDS ORDERED: BISACODYL 10 MG SUPP.RECT PR ONE (10:30)
[2019-02-23] MEDS: QUETIAPINE FUMARATE 25 MG TABLET NG SCH ×2 (10:35→21:13)
[2019-02-23] MEDS: VANCOMYCIN HCL 750 MG in DEXTROSE 5%-WATER 250 ML IV SCH ×2 (10:35→21:55)
[2019-02-23] MEDS: CYANOCOBALAMIN (VITAMIN B-12) 1,000 MCG TABLET NG SCH (10:35)
[2019-02-23] MEDS: THIAMINE HCL 100 MG TABLET NG SCH (10:35)
[2019-02-23] MEDS: FOLIC ACID 1 MG TABLET NG SCH (10:35)
[2019-02-23] MEDS: NORMAL SALINE 1000 ML 1,000 ML IV PRN ×2 (10:35→21:16)
[2019-02-23] MEDS: CALCIUM CARBONATE 500 MG TABLET NG SCH (10:36)
[2019-02-23] MEDS: SENNOSIDES/DOCUSATE 8.6-50 MG 1 EACH TABLET NG SCH (10:36)
[2019-02-23] MEDS: ALBUMIN HUMAN 12.5 GM/50 ML RTUINJ IV SCH ×2 (12:21→14:54)
[2019-02-23] MEDS: FUROSEMIDE INJ/PF 20 MG/2 ML SDV IV SCH ×2 (14:46→17:39)
--- NOTE | 2019-02-23 15:49 | PDOC PROGRESS REPORT ---
Subjective Progress Note for:: 02/23/19 Subjective:: Patient remain intubated, sedated and vent supported. She is arousable and open eyes spontaneously. She remain on IV Dopamine support. No reported fever. Reason For Visit: SEPSIS,UTI,ENCEPHALOPATHY,KORI,HYPOTENSION Physical Exam Vital Signs: Temp Pulse Resp BP Pulse Ox 98.1 F 80 20 103/45 L 97 02/23/19 08:00 02/23/19 08:00 02/23/19 08:00 02/23/19 08:00 02/23/19 08:10 Intake & Output 02/22/19 02/23/19 02/24/19 06:59 06:59 06:59 Intake Total 2477 5834 Output Total 2525 2515 100 Balance -48 3319 -100 Weight 87.5 kg 89.3 kg Physical Exam: General appearance: PRESENT: severe distress - on ventilator support. Head exam: PRESENT: atraumatic, normocephalic Eye exam: PRESENT: conjunctiva pink. ABSENT: pallor, scleral icterus Mouth exam: PRESENT: OG and ET tubes in situ. Respiratory exam: PRESENT: crackles - scattered bilaterally, decreased breath sounds - at lung bases Cardiovascular exam: PRESENT: RRR. ABSENT: diastolic murmur, rubs, systolic murmur GI/Abdominal exam: PRESENT: normal bowel sounds, soft Extremities exam: ABSENT: pedal edema Neurological exam: PRESENT: altered - due to sedation but withdraw to painful stimuli Skin exam: PRESENT: dry, warm Results Laboratory Results: 02/23/19 04:35 02/23/19 04:35 02/23/19 02/23/19 02/23/19 04:35 04:35 04:35 WBC 9.1 RBC 2.56 L Hgb 8.1 L Hct 24.8 L MCV 97 MCH 31.6 MCHC 32.7 RDW 16.5 H Plt Count 69 L Seg Neutrophils % Not Reportable Lymphocytes % Not Reportable Monocytes % Not Reportable Eosinophils % Not Reportable Basophils % Not Reportable Absolute Neutrophils Not Reportable Absolute Lymphocytes Not Reportable Absolute Monocytes Not Reportable Absolute Eosinophils Not Reportable Absolute Basophils Not Reportable Carbonic Acid 0.99 L HCO3/H2CO3 Ratio 19:1 ABG pH 7.38 ABG pCO2 33.0 L ABG pO2 98.6 ABG HCO3 19.3 L ABG O2 Saturation 97.5 ABG Base Excess -5.1 FiO2 30% Sodium 141.1 Potassium 3.8 Chloride 113 H Carbon Dioxide 23 Anion Gap 5 BUN 14 Creatinine 0.67 Est GFR ( Amer) > 60 Est GFR (Non-Af Amer) > 60 Glucose 150 H Calcium 8.1 L Magnesium 1.7 02/16/19 02/16/19 02/16/19 20:48 20:48 20:48 Creatine Kinase 32 CK-MB (CK-2) 0.87 Troponin I < 0.012 NT-Pro-B Natriuret Pep 837 H Impressions: Head CT 02/16/19 20:17 IMPRESSION: No acute intracranial hemorrhage. Chest X-Ray 02/23/19 02:30 IMPRESSION: Partial clearing of the bilateral alveolar and interstitial in filtrates compared to previous studies Assessment & Plan - Diagnosis (1) Acute hypoxemic respiratory failure Is this a current diagnosis for this admission?: Yes (2) Septic shock Is this a current diagnosis for this admission?: Yes (3) Aspiration pneumonia of both lungs Qualifiers: Aspiration pneumonia type: due to vomit Lung location: unspecified part of lung Qualified Code(s): J69.0 - Pneumonitis due to inhalation of food and vomit Is this a current diagnosis for this admission?: Yes (4) Sepsis due to gram-negative UTI Is this a current diagnosis for this admission?: Yes (5) Metabolic encephalopathy Is this a current diagnosis for this admission?: Yes (6) Acute renal failure (ARF) Qualifiers: Acute renal failure type: unspecified Qualified Code(s): N17.9 - Acute kidney failure, unspecified Is this a current diagnosis for this admission?: Yes (7) Type 2 diabetes mellitus Qualifiers: Diabetes mellitus long 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 care 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 insulin use: with half-way use Is this a current diagnosis for this admission?: Yes - Time Time Spent with patient: 35 or more minutes Medications reviewed and adjusted accordingly: Yes Anticipated discharge: SNF Within: Other - Inpatient Certification Based on my medical assessment, after consideration of the patient's comorbidities, presenting symptoms, or acuity I expect that the services needed warrant INPATIENT care.: Yes I certify that my determination is in accordance with my understanding of Medicare's requirements for reasonable and necessary INPATIENT services [42 CFR 412.3e].: Yes Medical Necessity: Significant Comorbidiites Make Outpatient Treatment Too Risky, Need Close Monitoring Due to Risk of Patient Decompensation, Need For IV Fluids, Need For Continuous Telemetry Monitoring, Need for IV Antibiotics, Risk of Complication if Not Cared For in Hospital, Risk of Diagnosis Which Will Require Inpatient Eval/Care/Monitoring Post Hospital Care: D/C or Transfer Summary - Plan Summary Plan Summary: Continue current medication management.
[2019-02-23] MEDS: OLANZAPINE 5 MG TABLET NG SCH (21:13)
[2019-02-24] MEDS: VALPROATE SODIUM SYRUP 250 MG/5 ML UDCUP NG SCH ×4 (00:15→17:34)
[2019-02-24] MEDS: INSULIN LISPRO 100 UNIT/ML 3 ML VIAL SUBCUT SCH ×4 (00:15→17:28)
[2019-02-24] MEDS: PIPERACILLIN SODIUM/TAZOBACTAM 3.375 GM in NORMAL SALINE 100 ML IV SCH ×4 (02:17→21:07)
[2019-02-24 04:25] LABS: ARTERIAL BLOOD BASE EXCESS -1.4 mmol/L; ARTERIAL BLOOD HCO3 21.8 mmol/L (20-24); ARTERIAL BLOOD O2 SATURATION 96.9 % (94-98); ARTERIAL BLOOD PH 7.48 (7.35-7.45); ARTERIAL BLOOD TOTAL CO2 22.8 mmol/L (21-25)
[2019-02-24 04:28] LABS: ARTERIAL BLOOD FIO2 25%; HEMATOCRIT 21.4 % (36.0-47.0); MEAN CORPUSCULAR HEMOGLOBIN 31.4 pg (27.0-33.4); MEAN CORPUSCULAR HGB CONC 32.8 g/dL (32.0-36.0); MEAN CORPUSCULAR VOLUME 96 fl (80-97); RED BLOOD COUNT 2.23 10^6/uL (3.72-5.28); RED CELL DISTRIBUTION WIDTH 16.5 % (11.5-14.0); WHITE BLOOD COUNT 9.9 10^3/uL (4.0-10.5)
[2019-02-24 04:32] LABS: PLATELET COUNT 75 10^3/uL (150-450)
[2019-02-24 04:40] LABS: BLOOD UREA NITROGEN 12 mg/dL (7-20); CALCIUM 8.1 mg/dL (8.4-10.2); GLUCOSE 142 mg/dL (75-110); POTASSIUM 3.2 mmol/L (3.6-5.0)
[2019-02-24 04:54] LABS: ANION GAP 6 (5-19); CARBON DIOXIDE 23 mmol/L (22-30); CHLORIDE 111 mmol/L (98-107)
[2019-02-24 05:03] LABS: ABSOLUTE LYMPHOCYTES# (MANUAL) 2.7 10^3/uL (0.5-4.7); ABSOLUTE MONOCYTES # (MANUAL) 1.3 10^3/uL (0.1-1.4); ANISOCYTOSIS 1+; BAND NEUTROPHILS % (MANUAL) 2 % (3-5); BASOPHILS % (MANUAL) 0 % (0-2); EOSINOPHILS % (MANUAL) 6 % (0-6); HYPOCHROMASIA 2+; LYMPHOCYTES % (MANUAL) 27 % (13-45); METAMYELOCYTES % (MANUAL) 1 % (0); MONOCYTES % (MANUAL) 13 % (3-13); SEGMENTED NEUTROPHILS % (MAN) 51 % (42-78); TOTAL CELLS COUNTED 100
[2019-02-24 05:26] LABS: PLATELET COMMENT DECREASED
[2019-02-24] MEDS: OXCARBAZEPINE 150 MG TABLET NG SCH ×3 (05:38→21:45)
[2019-02-24] MEDS: LEVOTHYROXINE SODIUM 0.088 MG TABLET NG SCH (05:38)
[2019-02-24] MEDS: PANTOPRAZOLE SODIUM 40 MG PACKET.DR NG SCH (05:40)
[2019-02-24] MEDS ORDERED: POTASSIUM CHLORIDE 20 MEQ PACKET NG ONE (06:15)
[2019-02-24] MEDS: MAGNESIUM SULFATE 1 GM/D5W 100 ML IV SCH ×2 (06:34→07:38)
[2019-02-24] MEDS: SITAGLIPTIN PHOSPHATE 50 MG TABLET NG SCH (07:39)
[2019-02-24] MEDS: CHLORHEXIDINE GLUCONATE 0.12% ORAL RINSE 15 ML UDC MM SCH (07:39)
--- NOTE | 2019-02-24 08:15 | RADIOLOGY REPORT (SQ) ---
EXAM DESCRIPTION: CHEST SINGLE VIEW COMPLETED DATE/TIME: 02/24/2019 3:04 am REASON FOR STUDY: pneumonia COMPARISON: 02/23/2019 EXAM PARAMETERS: NUMBER OF VIEWS: One view. TECHNIQUE: Single frontal radiographic view of the chest acquired. RADIATION DOSE: NA LIMITATIONS: None. FINDINGS: LUNGS AND PLEURA: Persistent patchy right basilar and mid lung airspace disease, not signi ficantly changed. Linear left basilar opacities likely atelectasis or scarring. Small stable effusi on. No pneumothorax. MEDIASTINUM AND HILAR STRUCTURES: No masses. Contour normal. HEART AND VASCULAR STRUCTURES: Stable. Aortic atherosclerosis. BONES: No acute findings. HARDWARE: Endotracheal tube tip overlies midthoracic trachea. Right internal jugular central venous catheter tip overlies cavoatrial junction. Nasoenteric tube tip overlies gastric body. OTHER: No other significant finding. IMPRESSION: Stable chest with persistent right mid lung and basilar airspace disease compatible with pneumonia. TECHNICAL DOCUMENTATION: JOB ID: [id number] [employer]- All Rights Reserved Reading location - IP/workstation name: [email or web address]
[2019-02-24] MEDS ORDERED: FUROSEMIDE INJ/PF 20 MG/2 ML SDV IV PRN (08:36)
[2019-02-24] MEDS: DIAZEPAM INJ 10 MG/2 ML DISP.SYRIN IV PRN ×2 (09:01→23:24)
[2019-02-24] MEDS: VANCOMYCIN HCL 750 MG in DEXTROSE 5%-WATER 250 ML IV SCH ×2 (09:04→21:44)
[2019-02-24] MEDS: CYANOCOBALAMIN (VITAMIN B-12) 1,000 MCG TABLET NG SCH (09:05)
[2019-02-24] MEDS: FOLIC ACID 1 MG TABLET NG SCH (09:05)
[2019-02-24] MEDS: THIAMINE HCL 100 MG TABLET NG SCH (09:05)
[2019-02-24] MEDS: QUETIAPINE FUMARATE 25 MG TABLET NG SCH ×2 (09:05→21:45)
[2019-02-24] MEDS: CALCIUM CARBONATE 500 MG TABLET NG SCH (09:05)
[2019-02-24] MEDS: SENNOSIDES/DOCUSATE 8.6-50 MG 1 EACH TABLET NG SCH (09:06)
--- NOTE | 2019-02-24 10:26 | PDOC PROGRESS REPORT ---
Subjective Progress Note for:: 02/24/19 Subjective:: Patient was admitted because of the septic shock UTI respiratory failure and aspirations pneumonia currently intubated Patient is alert awake open the eyes Hemoglobin is 7.0 and according to the nursing staff most likely from small hemorrhoids but no active bleeding is seen Patient is also on IV antibiotic Received albumin yesterday Reason For Visit: SEPSIS,UTI,ENCEPHALOPATHY,KORI,HYPOTENSION Physical Exam Vital Signs: Temp Pulse Resp BP Pulse Ox 97.5 F 77 26 H 109/49 L 93 02/24/19 07:56 02/24/19 07:56 02/24/19 07:56 02/24/19 07:56 02/24/19 09:21 Intake & Output 02/23/19 02/24/19 02/25/19 06:59 06:59 06:59 Intake Total 5884 3447 752 Output Total 0209 8545 125 Balance 3319 -558 627 Weight 89.3 kg 88.4 kg Physical Exam: Currently intubated but alert awake General appearance: PRESENT: well-developed, well-nourished Respiratory exam: PRESENT: clear to auscultation juliette Cardiovascular exam: PRESENT: +S1, +S2 GI/Abdominal exam: PRESENT: normal bowel sounds, soft Neurological exam: PRESENT: alert, awake Skin exam: PRESENT: dry Results Laboratory Results: 02/24/19 04:06 02/24/19 04:06 02/24/19 02/24/19 02/24/19 04:06 04:06 04:06 WBC 9.9 RBC 2.23 L Hgb 7.0 L Hct 21.4 L MCV 96 MCH 31.4 MCHC 32.8 RDW 16.5 H Plt Count 75 L Seg Neutrophils % Not Reportable Lymphocytes % Not Reportable Monocytes % Not Reportable Eosinophils % Not Reportable Basophils % Not Reportable Absolute Neutrophils Not Reportable Absolute Lymphocytes Not Reportable Absolute Monocytes Not Reportable Absolute Eosinophils Not Reportable Absolute Basophils Not Reportable Carbonic Acid 0.90 L HCO3/H2CO3 Ratio 24:1 ABG pH 7.48 H ABG pCO2 30.0 L ABG pO2 82.0 ABG HCO3 21.8 ABG O2 Saturation 96.9 ABG Base Excess -1.4 FiO2 25% Sodium 139.8 Potassium 3.2 L Chloride 111 H Carbon Dioxide 23 Anion Gap 6 BUN 12 Creatinine 0.69 Est GFR ( Amer) > 60 Est GFR (Non-Af Amer) > 60 Glucose 142 H Calcium 8.1 L Magnesium 1.4 L 02/16/19 02/16/19 02/16/19 20:48 20:48 20:48 Creatine Kinase 32 CK-MB (CK-2) 0.87 Troponin I < 0.012 NT-Pro-B Natriuret Pep 837 H Impressions: Head CT 02/16/19 20:17 IMPRESSION: No acute intracranial hemorrhage. Chest X-Ray 02/24/19 02:30 IMPRESSION: Stable chest with persistent right mid lung and basilar airspace disease compatible with pneumonia. Assessment & Plan - Diagnosis (1) Septic shock Is this a current diagnosis for this admission?: Yes (2) Acute renal failure (ARF) Qualifiers: Acute renal failure type: unspecified Qualified Code(s): N17.9 - Acute kidney failure, unspecified Is this a current diagnosis for this admission?: Yes (3) Aspiration pneumonia of both lungs Qualifiers: Aspiration pneumonia type: due to vomit Lung location: unspecified part of lung Qualified Code(s): J69.0 - Pneumonitis due to inhalation of food and vomit Is this a current diagnosis for this admission?: Yes (4) Metabolic encephalopathy Is this a current diagnosis for this admission?: Yes (5) Urinary tract infection Qualifiers: Urinary tract infection type: site unspecified Hematuria presence: without hematuria Qualified Code(s): N39.0 - Urinary tract infection, site not specified Is this a current diagnosis for this admission?: Yes (6) Acute hypoxemic respiratory failure Is this a current diagnosis for this admission?: Yes (7) COPD (chronic obstructive pulmonary disease) Qualifiers: Emphysema type: unspecified Is this a current diagnosis for this admission?: Yes (8) Dementia Qualifiers: Dementia type: unspecified type Dementia behavioral disturbance: without behavioral disturbance Qualified Code(s): F03.90 - Unspecified dementia without behavioral disturbance Is this a current diagnosis for this admission?: Yes - Time Time Spent with patient: 25-34 minutes Medications reviewed and adjusted accordingly: Yes Anticipated discharge: SNF Within: Other - Plan Summary Plan Summary: Transfused 1 unit of the blood Reduce the IV fluid Continue follow-up with the pulmonary
[2019-02-24] MEDS ORDERED: ACETAMINOPHEN SOLN 325 MG/10.15 ML UDCUP ONE (11:02)
[2019-02-24] MEDS: NORMAL SALINE 1000 ML 1,000 ML IV PRN (12:32)
[2019-02-24 12:46] LABS: POTASSIUM 3.5 mmol/L (3.6-5.0)
[2019-02-24] MEDS: DOPAMINE HCL 800 MG/D5W 250 ML IV PRN (17:40)
[2019-02-24 18:54] LABS: HEMATOCRIT 27.8 % (36.0-47.0); MEAN CORPUSCULAR HEMOGLOBIN 32.1 pg (27.0-33.4); MEAN CORPUSCULAR HGB CONC 34.5 g/dL (32.0-36.0); MEAN CORPUSCULAR VOLUME 93 fl (80-97); PLATELET COUNT 109 10^3/uL (150-450); RED BLOOD COUNT 2.98 10^6/uL (3.72-5.28); RED CELL DISTRIBUTION WIDTH 16.7 % (11.5-14.0); WHITE BLOOD COUNT 11.4 10^3/uL (4.0-10.5)
[2019-02-24 18:55] LABS: HEMOGLOBIN 9.6 g/dL (12.0-15.5)
[2019-02-24] MEDS: OLANZAPINE 5 MG TABLET NG SCH (21:45)
[2019-02-24] MEDS: ACETAMINOPHEN SOLN 325 MG/10.15 ML UDCUP NG PRN (21:49)
[2019-02-25] MEDS: VALPROATE SODIUM SYRUP 250 MG/5 ML UDCUP NG SCH ×4 (00:42→17:55)
[2019-02-25] MEDS: INSULIN LISPRO 100 UNIT/ML 3 ML VIAL SUBCUT SCH ×4 (00:48→17:54)
[2019-02-25] MEDS: CILASTATIN SODIUM IV SCH (02:11)
[2019-02-25] MEDS: PIPERACILLIN SODIUM/TAZOBACTAM 3.375 GM in NORMAL SALINE 100 ML IV SCH ×4 (02:11→21:09)
[2019-02-25] MEDS: IMIPENEM IV SCH (02:11)
[2019-02-25] MEDS: NORMAL SALINE IV SCH (02:11)
[2019-02-25] MEDS: DIAZEPAM INJ 10 MG/2 ML DISP.SYRIN IV PRN ×2 (04:57→09:56)
[2019-02-25] MEDS: PANTOPRAZOLE SODIUM 40 MG PACKET.DR NG SCH (05:30)
[2019-02-25] MEDS: OXCARBAZEPINE 150 MG TABLET NG SCH ×3 (05:30→21:10)
[2019-02-25] MEDS: LEVOTHYROXINE SODIUM 0.088 MG TABLET NG SCH (05:30)
[2019-02-25 07:29] LABS: HEMATOCRIT 26.2 % (36.0-47.0); HEMOGLOBIN 8.7 g/dL (12.0-15.5); MEAN CORPUSCULAR HEMOGLOBIN 31.2 pg (27.0-33.4); MEAN CORPUSCULAR HGB CONC 33.2 g/dL (32.0-36.0); MEAN CORPUSCULAR VOLUME 94 fl (80-97); PLATELET COUNT 140 10^3/uL (150-450); RED BLOOD COUNT 2.79 10^6/uL (3.72-5.28); WHITE BLOOD COUNT 12.8 10^3/uL (4.0-10.5)
[2019-02-25 07:31] LABS: ARTERIAL BLOOD BASE EXCESS -2.1 mmol/L; ARTERIAL BLOOD FIO2 25%; ARTERIAL BLOOD H2CO3 0.85 mmol/L (1.05-1.35); ARTERIAL BLOOD HCO3 20.5 mmol/L (20-24); ARTERIAL BLOOD O2 SATURATION 96.4 % (94-98); ARTERIAL BLOOD PCO2 28.1 mmHg (35-45); ARTERIAL BLOOD PH 7.48 (7.35-7.45); ARTERIAL BLOOD PO2 77.2 mmHg (80-100); ARTERIAL BLOOD TOTAL CO2 21.4 mmol/L (21-25)
[2019-02-25 07:52] LABS: ANION GAP 8 (5-19); BLOOD UREA NITROGEN 11 mg/dL (7-20); CALCIUM 8.1 mg/dL (8.4-10.2); CARBON DIOXIDE 22 mmol/L (22-30); CHLORIDE 110 mmol/L (98-107); GLUCOSE 134 mg/dL (75-110); POTASSIUM 3.5 mmol/L (3.6-5.0)
[2019-02-25] MEDS ORDERED: NYSTATIN TOPICAL POWDER 15 GM TP ONE (08:00)
[2019-02-25 08:27] LABS: ABSOLUTE MONOCYTES # (MANUAL) 1.4 10^3/uL (0.1-1.4); ANISOCYTOSIS 1+; BASOPHILS % (MANUAL) 0 % (0-2); EOSINOPHILS % (MANUAL) 7 % (0-6); LYMPHOCYTES % (MANUAL) 31 % (13-45); MONOCYTES % (MANUAL) 11 % (3-13); PLATELET COMMENT DECREASED; POLYCHROMASIA SLIGHT; SEGMENTED NEUTROPHILS % (MAN) 51 % (42-78); TOTAL CELLS COUNTED 100
--- NOTE | 2019-02-25 08:52 | RADIOLOGY REPORT (SQ) ---
EXAM DESCRIPTION: CHEST SINGLE VIEW COMPLETED DATE/TIME: 02/25/2019 6:16 am REASON FOR STUDY: pneumonia COMPARISON: 02/24/2019 TECHNIQUE: Single frontal radiographic view of the chest acquired. NUMBER OF VIEWS: One view. LIMITATIONS: None. FINDINGS: LUNGS AND PLEURA: No pneumothorax. Slightly increasing right basilar consolidation and le ft pleural effusion. . Similar interstitial prominence. MEDIASTINUM AND HILAR STRUCTURES: Stable. HEART AND VASCULAR STRUCTURES: Stable. BONES: No acute findings. HARDWARE: Endotracheal tube tip overlies the lower 3rd of the trachea, stable. Nasogastric catheter is present. Right IJ central venous catheter tip overlies the right atrium which appears to have bee n advanced several cm since the previous day's exam, correlate clinically. OTHER: No other significant finding. IMPRESSION: Slightly increasing right basilar consolidation and left pleural effusion. Right IJ central venous catheter tip overlies the right atrium which appears to have been advanced se veral cm since the previous day's exam, correlate clinically.Endotracheal tube tip overlies the lower 3rd of the trachea, stable. Nasogastric catheter is present. TECHNICAL DOCUMENTATION: JOB ID: [id number] 2010 [employer]- All Rights Reserved Reading location - IP/workstation name: [email or web address]
[2019-02-25] MEDS: FOLIC ACID 1 MG TABLET NG SCH (09:45)
[2019-02-25] MEDS: CYANOCOBALAMIN (VITAMIN B-12) 1,000 MCG TABLET NG SCH (09:45)
[2019-02-25] MEDS: SITAGLIPTIN PHOSPHATE 50 MG TABLET NG SCH (09:45)
[2019-02-25] MEDS: QUETIAPINE FUMARATE 25 MG TABLET NG SCH ×2 (09:45→21:10)
[2019-02-25] MEDS: CALCIUM CARBONATE 500 MG TABLET NG SCH (09:45)
[2019-02-25] MEDS: THIAMINE HCL 100 MG TABLET NG SCH (09:46)
[2019-02-25] MEDS: CHLORHEXIDINE GLUCONATE 0.12% ORAL RINSE 15 ML UDC MM SCH (09:50)
[2019-02-25] MEDS: SENNOSIDES/DOCUSATE 8.6-50 MG 1 EACH TABLET NG SCH (09:57)
[2019-02-25] MEDS: NORMAL SALINE 1000 ML 1,000 ML IV PRN (10:00)
[2019-02-25] MEDS: VANCOMYCIN HCL 750 MG in DEXTROSE 5%-WATER 250 ML IV SCH (10:06)
[2019-02-25] MEDS: ACETAMINOPHEN SOLN 325 MG/10.15 ML UDCUP NG PRN (10:09)
--- NOTE | 2019-02-25 11:32 | PDOC PROGRESS REPORT ---
Subjective Progress Note for:: 02/25/19 Subjective:: Patient was admitted because of the septic shock UTI respiratory failure and aspirations pneumonia currently intubated Patient is alert awake open the eyes Hemoglobin is 7.0 and according to the nursing staff most likely from small hemorrhoids but no active bleeding is seen Patient is also on IV antibiotic Received albumin yesterday Reason For Visit: SEPSIS,UTI,ENCEPHALOPATHY,KORI,HYPOTENSION Physical Exam Vital Signs: Temp Pulse Resp BP Pulse Ox 97.0 F 77 21 H 126/57 H 97 02/25/19 08:00 02/25/19 10:00 02/25/19 10:30 02/25/19 10:00 02/25/19 10:30 Intake & Output 02/24/19 02/25/19 02/26/19 06:59 06:59 06:59 Intake Total 3447 3415 Output Total 3925 2595 100 Balance -478 820 -100 Weight 88.4 kg 89.9 kg Physical Exam: Currently intubated under sedation's Eye exam: PRESENT: PERRLA Mouth exam: PRESENT: neck supple Respiratory exam: PRESENT: clear to auscultation juliette Cardiovascular exam: PRESENT: +S1, +S2 Extremities exam: ABSENT: pedal edema Additional comments: Intubated under sedation's Skin exam: PRESENT: dry Results Laboratory Results: 02/25/19 07:10 02/25/19 07:10 02/24/19 02/24/19 02/24/19 12:05 12:05 18:40 WBC 11.4 H RBC 2.98 L Hgb 9.6 L D Hct 27.8 L MCV 93 MCH 32.1 MCHC 34.5 RDW 16.7 H Plt Count 109 L Seg Neutrophils % Lymphocytes % Monocytes % Eosinophils % Basophils % Absolute Neutrophils Absolute Lymphocytes Absolute Monocytes Absolute Eosinophils Absolute Basophils Carbonic Acid HCO3/H2CO3 Ratio ABG pH ABG pCO2 ABG pO2 ABG HCO3 ABG O2 Saturation ABG Base Excess FiO2 Sodium Potassium 3.5 L Chloride Carbon Dioxide Anion Gap BUN Creatinine Est GFR ( Amer) Est GFR (Non-Af Amer) Glucose Calcium Magnesium 1.8 Blood Type A POSITIVE Antibody Screen NEGATIVE 02/25/19 02/25/19 02/25/19 07:10 07:10 07:10 WBC 12.8 H RBC 2.79 L Hgb 8.7 L Hct 26.2 L MCV 94 MCH 31.2 MCHC 33.2 RDW 17.0 H Plt Count 140 L Seg Neutrophils % Not Reportable Lymphocytes % Not Reportable Monocytes % Not Reportable Eosinophils % Not Reportable Basophils % Not Reportable Absolute Neutrophils Not Reportable Absolute Lymphocytes Not Reportable Absolute Monocytes Not Reportable Absolute Eosinophils Not Reportable Absolute Basophils Not Reportable Carbonic Acid 0.85 L HCO3/H2CO3 Ratio 24:1 ABG pH 7.48 H ABG pCO2 28.1 L ABG pO2 77.2 L ABG HCO3 20.5 ABG O2 Saturation 96.4 ABG Base Excess -2.1 FiO2 25% Sodium 140.0 Potassium 3.5 L Chloride 110 H Carbon Dioxide 22 Anion Gap 8 BUN 11 Creatinine 0.67 Est GFR ( Amer) > 60 Est GFR (Non-Af Amer) > 60 Glucose 134 H Calcium 8.1 L Magnesium Blood Type Antibody Screen 02/16/19 02/16/19 02/16/19 20:48 20:48 20:48 Creatine Kinase 32 CK-MB (CK-2) 0.87 Troponin I < 0.012 NT-Pro-B Natriuret Pep 837 H Impressions: Head CT 02/16/19 20:17 IMPRESSION: No acute intracranial hemorrhage. Chest X-Ray 02/25/19 06:00 IMPRESSION: Slightly increasing right basilar consolidation and left pleural effusion. Right IJ central venous catheter tip overlies the right atrium which appears to have been advanced several cm since the previous day's exam, correlate clinically.Endotracheal tube tip overlies the lower 3rd of the trachea, stable. Nasogastric catheter is present. Assessment & Plan - Diagnosis (1) Septic shock Is this a current diagnosis for this admission?: Yes (2) Acute renal failure (ARF) Qualifiers: Acute renal failure type: unspecified Qualified Code(s): N17.9 - Acute kidney failure, unspecified Is this a current diagnosis for this admission?: Yes (3) Aspiration pneumonia of both lungs Qualifiers: Aspiration pneumonia type: due to vomit Lung location: unspecified part of lung Qualified Code(s): J69.0 - Pneumonitis due to inhalation of food and vomit Is this a current diagnosis for this admission?: Yes (4) Metabolic encephalopathy Is this a current diagnosis for this admission?: Yes (5) Urinary tract infection Qualifiers: Urinary tract infection type: site unspecified Hematuria presence: without hematuria Qualified Code(s): N39.0 - Urinary tract infection, site not specified Is this a current diagnosis for this admission?: Yes (6) Acute hypoxemic respiratory failure Is this a current diagnosis for this admission?: Yes (7) COPD (chronic obstructive pulmonary disease) Qualifiers: Emphysema type: unspecified Is this a current diagnosis for this admission?: Yes (8) Dementia Qualifiers: Dementia type: unspecified type Dementia behavioral disturbance: without behavioral disturbance Qualified Code(s): F03.90 - Unspecified dementia without behavioral disturbance Is this a current diagnosis for this admission?: Yes - Time Time Spent with patient: 25-34 minutes Medications reviewed and adjusted accordingly: Yes Anticipated discharge: SNF Within: Other - Plan Summary Plan Summary: Replace the potassiums Patient is received 1 unit of blood yesterday current hemoglobin is 9.6 Patient still in 25% FiO2 follow-up with the pulmonary Discussed with the nursing staff no other consult
[2019-02-25] MEDS ORDERED: POTASSIUM CHLORIDE 20 MEQ PACKET NG PRN (15:41)
[2019-02-25] MEDS: MIDAZOLAM 2 MG/2 ML INJ IV PRN ×2 (17:54→21:52)
[2019-02-25] MEDS: OLANZAPINE 5 MG TABLET NG SCH (21:10)
[2019-02-26] MEDS: INSULIN LISPRO 100 UNIT/ML 3 ML VIAL SUBCUT SCH ×4 (00:01→17:27)
[2019-02-26] MEDS: VALPROATE SODIUM SYRUP 250 MG/5 ML UDCUP NG SCH ×4 (00:02→17:15)
[2019-02-26] MEDS: MIDAZOLAM 2 MG/2 ML INJ IV PRN ×3 (02:06→17:14)
[2019-02-26] MEDS: PIPERACILLIN SODIUM/TAZOBACTAM 3.375 GM in NORMAL SALINE 100 ML IV SCH ×4 (02:06→20:23)
[2019-02-26 05:22] LABS: HEMATOCRIT 26.6 % (36.0-47.0); HEMOGLOBIN 8.8 g/dL (12.0-15.5); MEAN CORPUSCULAR HEMOGLOBIN 30.9 pg (27.0-33.4); MEAN CORPUSCULAR VOLUME 94 fl (80-97); PLATELET COUNT 196 10^3/uL (150-450); RED BLOOD COUNT 2.84 10^6/uL (3.72-5.28); RED CELL DISTRIBUTION WIDTH 16.7 % (11.5-14.0); WHITE BLOOD COUNT 12.9 10^3/uL (4.0-10.5)
[2019-02-26 05:23] LABS: ARTERIAL BLOOD BASE EXCESS -1.5 mmol/L; ARTERIAL BLOOD HCO3 22.1 mmol/L (20-24); ARTERIAL BLOOD O2 SATURATION 95.8 % (94-98); ARTERIAL BLOOD PCO2 33.1 mmHg (35-45); ARTERIAL BLOOD PH 7.44 (7.35-7.45); ARTERIAL BLOOD TOTAL CO2 23.1 mmol/L (21-25)
[2019-02-26 05:26] LABS: ARTERIAL BLOOD FIO2 25%
[2019-02-26] MEDS: PANTOPRAZOLE SODIUM 40 MG PACKET.DR NG SCH (05:33)
[2019-02-26] MEDS: LEVOTHYROXINE SODIUM 0.088 MG TABLET NG SCH (05:33)
[2019-02-26] MEDS: OXCARBAZEPINE 150 MG TABLET NG SCH ×3 (05:33→21:11)
[2019-02-26] MEDS: NORMAL SALINE 1000 ML 1,000 ML IV PRN ×2 (05:33→22:30)
[2019-02-26 05:38] LABS: ANION GAP 6 (5-19); BLOOD UREA NITROGEN 10 mg/dL (7-20); CALCIUM 8.2 mg/dL (8.4-10.2); CARBON DIOXIDE 21 mmol/L (22-30); CHLORIDE 114 mmol/L (98-107); GLUCOSE 134 mg/dL (75-110); POTASSIUM 3.6 mmol/L (3.6-5.0)
[2019-02-26 05:54] LABS: ABSOLUTE LYMPHOCYTES# (MANUAL) 2.3 10^3/uL (0.5-4.7); ABSOLUTE MONOCYTES # (MANUAL) 1.3 10^3/uL (0.1-1.4); BAND NEUTROPHILS % (MANUAL) 1 % (3-5); BASOPHILS % (MANUAL) 1 % (0-2); EOSINOPHILS % (MANUAL) 3 % (0-6); LYMPHOCYTES % (MANUAL) 15 % (13-45); MONOCYTES % (MANUAL) 10 % (3-13); PLATELET COMMENT ADEQUATE; SEGMENTED NEUTROPHILS % (MAN) 67 % (42-78); TOTAL CELLS COUNTED 100
[2019-02-26 05:55] LABS: HYPOCHROMASIA 1+; POLYCHROMASIA 1+
[2019-02-26] MEDS: SITAGLIPTIN PHOSPHATE 50 MG TABLET NG SCH (08:44)
[2019-02-26] MEDS: CHLORHEXIDINE GLUCONATE 0.12% ORAL RINSE 15 ML UDC MM SCH (08:44)
[2019-02-26] MEDS: DIAZEPAM INJ 10 MG/2 ML DISP.SYRIN IV PRN (08:57)
[2019-02-26] MEDS: ACETAMINOPHEN SOLN 325 MG/10.15 ML UDCUP NG PRN (08:58)
[2019-02-26] MEDS: NYSTATIN TOPICAL POWDER 15 GM TP SCH (09:00)
[2019-02-26] MEDS: FOLIC ACID 1 MG TABLET NG SCH (09:00)
[2019-02-26] MEDS: SENNOSIDES/DOCUSATE 8.6-50 MG 1 EACH TABLET NG SCH (09:01)
[2019-02-26] MEDS: QUETIAPINE FUMARATE 25 MG TABLET NG SCH ×2 (09:01→21:11)
[2019-02-26] MEDS: CALCIUM CARBONATE 500 MG TABLET NG SCH (09:01)
[2019-02-26] MEDS: THIAMINE HCL 100 MG TABLET NG SCH (09:02)
[2019-02-26] MEDS: CYANOCOBALAMIN (VITAMIN B-12) 1,000 MCG TABLET NG SCH (09:02)
--- NOTE | 2019-02-26 09:05 | RADIOLOGY REPORT (SQ) ---
EXAM DESCRIPTION: CHEST SINGLE VIEW COMPLETED DATE/TIME: 02/26/2019 6:40 am REASON FOR STUDY: pneumonia COMPARISON: 02/25/2019 EXAM PARAMETERS: NUMBER OF VIEWS: One view TECHNIQUE: Single frontal radiograph of the chest. RADIATION DOSE: N/A LIMITATIONS: None. FINDINGS: TEMPORARY SUPPORT DEVICES:ETT in expected location. NG tube courses below the ifeanyi-diaphr agm in to the stomach. Central venous access catheter tip is in expected location. LUNGS AND PLEURA: Scattered opacities right greater than left with emphysematous changes in the left lung. All stable. No effusions. No masses. No pneumothorax. MEDIASTINUM AND HILAR STRUCTURES: No masses. Contour normal. HEART AND VASCULAR STRUCTURES: Heart normal in size. normal vascularity. Aorta normal for age. BONES: No acute findings. OTHER: No other significant finding. IMPRESSION: Stable opacities without improvement. SUPPORT DEVICE(S) IN EXPECTED LOCATIONS. TECHNICAL DOCUMENTATION: JOB ID: [id number] [employer]- All Rights Reserved Reading location - IP/workstation name: [email or web address]
--- NOTE | 2019-02-26 11:49 | PDOC PROGRESS REPORT ---
Subjective Progress Note for:: 02/26/19 Subjective:: Patient was admitted because of the septic shock UTI respiratory failure and aspirations pneumonia currently intubated Patient is alert awake open the eyes Hemoglobin is 7.0 and according to the nursing staff most likely from small hemorrhoids but no active bleeding is seen Patient is also on IV antibiotic Received albumin yesterday Reason For Visit: SEPSIS,UTI,ENCEPHALOPATHY,KORI,HYPOTENSION Physical Exam Vital Signs: Temp Pulse Resp BP Pulse Ox 98.4 F 97 27 H 93/50 L 92 02/26/19 11:45 02/26/19 11:45 02/26/19 11:45 02/26/19 11:45 02/26/19 11:45 Intake & Output 02/25/19 02/26/19 02/27/19 06:59 06:59 06:59 Intake Total 4415 1650 100 Output Total 2595 2375 510 Balance 5638 -816 -193 Weight 89.9 kg 90.3 kg Physical Exam: Currently intubated patient is alert awake General appearance: PRESENT: no acute distress Eye exam: PRESENT: PERRLA Mouth exam: PRESENT: neck supple Respiratory exam: PRESENT: decreased breath sounds Cardiovascular exam: PRESENT: +S1, +S2 GI/Abdominal exam: PRESENT: normal bowel sounds, soft Neurological exam: PRESENT: alert, awake Skin exam: PRESENT: dry Results Laboratory Results: 02/26/19 05:10 02/26/19 05:10 02/26/19 02/26/19 02/26/19 05:10 05:10 05:10 WBC 12.9 H RBC 2.84 L Hgb 8.8 L Hct 26.6 L MCV 94 MCH 30.9 MCHC 33.0 RDW 16.7 H Plt Count 196 Seg Neutrophils % Not Reportable Lymphocytes % Not Reportable Monocytes % Not Reportable Eosinophils % Not Reportable Basophils % Not Reportable Absolute Neutrophils Not Reportable Absolute Lymphocytes Not Reportable Absolute Monocytes Not Reportable Absolute Eosinophils Not Reportable Absolute Basophils Not Reportable Carbonic Acid 1.00 L HCO3/H2CO3 Ratio 22:1 ABG pH 7.44 ABG pCO2 33.1 L ABG pO2 76.0 L ABG HCO3 22.1 ABG O2 Saturation 95.8 ABG Base Excess -1.5 FiO2 25% Sodium 141.4 Potassium 3.6 Chloride 114 H Carbon Dioxide 21 L Anion Gap 6 BUN 10 Creatinine 0.72 Est GFR ( Amer) > 60 Est GFR (Non-Af Amer) > 60 Glucose 134 H Calcium 8.2 L Magnesium 1.6 02/16/19 02/16/19 02/16/19 20:48 20:48 20:48 Creatine Kinase 32 CK-MB (CK-2) 0.87 Troponin I < 0.012 NT-Pro-B Natriuret Pep 837 H Impressions: Head CT 02/16/19 20:17 IMPRESSION: No acute intracranial hemorrhage. Chest X-Ray 02/26/19 06:00 IMPRESSION: Stable opacities without improvement. SUPPORT DEVICE(S) IN EXPECTED LOCATIONS. Assessment & Plan - Diagnosis (1) Septic shock Is this a current diagnosis for this admission?: Yes (2) Acute renal failure (ARF) Qualifiers: Acute renal failure type: unspecified Qualified Code(s): N17.9 - Acute kidney failure, unspecified Is this a current diagnosis for this admission?: Yes (3) Aspiration pneumonia of both lungs Qualifiers: Aspiration pneumonia type: due to vomit Lung location: unspecified part of lung Qualified Code(s): J69.0 - Pneumonitis due to inhalation of food and vomit Is this a current diagnosis for this admission?: Yes (4) Metabolic encephalopathy Is this a current diagnosis for this admission?: Yes (5) Urinary tract infection Qualifiers: Urinary tract infection type: site unspecified Hematuria presence: without hematuria Qualified Code(s): N39.0 - Urinary tract infection, site not specified Is this a current diagnosis for this admission?: Yes (6) Acute hypoxemic respiratory failure Is this a current diagnosis for this admission?: Yes (7) COPD (chronic obstructive pulmonary disease) Qualifiers: Emphysema type: unspecified Is this a current diagnosis for this admission?: Yes (8) Dementia Qualifiers: Dementia type: unspecified type Dementia behavioral disturbance: without behavioral disturbance Qualified Code(s): F03.90 - Unspecified dementia without behavioral disturbance Is this a current diagnosis for this admission?: Yes - Time Time Spent with patient: 25-34 minutes Medications reviewed and adjusted accordingly: Yes Anticipated discharge: SNF Within: Other - Plan Summary Plan Summary: Continues to IV antibiotics Patient's white count is slightly go up But no fever We will still hold the vancomycin's
[2019-02-26] MEDS ORDERED: PHENYLEPHRINE HCL INJ/PF 10 MG/1 ML SDV ONE (12:11)
[2019-02-26] MEDS ORDERED: DEXTROSE 5%-WATER 250 ML with PHENYLEPHRINE HCL 40 MG IV PRN ×2 (13:30)
[2019-02-26] MEDS: OLANZAPINE 5 MG TABLET NG SCH (21:10)
[2019-02-27] MEDS: VALPROATE SODIUM SYRUP 250 MG/5 ML UDCUP NG SCH ×5 (00:20→23:55)
[2019-02-27] MEDS: INSULIN LISPRO 100 UNIT/ML 3 ML VIAL SUBCUT SCH ×5 (00:20→23:55)
--- NOTE | 2019-02-27 01:38 | RADIOLOGY REPORT (SQ) ---
EXAM DESCRIPTION: XR CHEST 1 VIEW COMPLETED DATE/TME: 02/27/2019 00:43 CLINICAL HISTORY: 74 years, Female, confirm et tube placement COMPARISON: 02/26/2019 chest x-ray NUMBER OF VIEWS: 1 TECHNIQUE: Portable chest LIMITATIONS: None. FINDINGS: Heart size is normal. Stable indwelling lines and catheters. Tip of the endotracheal tube is 2.6 cm above the luisito. Airspace opacities bilaterally. No pneumothorax. IMPRESSION: Little interval change copyright 2010 [employer]- All Rights Reserved
[2019-02-27] MEDS: PIPERACILLIN SODIUM/TAZOBACTAM 3.375 GM in NORMAL SALINE 100 ML IV SCH ×4 (02:02→21:19)
[2019-02-27 04:49] LABS: HEMATOCRIT 25.3 % (36.0-47.0); HEMOGLOBIN 8.4 g/dL (12.0-15.5); MEAN CORPUSCULAR HEMOGLOBIN 31.3 pg (27.0-33.4); MEAN CORPUSCULAR HGB CONC 33.2 g/dL (32.0-36.0); MEAN CORPUSCULAR VOLUME 94 fl (80-97); PLATELET COUNT 243 10^3/uL (150-450); RED BLOOD COUNT 2.68 10^6/uL (3.72-5.28); RED CELL DISTRIBUTION WIDTH 16.9 % (11.5-14.0); WHITE BLOOD COUNT 13.7 10^3/uL (4.0-10.5)
[2019-02-27 05:02] LABS: ARTERIAL BLOOD BASE EXCESS -1.5 mmol/L; ARTERIAL BLOOD H2CO3 1.06 mmol/L (1.05-1.35); ARTERIAL BLOOD HCO3 22.5 mmol/L (20-24); ARTERIAL BLOOD O2 SATURATION 96.7 % (94-98); ARTERIAL BLOOD PCO2 35.1 mmHg (35-45); ARTERIAL BLOOD PH 7.42 (7.35-7.45); ARTERIAL BLOOD PO2 85.7 mmHg (80-100); ARTERIAL BLOOD TOTAL CO2 23.5 mmol/L (21-25)
[2019-02-27 05:04] LABS: ARTERIAL BLOOD FIO2 30%
[2019-02-27 05:12] LABS: ANION GAP 6 (5-19); BLOOD UREA NITROGEN 10 mg/dL (7-20); CALCIUM 8.2 mg/dL (8.4-10.2); CARBON DIOXIDE 23 mmol/L (22-30); CHLORIDE 114 mmol/L (98-107); GLUCOSE 111 mg/dL (75-110); POTASSIUM 3.6 mmol/L (3.6-5.0)
[2019-02-27 05:14] LABS: ABSOLUTE LYMPHOCYTES# (MANUAL) 2.9 10^3/uL (0.5-4.7); ABSOLUTE MONOCYTES # (MANUAL) 0.8 10^3/uL (0.1-1.4); BAND NEUTROPHILS % (MANUAL) 2 % (3-5); BASOPHILS % (MANUAL) 0 % (0-2); EOSINOPHILS % (MANUAL) 7 % (0-6); LYMPHOCYTES % (MANUAL) 20 % (13-45); METAMYELOCYTES % (MANUAL) 1 % (0); MONOCYTES % (MANUAL) 6 % (3-13); SEGMENTED NEUTROPHILS % (MAN) 63 % (42-78); TOTAL CELLS COUNTED 100
[2019-02-27 05:16] LABS: ANISOCYTOSIS 1+; OVALOCYTES SLIGHT; PLATELET COMMENT ADEQUATE; POIKILOCYTOSIS 1+; TEAR DROP CELLS SLIGHT; TOXIC GRANULATION 1+
[2019-02-27] MEDS: PANTOPRAZOLE SODIUM 40 MG PACKET.DR NG SCH (05:57)
[2019-02-27] MEDS: LEVOTHYROXINE SODIUM 0.088 MG TABLET NG SCH (05:57)
[2019-02-27] MEDS: OXCARBAZEPINE 150 MG TABLET NG SCH ×3 (05:57→21:20)
--- NOTE | 2019-02-27 08:54 | RADIOLOGY REPORT (SQ) ---
EXAM DESCRIPTION: CHEST SINGLE VIEW COMPLETED DATE/TIME: 02/27/2019 6:34 am REASON FOR STUDY: pneumonia COMPARISON: 02/27/2019 at 0100 hours. EXAM PARAMETERS: NUMBER OF VIEWS: One view. TECHNIQUE: Single frontal radiographic view of the chest acquired. RADIATION DOSE: NA LIMITATIONS: None. FINDINGS: LUNGS AND PLEURA: Patchy airspace disease, unchanged. Possible small pleural effusions. MEDIASTINUM AND HILAR STRUCTURES: No masses. Contour normal. HEART AND VASCULAR STRUCTURES: Heart normal in size. Normal vasculature. BONES: No acute findings. HARDWARE: The tip of the endotracheal tube is located 4 cm proximal to the luisito. Tip of the nasoga stric tube in the stomach. Tip of the central line at the cavoatrial junction. OTHER: No other significant finding. IMPRESSION: LIFE LINES DESCRIBED, SATISFACTORY POSITION. NO INTERVAL CHANGE IN APPEARANCE OF THE CHEST. TECHNICAL DOCUMENTATION: JOB ID: [id number] [employer]- All Rights Reserved Reading location - IP/workstation name: [email or web address]
[2019-02-27] MEDS: FOLIC ACID 1 MG TABLET NG SCH (09:25)
[2019-02-27] MEDS: THIAMINE HCL 100 MG TABLET NG SCH (09:25)
[2019-02-27] MEDS: CYANOCOBALAMIN (VITAMIN B-12) 1,000 MCG TABLET NG SCH (09:25)
[2019-02-27] MEDS: CALCIUM CARBONATE 500 MG TABLET NG SCH (09:25)
[2019-02-27] MEDS: SENNOSIDES/DOCUSATE 8.6-50 MG 1 EACH TABLET NG SCH (09:26)
[2019-02-27] MEDS: QUETIAPINE FUMARATE 25 MG TABLET NG SCH ×2 (09:26→21:20)
[2019-02-27] MEDS: SITAGLIPTIN PHOSPHATE 50 MG TABLET NG SCH (09:26)
[2019-02-27] MEDS: CHLORHEXIDINE GLUCONATE 0.12% ORAL RINSE 15 ML UDC MM SCH (09:26)
[2019-02-27] MEDS: NYSTATIN TOPICAL POWDER 15 GM TP SCH (09:27)
[2019-02-27] MEDS ORDERED: DEXAMETHASONE SOD PHOS INJ 10 MG/1 ML VIAL IV ONE (12:10)
[2019-02-27] MEDS: NORMAL SALINE 1000 ML 1,000 ML IV PRN (17:59)
[2019-02-27] MEDS: OLANZAPINE 5 MG TABLET NG SCH (21:20)
--- NOTE | 2019-02-27 23:11 | PDOC PROGRESS REPORT ---
Subjective Progress Note for:: 02/27/19 Subjective:: Patient seen by the bedside still on mechanical ventilation presently of vasopressors Reason For Visit: SEPSIS,UTI,ENCEPHALOPATHY,KORI,HYPOTENSION Physical Exam Vital Signs: Temp Pulse Resp BP Pulse Ox 98.4 F 87 20 121/59 L 93 02/27/19 16:00 02/27/19 20:00 02/27/19 22:03 02/27/19 22:03 02/27/19 22:03 Intake & Output 02/26/19 02/27/19 02/28/19 06:59 06:59 06:59 Intake Total 1650 1817 1564 Output Total 4965 2215 1415 Balance -725 -398 149 Weight 90.3 kg 87.9 kg Eye exam: PRESENT: PERRLA Respiratory exam: PRESENT: clear to auscultation juliette Cardiovascular exam: PRESENT: +S1, +S2 Results Laboratory Results: 02/27/19 04:15 02/27/19 04:15 02/27/19 02/27/19 02/27/19 04:15 04:15 04:15 WBC 13.7 H RBC 2.68 L Hgb 8.4 L Hct 25.3 L MCV 94 MCH 31.3 MCHC 33.2 RDW 16.9 H Plt Count 243 Seg Neutrophils % Not Reportable Lymphocytes % Not Reportable Monocytes % Not Reportable Eosinophils % Not Reportable Basophils % Not Reportable Absolute Neutrophils Not Reportable Absolute Lymphocytes Not Reportable Absolute Monocytes Not Reportable Absolute Eosinophils Not Reportable Absolute Basophils Not Reportable Carbonic Acid 1.06 HCO3/H2CO3 Ratio 21:1 ABG pH 7.42 ABG pCO2 35.1 ABG pO2 85.7 ABG HCO3 22.5 ABG O2 Saturation 96.7 ABG Base Excess -1.5 FiO2 30% Sodium 142.8 Potassium 3.6 Chloride 114 H Carbon Dioxide 23 Anion Gap 6 BUN 10 Creatinine 0.72 Est GFR ( Amer) > 60 Est GFR (Non-Af Amer) > 60 Glucose 111 H Calcium 8.2 L 02/16/19 02/16/19 02/16/19 20:48 20:48 20:48 Creatine Kinase 32 CK-MB (CK-2) 0.87 Troponin I < 0.012 NT-Pro-B Natriuret Pep 837 H Impressions: Head CT 08/01/19 20:17 IMPRESSION: No acute intracranial hemorrhage. Chest X-Ray 02/27/19 06:00 IMPRESSION: LIFE LINES DESCRIBED, SATISFACTORY POSITION. NO INTERVAL CHANGE IN APPEARANCE OF THE CHEST. Assessment & Plan - Diagnosis (1) Septic shock Is this a current diagnosis for this admission?: Yes Plan: Presently off vasopressors (2) Respiratory failure Qualifiers: Chronicity: acute Respiratory failure complication: hypercapnia Qualified Code(s): J96.02 - Acute respiratory failure with hypercapnia Is this a current diagnosis for this admission?: Yes Plan: On mechanical ventilation pulmonary following (3) Metabolic encephalopathy Is this a current diagnosis for this admission?: Yes (4) Pneumonia Qualifiers: Pneumonia type: due to unspecified organism Laterality: right Lung location: lower lobe of lung Qualified Code(s): J18.1 - Lobar pneumonia, unspecified organism Is this a current diagnosis for this admission?: Yes (5) Urinary tract infection Qualifiers: Urinary tract infection type: site unspecified Hematuria presence: without hematuria Qualified Code(s): N39.0 - Urinary tract infection, site not specified Is this a current diagnosis for this admission?: Yes
[2019-02-28] MEDS: PIPERACILLIN SODIUM/TAZOBACTAM 3.375 GM in NORMAL SALINE 100 ML IV SCH ×4 (03:02→20:49)
[2019-02-28 05:06] LABS: ARTERIAL BLOOD FIO2 30%; ARTERIAL BLOOD H2CO3 0.98 mmol/L (1.05-1.35); ARTERIAL BLOOD HCO3 20.9 mmol/L (20-24); ARTERIAL BLOOD O2 SATURATION 97.8 % (94-98); ARTERIAL BLOOD PCO2 32.4 mmHg (35-45); ARTERIAL BLOOD PH 7.43 (7.35-7.45); ARTERIAL BLOOD PO2 101.3 mmHg (80-100); ARTERIAL BLOOD TOTAL CO2 21.9 mmol/L (21-25)
[2019-02-28 05:13] LABS: HEMATOCRIT 25.9 % (36.0-47.0); HEMOGLOBIN 8.5 g/dL (12.0-15.5); MEAN CORPUSCULAR HEMOGLOBIN 31.3 pg (27.0-33.4); MEAN CORPUSCULAR HGB CONC 32.7 g/dL (32.0-36.0); MEAN CORPUSCULAR VOLUME 96 fl (80-97); PLATELET COUNT 283 10^3/uL (150-450); RED BLOOD COUNT 2.71 10^6/uL (3.72-5.28); WHITE BLOOD COUNT 10.1 10^3/uL (4.0-10.5)
[2019-02-28] MEDS: OXCARBAZEPINE 150 MG TABLET NG SCH ×3 (05:21→21:35)
[2019-02-28] MEDS: PANTOPRAZOLE SODIUM 40 MG PACKET.DR NG SCH (05:21)
[2019-02-28] MEDS: LEVOTHYROXINE SODIUM 0.088 MG TABLET NG SCH (05:21)
[2019-02-28] MEDS: VALPROATE SODIUM SYRUP 250 MG/5 ML UDCUP NG SCH ×4 (05:21→23:07)
[2019-02-28 05:28] LABS: ANION GAP 8 (5-19); BLOOD UREA NITROGEN 14 mg/dL (7-20); CALCIUM 8.5 mg/dL (8.4-10.2); CARBON DIOXIDE 22 mmol/L (22-30); CHLORIDE 114 mmol/L (98-107); GLUCOSE 117 mg/dL (75-110); POTASSIUM 3.9 mmol/L (3.6-5.0)
[2019-02-28 05:32] LABS: ABSOLUTE LYMPHOCYTES# (MANUAL) 2.1 10^3/uL (0.5-4.7); ABSOLUTE MONOCYTES # (MANUAL) 0.4 10^3/uL (0.1-1.4); ANISOCYTOSIS 1+; BAND NEUTROPHILS % (MANUAL) 5 % (3-5); BASOPHILS % (MANUAL) 0 % (0-2); EOSINOPHILS % (MANUAL) 0 % (0-6); HYPOCHROMASIA 2+; LYMPHOCYTES % (MANUAL) 21 % (13-45); METAMYELOCYTES % (MANUAL) 1 % (0); MONOCYTES % (MANUAL) 4 % (3-13); SEGMENTED NEUTROPHILS % (MAN) 69 % (42-78); TOTAL CELLS COUNTED 100
[2019-02-28 05:33] LABS: PLATELET COMMENT ADEQUATE
[2019-02-28] MEDS: INSULIN LISPRO 100 UNIT/ML 3 ML VIAL SUBCUT SCH ×4 (06:26→23:06)
--- NOTE | 2019-02-28 08:27 | RADIOLOGY REPORT (SQ) ---
EXAM DESCRIPTION: CHEST SINGLE VIEW COMPLETED DATE/TIME: 02/28/2019 6:25 am REASON FOR STUDY: pneumonia COMPARISON: 02/27/2019 EXAM PARAMETERS: NUMBER OF VIEWS: One view. TECHNIQUE: Single frontal radiographic view of the chest acquired. RADIATION DOSE: NA LIMITATIONS: None. FINDINGS: LUNGS AND PLEURA: Persistent patchy interstitial and alveolar opacities greatest within th e right mid and lung base. Stable trace effusion versus right pleural thickening. No pneumothorax. Emphysematous change. MEDIASTINUM AND HILAR STRUCTURES: No masses. Contour normal. HEART AND VASCULAR STRUCTURES: Normal heart size. Aortic atherosclerosis. BONES: No acute findings. HARDWARE: Endotracheal tube tip overlies midthoracic trachea. Right internal jugular central venous catheter tip overlies cavoatrial junction. Enteric tube tip below diaphragm but excluded by collimat ion. OTHER: No other significant finding. IMPRESSION: Persistent patchy bilateral airspace disease greatest within the right mid and lower eduardo g. TECHNICAL DOCUMENTATION: JOB ID: [id number] [employer]- All Rights Reserved Reading location - IP/workstation name: [email or web address]
[2019-02-28] MEDS: CHLORHEXIDINE GLUCONATE 0.12% ORAL RINSE 15 ML UDC MM SCH (09:31)
[2019-02-28] MEDS: CYANOCOBALAMIN (VITAMIN B-12) 1,000 MCG TABLET NG SCH (09:31)
[2019-02-28] MEDS: CALCIUM CARBONATE 500 MG TABLET NG SCH (09:31)
[2019-02-28] MEDS: QUETIAPINE FUMARATE 25 MG TABLET NG SCH ×2 (09:32→21:36)
[2019-02-28] MEDS: NYSTATIN TOPICAL POWDER 15 GM TP SCH (09:32)
[2019-02-28] MEDS: SENNOSIDES/DOCUSATE 8.6-50 MG 1 EACH TABLET NG SCH (09:32)
[2019-02-28] MEDS: NORMAL SALINE 1000 ML 1,000 ML IV PRN (09:32)
[2019-02-28] MEDS: THIAMINE HCL 100 MG TABLET NG SCH (09:32)
[2019-02-28] MEDS: FOLIC ACID 1 MG TABLET NG SCH (09:32)
[2019-02-28] MEDS: SITAGLIPTIN PHOSPHATE 50 MG TABLET NG SCH (09:32)
[2019-02-28] MEDS: DIAZEPAM INJ 10 MG/2 ML DISP.SYRIN IV PRN ×2 (13:44→20:49)
[2019-02-28] MEDS: ACETAMINOPHEN SOLN 325 MG/10.15 ML UDCUP NG PRN (15:04)
[2019-02-28] MEDS: OLANZAPINE 5 MG TABLET NG SCH (21:35)
--- NOTE | 2019-02-28 22:24 | PDOC PROGRESS REPORT ---
Subjective Progress Note for:: 02/28/19 Subjective:: Patient is seen by the bedside still on mechanical ventilation Reason For Visit: SEPSIS,UTI,ENCEPHALOPATHY,KORI,HYPOTENSION Physical Exam Vital Signs: Temp Pulse Resp BP Pulse Ox 98.1 F 75 16 129/58 H 95 02/28/19 19:32 02/28/19 18:00 02/28/19 18:10 02/28/19 18:05 02/28/19 20:57 Intake & Output 02/27/19 02/28/19 03/01/19 06:59 06:59 06:59 Intake Total 1817 1664 1343 Output Total 2215 1815 550 Balance -398 -151 793 Weight 87.9 kg 91.1 kg General appearance: PRESENT: no acute distress Eye exam: PRESENT: PERRLA Respiratory exam: PRESENT: clear to auscultation juliette Cardiovascular exam: PRESENT: +S1, +S2 Results Laboratory Results: 02/28/19 04:54 02/28/19 04:54 02/28/19 02/28/19 02/28/19 04:54 04:54 04:54 WBC 10.1 RBC 2.71 L Hgb 8.5 L Hct 25.9 L MCV 96 MCH 31.3 MCHC 32.7 RDW 17.0 H Plt Count 283 Seg Neutrophils % Not Reportable Lymphocytes % Not Reportable Monocytes % Not Reportable Eosinophils % Not Reportable Basophils % Not Reportable Absolute Neutrophils Not Reportable Absolute Lymphocytes Not Reportable Absolute Monocytes Not Reportable Absolute Eosinophils Not Reportable Absolute Basophils Not Reportable Carbonic Acid 0.98 L HCO3/H2CO3 Ratio 21:1 ABG pH 7.43 ABG pCO2 32.4 L ABG pO2 101.3 H ABG HCO3 20.9 ABG O2 Saturation 97.8 ABG Base Excess -3.0 FiO2 30% Sodium 143.7 Potassium 3.9 Chloride 114 H Carbon Dioxide 22 Anion Gap 8 BUN 14 Creatinine 0.74 Est GFR ( Amer) > 60 Est GFR (Non-Af Amer) > 60 Glucose 117 H Calcium 8.5 Magnesium 1.7 02/16/19 02/16/19 02/16/19 20:48 20:48 20:48 Creatine Kinase 32 CK-MB (CK-2) 0.87 Troponin I < 0.012 NT-Pro-B Natriuret Pep 837 H Impressions: Head CT 02/16/19 20:17 IMPRESSION: No acute intracranial hemorrhage. Chest X-Ray 02/28/19 06:00 IMPRESSION: Persistent patchy bilateral airspace disease greatest within the right mid and lower lung. Assessment & Plan - Diagnosis (1) Septic shock Is this a current diagnosis for this admission?: Yes (2) Respiratory failure Qualifiers: Chronicity: acute Respiratory failure complication: hypercapnia Qualified Code(s): J96.02 - Acute respiratory failure with hypercapnia Is this a current diagnosis for this admission?: Yes Plan: Patient on weaning trial mode, hopefully extubate tomorrow (3) Metabolic encephalopathy Is this a current diagnosis for this admission?: Yes (4) Pneumonia Qualifiers: Pneumonia type: due to unspecified organism Laterality: right Lung location: lower lobe of lung Qualified Code(s): J18.1 - Lobar pneumonia, unspecified organism Is this a current diagnosis for this admission?: Yes (5) Urinary tract infection Qualifiers: Urinary tract infection type: site unspecified Hematuria presence: without hematuria Qualified Code(s): N39.0 - Urinary tract infection, site not specified Is this a current diagnosis for this admission?: Yes
[2019-03-01] MEDS: PIPERACILLIN SODIUM/TAZOBACTAM 3.375 GM in NORMAL SALINE 100 ML IV SCH ×4 (02:06→20:40)
[2019-03-01] MEDS: NORMAL SALINE 1000 ML 1,000 ML IV PRN ×2 (02:07→20:40)
[2019-03-01 04:01] LABS: ABSOLUTE BASOPHILS # (AUTO) 0.1 10^3/uL (0.0-0.2); ABSOLUTE EOSINOPHILS # (AUTO) 0.1 10^3/uL (0.0-0.6); ABSOLUTE LYMPHOCYTES (AUTO) 2.3 10^3/uL (0.5-4.7); ABSOLUTE MONOCYTES (AUTO) 1.4 10^3/uL (0.1-1.4); ABSOLUTE NEUT (AUTO) 9.3 10^3/uL (1.7-8.2); BASOPHILS % (AUTO) 0.5 % (0-2); HEMATOCRIT 25.2 % (36.0-47.0); LYMPHOCYTES % (AUTO) 17.7 % (13-45); MEAN CORPUSCULAR HEMOGLOBIN 30.7 pg (27.0-33.4); MEAN CORPUSCULAR HGB CONC 31.9 g/dL (32.0-36.0); MEAN CORPUSCULAR VOLUME 96 fl (80-97); MONOCYTES % (AUTO) 10.5 % (3-13); PLATELET COUNT 306 10^3/uL (150-450); RED BLOOD COUNT 2.62 10^6/uL (3.72-5.28); RED CELL DISTRIBUTION WIDTH 16.7 % (11.5-14.0); SEGMENTED NEUTROPHILS % (AUTO) 70.3 % (42-78); TOTAL CELLS COUNTED % (AUTO) 100 %; WHITE BLOOD COUNT 13.2 10^3/uL (4.0-10.5)
[2019-03-01 04:20] LABS: ANION GAP 5 (5-19); BLOOD UREA NITROGEN 16 mg/dL (7-20); CALCIUM 8.7 mg/dL (8.4-10.2); CARBON DIOXIDE 23 mmol/L (22-30); CHLORIDE 116 mmol/L (98-107); GLUCOSE 104 mg/dL (75-110); PHOSPHORUS 3.5 mg/dL (2.5-4.5); POTASSIUM 3.4 mmol/L (3.6-5.0)
[2019-03-01] MEDS ORDERED: POTASSIUM CHLORIDE 20 MEQ PACKET NG ONE (04:45)
[2019-03-01 04:58] LABS: ARTERIAL BLOOD BASE EXCESS -0.8 mmol/L; ARTERIAL BLOOD H2CO3 1.11 mmol/L (1.05-1.35); ARTERIAL BLOOD HCO3 23.4 mmol/L (20-24); ARTERIAL BLOOD O2 SATURATION 96.6 % (94-98); ARTERIAL BLOOD PCO2 36.8 mmHg (35-45); ARTERIAL BLOOD PH 7.42 (7.35-7.45); ARTERIAL BLOOD PO2 85.1 mmHg (80-100); ARTERIAL BLOOD TOTAL CO2 24.5 mmol/L (21-25)
[2019-03-01 05:08] LABS: ARTERIAL BLOOD FIO2 30%
[2019-03-01] MEDS: VALPROATE SODIUM SYRUP 250 MG/5 ML UDCUP NG SCH ×4 (05:18→23:07)
[2019-03-01] MEDS: OXCARBAZEPINE 150 MG TABLET NG SCH ×3 (05:19→21:10)
[2019-03-01] MEDS: INSULIN LISPRO 100 UNIT/ML 3 ML VIAL SUBCUT SCH ×4 (05:19→23:14)
[2019-03-01] MEDS: PANTOPRAZOLE SODIUM 40 MG PACKET.DR NG SCH (05:19)
[2019-03-01] MEDS: LEVOTHYROXINE SODIUM 0.088 MG TABLET NG SCH (05:19)
--- NOTE | 2019-03-01 08:15 | RADIOLOGY REPORT (SQ) ---
EXAM DESCRIPTION: CHEST SINGLE VIEW COMPLETED DATE/TIME: 03/01/2019 6:33 am REASON FOR STUDY: pneumonia COMPARISON: 02/28/2019 EXAM PARAMETERS: NUMBER OF VIEWS: One view. TECHNIQUE: Single frontal radiographic view of the chest acquired. RADIATION DOSE: NA LIMITATIONS: None. FINDINGS: LUNGS AND PLEURA: Persistent patchy bilateral opacities greatest within the right lung. M ildly improved right perihilar opacification. Likely small bilateral effusions. No pneumothorax pre . MEDIASTINUM AND HILAR STRUCTURES: Stable. HEART AND VASCULAR STRUCTURES: Stable. BONES: No acute findings. HARDWARE: Endotracheal tube tip overlies midthoracic trachea, stable. Right internal jugular central venous catheter tip overlies cavoatrial junction. Enteric tube tip overlies gastric body. OTHER: No other significant finding. IMPRESSION: Persistent patchy bilateral airspace disease, right greater than left. Stable support lines and tubes as above. TECHNICAL DOCUMENTATION: JOB ID: [id number] [employer]- All Rights Reserved Reading location - IP/workstation name: [email or web address]
[2019-03-01] MEDS: SITAGLIPTIN PHOSPHATE 50 MG TABLET NG SCH (08:42)
[2019-03-01] MEDS: CHLORHEXIDINE GLUCONATE 0.12% ORAL RINSE 15 ML UDC MM SCH (08:43)
[2019-03-01] MEDS ORDERED: DEXAMETHASONE SOD PHOSPHATE INJ 4 MG/1 ML VIAL ONE (09:20)
[2019-03-01] MEDS ORDERED: DEXAMETHASONE SOD PHOSPHATE INJ 4 MG/1 ML VIAL IV ONE (09:20)
[2019-03-01] MEDS: FOLIC ACID 1 MG TABLET NG SCH (10:27)
[2019-03-01] MEDS: CALCIUM CARBONATE 500 MG TABLET NG SCH (10:28)
[2019-03-01] MEDS: THIAMINE HCL 100 MG TABLET NG SCH (10:28)
[2019-03-01] MEDS: SENNOSIDES/DOCUSATE 8.6-50 MG 1 EACH TABLET NG SCH (10:28)
[2019-03-01] MEDS: CYANOCOBALAMIN (VITAMIN B-12) 1,000 MCG TABLET NG SCH (10:28)
[2019-03-01] MEDS: QUETIAPINE FUMARATE 25 MG TABLET NG SCH ×2 (10:28→21:09)
[2019-03-01] MEDS: NYSTATIN TOPICAL POWDER 15 GM TP SCH (11:25)
--- NOTE | 2019-03-01 14:36 | PDOC CONSULTATION ---
Consultation Consult Date: 02/17/19 Attending physician:: ISRA KAY Provider Consulted: MICHAELA OCONNOR Consult reason:: failure/aspiration pna History of Present Illness Admission Date/PCP: 02/17/19 00:11 ISRA KAY MD History of Present Illness: DRE HOPKINS is a 74 year old female Past Medical History Cardiac Medical History: Reports: Hyperlipidema, Hypertension Denies: Coronary Artery Disease, Myocardial Infarction, Heart Murmur Pulmonary Medical History: Reports: Asthma, Chronic Obstructive Pulmonary Disease (COPD), Pneumonia Denies: Bronchitis, Respiratory Failure, Sleep Apnea, Tuberculosis Neurological Medical History: Reports: Seizures Endocrine Medical History: Reports: Diabetes Mellitus Type 2, Hypothyroidism GI Medical History: Reports: Gastroesophageal Reflux Disease Musculoskeltal Medical History: Reports: Arthritis - osteoarthritis Psychiatric Medical History: Reports: Bipolar Disorder, Dementia, Depression, Schizoaffective Disorder Hematology: Reports: Anemia Past Surgical History Past Surgical History: Reports: Hysterectomy, Tubal Ligation Social History Smoking Status: Unknown if Ever Smoked Frequency of Alcohol Use: None Hx Recreational Drug Use: No Hx Prescription Drug Abuse: No Family History Family History: Reviewed & Not Pertinent, Other - Unknown Medication/Allergy Home Medications: Acetaminophen [Tylenol Extra Strength 500 mg Tablet] 1,000 mg PO Q8HP PRN 02/16/19 Sanchez/D3/Mag11/Zinc/Instrumentation Technician/Fausto/Bor [Caltrate 600+D Plus Tablet] 1 tab PO DAILY 02/16/19 Chlorhexidine Gluconate [Peridex] 15 ml MM QAM 02/16/19 Cranberry Fruit Extract [Cranberry] 500 mg PO DAILY 02/16/19 Cyanocobalamin (Vitamin B-12) [Vitamin B-12 1000 Mcg Tablet] 1,000 mcg PO DAILY 02/16/19 Divalproex Sodium [Depakote] 250 mg PO Q6 02/16/19 Folic Acid [Folvite 1 mg Tablet] 1 mg PO DAILY 02/16/19 Insulin Lispro [Humalog Insulin 100 Unit/1 ml 3 ml Vial] 0 unit SUBCUT .SLD SCALE 02/16/19 Levothyroxine Sodium [Synthroid 0.088 mg Tablet] 0.088 mg PO DAILY 02/16/19 Linagliptin [Tradjenta] 5 mg PO QAM 02/16/19 Olanzapine [Zyprexa] 20 mg PO QHS 02/16/19 Oxcarbazepine [Trileptal 150 Mg Tablet] 150 mg PO Q8 02/16/19 Oxybutynin Chloride [Ditropan Xl] 10 mg PO DAILY 02/16/19 Pantoprazole Sodium [Protonix [address] Tablet] 40 mg PO QAM 02/16/19 Quetiapine Fumarate [Seroquel 25 mg Tablet] 25 mg PO DAILY 02/16/19 Quetiapine Fumarate [Seroquel 25 mg Tablet] 25 mg PO QHS 02/16/19 Sennosides/Docusate 8.6-50 mg [Senna Plus Tablet] 1 tab PO DAILY 02/16/19 Thiamine HCl [Thiamine 100 mg Tablet] 100 mg PO DAILY 02/16/19 Valsartan [Diovan 160 mg Tablet] 160 mg PO DAILY 02/16/19 Allergies/Adverse Reactions: chlorpromazine HCl [From Thorazine] Allergy (Unknown, Verified 11/02/18 16:29) lithium [[place]] Allergy (Unknown, Verified 11/02/18 16:29) Physical Exam Vital Signs: Temp Pulse Resp BP Pulse Ox 98.4 F 114 H 43 H 58/36 L 100 02/17/19 07:58 02/17/19 07:58 02/17/19 07:58 02/17/19 07:58 02/17/19 08:38 Intake & Output 02/16/19 02/17/19 02/18/19 06:59 06:59 06:59 Intake Total 2250 Output Total 250 0 Balance 2000 0 Weight 86 kg Results Laboratory Results: 02/17/19 08:49 02/16/19 02/16/19 02/16/19 20:35 20:48 20:48 WBC 10.6 H RBC 2.90 L Hgb 9.2 L Hct 28.2 L MCV 97 MCH 31.8 MCHC 32.7 RDW 16.1 H Plt Count 266 Seg Neutrophils % 67.5 Lymphocytes % 18.1 Monocytes % 13.7 H Eosinophils % 0.4 Basophils % 0.3 Absolute Neutrophils 7.1 Absolute Lymphocytes 1.9 Absolute Monocytes 1.4 Absolute Eosinophils 0.0 Absolute Basophils 0.0 Carbonic Acid 1.55 H HCO3/H2CO3 Ratio 14:1 ABG pH 7.26 L ABG pCO2 51.6 H ABG pO2 108.9 H ABG HCO3 22.5 ABG O2 Saturation 97.2 ABG Base Excess -4.6 FiO2 100% Sodium 138.8 Potassium 5.3 H Chloride 104 Carbon Dioxide 25 Anion Gap 10 BUN 37 H Creatinine 1.75 H Est GFR ( Amer) 34 L Est GFR (Non-Af Amer) 28 L Glucose 151 H Lactic Acid Calcium 9.0 Total Bilirubin 0.3 AST 18 ALT 12 Alkaline Phosphatase 45 Total Protein 7.1 Albumin 3.3 L Urine Color Urine Appearance Urine pH Ur Specific [place] Urine Protein Urine Glucose (UA) Urine Ketones Urine Blood Urine Nitrite Ur Leukocyte Esterase Urine WBC (Auto) Urine RBC (Auto) 02/16/19 02/16/19 02/16/19 20:48 22:25 23:45 WBC RBC Hgb Hct MCV MCH MCHC RDW Plt Count Seg Neutrophils % Lymphocytes % Monocytes % Eosinophils % Basophils % Absolute Neutrophils Absolute Lymphocytes Absolute Monocytes Absolute Eosinophils Absolute Basophils Carbonic Acid 1.34 HCO3/H2CO3 Ratio 16:1 ABG pH 7.32 L ABG pCO2 44.4 ABG pO2 69.2 L ABG HCO3 22.6 ABG O2 Saturation 92.6 L ABG Base Excess -3.4 FiO2 45% Sodium Potassium Chloride Carbon Dioxide Anion Gap BUN Creatinine Est GFR ( Amer) Est GFR (Non-Af Amer) Glucose Lactic Acid 2.0 Calcium Total Bilirubin AST ALT Alkaline Phosphatase Total Protein Albumin Urine Color YELLOW Urine Appearance CLOUDY Urine pH 6.0 Ur Specific [place] 1.013 Urine Protein 30 H Urine Glucose (UA) NEGATIVE Urine Ketones NEGATIVE Urine Blood NEGATIVE Urine Nitrite NEGATIVE Ur Leukocyte Esterase LARGE H Urine WBC (Auto) 149 Urine RBC (Auto) 3 02/17/19 02/17/19 02/17/19 01:33 02:55 06:43 WBC RBC Hgb Hct MCV MCH MCHC RDW Plt Count Seg Neutrophils % Lymphocytes % Monocytes % Eosinophils % Basophils % Absolute Neutrophils Absolute Lymphocytes Absolute Monocytes Absolute Eosinophils Absolute Basophils Carbonic Acid 1.62 H HCO3/H2CO3 Ratio 12:1 ABG pH 7.21 L ABG pCO2 53.8 H ABG pO2 52.1 L ABG HCO3 21.0 ABG O2 Saturation 79.0 L ABG Base Excess -7.0 FiO2 100% Sodium Potassium Chloride Carbon Dioxide Anion Gap BUN Creatinine Est GFR ( Amer) Est GFR (Non-Af Amer) Glucose Lactic Acid 4.7 H 4.8 H Calcium Total Bilirubin AST ALT Alkaline Phosphatase Total Protein Albumin Urine Color Urine Appearance Urine pH Ur Specific [place] Urine Protein Urine Glucose (UA) Urine Ketones Urine Blood Urine Nitrite Ur Leukocyte Esterase Urine WBC (Auto) Urine RBC (Auto) 02/17/19 02/17/19 02/17/19 06:59 08:49 08:53 WBC 14.4 H RBC 3.01 L Hgb 9.4 L Hct 29.8 L MCV 99 H MCH 31.3 MCHC 31.6 L RDW 16.3 H Plt Count 279 Seg Neutrophils % 73.7 Lymphocytes % 11.2 L Monocytes % 14.7 H Eosinophils % 0.1 Basophils % 0.3 Absolute Neutrophils 10.6 H Absolute Lymphocytes 1.6 Absolute Monocytes 2.1 H Absolute Eosinophils 0.0 Absolute Basophils 0.0 Carbonic Acid Cancelled 1.63 H HCO3/H2CO3 Ratio Cancelled 10:1 ABG pH Cancelled 7.13 L* ABG pCO2 Cancelled 54.3 H ABG pO2 Cancelled 30.5 L* ABG HCO3 Cancelled 17.6 L ABG O2 Saturation Cancelled 41.2 L ABG Base Excess Cancelled -11.5 FiO2 Cancelled 100% Sodium Potassium Chloride Carbon Dioxide Anion Gap BUN Creatinine Est GFR ( Amer) Est GFR (Non-Af Amer) Glucose Lactic Acid Calcium Total Bilirubin AST ALT Alkaline Phosphatase Total Protein Albumin Urine Color Urine Appearance Urine pH Ur Specific [place] Urine Protein Urine Glucose (UA) Urine Ketones Urine Blood Urine Nitrite Ur Leukocyte Esterase Urine WBC (Auto) Urine RBC (Auto) 02/16/19 02/16/19 02/16/19 20:48 20:48 20:48 Creatine Kinase 32 CK-MB (CK-2) 0.87 Troponin I < 0.012 NT-Pro-B Natriuret Pep 837 H Impressions: Head CT 02/16/19 20:17 IMPRESSION: No acute intracranial hemorrhage. Assessment & Plan - Diagnosis (1) Aspiration pneumonia of both lungs Qualifiers: Aspiration pneumonia type: due to vomit Lung location: unspecified part of lung Qualified Code(s): J69.0 - Pneumonitis due to inhalation of food and vomit Is this a current diagnosis for this admission?: Yes Plan: Witnessed aspiration food and ET tube (2) Respiratory failure Qualifiers: Chronicity: acute Respiratory failure complication: hypercapnia Qualified Code(s): J96.02 - Acute respiratory failure with hypercapnia Is this a current diagnosis for this admission?: Yes Plan: Mechanical ventilation for oxygenation and ventilation (3) Septic shock Is this a current diagnosis for this admission?: Yes Plan: Vasopressor agents (4) Urinary tract infection due to ESBL Klebsiella Is this a current diagnosis for this admission?: Yes Plan: Recently cultured from urine (5) COPD (chronic obstructive pulmonary disease) Qualifiers: Emphysema type: unspecified Is this a current diagnosis for this admission?: Yes Plan: Laba; Lama and short lasting beta agonist - Time Total Critical Time (Minutes): 100
--- NOTE | 2019-03-01 20:35 | PDOC PROGRESS REPORT ---
Subjective Progress Note for:: 03/01/19 Subjective:: Patient extubated alert ,ocasional confusion Reason For Visit: SEPSIS,UTI,ENCEPHALOPATHY,KORI,HYPOTENSION Physical Exam Vital Signs: Temp Pulse Resp BP Pulse Ox 97.3 F 74 21 H 93/81 L 98 03/01/19 19:23 03/01/19 18:00 03/01/19 18:00 03/01/19 18:00 03/01/19 18:00 Intake & Output 02/28/19 03/01/19 03/02/19 06:59 06:59 06:59 Intake Total 1664 2438 200 Output Total 1815 1225 1900 Balance -151 1213 -1700 Weight 91.1 kg 91.8 kg General appearance: PRESENT: no acute distress Eye exam: PRESENT: PERRLA Respiratory exam: PRESENT: clear to auscultation juliette Cardiovascular exam: PRESENT: +S1, +S2 GI/Abdominal exam: PRESENT: soft Neurological exam: PRESENT: alert Results Laboratory Results: 03/01/19 03:44 03/01/19 07:20 03/01/19 03/01/19 03/01/19 03:44 03:44 04:50 WBC 13.2 H RBC 2.62 L Hgb 8.0 L Hct 25.2 L MCV 96 MCH 30.7 MCHC 31.9 L RDW 16.7 H Plt Count 306 Seg Neutrophils % 70.3 Lymphocytes % 17.7 Monocytes % 10.5 Eosinophils % 1.0 Basophils % 0.5 Absolute Neutrophils 9.3 H Absolute Lymphocytes 2.3 Absolute Monocytes 1.4 Absolute Eosinophils 0.1 Absolute Basophils 0.1 Carbonic Acid 1.11 HCO3/H2CO3 Ratio 21:1 ABG pH 7.42 ABG pCO2 36.8 ABG pO2 85.1 ABG HCO3 23.4 ABG O2 Saturation 96.6 ABG Base Excess -0.8 FiO2 30% Sodium 143.9 Potassium 3.4 L Chloride 116 H Carbon Dioxide 23 Anion Gap 5 BUN 16 Creatinine 0.77 Est GFR ( Amer) > 60 Est GFR (Non-Af Amer) > 60 Glucose 104 Calcium 8.7 Phosphorus 3.5 Magnesium 1.7 03/01/19 07:20 WBC RBC Hgb Hct MCV MCH MCHC RDW Plt Count Seg Neutrophils % Lymphocytes % Monocytes % Eosinophils % Basophils % Absolute Neutrophils Absolute Lymphocytes Absolute Monocytes Absolute Eosinophils Absolute Basophils Carbonic Acid HCO3/H2CO3 Ratio ABG pH ABG pCO2 ABG pO2 ABG HCO3 ABG O2 Saturation ABG Base Excess FiO2 Sodium Potassium 3.6 Chloride Carbon Dioxide Anion Gap BUN Creatinine Est GFR ( Amer) Est GFR (Non-Af Amer) Glucose Calcium Phosphorus Magnesium 02/16/19 02/16/19 02/16/19 20:48 20:48 20:48 Creatine Kinase 32 CK-MB (CK-2) 0.87 Troponin I < 0.012 NT-Pro-B Natriuret Pep 837 H Impressions: Head CT 02/16/19 20:17 IMPRESSION: No acute intracranial hemorrhage. Chest X-Ray 03/01/19 06:00 IMPRESSION: Persistent patchy bilateral airspace disease, right greater than left. Stable support lines and tubes as above. Assessment & Plan - Diagnosis (1) Septic shock Is this a current diagnosis for this admission?: Yes (2) Respiratory failure Qualifiers: Chronicity: acute Respiratory failure complication: hypercapnia Qualified Code(s): J96.02 - Acute respiratory failure with hypercapnia Is this a current diagnosis for this admission?: Yes (3) Metabolic encephalopathy Is this a current diagnosis for this admission?: Yes (4) Pneumonia Qualifiers: Pneumonia type: due to unspecified organism Laterality: right Lung location: lower lobe of lung Qualified Code(s): J18.1 - Lobar pneumonia, unspecified organism Is this a current diagnosis for this admission?: Yes (5) Urinary tract infection Qualifiers: Urinary tract infection type: site unspecified Hematuria presence: without hematuria Qualified Code(s): N39.0 - Urinary tract infection, site not specified Is this a current diagnosis for this admission?: Yes (6) History of recurrent UTIs Is this a current diagnosis for this admission?: Yes
[2019-03-01] MEDS: OLANZAPINE 5 MG TABLET NG SCH (21:10)
[2019-03-02] MEDS: PIPERACILLIN SODIUM/TAZOBACTAM 3.375 GM in NORMAL SALINE 100 ML IV SCH ×4 (02:47→21:40)
[2019-03-02 04:19] LABS: ABSOLUTE BASOPHILS # (AUTO) 0.1 10^3/uL (0.0-0.2); ABSOLUTE LYMPHOCYTES (AUTO) 1.8 10^3/uL (0.5-4.7); ABSOLUTE NEUT (AUTO) 6.2 10^3/uL (1.7-8.2); BASOPHILS % (AUTO) 0.6 % (0-2); EOSINOPHILS % (AUTO) 0.1 % (0-6); HEMATOCRIT 24.6 % (36.0-47.0); HEMOGLOBIN 8.2 g/dL (12.0-15.5); LYMPHOCYTES % (AUTO) 19.7 % (13-45); MEAN CORPUSCULAR HEMOGLOBIN 31.5 pg (27.0-33.4); MEAN CORPUSCULAR HGB CONC 33.3 g/dL (32.0-36.0); MEAN CORPUSCULAR VOLUME 95 fl (80-97); MONOCYTES % (AUTO) 11.2 % (3-13); PLATELET COUNT 306 10^3/uL (150-450); RED CELL DISTRIBUTION WIDTH 17.1 % (11.5-14.0); SEGMENTED NEUTROPHILS % (AUTO) 68.4 % (42-78); TOTAL CELLS COUNTED % (AUTO) 100 %; WHITE BLOOD COUNT 9.1 10^3/uL (4.0-10.5)
[2019-03-02 04:23] LABS: ARTERIAL BLOOD BASE EXCESS -1.1 mmol/L; ARTERIAL BLOOD H2CO3 1.13 mmol/L (1.05-1.35); ARTERIAL BLOOD HCO3 23.3 mmol/L (20-24); ARTERIAL BLOOD O2 SATURATION 93.2 % (94-98); ARTERIAL BLOOD PCO2 37.7 mmHg (35-45); ARTERIAL BLOOD PH 7.41 (7.35-7.45); ARTERIAL BLOOD PO2 65.7 mmHg (80-100); ARTERIAL BLOOD TOTAL CO2 24.5 mmol/L (21-25)
[2019-03-02 04:24] LABS: ARTERIAL BLOOD FIO2 2L
[2019-03-02 04:41] LABS: ANION GAP 5 (5-19); BLOOD UREA NITROGEN 15 mg/dL (7-20); CALCIUM 8.9 mg/dL (8.4-10.2); CARBON DIOXIDE 24 mmol/L (22-30); CHLORIDE 115 mmol/L (98-107); GLUCOSE 94 mg/dL (75-110); POTASSIUM 3.9 mmol/L (3.6-5.0)
[2019-03-02] MEDS: PANTOPRAZOLE SODIUM 40 MG PACKET.DR NG SCH (05:01)
[2019-03-02] MEDS: INSULIN LISPRO 100 UNIT/ML 3 ML VIAL SUBCUT SCH ×4 (05:01→23:51)
[2019-03-02] MEDS: VALPROATE SODIUM SYRUP 250 MG/5 ML UDCUP NG SCH ×4 (05:01→23:51)
[2019-03-02] MEDS: OXCARBAZEPINE 150 MG TABLET NG SCH ×3 (05:02→21:38)
[2019-03-02] MEDS: LEVOTHYROXINE SODIUM 0.088 MG TABLET NG SCH (05:02)
[2019-03-02] MEDS: NYSTATIN TOPICAL POWDER 15 GM TP SCH (10:00)
--- NOTE | 2019-03-02 10:54 | RADIOLOGY REPORT (SQ) ---
EXAM DESCRIPTION: CHEST SINGLE VIEW COMPLETED DATE/TIME: 03/02/2019 7:08 am REASON FOR STUDY: pneumonia COMPARISON: 03/01/2019. EXAM PARAMETERS: NUMBER OF VIEWS: One view. TECHNIQUE: Single frontal radiographic view of the chest acquired. RADIATION DOSE: NA LIMITATIONS: None. FINDINGS: LUNGS AND PLEURA: Extensive airspace disease in the right lung and left base. Small right pleural effusion/pleural thickening. MEDIASTINUM AND HILAR STRUCTURES: No masses. Contour normal. HEART AND VASCULAR STRUCTURES: Heart normal in size. Normal vasculature. BONES: No acute findings. HARDWARE: Stable central line. Interval removal of the endotracheal tube and nasogastric tube. OTHER: No other significant finding. IMPRESSION: LIFE LINES DESCRIBED. NO CHANGE IN APPEARANCE OF THE CHEST. TECHNICAL DOCUMENTATION: JOB ID: [id number] [employer]- All Rights Reserved Reading location - IP/workstation name: [email or web address]
--- NOTE | 2019-03-02 13:24 | RADIOLOGY REPORT (SQ) ---
EXAM DESCRIPTION: KUB/ABDOMEN (SINGLE VIEW) COMPLETED DATE/TIME: 03/02/2019 1:15 pm REASON FOR STUDY: NGT PLACEMENT COMPARISON: 11/03/2018 NUMBER OF VIEWS: One view. TECHNIQUE: Supine radiographic image of the abdomen acquired. LIMITATIONS: None. FINDINGS: BOWEL GAS PATTERN: Normal bowel gas pattern. No dilated loops. CALCIFICATIONS: No suspicious calcifications. SOFT TISSUES: No gross mass or suggestion of organomegaly. HARDWARE: An NG tube extends 3 cm inside the stomach. BONES: No acute fracture. No worrisome bone lesions. OTHER: No other significant finding. IMPRESSION: NG tube placement as described. The NG tube is just inside the stomach. TECHNICAL DOCUMENTATION: JOB ID: [id number] [employer]- All Rights Reserved Reading location - IP/workstation name: [email or web address]
[2019-03-02] MEDS: CALCIUM CARBONATE 500 MG TABLET NG SCH (13:45)
[2019-03-02] MEDS: SENNOSIDES/DOCUSATE 8.6-50 MG 1 EACH TABLET NG SCH (13:45)
[2019-03-02] MEDS: QUETIAPINE FUMARATE 25 MG TABLET NG SCH ×2 (13:46→21:38)
[2019-03-02] MEDS: THIAMINE HCL 100 MG TABLET NG SCH (13:46)
[2019-03-02] MEDS: FOLIC ACID 1 MG TABLET NG SCH (13:46)
[2019-03-02] MEDS: CYANOCOBALAMIN (VITAMIN B-12) 1,000 MCG TABLET NG SCH (13:46)
[2019-03-02] MEDS: SITAGLIPTIN PHOSPHATE 50 MG TABLET NG SCH (13:46)
[2019-03-02] MEDS: CHLORHEXIDINE GLUCONATE 0.12% ORAL RINSE 15 ML UDC MM SCH (14:04)
--- NOTE | 2019-03-02 21:24 | PDOC PROGRESS REPORT ---
Subjective Progress Note for:: 03/02/19 Subjective:: Patient is alert ,he was seen by speech,naso gastric tube inserted for tube/nutrition Reason For Visit: SEPSIS,UTI,ENCEPHALOPATHY,KORI,HYPOTENSION Physical Exam Vital Signs: Temp Pulse Resp BP Pulse Ox 97.7 F 90 31 H 130/61 H 95 03/02/19 19:29 03/02/19 18:00 03/02/19 18:55 03/02/19 18:55 03/02/19 18:55 Intake & Output 03/01/19 03/02/19 03/03/19 06:59 06:59 06:59 Intake Total 2438 1400 200 Output Total 1224 6665 1178 Balance 7832 -1948 -334 Weight 91.8 kg 92 kg General appearance: PRESENT: no acute distress Eye exam: PRESENT: PERRLA Respiratory exam: PRESENT: clear to auscultation juliette Cardiovascular exam: PRESENT: +S1, +S2 GI/Abdominal exam: PRESENT: soft Results Laboratory Results: 03/02/19 04:05 03/02/19 04:05 03/02/19 03/02/19 03/02/19 04:05 04:05 04:05 WBC 9.1 RBC 2.60 L Hgb 8.2 L Hct 24.6 L MCV 95 MCH 31.5 MCHC 33.3 RDW 17.1 H Plt Count 306 Seg Neutrophils % 68.4 Lymphocytes % 19.7 Monocytes % 11.2 Eosinophils % 0.1 Basophils % 0.6 Absolute Neutrophils 6.2 Absolute Lymphocytes 1.8 Absolute Monocytes 1.0 Absolute Eosinophils 0.0 Absolute Basophils 0.1 Carbonic Acid 1.13 HCO3/H2CO3 Ratio 20:1 ABG pH 7.41 ABG pCO2 37.7 ABG pO2 65.7 L ABG HCO3 23.3 ABG O2 Saturation 93.2 L ABG Base Excess -1.1 FiO2 2L Sodium 144.3 Potassium 3.9 Chloride 115 H Carbon Dioxide 24 Anion Gap 5 BUN 15 Creatinine 0.76 Est GFR ( Amer) > 60 Est GFR (Non-Af Amer) > 60 Glucose 94 Calcium 8.9 Magnesium 1.6 02/16/19 02/16/19 02/16/19 20:48 20:48 20:48 Creatine Kinase 32 CK-MB (CK-2) 0.87 Troponin I < 0.012 NT-Pro-B Natriuret Pep 837 H Impressions: Head CT 02/16/19 20:17 IMPRESSION: No acute intracranial hemorrhage. KUB X-Ray 03/02/19 00:00 IMPRESSION: NG tube placement as described. The NG tube is just inside the stomach. Chest X-Ray 03/02/19 02:30 IMPRESSION: LIFE LINES DESCRIBED. NO CHANGE IN APPEARANCE OF THE CHEST. Assessment & Plan - Diagnosis (1) Septic shock Is this a current diagnosis for this admission?: Yes (2) Respiratory failure Qualifiers: Chronicity: acute Respiratory failure complication: hypercapnia Qualified Code(s): J96.02 - Acute respiratory failure with hypercapnia Is this a current diagnosis for this admission?: Yes (3) Metabolic encephalopathy Is this a current diagnosis for this admission?: Yes (4) Pneumonia Qualifiers: Pneumonia type: due to unspecified organism Laterality: right Lung location: lower lobe of lung Qualified Code(s): J18.1 - Lobar pneumonia, unspecified organism Is this a current diagnosis for this admission?: Yes (5) Urinary tract infection Qualifiers: Urinary tract infection type: site unspecified Hematuria presence: without hematuria Qualified Code(s): N39.0 - Urinary tract infection, site not specified Is this a current diagnosis for this admission?: Yes (6) History of recurrent UTIs Is this a current diagnosis for this admission?: Yes
[2019-03-02] MEDS: OLANZAPINE 5 MG TABLET NG SCH (21:38)
[2019-03-03] MEDS: PIPERACILLIN SODIUM/TAZOBACTAM 3.375 GM in NORMAL SALINE 100 ML IV SCH ×2 (03:25→09:57)
[2019-03-03 03:40] LABS: ARTERIAL BLOOD BASE EXCESS -1.2 mmol/L; ARTERIAL BLOOD H2CO3 1.28 mmol/L (1.05-1.35); ARTERIAL BLOOD O2 SATURATION 97.4 % (94-98); ARTERIAL BLOOD PCO2 42.5 mmHg (35-45); ARTERIAL BLOOD PH 7.37 (7.35-7.45); ARTERIAL BLOOD PO2 99.8 mmHg (80-100); ARTERIAL BLOOD TOTAL CO2 25.3 mmol/L (21-25)
[2019-03-03 03:41] LABS: ARTERIAL BLOOD FIO2 40%
[2019-03-03] MEDS: LEVOTHYROXINE SODIUM 0.088 MG TABLET NG SCH (05:30)
[2019-03-03] MEDS: VALPROATE SODIUM SYRUP 250 MG/5 ML UDCUP NG SCH ×4 (05:30→23:58)
[2019-03-03] MEDS: OXCARBAZEPINE 150 MG TABLET NG SCH ×3 (05:30→21:15)
[2019-03-03] MEDS: PANTOPRAZOLE SODIUM 40 MG PACKET.DR NG SCH (05:30)
[2019-03-03 05:57] LABS: ABSOLUTE BASOPHILS # (AUTO) 0.1 10^3/uL (0.0-0.2); ABSOLUTE EOSINOPHILS # (AUTO) 0.1 10^3/uL (0.0-0.6); ABSOLUTE LYMPHOCYTES (AUTO) 1.6 10^3/uL (0.5-4.7); ABSOLUTE MONOCYTES (AUTO) 1.9 10^3/uL (0.1-1.4); ABSOLUTE NEUT (AUTO) 9.5 10^3/uL (1.7-8.2); BASOPHILS % (AUTO) 0.8 % (0-2); EOSINOPHILS % (AUTO) 0.7 % (0-6); HEMATOCRIT 26.7 % (36.0-47.0); HEMOGLOBIN 8.8 g/dL (12.0-15.5); LYMPHOCYTES % (AUTO) 12.4 % (13-45); MEAN CORPUSCULAR HEMOGLOBIN 31.3 pg (27.0-33.4); MEAN CORPUSCULAR VOLUME 95 fl (80-97); MONOCYTES % (AUTO) 14.2 % (3-13); PLATELET COUNT 344 10^3/uL (150-450); RED BLOOD COUNT 2.81 10^6/uL (3.72-5.28); RED CELL DISTRIBUTION WIDTH 16.8 % (11.5-14.0); SEGMENTED NEUTROPHILS % (AUTO) 71.9 % (42-78); TOTAL CELLS COUNTED % (AUTO) 100 %; WHITE BLOOD COUNT 13.2 10^3/uL (4.0-10.5)
[2019-03-03 06:33] LABS: ANION GAP 7 (5-19); BLOOD UREA NITROGEN 11 mg/dL (7-20); CALCIUM 8.3 mg/dL (8.4-10.2); CARBON DIOXIDE 22 mmol/L (22-30); CHLORIDE 114 mmol/L (98-107); GLUCOSE 81 mg/dL (75-110); POTASSIUM 3.4 mmol/L (3.6-5.0)
[2019-03-03] MEDS ORDERED: POTASSI CL 20 MEQ/50 ML RIDER 20 MEQ/50 ML RTUPB IV ONE ×2 (07:56→09:20)
[2019-03-03] MEDS ORDERED: MAGNESIUM SULFATE/D5W 1 GM/100 ML RTUPB IV ONE ×2 (07:56→09:20)
--- NOTE | 2019-03-03 09:17 | ST Inp Modified Barium Swallow ---
Medical Diagnosis - Medical Diagnoses Medical Diagnosis Description & ICD-10 Code(s): Septic Shock, Respiratory Failure, PNA, Metabolic Encephalopathy Inpatient [facility] [place] - General Date: 03/03/19 - History -: Medical - Patient admitted on 02/17/2019 after choking on solid (popcorn) and emesis. Emergency admission complicated by patient being hypoxemic requiring resuscitation and then BIPAP. Given low saturations and complications patient was intubated. Patient diagnosed with septic shock, respiratory failure, metabolic encephalopathy, PNA, and UTI. Past medical history significant for dementia, chronic UTI, schizophrenia, COPD, PNA, asthma, GERD, seizures, and hypertension. Head CT revealed no acute intracranial hemorrhage. Extubated currently as of 03/01. Chest X-ray (03/01) revealed persistent patchy bilateral airspace disease, right greater than left. Chest X-Ray (03/02) revealed extensive airspace disease in right and left base. Patient is a resident of [place], with a reported modified diet at baseline. Patient NPO and receiving nutrition via NG Tube. Medications: Medications Reviewed - yes Allergies: Refer to medical record - Subjective Current Nutritional Means: NPO, NG Current Symptoms: Wet/gurgly voice, Spillage Pain: no signs/symptoms of pain - Objective Assessment: Upright - Food Trials Food Trials Used: Thin liquids, Honey-thickened liquids, [place] thick liquids, Pureed The Patient: fed by ST, via cup, via spoon - Assessment Labial Function: Impaired Lingual Function: Within Functional Limits Mandibular Function: Within Functional Limits Dentition: Edentulous Velo-Pharyngeal Function: Unremarkable Laryngeal Function: Throat Clear, Volitional Swallow, Weak Cough, hoarse - Pharyngeal Stage Initiation of Pharyngeal Stage: Normal Reduced Velo-Pharyngeal Closure: no Reduced Tongue Base Retraction: Yes Pre-Swallowing Pooling in Valleculae: Moderate Pre-Swallowing Pooling in Pyriforms: Mild Reduced Pharyngeal Peristalsis: Yes Post Swallow Residuals in Valleculae: Moderate Post Swallow Residuals in Pyriforms: Mild Post Swallow Residuals: throughout pharynx Pahryngeal Stage Comments: Patient presents with moderate to severe oral pharyngeal dysphagia as indicated by uncoordinated swallow function, silent aspiration of thin liquid, and deep silent penetration and likely eventual aspiration of nectar and honey thick liquid. Patient had reduced bolus control leading to premature spillage of all consistencies and moderate residuals throughout pharynx due to reduced pharyngeal peristalsis and base of tongue ret raction. Penetration most consistently occurring after the swallow from residuals at the level of the vallecula and posteriorly from the pyriform sinuses. Neither aspiration nor penetration triggered cough response. With cueing patient able to clear throat and reduce, but not clear, penetrates. Puree consumed without observed penetration, but concern for eventual penetration of moderate residuals throughout pharynx. Given patients current medical status, uncoordinated swallow function, residuals throughout pharynx, inefficient clearance of penetration with compensatory throat clear, and silent nature of aspiration/penetration, recommend patient remain NPO with nutrition provided via alternative means. Speech therapy will follow up needed to determine plan of care. - Impression/Summary Laryngeal Penetration: Yes, Deep, Silent, after swallow Tracheal Aspiration: yes, silent Productive Cough: Yes Effective Clearing: partial clearing Compensatory Strategies: Trialed throat clear and reswallow, with patient able to partially clear penetrates. But not effective to clear all penetrates. Patient Presents With: Oral-Pharyngeal dysph. - moderate to severe Risk of Aspiration: Moderate - Recommendations NPO: yes Dysphagia Therapy with AUTISTIC TEACHER: Yes, Inpatient - Time Total Time: 23 Total Timed Minutes: 23
--- NOTE | 2019-03-03 09:40 | RADIOLOGY REPORT (SQ) ---
EXAM DESCRIPTION: CHEST SINGLE VIEW COMPLETED DATE/TIME: 03/03/2019 6:30 am REASON FOR STUDY: pneumonia COMPARISON: 03/02/2019. EXAM PARAMETERS: NUMBER OF VIEWS: One view. TECHNIQUE: Single frontal radiographic view of the chest acquired. RADIATION DOSE: NA LIMITATIONS: None. FINDINGS: LUNGS AND PLEURA: Airspace disease throughout the right lung and in the left lower lobe un changed. Right pleural effusion unchanged. MEDIASTINUM AND HILAR STRUCTURES: No masses. Contour normal. HEART AND VASCULAR STRUCTURES: Heart normal in size. Normal vasculature. BONES: No acute findings. HARDWARE: Stable nasogastric tube and central line. OTHER: No other significant finding. IMPRESSION: NO CHANGE IN APPEARANCE OF THE CHEST. TECHNICAL DOCUMENTATION: JOB ID: [id number] [employer]- All Rights Reserved Reading location - IP/workstation name: [email or web address]
[2019-03-03] MEDS: MAGNESIUM SULFATE 1 GM/D5W 100 ML IV SCH ×2 (09:58→10:10)
[2019-03-03] MEDS: POTASSIUM CHLORIDE 20 MEQ/50 ML RTU IV SCH ×2 (09:58→10:54)
[2019-03-03] MEDS: FOLIC ACID 1 MG TABLET NG SCH (09:59)
[2019-03-03] MEDS: SENNOSIDES/DOCUSATE 8.6-50 MG 1 EACH TABLET NG SCH (09:59)
[2019-03-03] MEDS: CALCIUM CARBONATE 500 MG TABLET NG SCH (09:59)
[2019-03-03] MEDS: CYANOCOBALAMIN (VITAMIN B-12) 1,000 MCG TABLET NG SCH (09:59)
[2019-03-03] MEDS: THIAMINE HCL 100 MG TABLET NG SCH (09:59)
[2019-03-03] MEDS: SITAGLIPTIN PHOSPHATE 50 MG TABLET NG SCH (10:06)
[2019-03-03] MEDS: INSULIN LISPRO 100 UNIT/ML 3 ML VIAL SUBCUT SCH ×4 (10:06→23:55)
[2019-03-03] MEDS: NYSTATIN TOPICAL POWDER 15 GM TP SCH (10:07)
[2019-03-03] MEDS: QUETIAPINE FUMARATE 25 MG TABLET NG SCH ×2 (10:08→21:15)
[2019-03-03] MEDS: CHLORHEXIDINE GLUCONATE 0.12% ORAL RINSE 15 ML UDC MM SCH (10:10)
--- NOTE | 2019-03-03 11:53 | RADIOLOGY REPORT (SQ) ---
EXAM DESCRIPTION: KEON SWALLOW COMPLETED DATE/TIME: 03/03/2019 10:17 am REASON FOR STUDY: dysphagia recent extubation aspiration pneumonia COMPARISON: None. TECHNIQUE: Videofluoroscopic swallowing examination was performed in conjunction with speech patholo gy. Videofluoroscopic imaging was obtained and reviewed and these are the findings: RADIATION DOSE: Fluoro time 3.54 minutes 1 images saved to PACS. LIMITATIONS: None FINDINGS: The patient was brought into the fluoro room and placed upright on a modified barium swall ow chair. The patient was then given multiple consistencies mixed with barium to swallow under live fluoroscopic video guidance. According to the Speech Pathologist there was aspiration seen with thin barium. Laryngeal penetration was seen with nectar thick and honey thick consistencies. Please ref er to the speech pathology report for further details. Due to these findings, barium swallow was not performed. IMPRESSION: ASPIRATION WITH THIN BARIUM. LARYNGEAL PENETRATION WITH NECTAR THICK AND HONEY THICK CO NSISTENCIES. PLEASE SEE SPEECH PATHOLOGIST REPORT FOR OTHER FINDINGS AND RECOMMENDATIONS. DUE TO FINDINGS OF ASPIRATION ON MODIFIED SWALLOW, BARIUM SWALLOW STUDY WAS DEFERRED. COMMENT: NONE Quality ID [id number]: Final reports for procedures using fluoroscopy that document radiation exposure noam johnny, or exposure time and number of fluorographic images (if radiation exposure indices are not avail able) TECHNICAL DOCUMENTATION: JOB ID: [id number] [employer]- All Rights Reserved Reading location - IP/workstation name: [email or web address] [id number]
[2019-03-03 14:54] LABS: POTASSIUM 3.7 mmol/L (3.6-5.0)
--- NOTE | 2019-03-03 18:44 | PDOC PROGRESS REPORT ---
Subjective Progress Note for:: 03/03/19 Subjective:: Patient was seen today by the bedside, she was downgraded to IMCU floor from ICU, she was seen by speech, alternative means of nutrition was advised because she failed the swallow study, she is at increased risk of aspiration. Patient is a payne of the [facility], she may need a temporary PEG tube but the state must give authorization before we can proceed with that I am not sure that is a good option at this time. The dysphagia is probably related to the prolonged trach intubation in the unit. Reason For Visit: SEPSIS,UTI,ENCEPHALOPATHY,KORI,HYPOTENSION Physical Exam Vital Signs: Temp Pulse Resp BP Pulse Ox 97.7 F 81 26 H 152/71 H 95 03/03/19 12:00 03/03/19 12:00 03/03/19 15:00 03/03/19 14:51 03/03/19 15:00 Intake & Output 03/02/19 03/03/19 03/04/19 06:59 06:59 06:59 Intake Total 1400 400 480 Output Total 9675 3025 2160 Balance -8863 -2090 -1480 Weight 92 kg 90.2 kg General appearance: PRESENT: no acute distress Eye exam: PRESENT: PERRLA Respiratory exam: PRESENT: clear to auscultation juliette Cardiovascular exam: PRESENT: +S1, +S2 GI/Abdominal exam: PRESENT: soft Neurological exam: PRESENT: alert Results Laboratory Results: 03/03/19 05:40 03/03/19 14:10 03/03/19 03/03/19 03/03/19 03:30 05:40 05:40 WBC 13.2 H RBC 2.81 L Hgb 8.8 L Hct 26.7 L MCV 95 MCH 31.3 MCHC 33.0 RDW 16.8 H Plt Count 344 Seg Neutrophils % 71.9 Lymphocytes % 12.4 L Monocytes % 14.2 H Eosinophils % 0.7 Basophils % 0.8 Absolute Neutrophils 9.5 H Absolute Lymphocytes 1.6 Absolute Monocytes 1.9 H Absolute Eosinophils 0.1 Absolute Basophils 0.1 Carbonic Acid 1.28 HCO3/H2CO3 Ratio 18:1 ABG pH 7.37 ABG pCO2 42.5 ABG pO2 99.8 ABG HCO3 24.0 ABG O2 Saturation 97.4 ABG Base Excess -1.2 FiO2 40% Sodium 142.7 Potassium 3.4 L Chloride 114 H Carbon Dioxide 22 Anion Gap 7 BUN 11 Creatinine 0.65 Est GFR ( Amer) > 60 Est GFR (Non-Af Amer) > 60 Glucose 81 Calcium 8.3 L Magnesium 1.3 L 03/03/19 14:10 WBC RBC Hgb Hct MCV MCH MCHC RDW Plt Count Seg Neutrophils % Lymphocytes % Monocytes % Eosinophils % Basophils % Absolute Neutrophils Absolute Lymphocytes Absolute Monocytes Absolute Eosinophils Absolute Basophils Carbonic Acid HCO3/H2CO3 Ratio ABG pH ABG pCO2 ABG pO2 ABG HCO3 ABG O2 Saturation ABG Base Excess FiO2 Sodium Potassium 3.7 Chloride Carbon Dioxide Anion Gap BUN Creatinine Est GFR ( Amer) Est GFR (Non-Af Amer) Glucose Calcium Magnesium 1.9 02/16/19 02/16/19 02/16/19 20:48 20:48 20:48 Creatine Kinase 32 CK-MB (CK-2) 0.87 Troponin I < 0.012 NT-Pro-B Natriuret Pep 837 H Impressions: Head CT 02/16/19 20:17 IMPRESSION: No acute intracranial hemorrhage. KUB X-Ray 03/02/19 00:00 IMPRESSION: NG tube placement as described. The NG tube is just inside the stomach. Modified Barium Swallow 03/03/19 00:00 IMPRESSION: ASPIRATION WITH THIN BARIUM. LARYNGEAL PENETRATION WITH NECTAR THICK AND HONEY THICK CONSISTENCIES. PLEASE SEE SPEECH PATHOLOGIST REPORT FOR OTHER FINDINGS AND RECOMMENDATIONS. DUE TO FINDINGS OF ASPIRATION ON MODIFIED SWALLOW, BARIUM SWALLOW STUDY WAS DEFERRED. Chest X-Ray 03/03/19 02:30 IMPRESSION: NO CHANGE IN APPEARANCE OF THE CHEST. Assessment & Plan - Diagnosis (1) Septic shock Is this a current diagnosis for this admission?: Yes Plan: This is resolved (2) Respiratory failure Qualifiers: Chronicity: acute Respiratory failure complication: hypercapnia Qualified Code(s): J96.02 - Acute respiratory failure with hypercapnia Is this a current diagnosis for this admission?: Yes (3) Metabolic encephalopathy Is this a current diagnosis for this admission?: Yes (4) Pneumonia Qualifiers: Pneumonia type: due to unspecified organism Laterality: right Lung location: lower lobe of lung Qualified Code(s): J18.1 - Lobar pneumonia, unspecified organism Is this a current diagnosis for this admission?: Yes (5) Urinary tract infection Qualifiers: Urinary tract infection type: site unspecified Hematuria presence: without hematuria Qualified Code(s): N39.0 - Urinary tract infection, site not specified Is this a current diagnosis for this admission?: Yes (6) History of recurrent UTIs Is this a current diagnosis for this admission?: Yes (7) Dysphagia Qualifiers: Dysphagia type: unspecified Qualified Code(s): R13.10 - Dysphagia, unspecified Is this a current diagnosis for this admission?: Yes Plan: Patient presently with nasogastric tube, tube feed will be initiated based on the recommendation from dietary/livestock nutrition territory manager
[2019-03-03] MEDS: OLANZAPINE 5 MG TABLET NG SCH (21:15)
[2019-03-04] MEDS: LEVOTHYROXINE SODIUM 0.088 MG TABLET NG SCH (05:33)
[2019-03-04] MEDS: VALPROATE SODIUM SYRUP 250 MG/5 ML UDCUP NG SCH ×3 (05:33→18:18)
[2019-03-04] MEDS: PANTOPRAZOLE SODIUM 40 MG PACKET.DR NG SCH (05:33)
[2019-03-04] MEDS: OXCARBAZEPINE 150 MG TABLET NG SCH ×3 (05:33→21:51)
[2019-03-04 06:39] LABS: ANION GAP 9 (5-19); BLOOD UREA NITROGEN 7 mg/dL (7-20); CALCIUM 9.1 mg/dL (8.4-10.2); CARBON DIOXIDE 25 mmol/L (22-30); CHLORIDE 107 mmol/L (98-107); GLUCOSE 108 mg/dL (75-110); POTASSIUM 3.5 mmol/L (3.6-5.0)
[2019-03-04] MEDS: INSULIN LISPRO 100 UNIT/ML 3 ML VIAL SUBCUT SCH ×3 (06:50→18:11)
[2019-03-04] MEDS: SITAGLIPTIN PHOSPHATE 50 MG TABLET NG SCH (07:57)
[2019-03-04] MEDS: CALCIUM CARBONATE 500 MG TABLET NG SCH (09:58)
[2019-03-04] MEDS: THIAMINE HCL 100 MG TABLET NG SCH (09:58)
[2019-03-04] MEDS: FOLIC ACID 1 MG TABLET NG SCH (09:59)
[2019-03-04] MEDS: QUETIAPINE FUMARATE 25 MG TABLET NG SCH ×2 (09:59→21:51)
[2019-03-04] MEDS: NYSTATIN TOPICAL POWDER 15 GM TP SCH (10:00)
[2019-03-04] MEDS: CYANOCOBALAMIN (VITAMIN B-12) 1,000 MCG TABLET NG SCH (10:28)
[2019-03-04] MEDS: SENNOSIDES/DOCUSATE 8.6-50 MG 1 EACH TABLET NG SCH (10:37)
--- NOTE | 2019-03-04 13:19 | PDOC PROGRESS REPORT ---
Subjective Progress Note for:: 03/04/19 Subjective:: Patient seen by the bedside presently on tube feed prognosis remains precarious Reason For Visit: SEPSIS,UTI,ENCEPHALOPATHY,KORI,HYPOTENSION Physical Exam Vital Signs: Temp Pulse Resp BP Pulse Ox 99.3 F 103 H 22 H 139/74 H 98 03/04/19 11:52 03/04/19 11:52 03/04/19 11:52 03/04/19 11:52 03/04/19 11:52 Intake & Output 03/03/19 03/04/19 03/05/19 06:59 06:59 06:59 Intake Total 400 581 0 Output Total 3025 4285 400 Balance -7807 -3376 -400 Weight 90.2 kg 93.4 kg General appearance: PRESENT: no acute distress Eye exam: PRESENT: PERRLA Respiratory exam: PRESENT: rhonchi Cardiovascular exam: PRESENT: +S1, +S2 GI/Abdominal exam: PRESENT: soft Neurological exam: PRESENT: alert Results Laboratory Results: 03/03/19 05:40 03/04/19 05:05 03/03/19 03/04/19 14:10 05:05 Sodium 141.3 Potassium 3.7 3.5 L Chloride 107 Carbon Dioxide 25 Anion Gap 9 BUN 7 Creatinine 0.75 Est GFR ( Amer) > 60 Est GFR (Non-Af Amer) > 60 Glucose 108 Calcium 9.1 Magnesium 1.9 02/16/19 02/16/19 02/16/19 20:48 20:48 20:48 Creatine Kinase 32 CK-MB (CK-2) 0.87 Troponin I < 0.012 NT-Pro-B Natriuret Pep 837 H Impressions: Head CT 02/16/19 20:17 IMPRESSION: No acute intracranial hemorrhage. KUB X-Ray 03/02/19 00:00 IMPRESSION: NG tube placement as described. The NG tube is just inside the stomach. Modified Barium Swallow 03/03/19 00:00 IMPRESSION: ASPIRATION WITH THIN BARIUM. LARYNGEAL PENETRATION WITH NECTAR THICK AND HONEY THICK CONSISTENCIES. PLEASE SEE SPEECH PATHOLOGIST REPORT FOR OTHER FINDINGS AND RECOMMENDATIONS. DUE TO FINDINGS OF ASPIRATION ON MODIFIED SWALLOW, BARIUM SWALLOW STUDY WAS DEFERRED. Assessment & Plan - Diagnosis (1) Septic shock Is this a current diagnosis for this admission?: Yes (2) Respiratory failure Qualifiers: Chronicity: acute Respiratory failure complication: hypercapnia Qualified Code(s): J96.02 - Acute respiratory failure with hypercapnia Is this a current diagnosis for this admission?: Yes Plan: Continue oxygen therapy (3) Metabolic encephalopathy Is this a current diagnosis for this admission?: Yes (4) Pneumonia Qualifiers: Pneumonia type: due to unspecified organism Laterality: right Lung location: lower lobe of lung Qualified Code(s): J18.1 - Lobar pneumonia, unspecified organism Is this a current diagnosis for this admission?: Yes (5) Urinary tract infection Qualifiers: Urinary tract infection type: site unspecified Hematuria presence: without hematuria Qualified Code(s): N39.0 - Urinary tract infection, site not specified Is this a current diagnosis for this admission?: Yes (6) History of recurrent UTIs Is this a current diagnosis for this admission?: Yes (7) Dysphagia Qualifiers: Dysphagia type: unspecified Qualified Code(s): R13.10 - Dysphagia, unspecified Is this a current diagnosis for this admission?: Yes
--- NOTE | 2019-03-04 14:34 | RADIOLOGY REPORT (SQ) ---
EXAM DESCRIPTION: CHEST SINGLE VIEW COMPLETED DATE/TIME: 03/04/2019 7:25 am REASON FOR STUDY: pneumonia COMPARISON: 03/03/2019 TECHNIQUE: Single frontal radiographic view of the chest acquired. NUMBER OF VIEWS: One view. LIMITATIONS: None. FINDINGS: LUNGS AND PLEURA: No pneumothorax. Similar right basilar consolidation - pleural effusion . Similar interstitial thickening bilaterally. MEDIASTINUM AND HILAR STRUCTURES: Stable. HEART AND VASCULAR STRUCTURES: Stable. BONES: No acute findings. HARDWARE: Right IJ central venous catheter and NG tube in stable position. OTHER: No other significant finding. IMPRESSION: Similar right basilar consolidation - pleural effusion. Similar interstitial thickenin g bilaterally. TECHNICAL DOCUMENTATION: JOB ID: [id number] 2010 [employer]- All Rights Reserved Reading location - IP/workstation name: [email or web address]
[2019-03-04] MEDS: OLANZAPINE 5 MG TABLET NG SCH (21:51)
[2019-03-05] MEDS: ACETAMINOPHEN SOLN 325 MG/10.15 ML UDCUP NG PRN ×3 (00:02→15:34)
[2019-03-05] MEDS: INSULIN LISPRO 100 UNIT/ML 3 ML VIAL SUBCUT SCH ×4 (00:03→18:46)
[2019-03-05] MEDS: VALPROATE SODIUM SYRUP 250 MG/5 ML UDCUP NG SCH ×4 (00:03→17:49)
[2019-03-05] MEDS: OXCARBAZEPINE 150 MG TABLET NG SCH ×3 (05:35→22:23)
[2019-03-05] MEDS: PANTOPRAZOLE SODIUM 40 MG PACKET.DR NG SCH (05:35)
[2019-03-05] MEDS: LEVOTHYROXINE SODIUM 0.088 MG TABLET NG SCH (05:35)
[2019-03-05 07:10] LABS: ANION GAP 6 (5-19); BLOOD UREA NITROGEN 6 mg/dL (7-20); CALCIUM 9.1 mg/dL (8.4-10.2); CARBON DIOXIDE 30 mmol/L (22-30); CHLORIDE 104 mmol/L (98-107); GLUCOSE 153 mg/dL (75-110); POTASSIUM 3.6 mmol/L (3.6-5.0)
[2019-03-05] MEDS ORDERED: IPRATROPIUM/ALBUTEROL 0.5-2.5 MG/3 ML AMPUL NEB ONE (07:56)
[2019-03-05] MEDS ORDERED: IPRATROPIUM/ALBUTEROL 0.5-2.5 MG/3 ML AMPUL NEB PRN (08:08)
[2019-03-05] MEDS: SITAGLIPTIN PHOSPHATE 50 MG TABLET NG SCH (08:16)
[2019-03-05] MEDS ORDERED: ACETYLCYSTEINE 20% SOLN 800 MG/4 ML VIAL.NEB NEB PRN (08:17)
--- NOTE | 2019-03-05 08:41 | RADIOLOGY REPORT (SQ) ---
EXAM DESCRIPTION: CHEST SINGLE VIEW COMPLETED DATE/TIME: 03/05/2019 7:53 am REASON FOR STUDY: pneumonia COMPARISON: 03/04/2019 EXAM PARAMETERS: NUMBER OF VIEWS: One view. TECHNIQUE: Single frontal radiographic view of the chest acquired. RADIATION DOSE: NA LIMITATIONS: None. FINDINGS: LUNGS AND PLEURA: Basilar parenchymal opacities. Right effusion. No improvement. MEDIASTINUM AND HILAR STRUCTURES: No masses. Contour normal. HEART AND VASCULAR STRUCTURES: Heart normal in size. Normal vasculature. BONES: No acute findings. HARDWARE: Nasogastric tube and venous access catheter unchanged. OTHER: No other significant finding. IMPRESSION: No improvement in the appearance of the chest with basilar opacities in right effusion. TECHNICAL DOCUMENTATION: JOB ID: [id number] [employer]- All Rights Reserved Reading location - IP/workstation name: [email or web address]
[2019-03-05] MEDS: CALCIUM CARBONATE 500 MG TABLET NG SCH (10:11)
[2019-03-05] MEDS: FOLIC ACID 1 MG TABLET NG SCH (10:11)
[2019-03-05] MEDS: SENNOSIDES/DOCUSATE 8.6-50 MG 1 EACH TABLET NG SCH (10:11)
[2019-03-05] MEDS: THIAMINE HCL 100 MG TABLET NG SCH (10:11)
[2019-03-05] MEDS: CYANOCOBALAMIN (VITAMIN B-12) 1,000 MCG TABLET NG SCH (10:11)
[2019-03-05] MEDS: QUETIAPINE FUMARATE 25 MG TABLET NG SCH ×3 (10:12→22:23)
[2019-03-05 10:55] LABS: INTERNATIONAL RATION (INR) 1.45; PROTHROMBIN TIME 17.8 SEC (11.4-15.4)
[2019-03-05 10:56] LABS: PARTIAL THROMBOPLASTIN TIME 34.8 SEC (23.5-35.8)
[2019-03-05] MEDS ORDERED: FUROSEMIDE INJ/PF 40 MG/4 ML SDV IV ONE (11:15)
--- NOTE | 2019-03-05 12:42 | RADIOLOGY REPORT (SQ) ---
EXAM DESCRIPTION: U/S CHEST COMPLETED DATE/TIME: 03/05/2019 12:25 pm REASON FOR STUDY: right pleural effusion COMPARISON: None. TECHNIQUE: Ultrasound right lateral chest LIMITATIONS: None. FINDINGS: Trace right pleural effusion. IMPRESSION: Trace right pleural effusion. TECHNICAL DOCUMENTATION: JOB ID: [id number] 2010 [employer]- All Rights Reserved Reading location - IP/workstation name: [email or web address]
--- NOTE | 2019-03-05 12:57 | PDOC PROGRESS REPORT ---
Subjective Progress Note for:: 03/05/19 Subjective:: Patient is doing poorly today, she has tachycardia, tachypnea, a stat chest x- ray was done, it demonstrated basilar parenchymal opacities with right effusion, ultrasound guided thoracentesis was ordered but the ultrasound demonstrated small effusion not big enough for thoracentesis. Presently on tube feeding she has residual on the tube feed, she is probably aspirating. Patient's overall condition remains precarious. She is a DNR status, she had prolonged tracheal intubation on mechanical ventilation in the unit she was just downgraded to stepdown unit IMCU, overall prognosis is poor Reason For Visit: SEPSIS,UTI,ENCEPHALOPATHY,KORI,HYPOTENSION Physical Exam Vital Signs: Temp Pulse Resp BP Pulse Ox 100.7 F H 117 H 28 H 137/62 H 97 03/05/19 11:31 03/05/19 11:31 03/05/19 11:31 03/05/19 11:31 03/05/19 11:31 Intake & Output 03/04/19 03/05/19 03/06/19 06:59 06:59 06:59 Intake Total 581 60 25 Output Total 4285 1675 Balance -3704 -1615 25 Weight 93.4 kg 96.5 kg General appearance: PRESENT: severe distress Respiratory exam: PRESENT: rales Cardiovascular exam: PRESENT: +S1, +S2 GI/Abdominal exam: PRESENT: soft Neurological exam: PRESENT: alert Results Laboratory Results: 03/03/19 05:40 03/05/19 06:45 03/05/19 03/05/19 06:45 10:28 Sodium 140.2 Potassium 3.6 Chloride 104 Carbon Dioxide 30 Anion Gap 6 BUN 6 L Creatinine 0.76 Est GFR ( Amer) > 60 Est GFR (Non-Af Amer) > 60 Glucose 153 H Calcium 9.1 Total Protein 5.4 L 02/16/19 02/16/19 02/16/19 20:48 20:48 20:48 Creatine Kinase 32 CK-MB (CK-2) 0.87 Troponin I < 0.012 NT-Pro-B Natriuret Pep 837 H Impressions: Head CT 02/16/19 20:17 IMPRESSION: No acute intracranial hemorrhage. KUB X-Ray 03/02/19 00:00 IMPRESSION: NG tube placement as described. The NG tube is just inside the stomach. Modified Barium Swallow 03/03/19 00:00 IMPRESSION: ASPIRATION WITH THIN BARIUM. LARYNGEAL PENETRATION WITH NECTAR THICK AND HONEY THICK CONSISTENCIES. PLEASE SEE SPEECH PATHOLOGIST REPORT FOR OTHER FINDINGS AND RECOMMENDATIONS. DUE TO FINDINGS OF ASPIRATION ON MODIFIED SWALLOW, BARIUM SWALLOW STUDY WAS DEFERRED. Chest X-Ray 03/05/19 06:00 IMPRESSION: No improvement in the appearance of the chest with basilar opacities in right effusion. Chest Ultrasound 03/05/19 10:12 IMPRESSION: Trace right pleural effusion. Assessment & Plan - Diagnosis (1) Septic shock Is this a current diagnosis for this admission?: Yes (2) Respiratory failure Qualifiers: Chronicity: acute Respiratory failure complication: hypercapnia Qualified Code(s): J96.02 - Acute respiratory failure with hypercapnia Is this a current diagnosis for this admission?: Yes Plan: Continue noninvasive positive pressure ventilation (3) Metabolic encephalopathy Is this a current diagnosis for this admission?: Yes (4) Pneumonia Qualifiers: Pneumonia type: due to unspecified organism Laterality: right Lung lo cation: lower lobe of lung Qualified Code(s): J18.1 - Lobar pneumonia, unspecified organism Is this a current diagnosis for this admission?: Yes Plan: Continue IV antibiotic (5) Urinary tract infection Qualifiers: Urinary tract infection type: site unspecified Hematuria presence: without hematuria Qualified Code(s): N39.0 - Urinary tract infection, site not specified Is this a current diagnosis for this admission?: Yes (6) History of recurrent UTIs Is this a current diagnosis for this admission?: Yes (7) Dysphagia Qualifiers: Dysphagia type: unspecified Qualified Code(s): R13.10 - Dysphagia, unspecified Is this a current diagnosis for this admission?: Yes (8) Parapneumonic effusion Is this a current diagnosis for this admission?: Yes (9) Aspiration pneumonia Qualifiers: Aspiration pneumonia type: unspecified Laterality: right Lung location: lower lobe of lung Qualified Code(s): J69.0 - Pneumonitis due to inhalation of food and vomit Is this a current diagnosis for this admission?: Yes Plan: Discontinue tube feed, she is probably aspirating
--- NOTE | 2019-03-05 13:56 | XCELERA REPORT ---
[address] [address] Upper Extremity Venous Evaluation Name: DRE HOPKINS Age: 74 yrs Gender: Female : 1945 Patient Status: Inpatient Patient Location: [address] [place], [place] [address] Study Date: 03/04/2019 02:14 PM Procedure: Unilateral duplex scan of the left upper extremity veins was performed, including responses to compression and other maneuvers. Reason For Study: swelling of the left arm, STAT per Dr. Kay Ordering Physician: ISRA KAY Performed By: Chanel Diaz Left Sided Venous Evaluation Normal vessel filling wall to wall, compression and augmentation as well as Colour flow down to the forearm veins. Interpretation Summary Normal compression, patency, spontaneous and phasic flow of the left upper extremity veins. : ISRA KAY > Urbano Franks
[2019-03-05 16:47] LABS: ARTERIAL BLOOD H2CO3 1.15 mmol/L (1.05-1.35); ARTERIAL BLOOD HCO3 27.6 mmol/L (20-24); ARTERIAL BLOOD O2 SATURATION 94.7 % (94-98); ARTERIAL BLOOD PCO2 38.1 mmHg (35-45); ARTERIAL BLOOD PH 7.48 (7.35-7.45); ARTERIAL BLOOD PO2 67.7 mmHg (80-100); ARTERIAL BLOOD TOTAL CO2 28.8 mmol/L (21-25)
[2019-03-05 16:48] LABS: ARTERIAL BLOOD FIO2 35%
[2019-03-05] MEDS: PIPERACILLIN SODIUM/TAZOBACTAM 3.375 GM in NORMAL SALINE 100 ML IV SCH (17:02)
[2019-03-05] MEDS: OLANZAPINE 5 MG TABLET NG SCH (22:23)
[2019-03-05 22:37] LABS: ABSOLUTE BASOPHILS # (AUTO) 0.1 10^3/uL (0.0-0.2); ABSOLUTE LYMPHOCYTES (AUTO) 1.2 10^3/uL (0.5-4.7); ABSOLUTE MONOCYTES (AUTO) 1.2 10^3/uL (0.1-1.4); ABSOLUTE NEUT (AUTO) 7.8 10^3/uL (1.7-8.2); BASOPHILS % (AUTO) 0.8 % (0-2); EOSINOPHILS % (AUTO) 0.1 % (0-6); HEMATOCRIT 26.3 % (36.0-47.0); HEMOGLOBIN 8.5 g/dL (12.0-15.5); LYMPHOCYTES % (AUTO) 11.5 % (13-45); MEAN CORPUSCULAR HEMOGLOBIN 31.2 pg (27.0-33.4); MEAN CORPUSCULAR HGB CONC 32.5 g/dL (32.0-36.0); MEAN CORPUSCULAR VOLUME 96 fl (80-97); MONOCYTES % (AUTO) 11.8 % (3-13); PLATELET COUNT 224 10^3/uL (150-450); RED BLOOD COUNT 2.73 10^6/uL (3.72-5.28); RED CELL DISTRIBUTION WIDTH 17.5 % (11.5-14.0); SEGMENTED NEUTROPHILS % (AUTO) 75.8 % (42-78); TOTAL CELLS COUNTED % (AUTO) 100 %; WHITE BLOOD COUNT 10.2 10^3/uL (4.0-10.5)
[2019-03-06] MEDS: INSULIN LISPRO 100 UNIT/ML 3 ML VIAL SUBCUT SCH ×3 (00:14→12:43)
[2019-03-06] MEDS: VALPROATE SODIUM SYRUP 250 MG/5 ML UDCUP NG SCH ×3 (00:14→12:43)
[2019-03-06] MEDS: PIPERACILLIN SODIUM/TAZOBACTAM 3.375 GM in NORMAL SALINE 100 ML IV SCH ×3 (00:14→12:43)
[2019-03-06] MEDS: ACETAMINOPHEN SOLN 325 MG/10.15 ML UDCUP NG PRN (04:49)
[2019-03-06] MEDS: OXCARBAZEPINE 150 MG TABLET NG SCH (05:39)
[2019-03-06] MEDS: PANTOPRAZOLE SODIUM 40 MG PACKET.DR NG SCH (05:39)
[2019-03-06] MEDS: LEVOTHYROXINE SODIUM 0.088 MG TABLET NG SCH (05:39)
[2019-03-06 09:09] LABS: ANION GAP 6 (5-19); BLOOD UREA NITROGEN 12 mg/dL (7-20); CALCIUM 8.8 mg/dL (8.4-10.2); CARBON DIOXIDE 32 mmol/L (22-30); CHLORIDE 104 mmol/L (98-107); GLUCOSE 162 mg/dL (75-110); POTASSIUM 3.3 mmol/L (3.6-5.0)
[2019-03-06] MEDS: SITAGLIPTIN PHOSPHATE 50 MG TABLET NG SCH (10:21)
[2019-03-06] MEDS: CALCIUM CARBONATE 500 MG TABLET NG SCH (10:21)
[2019-03-06] MEDS: FOLIC ACID 1 MG TABLET NG SCH (10:21)
[2019-03-06] MEDS: CYANOCOBALAMIN (VITAMIN B-12) 1,000 MCG TABLET NG SCH (10:21)
[2019-03-06] MEDS: THIAMINE HCL 100 MG TABLET NG SCH (10:22)
[2019-03-06] MEDS: QUETIAPINE FUMARATE 25 MG TABLET NG SCH (10:22)
[2019-03-06] MEDS: SENNOSIDES/DOCUSATE 8.6-50 MG 1 EACH TABLET NG SCH (10:22)
--- NOTE | 2019-03-06 10:22 | RADIOLOGY REPORT (SQ) ---
EXAM DESCRIPTION: CHEST SINGLE VIEW COMPLETED DATE/TIME: 03/06/2019 9:26 am REASON FOR STUDY: pneumonia COMPARISON: None. EXAM PARAMETERS: NUMBER OF VIEWS: One view. TECHNIQUE: Single frontal radiographic view of the chest acquired. RADIATION DOSE: NA LIMITATIONS: None. FINDINGS: LUNGS AND PLEURA: Patchy bilateral basilar predominant interstitial alveolar opacities, ri ght greater than left and not significantly changed from prior. Small bilateral pleural effusions. No appreciable pneumothorax. MEDIASTINUM AND HILAR STRUCTURES: No masses. Contour normal. HEART AND VASCULAR STRUCTURES: Normal heart size. Aortic atherosclerosis. BONES: No acute findings. HARDWARE: Right internal jugular central venous catheter tip overlies right atrium. Enteric tube tip overlies gastric body. OTHER: No other significant finding. IMPRESSION: Stable bibasilar opacities compatible with pneumonia, right greater than left. Small bi lateral pleural effusions, stable. TECHNICAL DOCUMENTATION: JOB ID: [id number] [employer]- All Rights Reserved Reading location - IP/workstation name: [email or web address]
[2019-03-06] MEDS: LORAZEPAM INJ 2 MG/1 ML VIAL IV PRN ×4 (14:05→23:34)
[2019-03-06] MEDS: HYDROMORPHONE HCL INJ/PF 2 MG/ML AMPULE IV PRN ×3 (14:05→20:08)
[2019-03-06] MEDS ORDERED: FUROSEMIDE INJ/PF 20 MG/2 ML SDV IV SCH (18:00)
--- NOTE | 2019-03-06 19:01 | PDOC PROGRESS REPORT ---
Subjective Progress Note for:: 03/06/19 Subjective:: Patient was seen by the bedside her condition continues to deteriorate she is not responsive to verbal or noxious stimulus, there was no response to sternal rub. She had episode of low blood pressure, 60 systolic. I had a conversation with the guardianship of this patient she is a payne of the [facility], she was admitted initially on February 17, 2019, she was in ICU intubated on mechanical ventilation for almost 2 weeks at the time she had profound hypotension requir ing 4 different vasopressors, she ultimately was made DNR status, patient is not appropriate for another intubation in intensive care unit, after discussion with the guardianship they were agreeable to comfort care at this point of her care. Patient's care will be transitioned to comfort, she is not expected to do well Reason For Visit: SEPSIS,UTI,ENCEPHALOPATHY,KORI,HYPOTENSION Physical Exam Vital Signs: Temp Pulse Resp BP Pulse Ox 100.2 F 113 H 27 H 120/51 L 89 L 03/06/19 11:41 03/06/19 14:00 03/06/19 12:13 03/06/19 11:41 03/06/19 12:13 Intake & Output 03/05/19 03/06/19 03/07/19 06:59 06:59 06:59 Intake Total 60 325 0 Output Total 1675 2130 270 Balance -1615 -1805 -270 Weight 96.5 kg 94.2 kg Results Laboratory Results: 03/05/19 22:15 03/06/19 08:28 03/05/19 03/06/19 22:15 08:28 WBC 10.2 RBC 2.73 L Hgb 8.5 L Hct 26.3 L MCV 96 MCH 31.2 MCHC 32.5 RDW 17.5 H Plt Count 224 Seg Neutrophils % 75.8 Lymphocytes % 11.5 L Monocytes % 11.8 Eosinophils % 0.1 Basophils % 0.8 Absolute Neutrophils 7.8 Absolute Lymphocytes 1.2 Absolute Monocytes 1.2 Absolute Eosinophils 0.0 Absolute Basophils 0.1 Sodium 142.4 Potassium 3.3 L Chloride 104 Carbon Dioxide 32 H Anion Gap 6 BUN 12 Creatinine 1.03 Est GFR ( Amer) > 60 Est GFR (Non-Af Amer) 52 L Glucose 162 H Calcium 8.8 02/16/19 02/16/19 02/16/19 20:48 20:48 20:48 Creatine Kinase 32 CK-MB (CK-2) 0.87 Troponin I < 0.012 NT-Pro-B Natriuret Pep 837 H Impressions: Head CT 02/16/19 20:17 IMPRESSION: No acute intracranial hemorrhage. KUB X-Ray 03/02/19 00:00 IMPRESSION: NG tube placement as described. The NG tube is just inside the stomach. Modified Barium Swallow 03/03/19 00:00 IMPRESSION: ASPIRATION WITH THIN BARIUM. LARYNGEAL PENETRATION WITH NECTAR THICK AND HONEY THICK CONSISTENCIES. PLEASE SEE SPEECH PATHOLOGIST REPORT FOR OTHER FINDINGS AND RECOMMENDATIONS. DUE TO FINDINGS OF ASPIRATION ON MODIFIED SWALLOW, BARIUM SWALLOW STUDY WAS DEFERRED. Chest Ultrasound 03/05/19 10:12 IMPRESSION: Trace right pleural effusion. Chest X-Ray 03/06/19 06:00 IMPRESSION: Stable bibasilar opacities compatible with pneumonia, right greater than left. Small bilateral pleural effusions, stable. Assessment & Plan - Diagnosis (1) Septic shock Is this a current diagnosis for this admission?: Yes (2) Respiratory failure Qualifiers: Chronicity: acute Respiratory failure complication: hypercapnia Qualified Code(s): J96.02 - Acute respiratory failure with hypercapnia Is this a current diagnosis for this admission?: Yes (3) Metabolic encephalopathy Is this a current diagnosis for this admission?: Yes (4) Pneumonia Qualifiers: Pneumonia type: due to unspecified organism Laterality: right Lung location: lower lobe of lung Qualified Code(s): J18.1 - Lobar pneumonia, unspecified organism Is this a current diagnosis for this admission?: Yes (5) Urinary tract infection Qualifiers: Urinary tract infection type: site unspecified Hematuria presence: without hematuria Qualified Code(s): N39.0 - Urinary tract infection, site not specified Is this a current diagnosis for this admission?: Yes (6) History of recurrent UTIs Is this a current diagnosis for this admission?: Yes (7) Dysphagia Qualifiers: Dysphagia type: unspecified Qualified Code(s): R13.10 - Dysphagia, unspecified Is this a current diagnosis for this admission?: Yes - Plan Summary Plan Summary: Patient's care transition to comfort
[2019-03-07] MEDS: HYDROMORPHONE HCL INJ/PF 2 MG/ML AMPULE IV PRN ×2 (01:42→04:06)
[2019-03-07] MEDS: LORAZEPAM INJ 2 MG/1 ML VIAL IV PRN ×2 (01:43→04:07)
[2019-03-07 02:34] VITALS: BP 88/39
--- NOTE | 2019-03-07 21:45 | Death Summary ---
Summary Date : 03/07/19 Time of :: 04:45 Autopsy: No Resuscitation Status: Comfort Measures Only - Final Diagnosis (1) Septic shock Is this a current diagnosis for this admission?: Yes (2) Respiratory failure Is this a current diagnosis for this admission?: Yes (3) Metabolic encephalopathy Is this a current diagnosis for this admission?: Yes (4) Pneumonia Is this a current diagnosis for this admission?: Yes (5) Urinary tract infection Is this a current diagnosis for this admission?: Yes (6) History of recurrent UTIs Is this a current diagnosis for this admission?: Yes (7) Dysphagia Is this a current diagnosis for this admission?: Yes (8) Dementia Is this a current diagnosis for this admission?: Yes (9) Upper GI bleed Is this a current diagnosis for this admission?: Yes (10) Parapneumonic effusion Is this a current diagnosis for this admission?: Yes (11) Aspiration pneumonia Is this a current diagnosis for this admission?: Yes Hospital Course:: Patient was admitted on 02/17/2019 when she was transferred to the emergency room from the retirement after being found choking on popcorn and in her vomit, when she arrived in the emergency room she was hypotensive, she was also found to be hypoxemic. She was resuscitated in the emergency room with IV fluid and also started on noninvasive positive pressure ventilation BiPAP, the initial intent was to admit to [facility] she also has grossly abnormal urinalysis. In the emergency room she became agitated, the blood pressure remained persistently low she was initially treated with intravenous dopamine, she was having difficulty maintaining adequate oxygen saturation she also vomited on the noninvasive positive pressure ventilation she was ultimately intubated on mechanical , she was started on John-Synephrine and transferred to intensive care unit she remained hypotensive she required 4 vasopressors including dopamine, John- Synephrine, vasopressin, norepinephrine. She was also treated with IV antibiotic.She was in the intensive care unit continuously for 2 weeks on mechanical ventilation. She was seen by pulmonary Dr. Rajan she underwent bronchoscopy with BAL. Patient was a payne of the state could not get the state to make a DNR, initially the plan was to make a DNR and possibly ultimately transition her care to comfort but this states he refused to give the authorization so she remain a full code in the intensive care unit for very prolonged period of time,She ultimately was extubated and downgraded to IMCU. She failed swallow study she was seen by speech NPO was recommended, NG tube was inserted for nutrition for which she was on tube feed, on Wednesday her condition decline again she became tachypneic with a low oxygen saturation chest x-ray was done that show right pleural effusion but not large enough for thoracentesis.I again spoke to the guardianship that I do not think it would be appropriate to intubate again on transfer back to ICU, the state was agreeable to comfort, she was transitioned to comfort yesterday, she this morning as expected
== END 2019-03-07 07:25 | DRG 870 ==
LOC: ER 19:51 → EH 02-17 00:11 → ICU 02-17 03:49 → 3N 03-03 15:20
PROVIDERS: ADMIT Internal Medicine; ATTEND Internal Medicine
PROC: 5A1955Z Respiratory Ventilation, Greater than 96 Consecutive Hours (ICD-10-PCS; principal; 2019-02-17)
PROC: 0BH17EZ Insertion of Endotracheal Airway into Trachea, Via Natural or Artificial Opening (ICD-10-PCS; 2019-02-17)
PROC: 02HV33Z Insertion of Infusion Device into Superior Vena Cava, Percutaneous Approach (ICD-10-PCS; 2019-02-17)
PROC: 04HK33Z Insertion of Infusion Device into Right Femoral Artery, Percutaneous Approach (ICD-10-PCS; 2019-02-17)
PROC: 0B9J8ZX Drainage of Left Lower Lung Lobe, Via Natural or Artificial Opening Endoscopic, Diagnostic (ICD-10-PCS; 2019-02-17)
PROC: 0B9C8ZX Drainage of Right Upper Lung Lobe, Via Natural or Artificial Opening Endoscopic, Diagnostic (ICD-10-PCS; 2019-02-17)
PROC: 0B9F8ZX Drainage of Right Lower Lung Lobe, Via Natural or Artificial Opening Endoscopic, Diagnostic (ICD-10-PCS; 2019-02-17)
PROC: 0B928ZX Drainage of Carina, Via Natural or Artificial Opening Endoscopic, Diagnostic (ICD-10-PCS; 2019-02-17)
PROC: 0B938ZX Drainage of Right Main Bronchus, Via Natural or Artificial Opening Endoscopic, Diagnostic (ICD-10-PCS; 2019-02-17)
PROC: 0B978ZX Drainage of Left Main Bronchus, Via Natural or Artificial Opening Endoscopic, Diagnostic (ICD-10-PCS; 2019-02-17)
PROC: 30233N1 Transfusion of Nonautologous Red Blood Cells into Peripheral Vein, Percutaneous Approach (ICD-10-PCS; 2019-02-24)
DX: A41.9 Sepsis, unspecified organism (principal); J96.02 Acute respiratory failure with hypercapnia; G93.41 Metabolic encephalopathy; J69.0 Pneumonitis due to inhalation of food and vomit; R65.21 Severe sepsis with septic shock; J96.01 Acute respiratory failure with hypoxia; N17.9 Acute kidney failure, unspecified; N39.0 Urinary tract infection, site not specified; J44.0 Chronic obstructive pulmonary disease with (acute) lower respiratory infection; J90 Pleural effusion, not elsewhere classified; Z51.5 Encounter for palliative care; J44.9 Chronic obstructive pulmonary disease, unspecified; F03.90 Unspecified dementia, unspecified severity, without behavioral disturbance, psychotic disturbance, mood disturbance, and anxiety; F20.9 Schizophrenia, unspecified; E78.5 Hyperlipidemia, unspecified; I10 Essential (primary) hypertension; K21.9 Gastro-esophageal reflux disease without esophagitis; E03.9 Hypothyroidism, unspecified; E11.9 Type 2 diabetes mellitus without complications; M19.90 Unspecified osteoarthritis, unspecified site; B96.1 Klebsiella pneumoniae [K. pneumoniae] as the cause of diseases classified elsewhere; F31.9 Bipolar disorder, unspecified; D64.9 Anemia, unspecified; Z16.12 Extended spectrum beta lactamase (ESBL) resistance; K64.9 Unspecified hemorrhoids; R13.10 Dysphagia, unspecified; Z66 Do not resuscitate; Z90.710 Acquired absence of both cervix and uterus; Z79.4 Long term (current) use of insulin; Z87.440 Personal history of urinary (tract) infections; Z79.899 Other long term (current) drug therapy; Z88.8 Allergy status to other drugs, medicaments and biological substances
CPT/HCPCS: 36415; 36430; 36556; 36600; 36620; 70450; 71045; 74018; 74230; 76604; 76937; 80048; 80053; 80076; 80202; 81001; 82040; 82550; 82553; 82803; 82962; 83605; 83615; 83735; 83880; 84100; 84132; 84155; 84484; 85025; 85610; 85730; 86022; 86850; 86900; 86901; 86920; 87015; 87040; 87070; 87086; 87088; 87101; 87116; 87186; 87205; 87206; 87493; 88305; 93005; 93010; 93971; 94002; 94003; 94640; 94660; 94799; 96361; 96365; 99285; A4649; J0692; J1100; J1170; J1265; J1642; J1720; J1815; J1940; J2060; J2250; J2370; J2543; J3360; J3370; J3475; J3480; J3490; J7030; J7050; J7060; J7120; J7620; P9016; P9047